=== PATIENT | female | born 1940 | race Caucasian/White ===

== ENCOUNTER 2017-06-20 02:56 | Inpatient (IN) | payer OTHER ==
[~2017-06-20] VITALS: Ht 165.1 cm; Wt 90.7 kg
[2017-06-20] VITALS (8 sets, daily range): BP systolic 93–161; BP diastolic 38–70
--- NOTE | 2017-06-20 02:56 | NUR ---
76/F BIBA FROM [facility] EXTENDED CARE W/C/O ALOC X 41 MINUTES AGO. PT NONVERBAL BASELINE BUT PER EMS ABLE TO FOLLOW COMMANDS " SHE CAN BRING HER HAND UP FOR ACCUCHECK PER FACILITY". PERRL, PT WITH TRACH AND VENT DEPENDENT, SATS 98%, RHONCHI THOMAS THROUGHOUT, GREEN/YELLOW THICK SPUTUM NOTED. RT AT BEDSIDE. PER EMS TEMP 101.2 F, CURRENT TEMP 101.7 RECTALLY. BS 271 EN ROUTE. ABD SOFT AND DISTENDED, GTUBE NOTED, STOMA INTACT. Patient noted to have existing wounds upon arrival to ER. Photos taken of wound and placed in chart. Physician informed. PMH DM, HTN, DEMENTIA, CHRONIC RESP FAILURE, GTUBE, TRACH-VENT.
--- NOTE | 2017-06-20 02:56 | NUR ---
PT ROB ALS. TAKEN TO BED 10
[2017-06-20] MEDS ORDERED: NACL 0.9% 1,000 ML IV SCH (03:00)
--- NOTE | 2017-06-20 03:00 | NUR ---
Dr. Gordon evaluating patient.
--- NOTE | 2017-06-20 03:02 | NUR ---
RT AT BEDSIDE
[2017-06-20] MEDS ORDERED: ACETAMINOPHEN 650 MG SUPP RC ONE (03:10)
[2017-06-20] MEDS ORDERED: IBUPROFEN 600 MG TAB GT ONE (03:10)
--- NOTE | 2017-06-20 03:30 | NUR ---
# 16 FR Napier catheter with 10 ml utilizing sterile technique. Immediate return of 150 ml YELLOW urine noted. Bedside drainage bag placed below level of bladder. Urine sample collected and sent to lab. Pt tolerated procedure WELL.
--- NOTE | 2017-06-20 03:50 | NUR ---
X-Ray at bedside.
[2017-06-20 03:54] LABS: HEMATOCRIT 29.1 % (36-48); HEMOGLOBIN 9.7 g/dL (12.0-16.0); MEAN CORPUSCULAR HEMOGLOBIN 30 pg (27-31); MEAN CORPUSCULAR HGB CONC 33 g/dL (33-37); PLATELET COUNT (AUTO) 204 K/uL (140-450); RED CELL DISTRIBUTION WIDTH 14.7 % (11.6-13.7); WHITE BLOOD COUNT (AUTO) 8.5 K/uL (4.8-10.8)
[2017-06-20 04:03] LABS: EOSINOPHILS % (MANUAL) 2 % (0-4); LYMPHOCYTES % (MANUAL) 2 % (20-46); MONOCYTES % (MANUAL) 1 % (5-12)
[2017-06-20 04:04] LABS: ANION GAP 8.2 (8-16); CARBON DIOXIDE 39.3 mmol/L (21-32); CHLORIDE 96 mmol/L (98-107); CREATININE 0.7 mg/dL (0.6-1.3); GLUCOSE 233 mg/dL (74-106); POTASSIUM 4.5 mmol/L (3.5-5.1); SODIUM SERUM 139 mmol/L (136-145); UREA NITROGEN, BLOOD 20 mg/dL (7-18)
[2017-06-20 04:10] LABS: ALBUMIN 2.6 g/dL (3.4-5.0); ASPARTATE AMINOTRANSFERASE 48 U/L (15-37); TOTAL BILIRUBIN 0.2 mg/dL (0.0-1.0)
[2017-06-20] MEDS ORDERED: VANCOMYCIN 1,000 MG in DEXTROSE 5% 250 ML IV ONE (04:10)
[2017-06-20] MEDS ORDERED: PIPERACILLIN/TAZOBACTAM 3.375 GM in DEXTROSE 5% 50 ML IV ONE (04:10)
[2017-06-20 04:13] LABS: APPEARANCE,URINE CLEAR (CLEAR); BILIRUBIN,URINE NEGATIVE (NEGATIVE); BLOOD, URINE 1+ (NEGATIVE); COLOR,URINE YELLOW (YELLOW); LEUKOCYTE ESTERASE ,URINE TRACE (NEGATIVE); NITRITE, URINE NEGATIVE (NEGATIVE); PH,URINE 6.5 (5.0-9.0); UGLUCOSE NEGATIVE (NEGATIVE)
[2017-06-20 04:29] LABS: RBC,URINE 0-5 (RARE) /HPF (0-5)
[2017-06-20] MEDS ORDERED: VANCOMYCIN 1,000 MG VIAL ONE (04:30)
[2017-06-20] MEDS ORDERED: PIPERACILLIN/TAZOBACTAM 3.375 GM VIAL IV ONE (04:30)
[2017-06-20] MEDS ORDERED: ONDANSETRON 4 MG/2 ML VIAL IVP PRN (05:15)
[2017-06-20] MEDS ORDERED: HYDROcodone/APAP 7.5/325 MG 1 TAB PO PRN (05:15)
[2017-06-20] MEDS ORDERED: ACETAMINOPHEN 325 MG TAB PO PRN (05:15)
--- NOTE | 2017-06-20 05:23 | NUR ---
PT ON TELE HOLD UNTIL CHANGE OF SHIFT
--- NOTE | 2017-06-20 05:30 | NUR ---
Patient appears to be resting comfortably in bed. Vital Signs within normal limits. Respirations even and unlabored.
[2017-06-20] MEDS: NACL 0.9% 1,000 ML IV SCH ×3 (05:33→21:06)
--- NOTE | 2017-06-20 06:24 | NUR ---
Patient noted to have existing wounds upon arrival to ER. Photos taken of wound and placed in chart. Wound covered with dressing. Physician informed.
--- NOTE | 2017-06-20 06:55 | NUR ---
ASSISTED IN TRANSPORTING PATIENT FROM ER TO ROOM 122B. PATIENT BAGGED IN ROUTE AND SPO2 MAINTAINED ABOVE 97%. VENT IN ROOM AT BEDSIDE WITH SETTINGS OF AC 14, 500, +5, 35%. ESPOSITO SUCTION CONNECTED TO WALL SUCTION. BRAKES ARE ON ON VENT. AMBU BAG AT BEDSIDE. PATIENT APPEARS COMFORTABLE WITH NO RESPIRATORY DISTRESS.
--- NOTE | 2017-06-20 07:00 | NUR ---
Patient will be admitted to care of [facility]. Admited to TELE. Will go to room 122B Belongings list completed. BEDSIDE Report to JOSEFINA VYAS.
--- NOTE | 2017-06-20 07:49 | NUR ---
RECEIVED PT ON UNIT VIA GURNEY, PT IS RESTING IN BED, SEMI FOWLERS POSITION, PT IS AAOX1, PT IS ON TRACH TO VENT, VENT SETTINGS AC 14, TV 500, FIO2 50, PEEP 5, PT HAS IV ON HER LEFT AND RIGHT HAND, PATENT, INTACT, FLUSHING WELL, LEFT HAND IS SL, PT HAS A STAGE 1 PRESSURE ULCER ON HER COCCYX AREA, PT HAS G-TUBE IN PLACE, SHAH CATHETER IS IN PLACE, NO S/S OF RESPIRATORY DISTRESS OR DISCOMFORT NOTED AT THIS TIME, ORIENTED PT TO ROOM, DISCUSSED PLAN OF CARE WITH PT, PT IS UNABLE TO VERBALIZE UNDERSTANDING, CALL LIGHT WITHIN REACH, WILL CONTINUE TO MONITOR.
--- NOTE | 2017-06-20 08:30 | NUR ---
PATIENT HAS BEEN SCREENED AND CATEGORIZED HIGH NUTRITION RISK. PATIENT WILL BE SEEN WITHIN 1-2 DAYS OF ADMISSION. 06/20/17-06/21/[address]
[2017-06-20 08:53] LABS: PROTHROMBIN TIME 10.9 secs (10.8-13.4)
[2017-06-20] MEDS: DOCUSATE SODIUM 100 MG GELCAP PO SCH ×2 (09:00→21:10)
--- NOTE | 2017-06-20 09:05 | NUR ---
VENT CHECK. DAUGHTER AT BEDSIDE. SUCTIONED PATIENT 2 TIMES AND RECEIVED SCANT TO SMALL CREAMY YELLOW, THIN SECRETIONS. CHANGED TRACH GAUZE DRESSING THAT WAS SATURATED. B/S: COARSE BILATERALLY.
[2017-06-20 10:21] LABS: FREE T4 (FREE THYROXINE) 0.94 ng/dL (0.76-1.46); MAGNESIUM 2.1 mg/dL (1.8-2.4); PHOSPHORUS 2.5 mg/dL (2.5-4.9); THYROID STIMULATING HORMONE 1.11 uIU/mL (0.34-3.74)
--- NOTE | 2017-06-20 11:30 | NUR ---
PT IS SLEEPING ON THE BED. VITAL SIGNS TAKEN. NO SIGNS OF DISTRESS NOTED. WILL CONTINUE TO MONITOR.
[2017-06-20] MEDS ORDERED: VANCOMYCIN HCL 750 MG in DEXTROSE 5% 250 ML IV SCH (12:00)
[2017-06-20] MEDS ORDERED: ALBUTEROL SULFATE/IPRATROPIU 3 ML SOL IH PRN (12:00)
[2017-06-20] MEDS ORDERED: DEXTROSE 50% 50 ML SYR IVP PRN (12:00)
[2017-06-20] MEDS ORDERED: OSC500 PO (12:01)
[2017-06-20] MEDS ORDERED: [UNRECOGNIZED DRUG - CODE] PO (12:01)
[2017-06-20] MEDS ORDERED: CARB1TAB37 PO (12:01)
[2017-06-20] MEDS ORDERED: VANCOMYCIN PER PHARMACY MC PRN (13:20)
[2017-06-20] MEDS: PIPER/TAZO 2.25GM/D5W PREMIX 50 ML IV SCH ×2 (13:27→21:10)
--- NOTE | 2017-06-20 13:30 | NUR ---
VENT CHECK. CHANGED HME AND SUCTIONED PT 2 TIMES RECEIVED SMALL, BEAR, FROTHY SECRETIONS. SUCTIONED PATIENTS MOUTH.
--- NOTE | 2017-06-20 13:40 | NUR ---
PT IS ASLEEP LYING ON THE BED. NO SIGNS OF DISTRESS NOTED. TWO SIDE RAILS UP, WILL CONTINUE TO MONITOR.
[2017-06-20] MEDS: LEVOFLOXACIN 750 MG/D5W PREMIX 150 ML IV SCH (15:26)
--- NOTE | 2017-06-20 15:36 | NUR ---
PT IS BEING CLEANED AND REPOSITIONED TO HER RIGHT LATERAL SIDE BY THE CLIENT REPORTING ASSOCIATE AND RN, JOSEFINA, MADE COMFORTABLE. MEDICATION STARTED ON IV PIGGYBACK, LEVAQUIN AT 100ML/HR. PT TOLERATED IT. NO SIGNS OF DISTRESS NOTED AT THIS TIME. CALL LIGHT WITHIN REACH. WILL CONTINUE TO MONITOR.
[2017-06-20] MEDS: ALBUTEROL SULFATE/IPRATROPIU 3 ML SOL IH SCH ×2 (15:40→19:27)
--- NOTE | 2017-06-20 16:00 | NUR ---
VENT CHECK AND TRACH CARE AND INLINE NEBULIZER TREATMENT. GAVE NEBULIZED TX INLINE AND PT HAD NO ADVERSE REACTION OR RESPIRATORY DISTRESS FROM TX. SUCTIONED PATIENT 2 TIMES AND PT DOES NOT COUGH. FROM SUCTIONING RECEIVED SMALL, BEAR, THIN, FROTHY SECRETIONS. CLEANED TRACH AREA THAT WAS VERY SATURATED WITH SECRETIONS. CHANGED INNER CANNULA. PLACED NEW TRACH GAUZE. SKIN AROUND TRACH IS MOIST THERE IS NO REDNESS, SWELLING OR DRAINING. SKIN AREA AROUND TRACH APPEARS CLEAN, INTACT AND HEALTHY. HEAD OF BED AT 30 DEGREES. PATIENT APPEARS COMFORTABLE WITH NO RESPIRATORY DISTRESS.
--- NOTE | 2017-06-20 16:03 | NUR ---
PT WAS STARTED ON DIABETIC SOURCE FEEDING AT 65CC/HR. VIA G-TUBE, WITH 50CC OF WATER EVERY 4H. PT. TOLERATED IT AND NO SIGNS OF DISTRESS NOTED.CALL LIGHT WITHIN REACH. TWO SIDE RAILS UP. WILL CONTINUE TO MONITOR.
--- NOTE | 2017-06-20 16:09 | NUR ---
PT IS ASLEEP ON THE BED. VITAL SIGNS TAKEN. NO UNTOWARD SIGNS AND SYMPTOMS NOTED. WILL CONTINUE TO MONITOR.
[2017-06-20] MEDS: BLOOD GLUCOSE MONITORING 1 DEV DEV FS SCH ×2 (17:03→21:16)
[2017-06-20] MEDS: VANCOMYCIN 750 MG in NACL 0.9% 250 ML IV SCH (17:39)
--- NOTE | 2017-06-20 17:39 | NUR ---
PT IS AWAKE LYING ON THE BED WITH DAUGHTER ON THE BEDSIDE. PT WAS STARTED ON VANCOMYCIN 165ML/HR IV PIGGYBACK. NO SIGNS OF DISTRESS NOTED AT THIS TIME. WILL CONTINUE TO MONITOR.
--- NOTE | 2017-06-20 19:21 | NUR ---
ENDORSED PT TO LEARN TO SWIM INSTRUCTOR NURSEKENN FOR CONTINUITY OF CARE. PT IS STABLE AT THIS TIME. NO SIGNS OF DISTRESS NOTED.DAUGHTER IS ON THE BEDSIDE.
--- NOTE | 2017-06-20 19:30 | NUR ---
RECEIVED FROM AM RN IN BED . DAUGHTER AT BEDSIDE. PT. DX. CHANGE OF LOC AND ON TRACH TO VENT WITH 02 SAT OF 100% FI02 AT 30 % RATE AT 14. SHAH CATHETER IN PLACE DRAINING WELL WITH YELLOW URINE , GT FEEDING AT 65 ML / HOUR AND WITH NS AT 165 ML/H. IVF SITE INTACT AND WITH GOOD BLOOD RETURN. PT. TOTAL CARE. APHASIC. NEEDS WILL BE ANTICIPATED AND PT. WILL BE TURNED Q 2H RT WITH PRESSURE ULCER TO SACRAL AREA.
[2017-06-20] MEDS ORDERED: NUT TX GLUC INTOLER LAC FR SOY PO SCH (21:00)
[2017-06-20] MEDS: CARBIDOPA/LEVODOPA 25/100 MG 1 TAB PO SCH (21:11)
[2017-06-20] MEDS: INSULIN LISPRO SLIDING SCALE 100 UNITS/ML VIAL SUBQ PRN (21:16)
--- NOTE | 2017-06-20 22:05 | NUR ---
INFORMED RESIDENT MD ACEVEDO ABOUT GT LEAKING. WILL HOLD FEEDING FOR NOW TILL FURTHER ORDERS. MD ANDREW IN HERE TO SEE PT. NEEDS ANTICIPATED AND WILL BE MET.
[2017-06-21] VITALS (13 sets, daily range): BP systolic 0–145; BP diastolic 0–59
--- NOTE | 2017-06-21 00:40 | NUR ---
PT. TURNED Q 2H. SUCTIONED MOST OF TIMES RT DROOLING FROM MOUTH AND SOMETIMES NOSE. GT SUCTIONING PRN . 100 02 SAT AT 97-100%. TELEMETRY MONITORING.
--- NOTE | 2017-06-21 02:00 | NUR ---
PT. SUCTIONED. TURNED TO SIDES Q 2H. PILLOW SUPPORT TO PRESSURE AREAS. NEEDS WILL BE ANTICIPATED AND WILL BE MET.
[2017-06-21] MEDS: PIPER/TAZO 2.25GM/D5W PREMIX 50 ML IV SCH ×3 (05:00→20:52)
--- NOTE | 2017-06-21 05:00 | NUR ---
PT. SUCTIONED . RT IN HERE TO CHECK ON PT. NO RESTLESSNESS NOTED. MONITORED FREQUENTLY. AFEBRILE.
[2017-06-21] MEDS: VANCOMYCIN 750 MG in NACL 0.9% 250 ML IV SCH ×2 (05:54→16:48)
[2017-06-21] MEDS: BLOOD GLUCOSE MONITORING 1 DEV DEV FS SCH ×4 (06:17→21:43)
[2017-06-21 06:47] LABS: BASOPHILS # (AUTO) 0.1 K/uL (0.00-0.22); BASOPHILS % (AUTO) 0.7 % (0.0-2.0); EOSINOPHILS # (AUTO) 0.5 K/uL (0-0.4); HEMATOCRIT 26.7 % (36-48); HEMOGLOBIN 8.8 g/dL (12.0-16.0); LYMPHOCYTES # (AUTO) 1.5 K/uL (2.5-16.5); MEAN CORPUSCULAR HEMOGLOBIN 30 pg (27-31); MEAN CORPUSCULAR HGB CONC 33 g/dL (33-37); MEAN CORPUSCULAR VOLUME 91.4 fL (80-94); MONOCYTES # (AUTO) 0.5 K/uL (0.8-1.0); MONOCYTES % (AUTO) 5.6 % (1.7-9.3); NEUTROPHILS # (AUTO) 5.5 K/uL (1.8-7.7); NEUTROPHILS % (AUTO) 68.7 % (42.2-75.2); PLATELET COUNT (AUTO) 190 K/uL (140-450); RED BLOOD CELL COUNT(AUTO) 2.92 MIL/uL (4.20-5.40); RED CELL DISTRIBUTION WIDTH 14.6 % (11.6-13.7)
[2017-06-21 07:08] LABS: ANION GAP 10.6 (8-16); CHLORIDE 105 mmol/L (98-107); CREATININE 0.7 mg/dL (0.6-1.3); GLUCOSE 153 mg/dL (74-106); POTASSIUM 3.6 mmol/L (3.5-5.1); SODIUM SERUM 144 mmol/L (136-145); UREA NITROGEN, BLOOD 18 mg/dL (7-18)
[2017-06-21] MEDS: ALBUTEROL SULFATE/IPRATROPIU 3 ML SOL IH SCH ×3 (07:10→19:09)
--- NOTE | 2017-06-21 07:10 | NUR ---
RECEIVED ON A FoodEssentialsSCAPE R860 VENTILATOR PLUGGED INTO RED OUTLET TOLERATING WELL WITHOUT ADVERSE REACTIONS NOTED TO A PORTEX DCT #8 AIRWAY SECURED WIT A BHUPINDER TRACH TIE CUFF PRESSURE CHECKED NOTED AMBU BAG NOTED AT HOB LOC ASLEEP INTERMITTENTLY AWAKENS BREATH SOUNDS RHONCHI BILATERAL WITH GOOD CHEST RISE DEEP TRACHEAL SUCTION FOR LARGE THICK YELLOW SECRETIONS AIRWAY PATENT
--- NOTE | 2017-06-21 07:23 | NUR ---
ENDORSED TO THE NEXT RN FOR CONTINUITY OF CARE. PT. NEEDS ANTICIPATED AND MET. TELEMETRY MONITORING. TURNED Q 2H. PILLLOW SUPPORT TO PRESSURE AREAS.
--- NOTE | 2017-06-21 07:25 | NUR ---
RECEIVED REPORT FROM NIGHT RN AT PT BEDSIDE. PATIENT TRACH TO VENT. WITHDRAWS TO PAIN. CONTRACTED ALL EXTREMITIES. AWAKE, DOES NOT FOLLOW COMMANDS. G-TUBE SITE MODERATE DRAINAGE, PER RN MD CONSULTED AWAITING GI CONSULTATION. PATIENT HAS SHAH IN PLACE TO GRAVITY IN MODERATE AMOUNT. OFFLOADED PRESSURE AREAS. SKIN KEPT CLEAN AND DRY. BEDSIDE MONITOR ALARMS CHECKED.
[2017-06-21] MEDS: LACTOBACILLUS RHAMNOSUS GG 1 EACH CAP GT SCH (09:00)
[2017-06-21] MEDS: CARBIDOPA/LEVODOPA 25/100 MG 1 TAB PO SCH ×2 (09:00→20:53)
[2017-06-21] MEDS: CALCIUM CARBONATE 500 MG TAB PO SCH (09:00)
[2017-06-21] MEDS: CLINICAL MONITORING MC SCH (09:00)
[2017-06-21] MEDS: DOCUSATE SODIUM 100 MG GELCAP PO SCH ×2 (09:00→20:53)
--- NOTE | 2017-06-21 10:06 | NUR ---
RESTING WELL NO SOB NOTED GOOD CHEST RISE DEEP TRACHEAL SUCTION FOR MODERATE THICK YELLOW SECRETIONS AIRWAY PATENT MASIMO RADICAL-7 CONTINUOS PULSE OXIMETER AT BEDSIDE ON AND FUNCTIONING WELL LOW SATURATION ALARM SET AT 92%
--- NOTE | 2017-06-21 10:57 | NUR ---
WOUND EVALUATION NOTE: REASON FOR WOUND EVALUATION: SACRALCOCCYX ULCER COMPLETE SKIN ASSESSMENT DONE ON THIS 76 Y/O FEMALE PATIENT FROM [facility] TO [facility], WITH INITIAL DIAGNOSIS OFANS. PAST MEDICAL HISTORY INCLUDES, DYSPHAGIA WITH GT RESPIRATORY FAILURE WITH TRAVH, CVA, A FIB, TBI, DM, AND SEIZURE. ALL ABOVE INFORMATION WAS OBTAINED FROM THE ADMISSION H&P. LABS ARE WBC 8.0, H/H 8.8/26.7 GLUCOSE 153, ALBUMIN 2.5. PT SKIN WARM TO TOUCH, SEVERE CONTRACTURES TO BOTH UPPER AND LOWER EXTREMITIES. TOENAILS ARE SHORT AND CLEAN, NO EDEMA, BLE WITH NO HAIR GROWTH AND NORMAL PEDAL PULSES. G TUBE IN PLACE SEEPING OUT YELLOW COLOR FLUIDS. #16 FR F/C PATENT AND INTACT. PLAN OF CARE AND PRESSURE PREVENTIVE MEASURES DISCUSSED WITH PRIMARY RN CLARIFICATION: NO PRESSURE INJURY AT SACRAL COCCYX AREA AT THIS TIME. INTEGUMENTARY: -TRACHEOSTOMY STOMA SITE CLEAN AND DRY, DONATO-STOMA SKIN INTACT. -GT STOMA SITE STOMACH CONTENT YELLOWISH FLUIDS SEEPING OUT, DONATO-SKIN INTACT AT THIS TIME, ABDOMINAL BULGING -IAD TO PERIANAL -XEROSIS SKIN CONDITION TO BACK, R/L HIPS, R/L BUTTOCKS AND SACRALCOCCYX RECOMMENDATIONS: -PENDING GI CONSULT -KEEP GT SITE DRY AND CLEAN AT ALL TIMES, CHANGE SPLIT DRESSING PRN IF SOILING -APPLY HYDRAGUARD TO BACK, R/L HIPS, R/L BUTTOCKS AND SACRALCOCCYX XEROSIS BID WC -APPLY OPTIFORM DRESSING TO SACRALCOCCYX PREVENTIVE MEASUREMENT AT ALL TIME , CHANGE PRN IF SOILING -CLEANSE PERIANAL IAD WITH SOAP AND WATER, PAT DRY, APPLY Z-GUARD TO PERIANAL BID WC AND PRN IF SOILING -APPLY BODY LOTION TO BLE DRY SKIN -TURN AND REPOSITION PATIENT Q2H -ASSESS AND MONITOR SKIN CONDITION DURING POSITION CHANGE, PLEASE PAY ATTENTION TO BILATERAL MEDIAL KNEES, PERIANAL AND BILATERAL HEELS -OFFLOAD BILATERAL HEELS BY PLACING PILLOWS UNDER CALVES AT ALL TIMES, UNLESS OTHERWISE CONTRAINDICATED-KEEP -KEEP SKIN CLEAN AND DRY AT ALL TIMES. -PRESSURE REDISTRIBUTION SURFACE THERAPY -CONTINUE TO FOLLOW RD RECOMMENDATION RECOMMENDATIONS DISCUSSED WITH PRIMARY RN WILL FOLLOW UP PATIENT Q 7-10 DAYS AND PRN. PLEASE CONTACT WOUND CARE NURSE FOR ANY QUESTIONS AND CHANGES IN WOUND CONDITION. Addendum: 06/21/17 at 1113 by Daysi Mckay RN (Grace) CORRECTION: INITIAL DX: AMS; PAST MEDICAL HX INCLUDES CVA, PARKINSON AND HTN.
--- NOTE | 2017-06-21 11:27 | NUR ---
PATIENT ASSISTED IN CHANGING OF POSITIONS Q2H. G-TUBE SITE CONTINUES TO LEAK IN MODERATE AMOUNT. FEEDING CONTINUES TO BE HELD WELL PO MEDICATIONS. IV SITE PATENT AND INTACT. ORAL CARE PROVIDED, MINIMAL THIN SECRETIONS NOTED.
--- NOTE | 2017-06-21 11:31 | NUR ---
DE. GRZEGORZ SALDAÑA AT BEDSIDE CHANGED VT TO 600ml INCREASED RATE TO 18 bpm NEW ORDERS: ABG AT 1500 CALL WITH RESULTS Addendum: 06/21/17 at 1142 by Ramone Gutierrez RT "DR" Addendum: 06/21/17 at 1145 by Ramone Gutierrez RT LOC ASLEEP RESTING COMFORTABLY NO EVIDENCE OF RESPIRATORY DISTRESS NOTED GOOD CHEST RISE DEEP TRACHEAL SUCTION FOR SMALL THICK YELLOW SECRETIONS AIRWAY PWTENT
--- NOTE | 2017-06-21 11:33 | NUR ---
PATIENT SEEN BY DR. SALDAÑA AT PT BEDSIDE. NEW VENT ORDERS. PT RESTING, NO S/S OF ACUTE DISTRESS NOTED.
--- NOTE | 2017-06-21 11:45 | NUR ---
CALLED DR GRZEGORZ SALDAÑA IN RE ABG ORDER TRBO "OK TO ORDER"
[2017-06-21] MEDS: FOAM DRESSING TP SCH (13:40)
--- NOTE | 2017-06-21 13:56 | NUR ---
NO DISTRESS NOTED GOOD CHEST RISE DEEP TRACHEAL SUCTION FOR SMALL THIN YELLOW SECRETIONS AIRWAY PATENT
--- NOTE | 2017-06-21 14:00 | NUR ---
PATIENT SEEN BY DR. CORONADO AT BEDSIDE. G-TUBE REMOVED AT BEDSIDE, PLACED COLLECTION BAG ON STOMA. MD TO REPLACE G-TUBE TOMORROW. NO S/S OF ACUTE DISTRESS NOTED.
--- NOTE | 2017-06-21 14:35 | NUR ---
06/21/17 RD INITIAL ASSESSMENT COMPLETED PLEASE REFER TO NUTRITION ASSESSMENT UNDER CARE ACTIVITY FOR ESTIMATED NUTRITIONAL NEEDS. 1. RECOMMEND NUTRITION SUPPORT: DIABETISOURCE AT 60 ML/HR VIA G-TUBE -THIS WILL PROVIDE 1440 ML TOTAL VOLUME, 1728 KCALS, 86.4 G PROTEIN TO MEET 100% OF PTS ESTIMATED CALORIE AND PROTEIN NEEDS. 3. RD TO FOLLOW-UP 2-3 DAYS, HIGH RISK OPAL DUARTE RD
--- NOTE | 2017-06-21 14:53 | NUR ---
NO EVIDENCE OF RESPIRATORY DISTRESS NOTED AT THIS TIME BREATH SOUNDS CLEAR BILATERAL WITH GOOD AERATION THROUGHOUT
[2017-06-21] MEDS: LEVOFLOXACIN 750 MG/D5W PREMIX 150 ML IV SCH (14:54)
--- NOTE | 2017-06-21 15:25 | NUR ---
CALLED DR. GRZEGORZ SALDAÑA ([phone]) TO REVIEW AB SAMPLE REPORT
--- NOTE | 2017-06-21 15:27 | NUR ---
CALL BACK FROM DR.OWAIS SALDAÑA REVIEWED ABG REPORT NEW ORDERS: TORBO RETURN TO PREVIOUS SETTINGS RATE 14 VT 500ml ABG IN AM 0800
--- NOTE | 2017-06-21 15:54 | NUR ---
PER TORBO FROM DR GRZEGORZ ASLDAÑA CHANGED VT 500ml RATE 14 bpm NO SOB NOTED GOOD CHEST RISE NO SUCTIONING AT THIS TIME CIVIL ENGINEERING INTERN TO MONITOR
--- NOTE | 2017-06-21 16:00 | NUR ---
LINENS CHANGED. PT SKIN KEPT CLEAN AND DRY. NO S/S OF ACUTE DISTRESS NOTED. CONTINUED ON TRACH TO VENT.
[2017-06-21] MEDS: INSULIN LISPRO SLIDING SCALE 100 UNITS/ML VIAL SUBQ PRN (16:47)
[2017-06-21] MEDS: DEXT 5% / NACL 0.45% 1,000 ML IV SCH (17:00)
--- NOTE | 2017-06-21 17:24 | NUR ---
RESTING WELL NO SOB NOTED AT THIS TIME GOOD CHEST RISE DEEP TRACHEAL SUCTION FOR ASMALL THICK YELLOW SECRETIONS AIRWAY PATENT FAMILY IN ROOM
--- NOTE | 2017-06-21 19:15 | NUR ---
SBAR REPORT GIVEN TO ASAEL LINDSEY AT PT BEDSIDE. PT FAMILY AT BEDSIDE. NO S/S OF ACUTE DISTRESS NOTED. CONTINUED ON VENT.
--- NOTE | 2017-06-21 19:16 | NUR ---
RECEIVED REPORT FROM DAY RN AT PT BEDSIDE. PATIENT TRACH TO VENT. WITHDRAWS TO PAIN. CONTRACTED ALL EXTREMITIES. AWAKE, DOES NOT FOLLOW COMMANDS. G-TUBE SITE NOT BEING USED AT THIS TIME. PATIENT HAS SHAH IN PLACE TO GRAVITY IN MODERATE AMOUNT. OFFLOADED PRESSURE AREAS. SKIN KEPT CLEAN AND DRY. BEDSIDE MONITOR ALARMS CHECKED.
--- NOTE | 2017-06-21 20:08 | NUR ---
RECEIVED PT ON AC/VC RR14, VT 500, PEEP 5, [id number]%. PT WAS NOT IN RESPIRATORY DISTRESS. SUCTIONED MODERATE THICK YELLOW SECRETIONS. VENT ALARMS ON AND FUNCTIONING. VENT PLUGGED INTO RED OUTLET AND AMBUBAG IN ROOM. AIRWAY IS SECURED AND PATENT. PT FAMILY WAS IN ROOM. WILL CONTINUE TO MONITOR.
--- NOTE | 2017-06-21 21:30 | NUR ---
PT TURNED AT THIS TIME, PT CLEAN AND DRY. ALL NEEDS MET, SAFETY PRECAUTIONS IN PLACE, WILL CONTINUE TO MONITOR.
--- NOTE | 2017-06-21 22:30 | NUR ---
IV NO LONGER PATENT AND INTACT, IV REMOVED TIP IN TACT. NEW IV STARTED IN THE L FOOT BY MILLIE VYAS. DR. AL STATED IT IS OKAY TO HAVE IV IN THE FOOT.
--- NOTE | 2017-06-21 22:40 | NUR ---
DR. ANDREW IN TO SEE PT
--- NOTE | 2017-06-21 23:00 | NUR ---
PT TURNED AT THIS TIME, PT CLEAN AND DRY. ALL NEEDS MET, SAFETY PRECAUTIONS IN PLACE, WILL CONTINUE TO MONITOR.
[2017-06-22] VITALS: BP 128/62
--- NOTE | 2017-06-22 01:00 | NUR ---
PT TURNED AT THIS TIME, PT CLEAN AND DRY. ALL NEEDS MET, SAFETY PRECAUTIONS IN PLACE, WILL CONTINUE TO MONITOR.
[2017-06-22] MEDS: HYDRAGUARD CREAM TP SCH ×2 (01:27→12:22)
--- NOTE | 2017-06-22 03:00 | NUR ---
PT TURNED AT THIS TIME, PT CLEAN AND DRY. ALL NEEDS MET, SAFETY PRECAUTIONS IN PLACE, WILL CONTINUE TO MONITOR.
[2017-06-22 04:00] VITALS: BP 130/67
[2017-06-22] MEDS: VANCOMYCIN 750 MG in NACL 0.9% 250 ML IV SCH (04:07)
[2017-06-22] MEDS: PIPER/TAZO 2.25GM/D5W PREMIX 50 ML IV SCH ×2 (05:47→12:21)
--- NOTE | 2017-06-22 05:58 | NUR ---
PT CLEANED, CHANGED, CATHETER CARE PROVIDED, VAAP CARE PROVIDED, ORAL CARE PROVIDED, PT TURNED Q2, ALL NEEDS MET, WILL CONTINUE TO MONITOR
[2017-06-22] MEDS: BLOOD GLUCOSE MONITORING 1 DEV DEV FS SCH ×2 (06:32→12:01)
[2017-06-22] MEDS: ALBUTEROL SULFATE/IPRATROPIU 3 ML SOL IH SCH ×2 (06:43→13:04)
--- NOTE | 2017-06-22 07:00 | NUR ---
RECEIVED PATIENT ON VENT AC/VC 14, 500, 30%, +5. PATIENT TOLERATING VENT WELL. VENT PLUGGED INTO RED OUTLET. AMBU BAG AT HEAD OF BED. CONTINUOUS PULSE OX ON AND FUNCTIONING. VENT ALARMS ON AND AUDIBLE. PATIENT TRACHED WITH PORTEX 8. AIRWAY SECURE AND PATENT. BREATH SOUNDS REVEAL COURSE, CRACKLES ON EXPIRATION. TX GIVEN. PATIENT TOLERATED TX WELL. NO ADVERSE SIDE EFFECTS. SUCTIONED PT POST TX. SUCTIONED MODERATE AMOUNT OF THICK WHITE/YELLOW SECRETIONS. BREATH SOUNDS CLEAR POST TX AND SUCTIONING. NO RESPIRATORY DISTRESS AT THIS TIME. WILL CONTINUE TO MONITOR.
--- NOTE | 2017-06-22 07:31 | NUR ---
REPORT GIVEN TO DAY NURSE FOR CONTINUITY OF CARE, PT IN STABLE CONDITION
--- NOTE | 2017-06-22 07:32 | NUR ---
RECEIVED REPORT FROM METAL MACHINE SETTER NURSE AT BEDSIDE FOR CONTINUITY OF CARE. PT IS SLEEPING. PER METAL MACHINE SETTER PT IS APHASIC. PT HAS TRACH TO VENT. AC 14K, FIO2 30%, TV 500, PEEP 5. NO GTUBE AT THIS TIME. PER METAL MACHINE SETTER, IT WAS LEAKING. PULLED IT OUT. DR. Perez PINEDA WILL REINSERT TODAY. ALL GTUBE MEDS HAVE BEEN HELD. SKIN-ON BACK, HEART SHAPED FOAM DRY AND DRESSING INTACT. IV ON L FOOT 24G,D5 1/2 NS AT 50ML. PT HAS SHAH CATH IN PLACE, CLEAR YELLOW URINE IN SHAH BAG. SCD'S IN PLACE. PT IS NOW MS. WILL CONTINUE TO MONITOR PT.
[2017-06-22 08:00] VITALS: BP 152/69
--- NOTE | 2017-06-22 08:25 | NUR ---
ABG DRAWN AT 0815. RESULTS GIVEN TO DR SALDAÑA. MAINTAIN CURRENT VENT SETTINGS. NO CHANGES TO BE MADE AT THIS TIME.
[2017-06-22] MEDS: FOAM DRESSING TP SCH (09:00)
[2017-06-22] MEDS: DOCUSATE SODIUM 100 MG GELCAP PO SCH (09:00)
[2017-06-22] MEDS: CARBIDOPA/LEVODOPA 25/100 MG 1 TAB PO SCH (09:00)
[2017-06-22] MEDS: LACTOBACILLUS RHAMNOSUS GG 1 EACH CAP GT SCH (09:00)
[2017-06-22] MEDS: CALCIUM CARBONATE 500 MG TAB PO SCH (09:00)
[2017-06-22] MEDS: CLINICAL MONITORING MC SCH (09:12)
--- NOTE | 2017-06-22 09:19 | NUR ---
HELD ALL SCHEDULED MORNING MEDS D/T NOT HAVING A GTUBE ACCESS. ONLY ADMINISTERED THE HEPARIN FOR ANTICOAGULANT THERAPY. PT TOLERATED WELL. DR SALDAÑA HERE TO ASSESS PT. MD KAREN CORONADO WILL BE HERE TO FOR THE GTUBE INSERTION. WILL CONTINUE TO MONITOR PT.
--- NOTE | 2017-06-22 09:26 | NUR ---
PATIENT QUIETLY RESTING. VENT CHECK DONE. TOLERATING VENT SETTINGS. WILL CONTINUE TO MONITOR.
[2017-06-22 10:44] LABS: ANION GAP 9.1 (8-16); CHLORIDE 106 mmol/L (98-107); CREATININE 0.8 mg/dL (0.6-1.3); GLUCOSE 176 mg/dL (74-106); POTASSIUM 3.1 mmol/L (3.5-5.1); SODIUM SERUM 141 mmol/L (136-145); UREA NITROGEN, BLOOD 12 mg/dL (7-18)
--- NOTE | 2017-06-22 10:51 | NUR ---
CM NOTE PER DR. HA, PATIENT IS STILL WAITING FOR GASTROENTEROLOGY AUTOMOBILE SERVICE STATION ATTENDANT FOR G TUBE REPLACEMENT. PER PIETER OF [facility], PATIENT CAN GO BACK TO RM [address] GARCÍA WHEN READY FOR DISCHARGE, NUMBER TO CALL FOR REPORT # [phone]. CHARGE NURSE LINDA VYAS AWARE.
--- NOTE | 2017-06-22 11:10 | NUR ---
PATIENT RESTING. BREATH SOUNDS COURSE TO CLEAR WITH SUCTIONING. SUCTIONED SMALL AMOUNT OF THICK YELLOW/WHITE SECRETIONS. TOLERATING VENT WELL. NO RESPIRATORY DISTRESS NOTED AT THIS TIME. WILL CONTINUE TO MONITOR.
--- NOTE | 2017-06-22 11:45 | NUR ---
Claudia BRUNSON NURSE HERE. REINSERTED THE GTUBE AND CHECKED FOR PLACEMENT AND RESIDUAL. PT TOLERATED WELL. Addendum: 06/22/17 at 1252 by Sherri Zapata RN PER DR CLIFF BRUNSON STATED SHE IS CLEARED TO BE D/C'D.
[2017-06-22] MEDS ORDERED: ZOS3.375I IV (11:46)
[2017-06-22] MEDS ORDERED: VAN1I (11:46)
[2017-06-22] MEDS ORDERED: LEVO750T2 PO (11:48)
[2017-06-22] MEDS ORDERED: INUL1CTB PO (11:53)
[2017-06-22] MEDS ORDERED: POTASSIUM CHLORIDE 10 MEQ TABER PO SCH (11:58)
[2017-06-22 12:00] VITALS: BP 122/53
[2017-06-22] MEDS ORDERED: POTASSIUM CHLORIDE 20% 40 MEQ/15 ML UDC GT SCH (12:02)
[2017-06-22] MEDS: DEXT 5% / NACL 0.45% 1,000 ML IV SCH (12:04)
[2017-06-22] MEDS: INSULIN LISPRO SLIDING SCALE 100 UNITS/ML VIAL SUBQ PRN (12:10)
--- NOTE | 2017-06-22 12:49 | NUR ---
CHECKED FOR PLACEMENT AND PATENCY AND RESIDUAL. ADMINISTERED PAIN MED AND POTASSIUM. PT HAD SOME FACIAL GRIMACING. NORCO CRUSHED AND GIVEN VIA GTUBE. FEEDING RESTARTED. WILL CHECK FOR TOLERANCE AND LEAKAGE.
--- NOTE | 2017-06-22 13:02 | NUR ---
CALLED [facility], GAVE REPORT TO FRANCO. PT IS TO GO TO ROOM 1A, UNDER DR GARCÍA. PT WILL BE GOING WITH IV ON L FOOT 24G SL. GTUBE SL. NO SHAH CATH. [facility] TO COME AND SENIOR ACCOUNTING MANAGER PT AT 1400. WILL GET PT READY.
--- NOTE | 2017-06-22 13:45 | NUR ---
PER MD, REMOVE SHAH. REMOVED SHAH. DISCONNECTED THE IV, SL. DISCONNECTED THE GTUBE. PT ALREADY IN TRANSPORT GOWN. OPTIFOAM INTACT AND DRY. PT IN STABLE CONDITION.
--- NOTE | 2017-06-22 13:55 | NUR ---
PT WHEELED OUT ON A GURNEY WITH 2 TRANSPORTERS AND 1 R/T. PT IS IN STABLE CONDITION.
[2017-06-23] MEDS ORDERED: LEVOFLOXACIN 750 MG/D5W PREMIX 150 ML IV SCH (14:00)
== END 2017-06-22 13:55 | disposition home or self-care (01) | DRG 871 ==
LOC: MED 02:56 → MTU 05:12
PROVIDERS: ADMIT Student in an Organized Health Care Education/Training Program; ATTEND Student in an Organized Health Care Education/Training Program
PROC: 5A1945Z Respiratory Ventilation, 24-96 Consecutive Hours (ICD-10-PCS; principal; 2017-06-20)
PROC: 0D20XUZ Change Feeding Device in Upper Intestinal Tract, External Approach (ICD-10-PCS; 2017-06-22)
DX: A41.9 Sepsis, unspecified organism (principal); J69.0 Pneumonitis due to inhalation of food and vomit; J96.21 Acute and chronic respiratory failure with hypoxia; Z99.11 Dependence on respirator [ventilator] status; G93.41 Metabolic encephalopathy; Z93.0 Tracheostomy status; J96.22 Acute and chronic respiratory failure with hypercapnia; N39.0 Urinary tract infection, site not specified; D68.59 Other primary thrombophilia; K94.29 Other complications of gastrostomy; Y83.8 Other surgical procedures as the cause of abnormal reaction of the patient, or of later complication, without mention of misadventure at the time of the procedure; Y82.8 Other medical devices associated with adverse incidents; I10 Essential (primary) hypertension; G20 Parkinson's disease; Z66 Do not resuscitate; Z16.24 Resistance to multiple antibiotics; F02.80 Dementia in other diseases classified elsewhere, unspecified severity, without behavioral disturbance, psychotic disturbance, mood disturbance, and anxiety; E11.69 Type 2 diabetes mellitus with other specified complication; D63.8 Anemia in other chronic diseases classified elsewhere; E87.6 Hypokalemia; E86.0 Dehydration; E11.65 Type 2 diabetes mellitus with hyperglycemia; R33.9 Retention of urine, unspecified; F03.90 Unspecified dementia, unspecified severity, without behavioral disturbance, psychotic disturbance, mood disturbance, and anxiety; M19.90 Unspecified osteoarthritis, unspecified site; J40 Bronchitis, not specified as acute or chronic; Z86.73 Personal history of transient ischemic attack (TIA), and cerebral infarction without residual deficits; Z79.4 Long term (current) use of insulin; Z82.49 Family history of ischemic heart disease and other diseases of the circulatory system; Z99.89 Dependence on other enabling machines and devices
CPT/HCPCS: 36415; 36600; 71045; 74018; 80048; 80053; 80202; 81001; 82150; 82803; 82948; 83036; 83605; 83690; 83735; 83880; 84100; 84439; 84443; 84484; 85025; 85610; 85730; 87040; 87070; 87081; 87086; 87186; 87205; 93005; 93970; 94003; 94640; 96361; 96365; 96368; 99285; J1644; J1815; J1956; J2543; J3370; J7030; J7620; Q0092

== ENCOUNTER 2019-05-08 12:12 | Inpatient (IN) | payer OTHER ==
[~2019-05-08] VITALS: Ht 165.1 cm; Wt 66.2 kg
[2019-05-08] VITALS (7 sets, daily range): BP systolic 82–153; BP diastolic 32–58
[~2019-05-08 12:12] MED LIST: CARB1TAB37 PO; INUL1CTB PO; LEVO750T2 PO; OSC500 PO; VAN1I; ZOS3.375I IV; [UNRECOGNIZED DRUG - CODE] PO
--- NOTE | 2019-05-08 12:12 | NUR ---
Patient BIBA ALS from [facility], transferred to bed 10. RN evaluating patient at bedside.
--- NOTE | 2019-05-08 12:14 | NUR ---
RESPIRATORY AT BEDSIDE.
[2019-05-08] MEDS ORDERED: cefTRIAXone 1,000 MG in DEXT 5% MINI-BAG PLUS 50 ML IV ONE (12:25)
--- NOTE | 2019-05-08 12:32 | NUR ---
VERBAL ORDER FOR SHAH INSERTION, STUDENTS AND INSTRUCTOR COMPLETING AT BEDSIDE
[2019-05-08] MEDS ORDERED: cefTRIAXone 1,000 MG VIAL ONE (12:41)
--- NOTE | 2019-05-08 12:45 | NUR ---
# 16 FR Napier catheter with 10 ml utilizing sterile technique. Immediate return of 50 ml YELLOW urine noted. Bedside drainage bag placed below level of bladder. Urine sample collected and sent to lab. Pt tolerated procedure WELL.
--- NOTE | 2019-05-08 13:26 | NUR ---
LAB AT BEDSIDE
[2019-05-08 13:41] LABS: BASOPHILS % (AUTO) 0.6 % (0.0-2.0); EOSINOPHILS # (AUTO) 0.4 K/uL (0-0.4); EOSINOPHILS % (AUTO) 5.6 % (0.0-4.0); HEMATOCRIT 26.4 % (36-48); HEMOGLOBIN 9.1 g/dL (12.0-16.0); LYMPHOCYTES # (AUTO) 1.9 K/uL (2.5-16.5); LYMPHOCYTES % (AUTO) 26.8 % (20.5-51.1); MEAN CORPUSCULAR HEMOGLOBIN 31 pg (27-31); MEAN CORPUSCULAR HGB CONC 35 g/dL (33-37); MEAN CORPUSCULAR VOLUME 88.4 fL (80-94); MONOCYTES # (AUTO) 0.3 K/uL (0.8-1.0); MONOCYTES % (AUTO) 4.8 % (1.7-9.3); NEUTROPHILS # (AUTO) 4.3 K/uL (1.8-7.7); NEUTROPHILS % (AUTO) 62.2 % (42.2-75.2); PLATELET COUNT (AUTO) 318 K/uL (140-450); RED BLOOD CELL COUNT(AUTO) 2.98 MIL/uL (4.20-5.40); RED CELL DISTRIBUTION WIDTH 14.6 % (11.6-13.7)
[2019-05-08 14:00] LABS: ALBUMIN 2.9 g/dL (3.4-5.0); ANION GAP 10.9 (8-16); ASPARTATE AMINOTRANSFERASE 64 U/L (15-37); CARBON DIOXIDE 34.3 mmol/L (21-32); CHLORIDE 100 mmol/L (98-107); CREATININE 0.8 mg/dL (0.6-1.3); GLUCOSE 148 mg/dL (74-106); POTASSIUM 3.2 mmol/L (3.5-5.1); SODIUM SERUM 142 mmol/L (136-145); TOTAL BILIRUBIN 0.2 mg/dL (0.0-1.0); UREA NITROGEN, BLOOD 41 mg/dL (7-18)
[2019-05-08] MEDS ORDERED: NACL 0.9% 1,000 ML IV ONE ×2 (14:10)
--- NOTE | 2019-05-08 14:13 | NUR ---
DR PRATER INFORMED OF PTS BP, VERBAL ORDER TO GIVE FLUIDS
--- NOTE | 2019-05-08 14:14 | NUR ---
FAMILY AT BEDSIDE, PTS FAMILY STATES PT IS SQUEEZING HER HAND WHICH INDICATED PT IS IN PAIN. DR PRATER NOTIFIED
[2019-05-08] MEDS ORDERED: MORPHINE SULFATE 4 MG/ML SYR IVP ONE (14:15)
[2019-05-08 14:17] LABS: APPEARANCE,URINE CLEAR (CLEAR); BILIRUBIN,URINE NEGATIVE (NEGATIVE); BLOOD, URINE NEGATIVE (NEGATIVE); COLOR,URINE YELLOW (YELLOW); LEUKOCYTE ESTERASE ,URINE NEGATIVE (NEGATIVE); NITRITE, URINE NEGATIVE (NEGATIVE); PH,URINE 7.5 (5.0-9.0); UGLUCOSE NEGATIVE (NEGATIVE)
--- NOTE | 2019-05-08 14:24 | NUR ---
NEW BP 91/35
--- NOTE | 2019-05-08 14:29 | NUR ---
MORAARELI (DAUGHTER AT BEDSIDE)- [phone] SURROGATE-KARI (DAUGHTER)- [phone]
[2019-05-08] MEDS ORDERED: MAGN400S60 GT (14:38)
[2019-05-08] MEDS ORDERED: VITA400T14 GT ×2 (14:40→17:30)
[2019-05-08] MEDS ORDERED: ONDANSETRON 4 MG/2 ML VIAL IM/IVP PRN (14:40)
[2019-05-08] MEDS ORDERED: DOCUSATE SODIUM 100 MG GELCAP PO PRN (14:40)
[2019-05-08] MEDS ORDERED: ACETAMINOPHEN 325 MG TAB PO PRN (14:40)
[2019-05-08] MEDS ORDERED: LISI5TAB18 GT (14:42)
[2019-05-08] MEDS ORDERED: PROP10DR3 OP (14:45)
[2019-05-08] MEDS ORDERED: CARB1TER4 GT (15:29)
[2019-05-08] MEDS ORDERED: CRAN450C GT (15:30)
[2019-05-08] MEDS ORDERED: COL100L GT (15:31)
[2019-05-08] MEDS ORDERED: BISA-213 RC ×2 (15:31→17:30)
[2019-05-08] MEDS ORDERED: INSU-1343 SQ (15:33)
[2019-05-08] MEDS ORDERED: INSU100S22 SUBQ (15:34)
[2019-05-08 15:36] LABS: PROTHROMBIN TIME 9.9 secs (10.8-13.4)
--- NOTE | 2019-05-08 15:42 | NUR ---
WAITING FOR PTS BP TO INCREASE BEFORE TAKING PT TO TELE FLOOR, BOLUS RUNNING
--- NOTE | 2019-05-08 15:44 | NUR ---
NADR, PT APPEARS RELAXED. FAMILY BEDSIDE
--- NOTE | 2019-05-08 15:50 | NUR ---
CALLED RESIDENTS LINE [phone], STATES HE WILL COME SEE PT AND SPEAK TO FAMILY REGARDING BP
--- NOTE | 2019-05-08 15:52 | NUR ---
RESIDENT AT BEDSIDE
[2019-05-08] MEDS ORDERED: POTASSIUM CHLORIDE 40 MEQ, LIDOCAINE MPF 1% 25 MG in NACL 0.9% 250 ML IV SCH (16:00)
--- NOTE | 2019-05-08 16:04 | NUR ---
PT TO BE UPGRATED TO ICU PER RESIDENT. BP CONTINUES TO RANGE AROUND 86/29
[2019-05-08] MEDS ORDERED: DEXTROSE 50% 50 ML SYR IVP PRN (16:05)
--- NOTE | 2019-05-08 16:13 | NUR ---
ACCU CHECK 122
[2019-05-08 16:17] LABS: MAGNESIUM 2.8 mg/dL (1.8-2.4); PHOSPHORUS 2.7 mg/dL (2.5-4.9); THYROID STIMULATING HORMONE 2.66 uIU/mL (0.34-3.74)
--- NOTE | 2019-05-08 16:37 | NUR ---
TRANSFERRED PATIENT TO ICU-1 REMOVED FOR VENTILATOR TO [facility] PLACED ON SUPPLEMENTAL OXYGEN VIA E-TANK AT 15 LPM TO HME/INLINE SUCTION CATHETER/TRACHEOSTOMY BAG DEPRESSION EVERY 6-8 SECONDS SATURATION 100% HR 87 TOLERATED TRANSFER WELL WITHOUT ADVERSE REACTIONS NOTED
--- NOTE | 2019-05-08 16:45 | NUR ---
RECEIVED PATIENT FRO ER VIA GURNEY. SHE IS TRACH TO VENT AC 14 TV 500 CNO102% SKIN IS MOIST COLOR NORMAL.ABDOMEN DISTENDED. G TUBE IS NOT IN THE PROPER PLACE , THE AREA AROUND THE G TUBE RED HAS GREENISH DISCHARGE,SHAH INSERTED FROM ER DRAIN SMALL AMOUNT OF CLEAR CHRIS URINE.SKIN ON THE BACK HAS INCONTINENT DERMATITIS.
--- NOTE | 2019-05-08 16:48 | NUR ---
NO DISTRESS NOTED GOOD CHEST RISE AIRWAY PATENT
--- NOTE | 2019-05-08 16:57 | NUR ---
Patient will be admitted to care of . Admited to ICU. Will go to room 1. Belongings list completed. Report to ASAEL CROCKER.
[2019-05-08] MEDS: BLOOD GLUCOSE MONITORING 1 DEV DEV FS SCH ×2 (17:10→21:21)
[2019-05-08] MEDS ORDERED: BISACODYL 10 MG SUPP RC PRN ×2 (17:10→17:55)
--- NOTE | 2019-05-08 17:10 | NUR ---
RECEIVED REPORT FROM CHARGE NURSE. PT IS NONVERBAL, DOES NOT FOLLOW COMMANDS, UNABLE TO MAKE NEEDS KNOWN. HX CVA, DEMENTIA. FLACC 0. TEMP 99.5F. NORMAL SINUS RHYTHM ON MONITOR. S1 S2 HEARD. CAP REFILL < 3 SEC. PULSES PALPABLE TO ALL EXTREMITIES. PT IS TRACH TO VENT W/ SETTINGS: A/C VC FIO2 28%, VT 500, RR 14, PEEP 5. LUNGS SOUND CLEAR BILATERALLY. BREATHING EVEN AND UNLABORED. GT IN PLACE, PURULENT DRAINAGE NOTED TO GT STUMP. ABDOMEN SOFT, ROUND, NONTENDER. PERIPHERAL IV G 20 TO LEFT HAND ASYMPTOMATIC, PATENT AND INTACT. SHAH CATH IN PLACE DRAINING CLEAR YELLOW URINE TO GRAVITY. SKIN IS DRY AND WARM TO TOUCH. INCONTINENT DERMATITIS TO BUTTOCKS AREA NOTED. HOB 30 DEGREES. BED IN LOWEST POSITION LOCKED. CALL LIGHT WITHIN REACH. WILL CONTINUE TO MONITOR.
[2019-05-08] MEDS: DEXT 5% / NACL 0.45% 1,000 ML IV SCH (17:31)
--- NOTE | 2019-05-08 18:20 | NUR ---
ULTRASOUND OF ABDOMEN AT BEDSIDE. NO S/SX OF DISTRESS NOTED AT THIS TIME. VSS.
--- NOTE | 2019-05-08 19:20 | NUR ---
REPORT GIVEN TO NETWORK SYSTEMS ANALYST RN FOR CONTINUITY OF CARE. PT IS IN STABLE CONDITION.
--- NOTE | 2019-05-08 19:30 | NUR ---
RECEIVED BEDSIDE REPORT FROM DAYSHIFT NURSE AND TOOK OVER CARE OF PT. PT IS NONVERBAL. UNABLE TO ASSESS EYES DUE TO UNCOOPERATIVENESS. PT IS TRACH TO VENT. VT 500 FIO2 28% RATE 14 PEEP 5. S1 S2 HEARD. PERIPHERAL PULSES NORMAL AND REGULAR. CAP REFILL <2 SECONDS. PT HAS G-TUBE THAT BECOME DISLODGED AND IS LEAKING GASTRIC CONTENT. SKIN AROUND THE SITE IS REDDENED. PT HAS SHAH CATHETER INSERTED W/ CLEAR YELLOW URINE. PT HAS CONTRACTURES OF BOTH HANDS AND FEET. UPPER AND LOWER EXTREMITIES ARE RIGID. BED IS LOCKED IN LOWEST POSITION, CALL LIGHT WITHIN REACH. WILL CONTINUE TO MONITOR.
--- NOTE | 2019-05-08 20:15 | NUR ---
CALLED [facility], SPOKE WITH EDI VYAS TO FOLLOW UP WITH VACCINATIONS. FLU AND PNA CURRENT, HOWEVER NO DATE ON PNA SHOT. RN STATED TO FOLLOW UP IN AM.
--- NOTE | 2019-05-08 23:18 | NUR ---
PROVIDED VAP ORAL CARE. Addendum: 05/08/19 at 2319 by Cb Vo RN RN DAUGHTER OF THE PT LEFT. PROVIDED BEDSIDE NURSE W/ CONTACT INFORMATION.
[2019-05-09] VITALS (14 sets, daily range): BP systolic 89–145; BP diastolic 39–64
--- NOTE | 2019-05-09 02:41 | NUR ---
CHECKED IN ON PT. PT ASLEEP. NO SIGNS OF DISTRESS. BED IN LOW POSITION, LOCKED. CALL LIGHT WITHIN REACH. WILL CONTINUE TO MONITOR
--- NOTE | 2019-05-09 04:30 | NUR ---
CHECKED IN ON PT. PROVIDED VAP ORAL CARE. NO SIGNS OF DISTRESS. SAFETY MEASURES CHECKED. WILL CONTINUE TO MONITOR.
[2019-05-09 06:03] LABS: BASOPHILS % (AUTO) 0.4 % (0.0-2.0); EOSINOPHILS # (AUTO) 0.5 K/uL (0-0.4); EOSINOPHILS % (AUTO) 6.8 % (0.0-4.0); HEMATOCRIT 23.2 % (36-48); HEMOGLOBIN 7.6 g/dL (12.0-16.0); LYMPHOCYTES % (AUTO) 26.3 % (20.5-51.1); MEAN CORPUSCULAR HEMOGLOBIN 31 pg (27-31); MEAN CORPUSCULAR HGB CONC 33 g/dL (33-37); MEAN CORPUSCULAR VOLUME 93.9 fL (80-94); MONOCYTES # (AUTO) 0.3 K/uL (0.8-1.0); MONOCYTES % (AUTO) 3.9 % (1.7-9.3); NEUTROPHILS # (AUTO) 4.8 K/uL (1.8-7.7); NEUTROPHILS % (AUTO) 62.6 % (42.2-75.2); PLATELET COUNT (AUTO) 254 K/uL (140-450); RED BLOOD CELL COUNT(AUTO) 2.47 MIL/uL (4.20-5.40); RED CELL DISTRIBUTION WIDTH 14.7 % (11.6-13.7); WHITE BLOOD COUNT (AUTO) 7.7 K/uL (4.8-10.8)
[2019-05-09] MEDS: DEXT 5% / NACL 0.45% 1,000 ML IV SCH ×2 (06:09→16:22)
--- NOTE | 2019-05-09 06:20 | NUR ---
REC'D PT ON [employer] VENT SETTINGS AC 14 VT 500 PEEP 5 FIO2 28% ALARMS ON AND AUDIBLE AND AMBU BAG AT SIDE OF VENT AND VENT IS PLUGGED INTO RED OUTLET, B\S ARE CLEAR BILATERALLY, SXN PT SMALL AMT OF THIN WHITE SECRETIONS, PT IS TRACH WITH PORTEX 8 AND PT IS SLEEPING WITH NO SIGNS OF DISTRESS NOTED FAMILY AT BEDSIDE
[2019-05-09 06:27] LABS: ANION GAP 9.8 (8-16); CARBON DIOXIDE 28.8 mmol/L (21-32); CHLORIDE 107 mmol/L (98-107); CREATININE 0.7 mg/dL (0.6-1.3); GLUCOSE 155 mg/dL (74-106); POTASSIUM 3.6 mmol/L (3.5-5.1); SODIUM SERUM 142 mmol/L (136-145); UREA NITROGEN, BLOOD 24 mg/dL (7-18)
[2019-05-09 06:38] LABS: MAGNESIUM 2.3 mg/dL (1.8-2.4); PHOSPHORUS 1.5 mg/dL (2.5-4.9)
[2019-05-09 06:40] LABS: CHOL/HDL RATIO 3.7 (1-4.5)
[2019-05-09] MEDS: BLOOD GLUCOSE MONITORING 1 DEV DEV FS SCH ×4 (07:00→20:52)
--- NOTE | 2019-05-09 07:12 | NUR ---
ENDORSED PT TO DAY SHIFT NURSE VENESSA. PT IS ASLEEP NO SIGNS OF DISTRESS. BED IN LOW POSITION. CALL LIGHT WITHIN REACH.
--- NOTE | 2019-05-09 07:30 | NUR ---
RECEIVED BED SIDE REPORT FROM KENN.SHE IS TRACH TO VENT SETTING AC 14 FIO2 28% VT 500 PEEP 5. LUNG CLEAR SKIN DRY AND WARM TO TOUCH TEMP. 100.3. ABDOMEN FIRM AROUND G TUBE RORY . SHAH CATH DRAIN CHRIS URINE.
--- NOTE | 2019-05-09 08:00 | NUR ---
DR CARPENTER AND RESIDENT TEAM MAKE ROUND AT BED SIDE.
--- NOTE | 2019-05-09 08:00 | NUR ---
DISCHARGE PLANNING: THIS IS A 78 YEAR OLD MALE PATIENT FROM [facility], WHO WAS BROUGHT IN BY AMBULANCE DUE TO G TUBE LEAKAGE X 3 DAYS. PAST MEDICAL HISTORY INCLUDE CVA, DM, HTN, DEMENTIA AND PARKINSON'S DISEASE. INITIAL DIAGNOSIS OF G TUBE SITE INFECTION AND HYPOTENSION. CURRENT LABS INCLUDE WBC 7.7, H/H 7.6/23.2, NA/K 142/3.6, BUN/CREA 24/0.7, LACTIC ACID 1.3 AND PHOS 1.5. ON ROCEPHIN. PULMO AND GI CONSULTS IN PLACE. TRACH TO VENT, FIO2 28%. MRSA NATES, SPUTUM, URINE AND BLOOD CULTURES PENDING. DC PLAN BACK TO [facility] ONCE STABLE. Addendum: 05/15/19 at 1531 by Viri Ruiz SABINO OF [facility] MADE AWARE THAT THE DC PLAN IS FOR TOMORROW. SHE STATED THEY ARE ABLE TO TAKE HER SINCE THIS IS THEIR HALF-WAY PATIENT. Addendum: 05/17/19 at 1516 by Viri Ruiz CM CHRONIC TRACH TO VENT, FIO2 24%. NEW PEG TUBE PLACED YESTERDAY 05/16/[address] CORONADO. OLD G TUBE SITE IS LEAKING. FOR PICC LINE PLACEMENT IN PROCESS. ON ZOSYN. PULMO, ID AND GI CONSULTS IN PLACE. DC PLAN PENDING ON PATIENT RESPONSE TO TREATMENT. 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 Addendum: 05/18/19 at 1106 by Akanksha Coto CM DC PLANNING: PT HAS A PICC LINE , ORDERED TPN WILL START TONIGHT ,CONTINUE IV ABX ZOSYN DC PLAN TO GO BACK TO [facility] WITH TPN WHEN STABLE CM TO FOLLOW. Addendum: 05/19/19 at 1618 by Viri Ruiz CM OLEG OF [facility] MADE AWARE THAT TENTATIVE DC PLAN IS TOMORROW 05/20/2019 ON TPN UNTIL OLD G TUBE SITE CLOSES. SHE STATED TO GO AHEAD AND FAX REFERRAL. CLINICALS SENT TOGETHER WITH TPN ORDER. Addendum: 05/20/19 at 1447 by Jerman Segovia MIKE faxed clinicals to [facility] and spoke to Jannette. Jannette stated that patient will return to room 1B under Dr. Linda García. MIKE spoke with Esme regarding transportation auth. Esme stated she would return phone call to with auth number. MIKE will follow up. Addendum: 05/20/19 at 1500 by Jerman MUNGUIA Esme contacted MIKE and provided transportation auth #[id number]. Addendum: 05/20/19 at 1510 by Jerman MUNGUIA MIKE contacted [facility] and spoke to Pebbles . MIKE provided auth number and arranged for transportation to be arrive within the hour. MIKE informed Charge Nurse Akanksha. No further needs identified. Addendum: 05/20/19 at 1650 by Akanksha Coto CM DC PLANNING CALLED [facility] SPOKE WITH SABINO CLARIFIED THAT PT HAS AN NGT TO INTERMITTENT SUCTION PER SABINO THEY HAVE ONLY PORTABLE SUCTION AND CAN NOT TAKE PT WITH NGT SUCTION. DR TERRELL SPOKE WITH DR CORONADO STATED TO LEAVE THE NGT HOLD THE DC FOR TODAY UNTIL FURTHER ORDER. CALLED [facility] NOTIFIED ESME THAT PT IS STAYING PER ESME NO SNF WILL TAKE PT WITH NGT TO INTERMITTENT SUCTION. Addendum: 05/22/19 at 1222 by Viri Ruiz CM RECEIVED AN ORDER TO DC BACK TO [facility]. SABINO OF [facility] MADE AWARE. CLINICALS SENT TO [facility]. WILL FOLLOW UP. Addendum: 05/22/19 at 1342 by Viri Ruiz CM PER ERIC, PATIENT CAN GO TO ROOM 1B UNDER DR. RADHA GARCÍA. CONTACTED [facility], ABLE TO SPEAK TO RIYA. OILER AND GREASER WILL BE AT 1500. PRIMARY SAAEL SHAVER AND DR. WASHINGTON MADE AWARE.
--- NOTE | 2019-05-09 08:34 | NUR ---
PATIENT HAS BEEN SCREENED AND CATEGORIZED HIGH NUTRITION RISK. PATIENT WILL BE SEEN WITHIN 1-2 DAYS OF ADMISSION. 05/09/19-05/10/[address]
--- NOTE | 2019-05-09 08:49 | NUR ---
CALLED [facility], SPOKE WITH RN NEGATIVE TURNER APPRENTICE JOHN REGARDING PNA SHOT RECORD. PER JOHN, SHE DOES NOT HAVE VACCINATION RECORDS, BUT WILL TRY TO FIND OUT FROM INFECTION CONTROL PERSONNEL, AND WILL CALL BACK.
[2019-05-09] MEDS: POLYVINYL ALCOHOL 1.4% OP 15 ML SOL OP SCH ×3 (08:53→17:19)
--- NOTE | 2019-05-09 09:15 | NUR ---
TEMP 101 DR. CARMONA NOTIFIED MEDICATION GAVE ORDERED.
[2019-05-09] MEDS ORDERED: KETOROLAC 15 MG/ML VIAL IM SCH (09:30)
[2019-05-09] MEDS ORDERED: SODIUM PHOSPHATE 15 MMOLE in NACL 0.9% 250 ML IV SCH (09:30)
--- NOTE | 2019-05-09 09:30 | NUR ---
SODIUM PHOSPHATE 15MMMOLE IN 250MLOF NS STARTED ORDERED.
[2019-05-09] MEDS ORDERED: PROBIOTIC SCREEN 1 EA MISC MC PRN (09:35)
--- NOTE | 2019-05-09 11:00 | NUR ---
SEEN BY DR. SALDAÑA AT BED SIDE NEW ORDER RECEIVED.
--- NOTE | 2019-05-09 11:15 | NUR ---
RECEIVED CALL FROM MICHAELA OF [facility] REGARDING PT'S VACCINATION STATUS. PER MICHAELA, PT RECEIVED FLU VACCINE ON NOV 25, 2018 AND FAMILY DECLINED PNA VACCINE.
--- NOTE | 2019-05-09 11:30 | NUR ---
BLOOD SUGAR [address] JEAN AWARE NO INSULIN GIVEN PT. IS NPO.
--- NOTE | 2019-05-09 11:50 | NUR ---
RECEIVED CALL FROM DR. CORONADO. INFO ON PT'S CONDITION GIVEN. PER DR. CORONADO, HE WILL COME AND SEE PT IN A COUPLE OF HOURS.
--- NOTE | 2019-05-09 12:26 | NUR ---
RT BRYN MADE AWARE THAT SPUTUM NEEDS TO BE RECOLLECTED DUE TO CONTAMINATION OF PREVIOUS SAMPLE.
[2019-05-09] MEDS: PIPERACILLIN/TAZOBACTAM 3.375 GM in DEXTROSE 5% 50 ML IV SCH ×2 (13:20→20:31)
--- NOTE | 2019-05-09 14:15 | NUR ---
TO X RAY FOR CT SCAN OF ABDOMEN.
--- NOTE | 2019-05-09 15:00 | NUR ---
SEEN BY DR. CORONADO AT BED SIDE, ORDER TO REMOVED THE G TUBE AND PUT COLOSTOMY BAG OVER. GIVEDULCOLAX SUPP. AND FLEET ENEMA,
--- NOTE | 2019-05-09 15:00 | NUR ---
05/09/19 RD INITIAL ASSESSMENT COMPLETED PLEASE REFER TO NUTRITION ASSESSMENT UNDER CARE ACTIVITY FOR ESTIMATED NUTRITIONAL NEEDS. 1. CONTINUE NPO DIET PER MD 2. IF/WHEN MEDICALLY APPROPRIATE, RECOMMEND GLUCERNA 1.2 @ 55 ML/HR W/ 1 PROSOURCE. -THIS PROVIDES 1320 ML IN VOLUME, 1644 KCALS, AND 94 GMS OF PROTEIN. THIS IS MEETING 100% OF PTS CALORIC AND PROTEIN NEEDS. 3. FREE WATER FLUSH: 130ML Q6H 4. WHEN INITIATING TUBE FEEDING, START @ 10ML AND GRADUALLY INCREASE BY 10ML/HR TO GOAL RATE. 5. RD TO FOLLOW-UP 2-3 DAYS, HIGH RISK OPAL BOWSER RD
[2019-05-09] MEDS ORDERED: BISACODYL 10 MG SUPP RC SCH (15:22)
--- NOTE | 2019-05-09 15:30 | NUR ---
DULCOLAX SUPP. GIVEN HS MODERATE RESULT OF SOFT STOOL.
--- NOTE | 2019-05-09 16:30 | NUR ---
BLOOD GLUCOSE 124 ,NO INSULIN GIVEN.
--- NOTE | 2019-05-09 18:20 | NUR ---
RECEIVED PATIENT TRACH TO MECHANICAL VENTILATOR AT DOCUMENTED SETTINGS. VENT PLUGGED INTO RED OUTLET WITH WHEELS LOCKED. ALARMS ON AND AUDIBLE. AIRWAY SECURE AND PATENT. TRACH DRESSING CHANGED. BMV AT [facility]. NO ACUTE RESPIRATORY DISTRESS NOTED AT THIS TIME. WILL CONTINUE TO MONITOR.
--- NOTE | 2019-05-09 18:25 | NUR ---
TRANSFER TO RM 108B BEDSIDE REPORT GIVEN TO YENY VYAS PT CONDITION STABLE DURING TRANSFER.
--- NOTE | 2019-05-09 18:30 | NUR ---
PT TRANSFERRED TO [facility]. WITHOUT INCIDENT. BAGGED WITH 100% FIO2 DURING TRANSPORT. CONNECTED TO MECHANICAL VENTILATOR. VENT PLUGGED INTO RED OUTLET WITH WHEELS LOCKED. VENT ALARMS ON AND AUDIBLE. CONTINUOUS PULSE OX ON AND FUNCTIONING. WILL CONTINUE TO MONITOR.
--- NOTE | 2019-05-09 19:10 | NUR ---
REPORT RECEIVED FROM AM NURSE AT BEDSIDE. PT IN STABLE CONDITION. AAOX1-2. INTRODUCED SELF TO PT. BOARD UPDATED. NO COMPLAINTS OF PAIN. NO SOB ON TRACH TO VENT. VENT SETTINGS FIO2 28%, VT 500, RR 12, PEEP 5. AFEBRILE. PT IS BEDBOUND. PT IS APHASIC. PT HAS SHAH. PT DOES NOT HAVE GTUBE DUE TO MALFUNCTION. IV SITE L HAND 20G RUNNING D5 1/2NS@80ML/HR PATENT AND INTACT. SKIN WARM, DRY, AND INTACT WITH NO OPEN WOUNDS. BED LOCKED IN LOW POSITION. CALL KELLEY WITHIN REACH. SAFETY PRECAUTION IN PLACE. ALL NEEDS MET AT THIS TIME.
[2019-05-09] MEDS: METOCLOPRAMIDE 10 MG/2 ML INJ VIAL IVP SCH (20:31)
--- NOTE | 2019-05-09 20:31 | NUR ---
HEPARIN GIVEN SUBQ. ZOSYN RAO AND RUNNING. REGLAN GIVEN IVP. BS 119. NO INSULIN COVERAGE NEEDED.
--- NOTE | 2019-05-09 20:40 | NUR ---
CRITICAL LAB VALUE GRAM POSITIVE COCCI IN CLUSTERS. NOTIFIED.
--- NOTE | 2019-05-09 21:30 | NUR ---
REPORT GIVEN TO ICU NURSE AT BEDSIDE. PT IN STABLE CONDITION.
--- NOTE | 2019-05-09 21:30 | NUR ---
PT TRANSPORTED TO ICU 2 WITHOUT INCIDENT. BAGGED WITH 100% FIO2. CONNECTED TO MECHANICAL VENTILATOR. VENT PLUGGED INTO RED OUTLET. WILL CONTINUE TO MONITOR.
--- NOTE | 2019-05-09 21:35 | NUR ---
TRANSFER BACK THIS 78 YEAR OLD FEMALE PATIENT FROM [facility]; ON TRACH TO VENT; NON-VERBAL AND OBTUNDED. PLACED PATIENT IN ICU 2, HOOKED TO PROPOSAL DEVELOPMENT MANAGER, SCOPE SHOWS ON SINUS RHYTHM NO ARRHYTHMIAS SEEN. IV CANNULA G20 ON LEFT HAND IS OUT OF VEIN AND SITE SWOLLEN; REMOVED. ABDOMEN IS SOFT, OLD GT SITE WITH DRAINAGE BAG IN PLACED; DRAINING TO SMALL AMOUNT OF CLEAR YELLOWISH GASTRIC OUTPUT. WITH SHAH CATH IN SITU TO GRAVITY DRAINAGE BAG DRAINING TO CLEAR YELLOW URINE OUTPUT; PATENT AND INTACT.
--- NOTE | 2019-05-09 21:45 | NUR ---
HAD BM TO A MODERATE AMOUNT OF LOOSE WATERY GRAYISH BROWN STOOL; KEPT CLEAN, DRY AND COMFORTABLE.
--- NOTE | 2019-05-09 23:00 | NUR ---
INSERTED G22 IV CANNULA ON LEFT WRIST AFTER 2-3 ATTEMPTS AND WAS SUCCESSFUL. RE-STARTED IVF D5 1/2 NS AT 80 ML/HR.; CONTINUE MONITORING TELE STATUS PATIENT.
[2019-05-10] VITALS (15 sets, daily range): BP systolic 90–145; BP diastolic 41–59
--- NOTE | 2019-05-10 | NUR ---
TURNED AND REPOSITIONED PATIENT; ORAL CARE DONE WITH VAP KIT.
--- NOTE | 2019-05-10 05:00 | NUR ---
HAD AGAIN BM TO SMALL AMOUNT OF GRAYISH BROWN WATERY STOOL; KEPT CLEAN DRY AND COMFORTABLE; REPOSITIONED PATIENT; PATIENT IS STILL AND WITH CONTRACTURED EXTREMITIES.
[2019-05-10] MEDS: PIPERACILLIN/TAZOBACTAM 3.375 GM in DEXTROSE 5% 50 ML IV SCH ×2 (05:07→22:30)
[2019-05-10] MEDS: METOCLOPRAMIDE 10 MG/2 ML INJ VIAL IVP SCH ×3 (05:15→20:10)
[2019-05-10] MEDS ORDERED: BISACODYL 10 MG SUPP RC ONE (06:15)
[2019-05-10] MEDS ORDERED: MINERAL OIL 135 ML ENEM RC ONE (06:15)
[2019-05-10 06:19] LABS: ANION GAP 10.6 (8-16); CARBON DIOXIDE 26.8 mmol/L (21-32); CHLORIDE 107 mmol/L (98-107); CREATININE 0.8 mg/dL (0.6-1.3); GLUCOSE 168 mg/dL (74-106); POTASSIUM 3.4 mmol/L (3.5-5.1); SODIUM SERUM 141 mmol/L (136-145); UREA NITROGEN, BLOOD 12 mg/dL (7-18)
[2019-05-10 06:26] LABS: BASOPHILS # (AUTO) 0.1 K/uL (0.00-0.22); BASOPHILS % (AUTO) 0.7 % (0.0-2.0); EOSINOPHILS # (AUTO) 0.6 K/uL (0-0.4); EOSINOPHILS % (AUTO) 5.2 % (0.0-4.0); HEMATOCRIT 23.5 % (36-48); HEMOGLOBIN 7.7 g/dL (12.0-16.0); LYMPHOCYTES # (AUTO) 1.1 K/uL (2.5-16.5); LYMPHOCYTES % (AUTO) 9.4 % (20.5-51.1); MEAN CORPUSCULAR HEMOGLOBIN 31 pg (27-31); MEAN CORPUSCULAR HGB CONC 33 g/dL (33-37); MEAN CORPUSCULAR VOLUME 93.7 fL (80-94); MONOCYTES # (AUTO) 0.5 K/uL (0.8-1.0); MONOCYTES % (AUTO) 4.1 % (1.7-9.3); NEUTROPHILS # (AUTO) 9.6 K/uL (1.8-7.7); NEUTROPHILS % (AUTO) 80.6 % (42.2-75.2); PLATELET COUNT (AUTO) 248 K/uL (140-450); RED BLOOD CELL COUNT(AUTO) 2.51 MIL/uL (4.20-5.40); RED CELL DISTRIBUTION WIDTH 15.3 % (11.6-13.7); WHITE BLOOD COUNT (AUTO) 11.9 K/uL (4.8-10.8)
[2019-05-10 06:31] LABS: MAGNESIUM 2.6 mg/dL (1.8-2.4)
--- NOTE | 2019-05-10 06:35 | NUR ---
WITH DRY PINKISH PATCHY LESIONS ON THE BACK; REFERRED TO DR. JEAN, SEEN AND EXAMINED PATIENT, HE SAID IT'S NORMAL FOR HER AND NOTHING TO WORRY ABOUT IT.
--- NOTE | 2019-05-10 07:15 | NUR ---
RECEIVED REPORT FROM SOFTWARE ARCHITECT RN AT BEDSIDE. PT IS AWAKE, OX0. HX OF CVA, TRACH TO VENT 28%, VT 500, RR14, PEEP 5. TEMP 98.7 F, TEMPORAL. CONTRACTURES TO ALL EXTREMITIES. PT IS APHASIC. SHAH CATH IN PLACE DRAINING CLEAR YELLOW URINE. G TUBE WAS REMOVED, G TBUE SITE HAS A DRAINAGE COLLECTION BAG WITH GREEN DRAINAGE. IV SITE TO LEFT WRIST 22G RUNNING D5 1/2NS AT 80ML/HR, ASYMPTOMATIC, PATENT AND INTACT. SKIN WARM AND DRY. INCONTINENT DERMATITIS ON THE BACK. BED LOCKED IN LOWEST POSITION. CALL KELLEY WITHIN REACH. SAFETY PRECAUTION IN PLACE. WILL CONTINUE TO MONITOR.
[2019-05-10] MEDS: BLOOD GLUCOSE MONITORING 1 DEV DEV FS SCH ×4 (07:31→20:10)
--- NOTE | 2019-05-10 08:00 | NUR ---
ORAL CARE PROVIDED, PT RESISTING, TRIED THE BEST I CAN.
[2019-05-10] MEDS: POLYVINYL ALCOHOL 1.4% OP 15 ML SOL OP SCH ×3 (08:23→16:38)
--- NOTE | 2019-05-10 08:40 | NUR ---
PLACED PT ON LEFT LATERAL SIDE, FLEET ENEMA GIVEN.
--- NOTE | 2019-05-10 08:54 | NUR ---
[employer] Crew Member Note: Basic Screen: Yes High Risk DC Screen Mcbain: KATHARINE GREER Home Relationship: DAUGHTER Pre-Admission Living Arrangements: SNF Prior ADL Total/Dependent Current Home Health Name/Tel: N/A Current DME/02 Name/Tel: N/A Current Hospice Name/Tel: N/A Current Dialysis Name/Tel: N/A Healthcare Decision Maker: Next of Kin Advance Directive No Physician Orders for Life Sustaining Treatment Form Yes Discipline: Case Mgt/Social Svcs Tentative Discharge Plan/Destination: No Needs Identified Will require assistance post discharge: No Referred to Medical Radiation Dosimetrist: No Tentative Discharge Plan Summary: Patient is a 78-year-old female admitteed for g-tube site infection. Patient has PMHX of CVA, DM, HTN, dementia, and parkinson's. Patient was admitted form [facility]. SW contacted Gabrielle from admissions [phone]. Per Gabrielle, patient is a sub-acute correction patient who is currently on a bed hold. Patient has no advanced directive on file, and patient's healthcare decision maker is Katharine Greer [phone]. Per Gabrielle, patient is bedbound, non-verbal, and is total dependent with ADLs. Patient is not alert/oriented at baseline. Tentative discharge plan is for patient to return to [facility]. No further needs identified. Signature: HARLEEN Doran Date: May 09, 2019 Time: 11:08
--- NOTE | 2019-05-10 10:00 | NUR ---
PT WAS CLEANED AND REPOSITIONED.
--- NOTE | 2019-05-10 10:14 | NUR ---
MADE DR JEAN AWARE FLEET ENEMA NOT WORKING WELL, LIQUID STOOL CAME OUT BUT IMPACTION MAYBE STILL IN THERE. DR JEAN SAID WILL COME TO MANUALLY DISIMPACT LATER. MADE DR JEAN AWARE OF THE K AND PHOS LEVEL TODAY.
--- NOTE | 2019-05-10 11:00 | NUR ---
WOUND NURSE CAME AND INSPECTED THE SKIN.
--- NOTE | 2019-05-10 11:12 | NUR ---
PT. ADMITTED WITH LOW VANESA SCALE AT RISK WITH MULTIPLE SCARS TO SACRALCOCCYX AND BUTTOCKS, CONTINUE TO FOLLOW PRESSURE ULCER PREVENTION INTERVENTIONS. GT WAS REMOVED, DONATO-STOMA SKIN INTACT, PINK. DRAIN POUCH IN PLACE WITH SMALL AMOUNT CLEAR YELLOW FLUIDS OUTPUT. -APPLY HYDRAGUARD TO SACRALCOCCYX AND BUTTOCKS BID AND JOSE -TURN AND REPOSITION PATIENT Q 2H -ASSESS AND MONITOR SKIN CONDITION DURING POSITION CHANGE -OFFLOAD BILATERAL HEELS BY PLACING PILLOWS UNDER CALVES AT ALL TIMES, UNLESS OTHERWISE CONTRAINDICATED -PRESSURE REDISTRIBUTION BY PLACING PILLOWS AND OFFLOADING SACRALCOCCYX -KEEP SKIN CLEAN AND DRY AT ALL TIMES.
[2019-05-10] MEDS ORDERED: POTASSIUM PHOSPHATE 15 MM in NACL 0.9% 250 ML IV SCH (11:30)
[2019-05-10] MEDS: HYDRAGUARD CREAM TP SCH (12:03)
[2019-05-10] MEDS: DEXT 5% / NACL 0.45% 1,000 ML IV SCH ×2 (12:45→15:18)
--- NOTE | 2019-05-10 12:54 | NUR ---
CALLED DR JEAN, MADE HIM AWARE PT IS NOT ON PPI FOR GI PROPHYLAXIS.
--- NOTE | 2019-05-10 13:50 | NUR ---
DR JEAN PERFORMED DISIMPACTION, IMPACTION WAS REMOVED. PT WAS CLEANED, CHUX CHANGED. HYDRAGUARD REAPPLIED TO SACRAL AND BACK.
[2019-05-10] MEDS ORDERED: PANTOPRAZOLE 40 MG INJ VIAL IVP SCH (14:00)
--- NOTE | 2019-05-10 18:00 | NUR ---
CALLED DR CORONADO, MADE HIM AWARE PT'S DAUGHTER WANTS AN UPDATE ON PLAN OF CARE. DR CORONADO SAID HE WILL COME IN TOMORROW TO RE-EVALUATE PT AND INSERT THE G TUBE. MADE DR CORONADO AWARE THE DRAINAGE FROM G TUBE SITE FOR MY SHIFT IS 20ML. DR CORONADO SAID IF DRAINAGE IS NOT TOO MUCH, OK TO DC THE DRAINAGE BAG AND PLACE GAUZE OVER THE SITE. ASKED IF SHAH CATH NEEDED TO KEEP THE HOLE OPEN, DR CORONADO SAID NO NEED BECAUSE THE HOLE WAS TOO BIG.
[2019-05-10] MEDS ORDERED: VANCOMYCIN PER PHARMACY MC PRN (18:10)
--- NOTE | 2019-05-10 19:15 | NUR ---
RECEIVED REPORT FROM AM SHIFT RN. PT JACQUES TO VENT. ON ACVC SETTINGS FIO2 28%, TV 500, RATE 14, PEEP 5. HEART SOUNDS HEARD S1 AND S2. LUNG SOUNDS CLEAR. BOWEL SOUNDS ACTIVE. ABDOMEN SOFT ROUND. SKIN IS WARM AND DRY. GTUBE SITE TO DRAINAGE BAG. NO REDNESS OR SIGNS OF INFECTION NOTED. SHAH CATHETER IN PLACE. HOB 30 DEGREES. BED LOCKED IN LOWEST POSITION. WILL CONTINUE TO MONITOR. Addendum: 05/10/19 at 1953 by Mike Coles RN IV SITE L WRIST, 22 GAUGE INFUSING D5 1/2 NS AT 80 ML/HR. INTACT PATENT, GOOD BLOOD RETURN. Addendum: 05/10/19 at 2035 by Mike Coles RN ABDOMEN ROUND, DISTENDED, FIRM. NON TENDER.
[2019-05-10] MEDS ORDERED: VANCOMYCIN 1,000 MG in DEXTROSE 5% 250 ML IV SCH (21:00)
--- NOTE | 2019-05-10 21:25 | NUR ---
DR ANDREW IN TO ASSESS PT. MADE AWARE GTUBE SITE OOZING. KEEP GTUBE SITE TO DRAINAGE BAG. ORDERS TO D/C ROCEPHIN, AND CONTINUE VANCOMYCIN AND ZOSYN.
[2019-05-10] MEDS ORDERED: PIPERACILLIN/TAZOBACTAM 3.375 GM VIAL IV ONE (21:36)
[2019-05-10] MEDS ORDERED: TPN PER PHARMACY MC PRN (23:50)
[2019-05-11] VITALS (11 sets, daily range): BP systolic 115–134; BP diastolic 46–65
--- NOTE | 2019-05-11 00:45 | NUR ---
PT HAS EYES CLOSED, RESTING IN BED. TRACH TO VENT. LUNG SOUNDS CLEAR. RESPIRATIONS EVEN AND UNLABORED. HOB 30 DEGREES. BED LOCKED IN LOWEST POSITION. WILL CONTINUE TO MONITOR.
--- NOTE | 2019-05-11 02:12 | NUR ---
PT HAS EYES CLOSED. TRACH TO VENT, RESPIRATIONS EVEN AND UNLABORED. CHEST RISE IS SYMMETRICAL. HOB 30 DEGREES. BED LOCKED IN LOWEST POSITION. WILL CONTINUE TO MONITOR.
[2019-05-11] MEDS: DEXT 5% / NACL 0.45% 1,000 ML IV SCH (03:28)
[2019-05-11] MEDS: METOCLOPRAMIDE 10 MG/2 ML INJ VIAL IVP SCH ×3 (04:08→20:06)
--- NOTE | 2019-05-11 04:29 | NUR ---
SPONGE BATH AND SHAH CATH CARE PROVIDED. PT TOLERATED WELL. NO SIGNS OF DISTRESS. PT IN STABLE CONDITION. HOB 30 DEGREES. BED LOCKED IN LOWEST POSITION. WILL CONTINUE TO MONITOR.
[2019-05-11] MEDS ORDERED: PIPERACILLIN/TAZOBACTAM 3.375 GM in DEXTROSE 5% 50 ML IV SCH (05:00)
[2019-05-11] MEDS ORDERED: PIPERACILLIN/TAZOBACTAM 3.375 GM VIAL IV ONE (06:08)
[2019-05-11] MEDS: PIPERACILLIN/TAZOBACTAM 3.375 GM in DEXTROSE 5% 50 ML IV SCH ×3 (06:11→22:24)
[2019-05-11 06:24] LABS: BASOPHILS # (AUTO) 0.1 K/uL (0.00-0.22); BASOPHILS % (AUTO) 1.2 % (0.0-2.0); EOSINOPHILS # (AUTO) 0.8 K/uL (0-0.4); EOSINOPHILS % (AUTO) 12.1 % (0.0-4.0); HEMATOCRIT 22.1 % (36-48); HEMOGLOBIN 7.9 g/dL (12.0-16.0); LYMPHOCYTES # (AUTO) 1.4 K/uL (2.5-16.5); LYMPHOCYTES % (AUTO) 20.8 % (20.5-51.1); MEAN CORPUSCULAR HEMOGLOBIN 32 pg (27-31); MEAN CORPUSCULAR HGB CONC 36 g/dL (33-37); MEAN CORPUSCULAR VOLUME 89.6 fL (80-94); MONOCYTES # (AUTO) 0.4 K/uL (0.8-1.0); NEUTROPHILS % (AUTO) 59.9 % (42.2-75.2); PLATELET COUNT (AUTO) 245 K/uL (140-450); RED BLOOD CELL COUNT(AUTO) 2.47 MIL/uL (4.20-5.40); RED CELL DISTRIBUTION WIDTH 15.2 % (11.6-13.7); WHITE BLOOD COUNT (AUTO) 6.6 K/uL (4.8-10.8)
--- NOTE | 2019-05-11 06:30 | NUR ---
DR JEAN IN TO ASSESS PT.
[2019-05-11 06:48] LABS: ANION GAP 9.2 (8-16); CARBON DIOXIDE 25.1 mmol/L (21-32); CHLORIDE 110 mmol/L (98-107); CREATININE 0.8 mg/dL (0.6-1.3); GLUCOSE 136 mg/dL (74-106); POTASSIUM 3.3 mmol/L (3.5-5.1); SODIUM SERUM 141 mmol/L (136-145); UREA NITROGEN, BLOOD 6 mg/dL (7-18)
[2019-05-11 06:53] LABS: MAGNESIUM 2.3 mg/dL (1.8-2.4); PHOSPHORUS 2.6 mg/dL (2.5-4.9)
--- NOTE | 2019-05-11 07:02 | NUR ---
RECIVED PT ON VENT WITH SETTINGS CHARTED BREATH SOUNDS PRESENT BILAT CLEAR SXN PT WITH MIN TO MOD AMT OFF WHITE SECS AMBU BAG AT BEDSIDE TRACH SITE SECURE VENT PLUGGED INTO RED OUTLET WILL CONTINUE TO MONITOR PT ON VENT
--- NOTE | 2019-05-11 07:08 | NUR ---
BEDSIDE REPORT GIVEN TO AM SHIFT RN FOR CONTINUITY OF CARE. PT IN STABLE CONDITION.
--- NOTE | 2019-05-11 07:10 | NUR ---
RECEIVED REPORT FROM DRILL INSTRUCTOR RN AT BEDSIDE. PT IS SLEEPING, AROUSED BY LIGHT TOUGH, OX0. HX OF CVA, TRACH TO VENT 28%, VT 500, RR14, PEEP 5. TEMP 98.5 F, TEMPORAL. LUNG SOUNDS CLEAR. CONTRACTURES TO ALL EXTREMITIES. SHAH CATH IN PLACE DRAINING CLEAR YELLOW URINE. G TBUE SITE HAS A DRAINAGE COLLECTION BAG WITH MINIMAL GREEN DRAINAGE. IV SITE TO LEFT WRIST 22G RUNNING D5 1/2NS AT 80ML/HR, ASYMPTOMATIC, PATENT AND INTACT. SKIN WARM AND DRY. INCONTINENT DERMATITIS ON THE BACK. BED LOCKED IN LOWEST POSITION. CALL KELLEY WITHIN REACH. SAFETY PRECAUTION IN PLACE. WILL CONTINUE TO MONITOR.
[2019-05-11] MEDS: BLOOD GLUCOSE MONITORING 1 DEV DEV FS SCH ×4 (07:59→20:11)
--- NOTE | 2019-05-11 08:00 | NUR ---
SWITCHED G TUBE DRAINAGE BAG TO GAUZE WITH PAPER TAPE.
[2019-05-11] MEDS ORDERED: POTASSIUM CHLORIDE 40 MEQ, LIDOCAINE MPF 1% 25 MG in NACL 0.9% 250 ML IV ONE (09:00)
[2019-05-11] MEDS: POLYVINYL ALCOHOL 1.4% OP 15 ML SOL OP SCH ×3 (09:45→16:21)
[2019-05-11] MEDS: PANTOPRAZOLE 40 MG INJ VIAL IVP SCH (09:45)
--- NOTE | 2019-05-11 12:00 | NUR ---
G TUBE SITE COVERED WITH GAUZE WHICH IS STILL CLEAN AND DRY. ORAL CARE PROVIDED, PT IS RESISTING. NO BM NOTED. REPOSITIONED PT.
[2019-05-11 12:59] LABS: FERRITIN 203 ng/mL (15 - 150); TRANSFERRIN 174 mg/dL (200 - 370)
[2019-05-11] MEDS: HYDRAGUARD CREAM TP SCH ×2 (13:47)
--- NOTE | 2019-05-11 14:50 | NUR ---
CALLED DR CORONADO, MADE HIM AWARE PT'S DAUGHTER IS WAITING FOR HIM. DR CORONADO SAID HE IS COMING SHORTLY.
[2019-05-11] MEDS ORDERED: MORPHINE SULFATE 4 MG/ML SYR IVP SCH (16:00)
--- NOTE | 2019-05-11 16:40 | NUR ---
DR CORONADO CAME AND REINSERT THE G TUBE 20FR. DR CORONADO SAID TAPE THE G TUBE ON STOMACH AND KEEP THE G TUBE RING AT 2 TO 3 CM MARVA.
[2019-05-11] MEDS: NACL 0.9% 1,000 ML IV SCH (17:15)
--- NOTE | 2019-05-11 17:56 | NUR ---
CONTINUED TO MONITOR PT ON VENT WITH SETTINGS CHARTED BREATH SOUNDS PRESENT BILAT DIMINISHED SXN PT WITH MOD AMT OFF WHITE SECS TRACH SITE SECURE AMBU BAG AT BEDSIDE VENT PLUGGED INTO RED OUTLET
[2019-05-11] MEDS: CARBIDOPA/LEVODOPA 25/100 MG 1 TAB GT SCH (18:00)
--- NOTE | 2019-05-11 18:00 | NUR ---
FEEDING STARTED GLUCERNA 1.2, 20ML/HR, WATER FLUSH 130ML Q6H.
--- NOTE | 2019-05-11 19:13 | NUR ---
RCV'D PT ON MECHANICAL VENTILATOR WITH CHARTED SETTINGS. PT IS TRACHED WITH PORTEX 8. TRACH IS IN PLACE AND SECURED WITH TRACH COLLAR. VENT CONNECTED TO RED OUTLET. ALARMS AUDIBLE. AMBU BAG AT BEDSIDE. BREATH SOUNDS CLEAR. NO SOB OR DISTRESS NOTED. WILL CONTINUE TO MONITOR.
--- NOTE | 2019-05-11 19:30 | NUR ---
RECEIVED BEDSIDE SHIFT REPORT FROM DAY SHIFT NURSE. PT IS ASLEEP, AROUSED BY LIGHT TOUCH BY CLINCHING HANDS. UNABLE TO ASSESS EYES DUE TO PT NONCOOPERATIVE BEHAVIOR. PT IS TRACH TO VENT 28% VT 500, RR 14, PEEP 5. TEMPORAL TEMP IS 98.5. LUNG SOUNDS COARSE THROUGHOUT. PT HAS G-TUBE ON ULQ. ABDOMEN IS ROUND, DISTENDED. BOWEL SOUNDS PRESENT. IV SITE LEFT FOREARM RUNNING NS AT 50 ML/HR. ASYMPTOMATIC, PATENT AND INTACT. SKIN IS WARM AND DRY. BED LOCKED IN LOWEST POSITION. CALL LIGHT WITHIN REACH. SAFETY PRECAUTIONS IN PLACE. WILL CONTINUE TO MONITOR.
--- NOTE | 2019-05-11 21:22 | NUR ---
RT AT BEDSIDE. REPORTED TO NURSE CHANGE OF FIO2 FROM 28% TO 24%
--- NOTE | 2019-05-11 23:13 | NUR ---
CHECKED IN ON PT. NO SIGNS OF DISTRESS NOTED. CALL LIGHT WITHIN REACH. BED LOCKED, LOWEST SETTING. WILL CONTINUE TO MONITOR
[2019-05-12] VITALS (16 sets, daily range): BP systolic 111–136; BP diastolic 48–85
--- NOTE | 2019-05-12 01:17 | NUR ---
CHECKED ON PT. PT ASLEEP. NO SIGNS OF DISTRESS. SAFETY MEASURES IN PLACE. WILL CONTINUE TO MONITOR.
[2019-05-12] MEDS: HYDRAGUARD CREAM TP SCH ×2 (01:27→13:33)
--- NOTE | 2019-05-12 03:16 | NUR ---
CHECKED IN ON PT. PT IS ASLEEP. NO SIGNS OF DISTRESS NOTED. BED IS LOCKED IN LOWEST POSITION. OTHER SAFETY MEASURES IN PLACE. WILL CONTINUE TO MONITOR.
[2019-05-12] MEDS: METOCLOPRAMIDE 10 MG/2 ML INJ VIAL IVP SCH ×3 (04:23→20:13)
--- NOTE | 2019-05-12 05:10 | NUR ---
INCREASED FEEDING TO 40 ML/HR
--- NOTE | 2019-05-12 05:15 | NUR ---
PROVIDED CLEANING AND ORAL CARE
[2019-05-12 06:34] LABS: BASOPHILS # (AUTO) 0.1 K/uL (0.00-0.22); BASOPHILS % (AUTO) 1.1 % (0.0-2.0); EOSINOPHILS # (AUTO) 0.9 K/uL (0-0.4); EOSINOPHILS % (AUTO) 15.2 % (0.0-4.0); HEMATOCRIT 21.3 % (36-48); HEMOGLOBIN 7.5 g/dL (12.0-16.0); LYMPHOCYTES # (AUTO) 1.5 K/uL (2.5-16.5); LYMPHOCYTES % (AUTO) 24.8 % (20.5-51.1); MEAN CORPUSCULAR HEMOGLOBIN 31 pg (27-31); MEAN CORPUSCULAR HGB CONC 35 g/dL (33-37); MEAN CORPUSCULAR VOLUME 89.7 fL (80-94); MONOCYTES # (AUTO) 0.3 K/uL (0.8-1.0); MONOCYTES % (AUTO) 5.3 % (1.7-9.3); NEUTROPHILS # (AUTO) 3.2 K/uL (1.8-7.7); NEUTROPHILS % (AUTO) 53.6 % (42.2-75.2); PLATELET COUNT (AUTO) 227 K/uL (140-450); RED BLOOD CELL COUNT(AUTO) 2.37 MIL/uL (4.20-5.40); RED CELL DISTRIBUTION WIDTH 14.9 % (11.6-13.7)
--- NOTE | 2019-05-12 06:34 | NUR ---
RECIVED PT ON VENT WITH SETTINGS CHARTED BREATH SOUNDS PRESENT BILAT CLEAR SXN PT WITH THICK CLEAR SECS TRACH SITE SECURE AMBU BAG AT BEDSIDE VENT PLUGGED INTO RED OUTLET WILL CONTINUE TO MONITOR PT
[2019-05-12] MEDS: PIPERACILLIN/TAZOBACTAM 3.375 GM in DEXTROSE 5% 50 ML IV SCH ×3 (06:38→22:54)
[2019-05-12] MEDS: BLOOD GLUCOSE MONITORING 1 DEV DEV FS SCH ×4 (06:51→20:24)
[2019-05-12 07:09] LABS: PHOSPHORUS 2.2 mg/dL (2.5-4.9)
[2019-05-12 07:13] LABS: ANION GAP 12.2 (8-16); CARBON DIOXIDE 24.6 mmol/L (21-32); CHLORIDE 111 mmol/L (98-107); CREATININE 0.8 mg/dL (0.6-1.3); GLUCOSE 119 mg/dL (74-106); POTASSIUM 3.8 mmol/L (3.5-5.1); SODIUM SERUM 144 mmol/L (136-145); UREA NITROGEN, BLOOD 5 mg/dL (7-18)
--- NOTE | 2019-05-12 07:30 | NUR ---
RECEIVED REPORT FROM MARTY VYAS AT BEDSIDE. PT IS SLEEPING ON THE LEFT SIDE AT THE TIME TRACH TO VENT. SETTING AC 14 FIO2 24% TV500 PEEP OF 5 , SKIN WARM DRY TO TOUCH THE COLOR IS NORMAL. ABDOMEN FIRM TO HARD WHEN TOUCH . BOWEL SOUND ISACTIVE. G TUBE FEEDING WITH GLUCERNA 1.2 AT 40ML/HR HAS [id number] FEEDING IN PROGRESS . SHAH CATH DRAIN CLEAR YELLOW URINE.
[2019-05-12] MEDS ORDERED: SODIUM PHOS / POTASSIUM PHOS 1 PKT PDR GT SCH (08:30)
--- NOTE | 2019-05-12 08:45 | NUR ---
ORAL CARE GIVEN ,THE SCHEDULE MED GIVEN ORDER ED.
[2019-05-12] MEDS: DOCUSATE 100 MG/10 ML UDC GT SCH ×2 (08:52→20:14)
[2019-05-12] MEDS: PANTOPRAZOLE 40 MG INJ VIAL IVP SCH (08:53)
[2019-05-12] MEDS: CARBIDOPA/LEVODOPA 25/100 MG 1 TAB GT SCH ×3 (08:53→17:37)
[2019-05-12] MEDS: POLYVINYL ALCOHOL 1.4% OP 15 ML SOL OP SCH ×3 (09:38→17:38)
[2019-05-12] MEDS: LISINOPRIL 5 MG TAB GT SCH (09:39)
--- NOTE | 2019-05-12 10:00 | NUR ---
REPOSITION PT. SLEEPING VITAL SIGH WITH IN NORMAL LIMIT.
--- NOTE | 2019-05-12 11:30 | NUR ---
blood glucose 124 NO INSULIN GIVEN.
--- NOTE | 2019-05-12 12:00 | NUR ---
A FEBRILE V/S WITH IN NORNAL LIMIT.
[2019-05-12] MEDS: NACL 0.9% 1,000 ML IV SCH (13:32)
--- NOTE | 2019-05-12 14:45 | NUR ---
VISIT BY THE DAUGHTER AT BEDSIDE.
--- NOTE | 2019-05-12 14:58 | NUR ---
05/12/19 FOLLOW UP COMPLETED PLEASE REFER TO NUTRITION ASSESSMENT UNDER CARE ACTIVITY FOR ESTIMATED NUTRITIONAL NEEDS. 1. CONTINUE GLUCERNA 1.2 @ 55 ML/HR W/ 1 PROSOURCE. -THIS PROVIDES 1320 ML IN VOLUME, 1644 KCAL, AND 94 GMS OF PROTEIN. THIS IS MEETING 100% OF PTS CALORIC AND PROTEIN NEEDS. 2. CONTINUE FREE WATER FLUSH: 130ML Q6H 3. RD TO FOLLOW-UP 2-3 DAYS, HIGH RISK OPAL BOWSER RD
--- NOTE | 2019-05-12 17:10 | NUR ---
SEEN BY DR. SALDAÑA, ORDER RECEIVED.
--- NOTE | 2019-05-12 17:48 | NUR ---
PT REMAINS ON DOCUMENTED VENT SETTINGS. PT NOT IN ANY DISTRESS. PT SUCTIONED OBTAINED SMALL AMOUNT OF THICK PALE YELLOW SECRETIONS, AIRWAY IS PATENT AND TRACH IS SECURE. VENT ALARMS REMAIN ON AND FUNCTIONING.
--- NOTE | 2019-05-12 19:30 | NUR ---
RECEIVED BEDSIDE REPORT FROM MORNING NURSE, PATIENT SPONTANEOUSLY OPENS HER EYES, NON-VERBAL, AAO X 0, UNABLE TO MAKE NEEDS KNOWN AND UNABLE TO FOLLOW COMMANDS. BILATERAL UE/LE STIFF. TRACT TO VENT WITH SETTING AC MODE FIO2 24%, VT 500, RATE 14, PEEP 5. G TUBE IN PLACE TO FEED, GLUCERNA 1.2 55ML/HR WITH FWF 130ML Q6. PLACEMENT CHECKED AND RESIDUAL 0CC NOTED. TOLERATED WELL WITH VENT AND FEEDING. SR ON THE WATCH CASE POLISHER. PERIPHERAL LINE TO LEFT FORE ARM 22G WITH NS 50ML/HR. F/C IN PLACE DRAINING CLEAR YELLOW URINE. BED IN LOW POSITION, BILATERAL SIDERAILS UP. CALL LIGHT WITHIN REACH. WILL CONTINUE TO MONITOR.
--- NOTE | 2019-05-12 21:45 | NUR ---
DR. ANDREW AT BEDSIDE TO CHECK THE PATIENT. UPDATES GIVEN. NO NEW ORDER RECEIVED. CONTINUE TO MONITOR.
[2019-05-13] VITALS (15 sets, daily range): BP systolic 102–155; BP diastolic 49–83
--- NOTE | 2019-05-13 | NUR ---
ORAL CARE AND REPOSITIONING GIVEN, PATIENT TOLERATED WELL WITH VENT AND FEEDING. NO ACUTE DISTRESS NOTED.
[2019-05-13] MEDS: HYDRAGUARD CREAM TP SCH ×2 (00:08→12:51)
--- NOTE | 2019-05-13 03:00 | NUR ---
PATIENT IN SLEEP, SPONTANEOUSLY OPENS HER EYES. NO ACUTE DISTRESS NOTED. FLACC 0. VITAL SIGNS STABLE. WILL CONTINUE TO MONITOR.
[2019-05-13] MEDS: METOCLOPRAMIDE 10 MG/2 ML INJ VIAL IVP SCH ×3 (04:44→20:55)
[2019-05-13 06:06] LABS: BASOPHILS % (AUTO) 0.9 % (0.0-2.0); EOSINOPHILS # (AUTO) 0.7 K/uL (0-0.4); HEMATOCRIT 21.7 % (36-48); HEMOGLOBIN 7.6 g/dL (12.0-16.0); LYMPHOCYTES # (AUTO) 1.2 K/uL (2.5-16.5); LYMPHOCYTES % (AUTO) 25.9 % (20.5-51.1); MEAN CORPUSCULAR HEMOGLOBIN 31 pg (27-31); MEAN CORPUSCULAR HGB CONC 35 g/dL (33-37); MEAN CORPUSCULAR VOLUME 89.6 fL (80-94); MONOCYTES # (AUTO) 0.3 K/uL (0.8-1.0); MONOCYTES % (AUTO) 5.6 % (1.7-9.3); NEUTROPHILS # (AUTO) 2.5 K/uL (1.8-7.7); NEUTROPHILS % (AUTO) 52.6 % (42.2-75.2); PLATELET COUNT (AUTO) 225 K/uL (140-450); RED BLOOD CELL COUNT(AUTO) 2.42 MIL/uL (4.20-5.40); RED CELL DISTRIBUTION WIDTH 15.2 % (11.6-13.7); WHITE BLOOD COUNT (AUTO) 4.7 K/uL (4.8-10.8)
--- NOTE | 2019-05-13 06:15 | NUR ---
REC'D PT ON [employer] VENT SETTINGS AC 14 VT 500 PEEP 5 FIO2 28% ALARMS ON AND AUDIBLE AND AMBU BAG AT SIDE OF VENT AND VENT IS PLUGGED INTO RED OUTLET, SXN PT SMALL AMT OF CLEAR SECRETIONS, B\S ARE CLEAR BILATERALLY, PT IS TRACH WITH PORTEX 8 AND PT IS RESTING Addendum: 05/13/19 at 0833 by Lillian Duarte RT FIO2 IS 24%
[2019-05-13] MEDS: PIPERACILLIN/TAZOBACTAM 3.375 GM in DEXTROSE 5% 50 ML IV SCH ×3 (06:26→22:27)
[2019-05-13] MEDS: BLOOD GLUCOSE MONITORING 1 DEV DEV FS SCH ×4 (06:27→20:54)
--- NOTE | 2019-05-13 07:30 | NUR ---
RECIEVED REPORT FROM MICHELLE AT BED SIDE.PT. IS TRACH TO VENT SETTING AC14 FIO2 24% vt 500 skin dry warm to touch coLOR NORNAL. G TUBE IN PLACE , FEEDING TOLERATED NO RESIDUAL WHEN CHECK, BOWEL SOUND ACTIVE. SHAH,S CATH DRAIN CLEAR YELLOW URINE.
--- NOTE | 2019-05-13 08:00 | NUR ---
dr. gaines and THE RESIDENT TEAM MAKE ROUND AT BED SIDE, ORDER RECEIVED.
[2019-05-13 08:01] LABS: ANION GAP 11.8 (8-16); CARBON DIOXIDE 24.2 mmol/L (21-32); CHLORIDE 109 mmol/L (98-107); CREATININE 0.7 mg/dL (0.6-1.3); GLUCOSE 142 mg/dL (74-106); SODIUM SERUM 141 mmol/L (136-145); UREA NITROGEN, BLOOD 9 mg/dL (7-18)
[2019-05-13 08:04] LABS: MAGNESIUM 1.8 mg/dL (1.8-2.4)
[2019-05-13] MEDS ORDERED: SODIUM PHOS / POTASSIUM PHOS 1 PKT PDR GT SCH ×2 (08:20→09:00)
--- NOTE | 2019-05-13 08:25 | NUR ---
BLOOD SUGAR 141 MG/DL
[2019-05-13] MEDS: LISINOPRIL 5 MG TAB GT SCH (08:35)
[2019-05-13] MEDS: CARBIDOPA/LEVODOPA 25/100 MG 1 TAB GT SCH ×3 (08:35→16:36)
[2019-05-13] MEDS: DOCUSATE 100 MG/10 ML UDC GT SCH ×2 (08:35→20:55)
[2019-05-13] MEDS: PANTOPRAZOLE 40 MG INJ VIAL IVP SCH (08:36)
[2019-05-13] MEDS: LACTOBACILLUS RHAMNOSUS GG 1 EACH CAP GT SCH (08:45)
[2019-05-13] MEDS: POLYVINYL ALCOHOL 1.4% OP 15 ML SOL OP SCH ×3 (08:47→17:00)
[2019-05-13] MEDS ORDERED: LACTOBACILLUS RHAMNOSUS GG 1 EACH CAP PO SCH (09:00)
--- NOTE | 2019-05-13 09:00 | NUR ---
A FEBRILE AWAKE EYE CLOSE SCHEDULE GIVEN. ORAL CARE GIVEN
--- NOTE | 2019-05-13 09:38 | NUR ---
REPOSITION BACKCARE AND SKIN CARE GIVEN
--- NOTE | 2019-05-13 11:30 | NUR ---
BLOOD SUGAR 98 NO INSULIN GIVEN.
--- NOTE | 2019-05-13 12:00 | NUR ---
REPOSITION ORAL CAR AND BACK GIVEN.
--- NOTE | 2019-05-13 14:30 | NUR ---
REPOSITION ORAL CARE GIVEN WITH VAP KIT.
--- NOTE | 2019-05-13 16:30 | NUR ---
BLOOD GLUCOSE 148 NO INSULIN GIVEN.
[2019-05-13] MEDS: HYDROcodone/APAP 5/325 MG 1 TAB TAB PO PRN (16:36)
--- NOTE | 2019-05-13 16:37 | NUR ---
P[T IS DIAPHORETIC AND RIDGED HER DAUGHTER ABLE TO COMMUNICATE WITH HER SAID SHE IS IN PAIN MEICATION GIVEN ORDERED.
--- NOTE | 2019-05-13 19:16 | NUR ---
RECEIVED PT FROM AM SHIFT. PT AFEBRILE. AOX0. UNABLE TO FOLLOW COMMANDS. UNABLE TO VERBALIZE NEEDS. TRACH TO VENT. AC 14 VT 500 FIO2 24 PEEP 5. LUNCH SOUNDS CLEAR. SR ON MONITOR. PULSES +2. TRACH TO VENT. AC 14 VT 500 FIO2 24 PEEP 5. GT TO FEED. ON GLUCERNA 1.2 @ 55ML. H20 FLUSH 130 Q 6H. F/C IN PLACE. CONTRACTED BUE/BLE. IAD NOTED TO SACAL COCCYX. REPOSITIONED TO OFFLOAD PRESSURE AREAS. WILL CONTINUE TO MONITOR. BED IN LOWEST POSITION. SR UP X4.
--- NOTE | 2019-05-13 22:35 | NUR ---
FAMILY AT BEDSIDE AT THIS TIME. BED IN LOWEST POSITION. REPOSITIONED TO OFFLOAD PRESSURE AREAS. WILL CONTINUE TO MONITOR.
[2019-05-14] VITALS (9 sets, daily range): BP systolic 124–149; BP diastolic 33–88
[2019-05-14] MEDS: HYDRAGUARD CREAM TP SCH ×2 (01:00→14:44)
--- NOTE | 2019-05-14 01:15 | NUR ---
NO SIGNS OF ACUTE DISTRESS AT THIS TIME. PT UNABLE TO VERBALIZE NEEDS.
--- NOTE | 2019-05-14 02:05 | NUR ---
FEEDING TUBE CHANGED AT THIS TIME. NO SIGNS OF ACUTE DISTRESS NOTED. BED IN LOWEST POSITION.
--- NOTE | 2019-05-14 04:00 | NUR ---
NO SIGNS OF ACUTE DISTRESS AT THIS TIME. BED BATH AT THIS TIME. REPOSITIONED TO OFFLOAD PRESSURE AREAS. BED IN LOWEST POSITION. CALL LIGHT WITHIN REACH.
[2019-05-14] MEDS: METOCLOPRAMIDE 10 MG/2 ML INJ VIAL IVP SCH ×3 (04:50→20:37)
[2019-05-14] MEDS: PIPERACILLIN/TAZOBACTAM 3.375 GM in DEXTROSE 5% 50 ML IV SCH ×3 (06:06→23:17)
--- NOTE | 2019-05-14 06:29 | NUR ---
PT AFEBRILE. BLOOD SUGAR 123 MG/DL NO SIGNS OF ACUTE DISTRESS NOTED. WILL CONTINUE TO MONITOR.
[2019-05-14] MEDS: BLOOD GLUCOSE MONITORING 1 DEV DEV FS SCH ×4 (06:36→20:45)
[2019-05-14 06:45] LABS: CHLORIDE 107 mmol/L (98-107); CREATININE 0.8 mg/dL (0.6-1.3); GLUCOSE 143 mg/dL (74-106); SODIUM SERUM 142 mmol/L (136-145); UREA NITROGEN, BLOOD 10 mg/dL (7-18)
--- NOTE | 2019-05-14 06:50 | NUR ---
MD AT BEDSIDE AT THIS TIME. UPDATED ON PTS CURRENT CONDITION. WILL CONTINUE TO FOLLOW UP ANY ADDITIONAL ORDERS.
[2019-05-14 06:53] LABS: MAGNESIUM 1.8 mg/dL (1.8-2.4); PHOSPHORUS 2.5 mg/dL (2.5-4.9)
[2019-05-14 07:09] LABS: BASOPHILS % (AUTO) 0.8 % (0.0-2.0); EOSINOPHILS # (AUTO) 0.7 K/uL (0-0.4); EOSINOPHILS % (AUTO) 13.2 % (0.0-4.0); HEMATOCRIT 21.6 % (36-48); HEMOGLOBIN 7.6 g/dL (12.0-16.0); LYMPHOCYTES # (AUTO) 1.5 K/uL (2.5-16.5); LYMPHOCYTES % (AUTO) 27.4 % (20.5-51.1); MEAN CORPUSCULAR HEMOGLOBIN 31 pg (27-31); MEAN CORPUSCULAR HGB CONC 35 g/dL (33-37); MEAN CORPUSCULAR VOLUME 88.8 fL (80-94); MONOCYTES # (AUTO) 0.4 K/uL (0.8-1.0); MONOCYTES % (AUTO) 6.8 % (1.7-9.3); NEUTROPHILS # (AUTO) 2.8 K/uL (1.8-7.7); NEUTROPHILS % (AUTO) 51.8 % (42.2-75.2); PLATELET COUNT (AUTO) 230 K/uL (140-450); RED BLOOD CELL COUNT(AUTO) 2.43 MIL/uL (4.20-5.40); RED CELL DISTRIBUTION WIDTH 15.4 % (11.6-13.7); WHITE BLOOD COUNT (AUTO) 5.4 K/uL (4.8-10.8)
--- NOTE | 2019-05-14 07:38 | NUR ---
PATIENT ARRIVED ON THE UNIT FROM ICU. ALL PERSONAL BELONGINGS. RT PRESENT DURING TRANSFER. GTUBE IN PLACE. SHAH CATH IN PLACE. PT IS ON TELE MONITORING. VENT IN PLUGGED INTO RED OUTLET PT IS ON CONTINUOS O2 MONITORING. ALL SAFETY MEASURES ARE IN PLACE. RECEIVED BEDSIDE. REPORT FROM MANAGER SPECIAL EVENTS. WILL CONTINUE TO MONITOR
[2019-05-14] MEDS: LACTOBACILLUS RHAMNOSUS GG 1 EACH CAP GT SCH (08:51)
[2019-05-14] MEDS: DOCUSATE 100 MG/10 ML UDC GT SCH ×2 (08:51→21:00)
[2019-05-14] MEDS: PANTOPRAZOLE 40 MG INJ VIAL IVP SCH (08:51)
[2019-05-14] MEDS: LISINOPRIL 5 MG TAB GT SCH (08:51)
[2019-05-14] MEDS: CARBIDOPA/LEVODOPA 25/100 MG 1 TAB GT SCH ×3 (08:52→17:00)
[2019-05-14] MEDS: POLYVINYL ALCOHOL 1.4% OP 15 ML SOL OP SCH ×3 (08:54→17:09)
--- NOTE | 2019-05-14 09:35 | NUR ---
MORNING MEDICATIONS ADMINISTERED VIA GTUBE. GTUBE RESIDUAL 5ML. PT TOLERATED ALL MEDICATIONS ADMINISTERED VIA GTUBE. GTUBE FEEDING STARTED HEAD OF BED ELEVATED ABOVE 30 DEGREES. ALL SAFETY MEASURES ARE IN PLACE CALL LIGHT WITHIN REACH. WILL CONTINUE TO MONITOR.
--- NOTE | 2019-05-14 11:34 | NUR ---
FREQUENT ROUNDING ON PT PT APPEARS STABLE AND IN NO APPARENT DISTRESS. PT IS ON TELE MONITORING, PT IS TRACH TO VENT. ON CONTINUOS SPO2 MONITORING. ALL SAFETY MEASURES ARE IN PLACE.
[2019-05-14] MEDS: HYDROcodone/APAP 5/325 MG 1 TAB TAB PO PRN (12:58)
--- NOTE | 2019-05-14 13:46 | NUR ---
FREQUENT ROUNDING ON PT PT APPEARS STABLE AND IN NO APPARENT DISTRESS. ALL SAFETY MEASURES ARE IN PLACE WILL CONTINUE TO MONITOR.
--- NOTE | 2019-05-14 15:12 | NUR ---
FREQUENT ROUNDING ON PT PT APPEARS STABLE AND IN NO APPARENT DISTRESS. ALL SAFETY MEASURES ARE IN PLACE. WILL CONTINUE TO MONITOR.
--- NOTE | 2019-05-14 17:00 | NUR ---
[place] CAME OUT. NOTIFIED DR. CORONADO AND DR. GAXIOLA. PLACED STOMA COVER OVER FOR NOW
[2019-05-14] MEDS: MORPHINE SULFATE 2 MG/ML SYR IVP PRN ×2 (17:06→21:13)
--- NOTE | 2019-05-14 18:35 | NUR ---
DR. BRYANT ATTEMPTED TO PLAC GTUBE BACK IN PLACE ADAMARIS STARTED
--- NOTE | 2019-05-14 19:10 | NUR ---
RECEIVED REPORT FROM DAYSHIFT NURSE AT PATIENTS BEDSIDE. FAMILY AT BEDSIDE, IN STABLE CONDITION. UPDATED DR. DONG, CONTRAST PUSHED AND GTUBE SITE STILL LEAKING, KUB DONE, WILL F/U WITH XRAY.
--- NOTE | 2019-05-14 19:23 | NUR ---
ENDORSED PT TO PM RN PT AWAKE IN BED TRACH TO VENT IN PLACE SHAH CATH IN PLACE IVF INFUSING ALL SAFETY MEASURE ARE IN PLACE .
--- NOTE | 2019-05-14 19:25 | NUR ---
PT ANOx1, APHASIC, ABLE TO FOLLOW SOME SIMPLE COMMANDS- SLIGHTLY MOVES RIGHT HAND WHEN COMMANDED. PERRL, 3MM. PT TRACH TO VENT, ACVC 14, FI02 24%, TV500, PEEP 5. LUNG SOUNDS CLEAR, SLIGHTLY DIMINISHED AT BASES. NO SIGNS OF SOB OR COUGH/CONGESTION. SATURATIONS 98%. S1S2, SR TO SB ON MONITOR, HEART RATE 63 BPM. SKIN WARM AND DRY, AFEBRILE-98.5. PERIPHERAL IV, LEFT FA, 22G, FLUSHED, PATENT WITHOUT SYMPTOMS, INFUSING NS @ 10ML/HR, TKO. GTUBE IN PLACE AT LEFT UPPER QUADRANT, SLIGHTLY LEAKING CLEAR FLUIDS, TUBE FEEDING CURRENTLY ON HOLD. SHAH CATHETER IN PLACE, CLEAR YELLOW URINE NOTED. SKIN INTACT BUT SLIGHTLY RED AT SACRUM. BUE AND BLE CONTRACTURES, HAND TOWELS AND PILLOWS IN PLACE TO OFFLOAD PRESSURE AREAS. SIDE RAILS UP x2, BED LOCKED AND IN LOWEST POSITION, HOB 30 DEGREES. PATIENT AND FAMILY UPDATED ON CARE PLAN. WILL CONTINUE TO MONITOR.
--- NOTE | 2019-05-14 19:51 | NUR ---
RECEIVED PATIENT TRACH TO MECHANICAL VENTILATOR AT DOCUMENTED SETTINGS. VENT PLUGGED INTO RED OUTLET WITH WHEELS LOCKED. AMBU BAG AT [facility]. AIRWAY SECURE AND PATENT. CONTINUOUS PULSE OX ON AND FUNCTIONING; ALARMS ON AND AUDIBLE. VENT CHECK DONE. ALARMS ON AND AUDIBLE. FAMILY PRESENT AT BEDSIDE. NO ACUTE RESPIRATORY DISTRESS NOTED AT THIS TIME. WILL CONTINUE TO MONITOR.
--- NOTE | 2019-05-14 20:20 | NUR ---
AT BEDSIDE TO UPDATE FAMILY. KUB XRAY SHOWS GTUBE IS IN PROPER PLACE ALTHOUGH STILL SLIGHTLY LEAKING. GI CONSULT FOLLOWUP IN A.M. FOR NOW, HOLD ALL GTUBE PUSH MEDS AND FEEDING, RESIDENT MD WILL LEAVE GTUBE IN PLACE FOR NOW. FAMILY VERBALIZES UNDERSTANDING, WILL CARRY OUT NEW ORDERS.
--- NOTE | 2019-05-14 21:10 | NUR ---
SCHEDULED MEDICATIONS GIVEN, PT TOLERATED WELL. FLACC 8, ADMINISTERED IVP MORPHINE. PROVIDED VAP ORAL CARE. TURNED AND REPOSITIONED PATIENT, PT HAD A LARGE BOWEL MOVEMENT- SOFT AND BROWN. WILL HOLD COLACE. FAMILY AT BEDSIDE. SAFETY ALARMS IN PLACE, ALL NEEDS MET AT THIS TIME.
--- NOTE | 2019-05-14 21:10 | NUR ---
VENT CHECK DONE. FAMILY AT BEDSIDE. SUCTIONED MODERATE AMOUNT OF THICK, CLEAR/WHITE SECRETIONS. NO ACUTE RESPIRATORY DISTRESS NOTED AT THIS TIME. WILL CONTINUE TO MONITOR.
--- NOTE | 2019-05-14 22:06 | NUR ---
PATIENTS DAUGHTER REQUESTING TO BE NOTIFIED FIRST FOR PATIENT UPDATES AND/OR CONSENT. DO NOT CALL PATIENTS SON OR OTHER DAUGHTER. ORIENTED TO CHANGING NAME AND CONTACT INFO ON FACE SHEET AT ADMISSIONS, DAUGHTER VERBALIZES UNDERSTANDING, WILL ENDORSE TO Jerome NURSE. KHURRAM COVARRUBIAS [phone]
--- NOTE | 2019-05-14 22:51 | NUR ---
SPOKE WITH RESIDENT DOCTOR, VERIFIED PT DOES NOT NEED TO CHANGE IV FLUIDS, SUGAR WITHIN NORMAL RANGE AND INSULIN NOT NEEDED/GIVEN. WILL EXPLAIN TO DAUGHTER.
[2019-05-14] MEDS ORDERED: PIPERACILLIN/TAZOBACTAM 3.375 GM VIAL IV ONE (23:04)
[2019-05-15] VITALS: BP 145/48
--- NOTE | 2019-05-15 00:19 | NUR ---
PATIENT IN BED, EYES CLOSED, TRACH TO VENT, SETTINGS SAME START OF SHIFT-ACVC 14, FI02 24%, TV 500, PEEP 5. NO DISTRESS NOTED, FLACC 0, TURNED AND REPOSITIONED FOR OFFLOAD PRESSURE SITES.
--- NOTE | 2019-05-15 01:05 | NUR ---
VENT ALARMING, HIGH PEAK PRESSURES, INCREASED OXYGEN AND SUCTIONED PATIENT. SMALL AMOUNT OF WHITE CREAMY SECRETIONS NOTED. SAFETY MEASURES IN PLACE.
[2019-05-15] MEDS: HYDRAGUARD CREAM TP SCH ×2 (02:39→12:44)
[2019-05-15 04:00] VITALS: BP 147/49
--- NOTE | 2019-05-15 04:00 | NUR ---
VAP ORAL CARE PROVIDED. TURNED AND REPOSITIONED. PATIENT HAD ANOTHER LARGE LOOSE BOWEL MOVEMENT. PROVIDED DONATO CARE, SHAH CARE, AND CHANGED LINEN AND GOWN. AT SHAH SITE, SLIGHTLY BLOODY URINE NOTED BUT SHAH BAG NO SIGN OF BLOOD TRACE, WILL ENDORSE TO A.M SHIFT. GTUBE SITE CURRENTLY NOT LEAKING. HOB 30 DEGREES, SIDERAILS UP x2, SAFETY ALARMS IN PLACE.
[2019-05-15] MEDS ORDERED: PIPERACILLIN/TAZOBACTAM 3.375 GM VIAL IV ONE (05:18)
[2019-05-15] MEDS: METOCLOPRAMIDE 10 MG/2 ML INJ VIAL IVP SCH ×3 (05:35→20:32)
[2019-05-15] MEDS: BLOOD GLUCOSE MONITORING 1 DEV DEV FS SCH ×4 (05:51→20:36)
[2019-05-15] MEDS: PIPERACILLIN/TAZOBACTAM 3.375 GM in DEXTROSE 5% 50 ML IV SCH (06:07)
--- NOTE | 2019-05-15 06:15 | NUR ---
PATIENT TURNED AND REPOSITIONED, SKIN INTACT, SACRAL REDNESS AND INCONTINENT DERMATITIS NOTED, BARRIER CREAM IN PLACE. TRACH TO VENT, ACVC 14, FI02 24%, TV 500, PEEP 5. NO SOB, SATURATIONS 100%. LEFT FOREARM PERIPHERAL IV IN PLACE, 22G, NS TKO @ 10ML/HR. SHAH CATHETER IN PLACE AND SMALL AMOUNT OF BLOOD TRACE NOTED IN BAG, YELLOW URINE NOTED. GTUBE IN PLACE, CLOSED TO PATIENT, NO LEAKAGE NOTED. SKIN IS WARM TO TOUCH, TEMP 99.4, REMOVED ONE BLANKET. CONNECTED TO [employer]. SAFETY ALARMS IN PLACE. FLACC 0
--- NOTE | 2019-05-15 06:20 | NUR ---
BLOOD SUGAR 97, NO COVERAGE NEEDED.
[2019-05-15 06:53] LABS: ANION GAP 11.2 (8-16); CARBON DIOXIDE 26.9 mmol/L (21-32); CHLORIDE 107 mmol/L (98-107); CREATININE 0.8 mg/dL (0.6-1.3); GLUCOSE 98 mg/dL (74-106); POTASSIUM 4.1 mmol/L (3.5-5.1); SODIUM SERUM 141 mmol/L (136-145); UREA NITROGEN, BLOOD 9 mg/dL (7-18)
[2019-05-15 06:54] LABS: MAGNESIUM 1.9 mg/dL (1.8-2.4); PHOSPHORUS 3.3 mg/dL (2.5-4.9)
[2019-05-15 06:55] LABS: BASOPHILS % (AUTO) 0.7 % (0.0-2.0); EOSINOPHILS # (AUTO) 0.7 K/uL (0-0.4); EOSINOPHILS % (AUTO) 11.6 % (0.0-4.0); HEMATOCRIT 24.1 % (36-48); HEMOGLOBIN 8.4 g/dL (12.0-16.0); LYMPHOCYTES # (AUTO) 1.9 K/uL (2.5-16.5); LYMPHOCYTES % (AUTO) 30.4 % (20.5-51.1); MEAN CORPUSCULAR HEMOGLOBIN 31 pg (27-31); MEAN CORPUSCULAR HGB CONC 35 g/dL (33-37); MEAN CORPUSCULAR VOLUME 90.3 fL (80-94); MONOCYTES # (AUTO) 0.4 K/uL (0.8-1.0); MONOCYTES % (AUTO) 7.3 % (1.7-9.3); PLATELET COUNT (AUTO) 263 K/uL (140-450); RED BLOOD CELL COUNT(AUTO) 2.67 MIL/uL (4.20-5.40); RED CELL DISTRIBUTION WIDTH 15.7 % (11.6-13.7); WHITE BLOOD COUNT (AUTO) 6.1 K/uL (4.8-10.8)
--- NOTE | 2019-05-15 07:20 | NUR ---
RECEIVED BEDSIDE REPORT FROM NIGHTSHIFT NURSE. PT RESTING IN BED. FLACC 0. RESPIRATIONS EVEN AND UNLABORED WITH NO SOB OR RESPIRATORY DISTRESS. SKIN WARM AND DRY TO TOUCH. IV SITE IN LFA 22G IS CLEAN, DRY, AND INTACT. SAFETY MEASURES IN PLACE. WILL CONTINUE TO MONITOR.
[2019-05-15 08:00] VITALS: BP 129/58
[2019-05-15] MEDS: CARBIDOPA/LEVODOPA 25/100 MG 1 TAB GT SCH ×3 (08:00→17:00)
[2019-05-15] MEDS: LISINOPRIL 5 MG TAB GT SCH (09:00)
[2019-05-15] MEDS: DOCUSATE 100 MG/10 ML UDC GT SCH ×2 (09:00→20:36)
[2019-05-15] MEDS: LACTOBACILLUS RHAMNOSUS GG 1 EACH CAP GT SCH (09:00)
[2019-05-15] MEDS: POLYVINYL ALCOHOL 1.4% OP 15 ML SOL OP SCH ×3 (09:56→17:04)
[2019-05-15] MEDS: PANTOPRAZOLE 40 MG INJ VIAL IVP SCH (09:56)
--- NOTE | 2019-05-15 09:59 | NUR ---
ADMINISTERED SCHED MED PRESCRIBED PER MD ORDER. PT TOLERATED WELL. MEDICATION EDUCATION PERFORMED. PT APHASIC AND UNABLE TO VERBALIZE UNDERSTANDING. HELD G-TUBE MEDICATIONS DUE TO G-TUBE NOT WORKING. SAFETY MEASURES IN PLACE. WILL CONTINUE TO MONITOR
--- NOTE | 2019-05-15 11:30 | NUR ---
PT BLOOD SUGAR RESULTED IN 80. NO INSULIN COVERAGE NEEDED AT THIS TIME. SAFETY MEASURES IN PLACE. WILL CONTINUE TO MONITOR
--- NOTE | 2019-05-15 11:57 | NUR ---
DID NOT ADMINISTER SCHED MED DUE TO PATIENT G-TUBE LEAKING. SAFETY MEASURES IN PLACE. WILL CONTINUE TO MONITOR
[2019-05-15 12:00] VITALS: BP 109/64
--- NOTE | 2019-05-15 12:48 | NUR ---
ADMINISTERED SCHED MED PRESCRIBED PER MD ORDER. PT TOLERATED WELL. MEDICATION EDUCATION PERFORMED. PT APHASIC AND UNABLE TO VERBALIZE UNDERSTANDING. SAFETY MEASURES IN PLACE. WILL CONTINUE TO MONITOR
--- NOTE | 2019-05-15 13:52 | NUR ---
05/15/19 FOLLOW UP COMPLETED PLEASE REFER TO NUTRITION ASSESSMENT UNDER CARE ACTIVITY FOR ESTIMATED NUTRITIONAL NEEDS. 1. WHEN MEDICALLY APPROPRIATE TO RESTART FEEDINGS, CONTINUE GLUCERNA 1.2 @ 55 ML/HR WITH PROSOURCE ONCE DAILY -THIS PROVIDES 1320 ML IN VOLUME, 1644 KCAL, AND 94 GMS OF PROTEIN. THIS IS MEETING 100% OF PTS CALORIC AND PROTEIN NEEDS. 2. CONTINUE FREE WATER FLUSH OF 130ML Q6H 3. RD TO FOLLOW-UP 2-3 DAYS, HIGH RISK OPAL BOWSER RD
--- NOTE | 2019-05-15 14:06 | NUR ---
HOURLY ROUNDING. PT RESTING IN BED. FLACC 0. RESPIRATIONS EVEN AND UNLABORED WITH NO SOB OR RESPIRATORY DISTRESS. SKIN WARM AND DRY TO TOUCH. SAFETY MEASURES IN PLACE. WILL CONTINUE TO MONITOR.
--- NOTE | 2019-05-15 15:35 | NUR ---
PT IS SLEEPING IN BED. RESPONSIVE TO VERBAL AND TACTILE STIMULI. FLACC 0. RESPIRATIONS EVEN AND UNLABORED WITH NO SOB OR RESPIRATORY DISTRESS. SKIN WARM AND DRY TO TOUCH. SAFETY MEASURES IN PLACE. WILL CONTINUE TO MONITOR.
[2019-05-15 16:00] VITALS: BP 131/47
--- NOTE | 2019-05-15 16:30 | NUR ---
PT BLOOD SUGAR RESULTED IN 96. NO INSULIN COVERAGE NEEDED AT THIS TIME. SAFETY MEASURES IN PLACE. WILL CONTINUE TO MONITOR
--- NOTE | 2019-05-15 17:07 | NUR ---
ADMINISTERED SCHED MED PRESCRIBED PER MD ORDER. PT TOLERATED WELL. DID NOT ADMINISTER G-TUBE MEDICATION DUE TO G-TUBE MALFUNCTIONING. MEDICATION EDUCATION PERFORMED. PT APHASIC AND UNABLE TO VERBALIZE UNDERSTANDING. SAFETY MEASURES IN PLACE. WILL CONTINUE TO MONITOR
[2019-05-15] MEDS: MORPHINE SULFATE 2 MG/ML SYR IVP PRN ×2 (18:24→22:47)
--- NOTE | 2019-05-15 18:24 | NUR ---
ADMINISTERED SCHED MED PRESCRIBED PER MD ORDER. PT TOLERATED WELL. PT WAS GRIMACING IN PAIN. PRN PAIN MEDICATION ADMINISTERED PRESCRIBED PER MD ORDER. MEDICATION EDUCATION PERFORMED. PT APHASIC AND UNABLE TO VERBALIZE UNDERSTANDING. SAFETY MEASURES IN PLACE. WILL CONTINUE TO MONITOR
[2019-05-15] MEDS: DEXT 5% /NACL 0.9% 1,000 ML IV SCH (18:28)
--- NOTE | 2019-05-15 19:05 | NUR ---
ENDORSED AT BEDSIDE WITH NIGHTSHIFT NURSE. FAMILY AT BEDSIDE. PT RESTING IN BED. FLACC 0. RESPIRATIONS EVEN AND UNLABORED WITH NO SOB OR RESPIRATORY DISTRESS. SKIN WARM AND DRY TO TOUCH. SAFETY MEASURES IN PLACE. PT IS STABLE
--- NOTE | 2019-05-15 19:07 | NUR ---
RECEIVED PT ON BED SLEEPING, SQUIRMING TO TOUCH, APHASIC, VITAL SIGNS STABLE, ON TRACH TO VENT WITH FF SETTINGS: FI02-24%, TV-500, RATE-14, FLOW RATE-35, PEEP-5, SATURATING 99%, FLACC-0, G-TUBE FEEDING IN PLACE, SCANTY DRAINAGE AT THIS TIME, ON NPO STATUS, SHAH CATHETER IN PLACE WITH CLEAR YELLOW URINE, IVF INFUSING WELL, PLAN OF CARE DISCUSSED WITH DAUGHTER AT BEDSIDE, AWAITING DR Perez CORONADO, SAFETY MEASURES IN PLACE, BED IN LOW POSITION, BED ALARM ON, CALL LIGHT WITHIN REACH.
[2019-05-15 20:00] VITALS: BP 146/59
--- NOTE | 2019-05-15 20:40 | NUR ---
BLOOD SUGAR CHECKED WITH 112 RESULT, DUE IV AND SUB-Q MEDS ADMINISTERED, G-TUBE MEDS HELD AT THIS TIME DUE G-TUBE LEAKING, UNABLE TO DO ORAL CARE VIA VAP KIT, PT KEPT HER MOUTH CLOSED AND STARTS TO GET AGITATED, REPOSITIONED Q2H AND OFFLOAD PRESSURE AREAS.
--- NOTE | 2019-05-15 23:20 | NUR ---
DAUGHTER CALLED THAT G-TUBE JUST CAME OUT, SEEN G-TUBE OUT WITH TIP INTACT AND BALLOON DEFLATED, CLEANSE G-TUBE STOMA AND APPLIED COLOSTOMY BAG FOR DRAINAGE, MINIMAL MUCOID CLEAR DRAINAGE NOTED, DR LOCKETT MADE AWARE, MONITORED CLOSELY.
[2019-05-16] VITALS: BP 133/58
[2019-05-16] MEDS: HYDRAGUARD CREAM TP SCH ×2 (01:28→12:33)
--- NOTE | 2019-05-16 01:30 | NUR ---
PT HAD SEMI-SOFT BROWN STOOL, STOOL OB SPECIMEN OBTAINED AND SENT TO LAB, PT CLEANED AND REPOSITIONED, MONITORED CLOSELY.
[2019-05-16 04:00] VITALS: BP 143/53
--- NOTE | 2019-05-16 04:00 | NUR ---
PT SLEEPING, SQUIRMS TO TOUCH, VITAL SIGNS STABLE, FLACC-0, NO SIGNS OF RESPIRATORY DISTRESS, UNABLE TO DO ORAL CARE, PT NOT OPENING HER MOUTH AND STARTS GETTING AGITATED, CONTINUE TO REPOSITION Q2H AND OFFLOAD PRESSURE AREAS, SUCTION SECRETION PRN, MONITORED CLOSELY.
[2019-05-16] MEDS ORDERED: PIPERACILLIN/TAZOBACTAM 3.375 GM VIAL IV ONE (04:24)
[2019-05-16] MEDS: PIPERACILLIN/TAZOBACTAM 3.375 GM in DEXTROSE 5% 50 ML IV SCH ×2 (04:37→12:29)
[2019-05-16] MEDS: METOCLOPRAMIDE 10 MG/2 ML INJ VIAL IVP SCH ×3 (04:37→21:15)
--- NOTE | 2019-05-16 05:50 | NUR ---
PT SLEEPING, NO DISTRESS NOTED, BLOOD SUGAR CHECKED WITH 121 RESULT, MAINTAINED ON NPO, IVF OF D5 NS AT 70ML/H INFUSING WELL, SCANTY MUCOID DRAINAGE ON THE G-TUBE STOMA, COLOSTOMY BAG INTACT, FOR EGD WITH PEG PLACEMENT TODAY, CONSENT SIGNED BY DAUGHTER, MONITORED CLOSELY.
[2019-05-16] MEDS: BLOOD GLUCOSE MONITORING 1 DEV DEV FS SCH ×4 (06:31→21:21)
--- NOTE | 2019-05-16 06:33 | NUR ---
rec'd pt on carescape vent settings ac 14 vt 500 peep 5 fio2 24% alarms on and audible and ambu bag at side of vent and vent is plugged into red outlet, sxn pt small amt of clear secretions,b\s are clear bilaterally and pt is trach with portex 8 pt is sleeping
[2019-05-16] MEDS: MORPHINE SULFATE 2 MG/ML SYR IVP PRN ×3 (06:56→22:07)
--- NOTE | 2019-05-16 07:07 | NUR ---
PT SLEEPING, NO SIGNS OF DISTRESS, BEDSIDE REPORT GIVEN TO ASAEL CEVALLOS FOR CONTINUITY OF CARE.
--- NOTE | 2019-05-16 07:12 | NUR ---
RECEIVED BEDSIDE REPORT FROM NIGHTSHIFT NURSE. PT RESTING IN BED. ABLE TO MAKE NEEDS KNOWN. RESPIRATIONS EVEN AND UNLABORED WITH NO SOB OR RESPIRATORY DISTRESS. SKIN WARM AND DRY TO TOUCH. SAFETY MEASURES IN PLACE. WILL CONTINUE TO MONITOR.
[2019-05-16 08:00] VITALS: BP 135/72
[2019-05-16] MEDS: CARBIDOPA/LEVODOPA 25/100 MG 1 TAB GT SCH ×2 (08:00→11:43)
[2019-05-16] MEDS: DEXT 5% /NACL 0.9% 1,000 ML IV SCH (08:26)
[2019-05-16] MEDS: PANTOPRAZOLE 40 MG INJ VIAL IVP SCH (08:26)
[2019-05-16] MEDS: DOCUSATE 100 MG/10 ML UDC GT SCH (08:26)
[2019-05-16] MEDS: LACTOBACILLUS RHAMNOSUS GG 1 EACH CAP GT SCH (08:27)
[2019-05-16] MEDS: LISINOPRIL 5 MG TAB GT SCH (08:27)
[2019-05-16] MEDS: POLYVINYL ALCOHOL 1.4% OP 15 ML SOL OP SCH ×3 (08:27→17:01)
--- NOTE | 2019-05-16 08:27 | NUR ---
ADMINISTERED SCHED MED PRESCRIBED PER MD ORDER. PT TOLERATED WELL. HELD G-TUBE MEDICATIONS DUE TO G-TUBE MALFUNCTIONING. MEDICATION EDUCATION PERFORMED. PT APHASIC AND UNABLE TO VERBALIZE UNDERSTANDING. SAFETY MEASURES IN PLACE. WILL CONTINUE TO MONITOR.
[2019-05-16 10:02] LABS: BASOPHILS % (AUTO) 0.3 % (0.0-2.0); EOSINOPHILS # (AUTO) 0.6 K/uL (0-0.4); EOSINOPHILS % (AUTO) 10.9 % (0.0-4.0); HEMATOCRIT 24.5 % (36-48); HEMOGLOBIN 8.3 g/dL (12.0-16.0); LYMPHOCYTES # (AUTO) 1.2 K/uL (2.5-16.5); LYMPHOCYTES % (AUTO) 23.6 % (20.5-51.1); MEAN CORPUSCULAR HEMOGLOBIN 31 pg (27-31); MEAN CORPUSCULAR HGB CONC 34 g/dL (33-37); MEAN CORPUSCULAR VOLUME 90.3 fL (80-94); MONOCYTES # (AUTO) 0.3 K/uL (0.8-1.0); MONOCYTES % (AUTO) 6.7 % (1.7-9.3); NEUTROPHILS % (AUTO) 58.5 % (42.2-75.2); PLATELET COUNT (AUTO) 290 K/uL (140-450); RED BLOOD CELL COUNT(AUTO) 2.71 MIL/uL (4.20-5.40); RED CELL DISTRIBUTION WIDTH 15.6 % (11.6-13.7); WHITE BLOOD COUNT (AUTO) 5.1 K/uL (4.8-10.8)
[2019-05-16 11:19] LABS: ANION GAP 16.6 (8-16); CARBON DIOXIDE 22.1 mmol/L (21-32); CHLORIDE 107 mmol/L (98-107); CREATININE 0.8 mg/dL (0.6-1.3); GLUCOSE 140 mg/dL (74-106); POTASSIUM 3.7 mmol/L (3.5-5.1); SODIUM SERUM 142 mmol/L (136-145); UREA NITROGEN, BLOOD 8 mg/dL (7-18)
[2019-05-16 11:26] LABS: MAGNESIUM 1.6 mg/dL (1.8-2.4); PHOSPHORUS 2.8 mg/dL (2.5-4.9)
--- NOTE | 2019-05-16 11:30 | NUR ---
BLOOD SUGAR RESULTED IN 130. NO INSULIN COVERAGE NEEDED AT THIS TIME.
--- NOTE | 2019-05-16 11:43 | NUR ---
COULD NOT ADMINISTER MEDICATION PRESCRIBED PER MD ORDER DUE TO MALFUNCTIONING G-TUBE. SAFETY MEASURES IN PLACE. WILL CONTINUE TO MONITOR
[2019-05-16 12:00] VITALS: BP 140/56
--- NOTE | 2019-05-16 12:15 | NUR ---
PREOP CHECKLIST IS COMPLETE FOR PT EGD AND PEG PLACEMENT. SAFETY MEASURES IN PLACE. WILL CONTINUE TO MONITOR
--- NOTE | 2019-05-16 12:33 | NUR ---
ADMINISTERED SCHED MED PRESCRIBED PER MD ORDER. PT TOLERATED WELL. MEDICATION EDUCATION PERFORMED. PT APHASIC AND UNABLE TO VERBALIZE UNDERSTANDING. SAFETY MEASURES IN PLACE. WILL CONTINUE TO MONITOR.
[2019-05-16] MEDS ORDERED: fentaNYL 0.05 MG/ML VIAL ONE (12:44)
[2019-05-16] MEDS ORDERED: MIDAZOLAM 2 MG/2 ML VIAL ONE (12:44)
--- NOTE | 2019-05-16 13:23 | NUR ---
PT IS HAVING PROCEDURE FOR EGD AND PEG PLACEMENT AT BEDSIDE DUE TO PATIENT'S COMORBIDITIES. SAFETY MEASURES IN PLACE. WILL CONTINUE TO MONITOR.
--- NOTE | 2019-05-16 13:50 | NUR ---
DR. CORONADO IS FINISHED WITH EGD AND PEG TUBE PLACEMENT. PT TOLERATED WELL. REPORT GIVEN FROM OR NURSE. SAFETY MEASURES IN PLACE. WILL CONTINUE TO MONITOR.
[2019-05-16] MEDS ORDERED: MAG SULF 2000 MG/WATER PREMIX 50 ML IV SCH (14:00)
[2019-05-16] MEDS ORDERED: fentaNYL 0.05 MG/ML VIAL IVP ONE (14:30)
[2019-05-16] MEDS ORDERED: MIDAZOLAM 2 MG/2 ML VIAL IVP ONE (14:30)
[2019-05-16] MEDS ORDERED: POTASSIUM CHLORIDE 20% 40 MEQ/15 ML UDC GT SCH (15:00)
--- NOTE | 2019-05-16 15:00 | NUR ---
NEW G-TUBE IS CLEAN, DRY, AND INTACT. NO RESIDUAL. PT TOLERATING WELL. NO SIGNS OF LEAKING AT NEW G-TUBE PLACEMENT. OLD G-TUBE STOMA WAS CLEANED, PAT DRY, AND COVERED WITH A GAUZE DRESSING. PT IS RUNNING GLUCERNA 1.2 AT 1OML/HR WITH 30ML WATER FLUSHES EVERY 6HRS. SAFETY MEASURES IN PLACE. WILL CONTINUE TO MONITOR.
[2019-05-16 16:00] VITALS: BP 135/56
--- NOTE | 2019-05-16 16:30 | NUR ---
PT BLOOD SUGAR IS 108. NO INSULIN COVERAGE IS NEEDED AT THIS TIME. SAFETY MEASURES IN PLACE. WILL CONTINUE TO MONITOR.
--- NOTE | 2019-05-16 17:54 | NUR ---
PT APPEARED TO BE IN SEVERE PAIN. PRN PAIN MEDICATION ADMINISTERED PRESCRIBED PER MD ORDER. PT TOLERATED WELL. SAFETY MEASURES IN PLACE. WILL CONTINUE TO MONITOR.
--- NOTE | 2019-05-16 18:15 | NUR ---
FAMILY AT BEDSIDE. PT RESTING IN BED. FLACC 0. RESPIRATIONS EVEN AND UNLABORED WITH NO SOB OR RESPIRATORY DISTRESS. SKIN WARM AND DRY TO TOUCH. SAFETY MEASURES IN PLACE. WILL CONTINUE TO MONITOR.
--- NOTE | 2019-05-16 19:00 | NUR ---
RECEIVED PATIENT TRACH TO MECHANICAL VENTILATOR AT DOCUMENTED SETTINGS. VENT CHECK DONE. VENT PLUGGED INTO RED OUTLET WITH WHEELS LOCKED. ALARMS ON AND AUDIBLE. PT CONNECTED TO CONTINUOUS PULSE OX MONITOR WITH ALARMS ON AND AUDIBLE. AIRWAY SECURE AND PATENT. SUCTIONED MODERATE AMOUNT OF THICK, WHITE/CLEAR SECRETIONS. AMBU BAG AT BEDSIDE. NO ACUTE RESPIRATORY DISTRESS NOTED AT THIS TIME. WILL CONTINUE OT MONITOR.
--- NOTE | 2019-05-16 19:26 | NUR ---
ENDORSED AT BEDSIDE TO NIGHTSHIFT NURSE. PT RESTING IN BED. FLACC 0. RESPIRATIONS EVEN AND UNLABORED WITH NO SOB OR RESPIRATORY DISTRESS. SKIN WARM AND DRY TO TOUCH. SAFETY MEASURES IN PLACE. PT IS STABLE
--- NOTE | 2019-05-16 19:28 | NUR ---
RECEIVED PT SLEEPING, SQUIRMS TO TOUCH, APHASIC, VITAL SIGNS STABLE, ON TRACH TO VENT, NO RESP DISTRESS NOTED, G-TUBE FEEDING ON-GOING AT 10ML/H, NO RESIDUAL NOTED, KEEP HOB ELEVATED AT ALL TIMES, OLD G-TUBE SITE COVERED WITH GAUZE, MINIMAL YELLOW MUCOID DRAINAGE NOTED, SHAH CATHETER TO GRAVITY WITH YELLOW OUTPUT, IVF INFUSING WELL, BEDBOUND, WILL REPOSITION Q2H AND OFFLOAD PRESSURE AREAS, DAUGHTER AT BEDSIDE AND UPDATED ON PLAN OF CARE, CALL LIGHT WITHIN REACH.
[2019-05-16 20:00] VITALS: BP 149/52
--- NOTE | 2019-05-16 21:20 | NUR ---
BLOOD SUGAR CHECKED WITH 135 RESULT, DUE MEDS ADMINISTERED, PT REFUSING ORAL CARE WITH VAP KIT, UNABLE TO FOLLOW COMMANDS, GETS AGITATED, REPOSITIONED AND OFFLOAD PRESSURE AREAS, ALL NEED ANTICIPATED.
--- NOTE | 2019-05-16 22:10 | NUR ---
SEEN PT SQUIRMING AND RIGID, FLACC-6, MEDICATED PRN WITH MORPHINE IVP, MONITORED CLOSELY.
[2019-05-17] VITALS: BP 143/47
--- NOTE | 2019-05-17 00:20 | NUR ---
OLD G-TUBE STOMA DRESSING WITH MODERATE AMOUNT OF YELLOW MUCOID DRESSING, REDNESS TO SURROUNDING AREA NOTED, PICTURE TAKEN, NEW DRESSING APPLIED TO LT G-TUBE STOMA, MONITORED CLOSELY.
[2019-05-17] MEDS: HYDRAGUARD CREAM TP SCH (00:44)
[2019-05-17 04:00] VITALS: BP 144/54
[2019-05-17] MEDS: METOCLOPRAMIDE 10 MG/2 ML INJ VIAL IVP SCH ×3 (04:23→20:12)
[2019-05-17] MEDS: DEXT 5% /NACL 0.9% 1,000 ML IV SCH ×3 (04:24→20:30)
--- NOTE | 2019-05-17 05:10 | NUR ---
SHAH CATHETER OF 250ML THE WHOLE SHIFT, PER [employer]OD [employer]ANG SAWYER NO LEAKAGE ON SHAH CATHETER, DR LOCKETT MADE AWARE, WILL SEE PT, MONITORED CLOSELY.
--- NOTE | 2019-05-17 05:45 | NUR ---
DR VANEGAS AT BEDSIDE EXAMINING THE PT, MADE AWARE OF SHAH CATHETER OUTPUT OF 250ML, BLOOD SUGAR CHECKED WITH 121 RESULT, 10ML G-TUBE RESIDUAL NOTED, NO SIGNS OF DISTRESS, IVF INFUSING WELL, MONITORED CLOSELY.
[2019-05-17] MEDS ORDERED: NACL 0.9% 1,000 ML IV SCH (05:50)
[2019-05-17] MEDS: BLOOD GLUCOSE MONITORING 1 DEV DEV FS SCH ×4 (06:30→19:25)
[2019-05-17] MEDS: MORPHINE SULFATE 2 MG/ML SYR IVP PRN ×2 (06:45→19:18)
--- NOTE | 2019-05-17 06:50 | NUR ---
PT SEEN SQUIRMING, MEDICATED WITH MORPHINE IVP, G-TUBE DRESSING NOTED WITH YELLOW DRAINAGE, DRAINAGE CHANGED FROM YELLOW MUCOID TO YELLOW THIN DRAINAGE, NEW DRESSING APPLIED, WILL ENDORSE TO AM SHIFT, IVF INFUSING WELL.
--- NOTE | 2019-05-17 07:16 | NUR ---
PT SLEEPING, NO SIGNS OF DISTRESS, BEDSIDE REPORT GIVEN TO RN STELLA FOR CONTINUITY OF CARE.
--- NOTE | 2019-05-17 07:17 | NUR ---
Received bedside report from pm nurse Damian. Pt asleep in bed, FLACC 0, respirations even & nonlabored with trach to vent in place (24%FiO2 500VT RR14 35L/min 5PEEP). GT feeding of Glucerna 1.2 ongoing @ 10ml/hr. HOB kept elevated @ 30. Right wrist IV 22G intact with ongoing NS @ 90ml/h. Napier cath intact & draining clear rigoberto urine. Will cont to monitor.
[2019-05-17 07:45] LABS: BASOPHILS % (AUTO) 0.3 % (0.0-2.0); EOSINOPHILS # (AUTO) 0.9 K/uL (0-0.4); EOSINOPHILS % (AUTO) 14.6 % (0.0-4.0); HEMATOCRIT 25.5 % (36-48); HEMOGLOBIN 8.8 g/dL (12.0-16.0); LYMPHOCYTES # (AUTO) 1.2 K/uL (2.5-16.5); LYMPHOCYTES % (AUTO) 20.4 % (20.5-51.1); MEAN CORPUSCULAR HEMOGLOBIN 31 pg (27-31); MEAN CORPUSCULAR HGB CONC 34 g/dL (33-37); MEAN CORPUSCULAR VOLUME 90.5 fL (80-94); MONOCYTES # (AUTO) 0.3 K/uL (0.8-1.0); MONOCYTES % (AUTO) 5.2 % (1.7-9.3); NEUTROPHILS # (AUTO) 3.6 K/uL (1.8-7.7); NEUTROPHILS % (AUTO) 59.5 % (42.2-75.2); PLATELET COUNT (AUTO) 289 K/uL (140-450); RED BLOOD CELL COUNT(AUTO) 2.82 MIL/uL (4.20-5.40)
[2019-05-17 07:56] LABS: ANION GAP 12.7 (8-16); CARBON DIOXIDE 23.9 mmol/L (21-32); CHLORIDE 106 mmol/L (98-107); CREATININE 0.7 mg/dL (0.6-1.3); GLUCOSE 129 mg/dL (74-106); POTASSIUM 3.6 mmol/L (3.5-5.1); SODIUM SERUM 139 mmol/L (136-145); UREA NITROGEN, BLOOD 7 mg/dL (7-18)
[2019-05-17 08:00] VITALS: BP 137/40
--- NOTE | 2019-05-17 08:00 | NUR ---
Noted patient's old GT site leaking tube feed formula. Dr More notified and received verbal order to stop tube feed. Enteral feeding pump stopped at this time.
[2019-05-17 08:04] LABS: MAGNESIUM 2.2 mg/dL (1.8-2.4); PHOSPHORUS 2.8 mg/dL (2.5-4.9)
--- NOTE | 2019-05-17 08:30 | NUR ---
Noted leaking of urine from lynne cath around meatus. Balloon reinflated with 10ml NS & will reassess for leaking later.
--- NOTE | 2019-05-17 08:48 | NUR ---
RECEIVED ON A [employer] CARESCAPE R860 VENTILATOR PLUGGED INT RED OUTLET TOLERATING WELL WITHOUT INCIDENT TO A PORTEX DCT #8 AIRWAY SECURED WITH A BHUPINDER TRACH TIE CUFF PRESSUE CHECKED NOTED AMBU BAG NOTED AT BEDSIDE EQUAL CHEST RISE BREATH SOUNDS CLEAR WITH GOOD AERATION THROUGHOUT BILATERAL LUNG VERA AIRWAY PATENT
[2019-05-17] MEDS ORDERED: HYDRAGUARD CREAM TP SCH (09:00)
[2019-05-17] MEDS: POLYVINYL ALCOHOL 1.4% OP 15 ML SOL OP SCH ×3 (09:04→18:05)
[2019-05-17] MEDS: LISINOPRIL 5 MG TAB GT SCH (09:04)
[2019-05-17] MEDS: LACTOBACILLUS RHAMNOSUS GG 1 EACH CAP GT SCH (09:04)
--- NOTE | 2019-05-17 10:05 | NUR ---
Received verbal consent on the phone from Faustino Perea (daughter) for PICC insertion (verified with Maryana VYAS). Called PICC agency; [facility] PICC nurse to call back for ETA.
--- NOTE | 2019-05-17 10:22 | NUR ---
RESTING COMFORTABLY NO EVIDENCE OF PULMONARY DISTRESS NOTED GOOD CHEST RISE AIRWAY PATENT
--- NOTE | 2019-05-17 10:57 | NUR ---
SKIN ASSESSMENT WITH PRIMARY RN , SACRAL AND BUTTOCKS WITH IAD, FLAKY SKIN .LUQ ABDOMINAL OLD GT SURGICAL SITE LEAKAGE WITH SMALL AMOUNT MUCUS, DONATO STOMA SKIN REDNESS AND SKIN INTACT. MID ABD. NEW GT SITE DONATO STOMA SKIN DRY AND CLEAN. NO GT FEEDING AT THIS TIME. PER PRIMARY RN F/C AND OLD GT SITE LEAKAGE LAST SHIFT WAS REPORTED. RECOMMENDATION: DC'D HYDRAGUARD START CLEANSE WITH MILD SOAP AND WATER, PAT DRY, APPLY Z GUARD TO SACRALCOCCYX AND BUTTOCKS BID AND PRN IF SOILING APPLY Z-GUARD TO OLD GT SITE ODNATO STOMA SKIN AND APPLY DRAIN BAG TO OLD GT SURGICAL SITE QD AND PRN IF LEAKAGE.
[2019-05-17 12:00] VITALS: BP 119/53
[2019-05-17] MEDS: Z-GUARD PASTE TP SCH (12:18)
[2019-05-17] MEDS: CARBIDOPA/LEVODOPA 25/100 MG 1 TAB GT SCH ×2 (12:18→18:05)
--- NOTE | 2019-05-17 13:27 | NUR ---
NO SOB NOTED GOOD CHEST RISE DEEP TRACHEAL SUCTION FOR SMALL THICK PALE YELLOW SECRETIONS AIRWAY PATENT
[2019-05-17] MEDS: PIPERACILLIN/TAZOBACTAM 3.375 GM in DEXTROSE 5% 50 ML IV SCH ×2 (14:09→20:12)
--- NOTE | 2019-05-17 14:15 | NUR ---
Received order from Dr Pinedo to place new PEG on low intermittent suction and cover old gastrostomy with gauze only. Drain bag removed from old gastrostomy and covered with dry 4x4 gauze and tape. Site still leaking watery fluid with clear mucus. Will cont to monitor.
--- NOTE | 2019-05-17 14:20 | NUR ---
Initiated low intermittent suction to new PEG-tube. Pt resting in bed, no signs of distress, trach to vent in place.
--- NOTE | 2019-05-17 14:30 | NUR ---
PICC nurse arrived at bedside to initiate procedure. Paged ultrasound.
--- NOTE | 2019-05-17 15:25 | NUR ---
PICC nurse Mychal reports PICC insertion completed to (right upper extremity , with placement confirmation via chest xray. Ok to use PICC.
--- NOTE | 2019-05-17 15:56 | NUR ---
05/17/19 FOLLOW UP COMPLETED PLEASE REFER TO NUTRITION ASSESSMENT UNDER CARE ACTIVITY FOR ESTIMATED NUTRITIONAL NEEDS. 1. CONTINUE NPO WITH NO TUBE FEEDINGS UNTIL MEDICALLY APPROPRIATE 2. RECOMMEND TPN IF PT WILL NOT RECEIVE TUBE FEEDINGS 3. IF/WHEN MEDICALLY APPROPRIATE TO RESTART FEEDINGS, CONTINUE GLUCERNA 1.2 @ 55 ML/HR WITH PROSOURCE ONCE DAILY -THIS PROVIDES 1320 ML IN VOLUME, 1644 KCALS, AND 94 GMS OF PROTEIN. THIS IS MEETING 100% OF PTS CALORIC AND PROTEIN NEEDS. 4. CONTINUE FREE WATER FLUSH OF 130ML Q6H 5. RD TO FOLLOW-UP 2-3 DAYS, HIGH RISK OPAL BOWSER RD
[2019-05-17 16:00] VITALS: BP 132/46
--- NOTE | 2019-05-17 16:08 | NUR ---
STABLE GOOD CHEST RISE NO SOB NOTED
[2019-05-17] MEDS ORDERED: ERYTHROMYCIN 250 MG TABEC PO SCH (17:00)
[2019-05-17] MEDS ORDERED: TPN PER PHARMACY MC PRN (17:40)
--- NOTE | 2019-05-17 17:42 | NUR ---
RESTING WELL NO RESPIRATORY DISTRESS NOTED GOOD CHEST RISE DEEP TRACHEAL SUCTION FOR SMALL THICK PALE YELLOW SECRETIONS AIRWAY PATENT
--- NOTE | 2019-05-17 17:45 | NUR ---
Spoke to pharmacist re: erythromycin EC unable to crush and give via GT. Per pharmacist, erythromycin liquid is available. Dr Wahl notified and ok to change med to liquid with same dose.
--- NOTE | 2019-05-17 19:10 | NUR ---
Report given to pm nurse. Daughter Nichole at bedside with pt.
--- NOTE | 2019-05-17 19:11 | NUR ---
RECEIVED BEDSIDE REPORT FROM DAY RN. PT IS SLEEPING COMFORTABLY WITH EYES CLOSED. PT IS APHASIC AND DAUGHTER KATHARINE IS AT BEDSIDE. PT IS TRACH TO VENT. VENT SETTINGS:AC/VC FIO2 24% RR 14 VT 500 PEEP 5. SAT WELL 99% RR 15. PTS LUNG SOUNDS ARE DIMINISHED AT BASE.. NEW G-TUBE ON RUQ ON 05/[address] CORONADO CURRENTLY CLAMPED PER ORDERS OK GIVE MEDS AND CLAMP FOR 3 HOURS THEN ON LOW INTERMITTED SUCTION. DRESSING ON OLD G TUBE DRESSING IS C/D/I. 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 HAS THOMAS HEEL RAISERS. HAS SHAH CATH DRAINING CLEAR YELLOW URINE. PT WITH CARSON PICC LINE DOUBLE LUMEN INSERTED TODAY. TPN PER PHARMACY PENDING. TPN TO START TOMORROW UNTIL OLD G-TUBE SITE HAS HEALED PT WILL BE ON TPN. DX:GTUBE INFECTION AND HYPOTENSION. PT ON STANDARD PRECAUTION. POC DISCUSSED WITH PT AND DAUGHTER. HOB ELEVATED. SAFETY MEASURES ARE IN PLACE. WILL CONTINUE TO MONITOR.
[2019-05-17 20:00] VITALS: BP 136/40
[2019-05-17] MEDS: DOCUSATE 100 MG/10 ML UDC GT SCH (20:12)
--- NOTE | 2019-05-17 20:12 | NUR ---
MILLICENT MEDICATIONS GIVEN PER ORDERS AND NEW G-TUBE CLAMPED WILL CONTINUE TO LOW INTERMITTENT SUCTION IN 3 HOURS PER ORDERS. BLOOD SUGAR 129 NO INSULIN.
[2019-05-17] MEDS: ERYTHROMYCIN ETHYLSUCCINATE SUSP 200 MG/5 ML UDC GT SCH (20:13)
--- NOTE | 2019-05-17 21:50 | NUR ---
DRESSING ON OLD G-TUBE SITE SOILED. REMOVED OLD DRESSING AND CLEAN WITH NS, PAT DRY AND APPLIED Z-GUARD AND NEW GAUZE APPLIED AND SECURED WITH PAPER TAPE. PT WAS CLEAN WITH NEW GOWN. HOB ELEVATED. SAFETY MEASURES ARE IN PLACE. WILL CONTINUE TO MONITOR.
--- NOTE | 2019-05-17 23:15 | NUR ---
PATIENT IS LAYING COMFORTABLY IN BED WITH EYES CLOSED. CHEST RISE AND FALL NOTED ON TRACH TO VENT. UNCLAMPED G-TUBE AND CONNECTED TO LOW INTERMITTENT SUCTION PER ORDERS. SAFETY MEASURES ARE IN PLACE. WILL CONTINUE TO MONITOR.
[2019-05-18] VITALS: BP 137/59
--- NOTE | 2019-05-18 00:20 | NUR ---
VITAL SIGNS ARE WITHIN NORMAL LIMITS. HOB ELEVATED. ALL SAFETY MEASURES ARE IN PLACE. WILL CONTINUE TO MONITOR.
[2019-05-18] MEDS: Z-GUARD PASTE TP SCH ×2 (01:03→14:05)
--- NOTE | 2019-05-18 02:00 | NUR ---
MADE ROUNDS. PT IS SLEEPING COMFORTABLY IN BED WITH EYES CLOSED. HOB ELEVATED. SAFETY MEASURES ARE IN PLACE. WILL CONTINUE TO MONITOR.
[2019-05-18 04:00] VITALS: BP 140/55
--- NOTE | 2019-05-18 04:01 | NUR ---
VITAL SIGNS ARE WITHIN NORMAL LIMITS. SAFETY MEASURES ARE IN PLACE. WILL CONTINUE TO MONITOR.
[2019-05-18] MEDS: METOCLOPRAMIDE 10 MG/2 ML INJ VIAL IVP SCH ×3 (04:09→20:11)
[2019-05-18] MEDS: PIPERACILLIN/TAZOBACTAM 3.375 GM in DEXTROSE 5% 50 ML IV SCH ×3 (04:09→20:08)
[2019-05-18] MEDS: MORPHINE SULFATE 2 MG/ML SYR IVP PRN ×2 (06:03→14:05)
[2019-05-18] MEDS: BLOOD GLUCOSE MONITORING 1 DEV DEV FS SCH ×3 (06:11→18:07)
[2019-05-18 06:59] LABS: BASOPHILS % (AUTO) 0.3 % (0.0-2.0); EOSINOPHILS # (AUTO) 1.2 K/uL (0-0.4); EOSINOPHILS % (AUTO) 16.4 % (0.0-4.0); HEMATOCRIT 24.1 % (36-48); HEMOGLOBIN 8.4 g/dL (12.0-16.0); LYMPHOCYTES % (AUTO) 13.1 % (20.5-51.1); MEAN CORPUSCULAR HEMOGLOBIN 31 pg (27-31); MEAN CORPUSCULAR HGB CONC 35 g/dL (33-37); MONOCYTES # (AUTO) 0.4 K/uL (0.8-1.0); MONOCYTES % (AUTO) 5.9 % (1.7-9.3); NEUTROPHILS # (AUTO) 4.8 K/uL (1.8-7.7); NEUTROPHILS % (AUTO) 64.3 % (42.2-75.2); PLATELET COUNT (AUTO) 280 K/uL (140-450); RED BLOOD CELL COUNT(AUTO) 2.68 MIL/uL (4.20-5.40); RED CELL DISTRIBUTION WIDTH 15.5 % (11.6-13.7); WHITE BLOOD COUNT (AUTO) 7.5 K/uL (4.8-10.8)
--- NOTE | 2019-05-18 07:07 | NUR ---
GAVE BEDSIDE REPORT TO DAY RN. PT ENDORSED IN STABLE CONDITION.
--- NOTE | 2019-05-18 07:08 | NUR ---
Received bedside report from pm nurse Nichole. Pt asleep, respirations even & nonlabored with trach to vent in place (24%FiO2 500TV 14RR 30L/min flow 5PEEP). Napier cath intact & draining clear yellow urine. CARSON PICC intact with ongoing D5NS @ 80ml/hr. New PEG tube intact & connected to low intermittent suction. Will cont to monitor.
[2019-05-18 07:20] LABS: ANION GAP 10.5 (8-16); CARBON DIOXIDE 23.7 mmol/L (21-32); CHLORIDE 108 mmol/L (98-107); CREATININE 0.8 mg/dL (0.6-1.3); GLUCOSE 151 mg/dL (74-106); POTASSIUM 3.2 mmol/L (3.5-5.1); SODIUM SERUM 139 mmol/L (136-145); UREA NITROGEN, BLOOD 6 mg/dL (7-18)
[2019-05-18 07:31] LABS: MAGNESIUM 1.7 mg/dL (1.8-2.4); PHOSPHORUS 2.2 mg/dL (2.5-4.9)
[2019-05-18 08:00] VITALS: BP 153/66
[2019-05-18] MEDS ORDERED: FERROUS SULFATE 300 MG/5 ML UDC GT SCH ×2 (08:00→09:40)
[2019-05-18] MEDS: CARBIDOPA/LEVODOPA 25/100 MG 1 TAB GT SCH (08:34)
[2019-05-18] MEDS: LACTOBACILLUS RHAMNOSUS GG 1 EACH CAP GT SCH (08:34)
[2019-05-18] MEDS: LISINOPRIL 5 MG TAB GT SCH (08:34)
[2019-05-18] MEDS: DOCUSATE 100 MG/10 ML UDC GT SCH (08:34)
[2019-05-18] MEDS: POLYVINYL ALCOHOL 1.4% OP 15 ML SOL OP SCH ×3 (08:36→17:56)
[2019-05-18] MEDS: ERYTHROMYCIN ETHYLSUCCINATE SUSP 200 MG/5 ML UDC GT SCH ×3 (08:36→17:00)
[2019-05-18] MEDS ORDERED: ASCORBIC ACID 500 MG/5 ML ORASYR GT SCH (09:00)
[2019-05-18] MEDS ORDERED: ERYTHROMYCIN ETHYLSUCCINATE SUSP 200 MG/5 ML UDC GT SCH (09:00)
[2019-05-18] MEDS ORDERED: NON-FORMULARY ITEM (Cranberry Fruit Concentrate (Cranberry) 450 MG) GT SCH (09:00)
[2019-05-18] MEDS ORDERED: ERGOCALCIFEROL 50,000 IU SGL PO SCH (09:00)
--- NOTE | 2019-05-18 09:00 | NUR ---
Held GT suction. Meds administered via PEG tube and flushed with 30ml water pre & post meds. Noted old open gastrostomy site leaking out moderate amount meds and water. Dressings changed, site patted dry, applied z-guard to peristoma, and covered with dry dressing. Dr Wahl notified and ordered to hold PO/GT meds. Pt in no signs of distress. CARSON PICC intact with ongoing D5NS @ 80ml/hr. HOB kept elevated @ 30. Cont to hold GT suction for 3hrs.
[2019-05-18] MEDS ORDERED: SODIUM FERRIC GLUCONATE 125 MG in NACL 0.9% 100 ML IV SCH (09:30)
--- NOTE | 2019-05-18 09:30 | NUR ---
Old gastrostomy site cont to leak mod amount watery drainage. Dressing changed. Reapplied z-guard to peristoma.
[2019-05-18] MEDS: DEXT 5% /NACL 0.9% 1,000 ML IV SCH (10:03)
[2019-05-18] MEDS ORDERED: MAG SULF 2000 MG/WATER PREMIX 50 ML IV SCH (11:30)
[2019-05-18 12:00] VITALS: BP 159/67
--- NOTE | 2019-05-18 12:00 | NUR ---
Resumed low intermittent suction to new PEG tube. HOB kept elevated @ 30. Pt positioned to right side per Dr Pinedo to promote gastric emptying. Pt in no distress.
[2019-05-18] MEDS ORDERED: KCL 20 MEQ/WATER INJ PREMIX 200 ML IV SCH (14:00)
--- NOTE | 2019-05-18 14:30 | NUR ---
Dressing to old gastrostomy site soaked. Site cleansed, applied z-guard, and covered with 5 4x4 dressings. Pt resting with no signs of distress.
--- NOTE | 2019-05-18 15:00 | NUR ---
Confirmed with Dr Wahl if erythromycin via GT is ok to be administered. Per , hold all PO/GT meds.
[2019-05-18 16:00] VITALS: BP 158/60
--- NOTE | 2019-05-18 17:28 | NUR ---
Daughter Faustino at bedside to visit pt. Pt resting in bed, respirations even & nonlabored, no signs of distress.
--- NOTE | 2019-05-18 19:21 | NUR ---
//RECEIVED BEDSIDE REPORT FROM DAY RN. PT IS SLEEPING COMFORTABLY WITH EYES CLOSED. PT IS APHASIC AND DAUGHTERS ARE AT BEDSIDE. PT IS TRACH TO VENT. VENT SETTINGS:AC/VC FIO2 24% RR 14 VT 500 PEEP 5. SAT WELL 100% RR 15. PTS LUNG SOUNDS ARE DIMINISHED AT BASE.. NEW G-TUBE ON RUQ ON 05/[address] CORONADO CURRENTLY ON LOW INTERMITTED SUCTION PER ORDERS AND ALL MEDS BEING HELD. DRESSING ON OLD G TUBE DRESSING IS C/D/I. 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 HAS THOMAS HEEL RAISERS. HAS SHAH CATH DRAINING CLEAR YELLOW URINE. PT WITH CARSON PICC LINE DOUBLE LUMEN INSERTED 05/17/2019 DRESSING IS C/D/I. TPN TO START TONIGHT UNTIL OLD G-TUBE SITE HAS HEALED. DX:G-TUBE INFECTION AND HYPOTENSION. PT ON STANDARD PRECAUTION. POC DISCUSSED WITH PT AND DAUGHTER. HOB ELEVATED. SAFETY MEASURES ARE IN PLACE. WILL CONTINUE TO MONITOR.
[2019-05-18 20:00] VITALS: BP 155/55
[2019-05-18] MEDS ORDERED: DEXT 5% /NACL 0.9% 1,000 ML IV SCH (20:00)
--- NOTE | 2019-05-18 20:11 | NUR ---
VITAL SIGNS ARE STABLE. SUCTION SMALL AMOUNT OF PALE WHITE SECRETION. ADMINISTERED MEDICATIONS PER ORDERS. TPN STARTED ON CARSON PICC INFUSING AT 50M/H. PT WITH REDNESS/RASH ON LT ARM AND LT SIDE OF FACE. PER DAUGHTER PT HAS HISTORY PSORIASIS. DR LOCKETT AT BEDSIDE ASSESSING PT. PER MOISTURIZE PT SKIN AND DAUGHTER WILL BRING TOMORROW PT[place] [facility] [place] SAFETY MEASURES ARE IN PLACE. WILL CONTINUE TO MONITOR.
[2019-05-18] MEDS: PANTOPRAZOLE 40 MG INJ VIAL IVP SCH (20:19)
[2019-05-18] MEDS: MULTIVITAMIN-12 10 ML in DEXTROSE 50% 600 ML, AMINO ACIDS 8.5% 600 ML, FAT EMULSION 20%... IV SCH ×4 (20:32)
--- NOTE | 2019-05-18 22:15 | NUR ---
DAUGHTERS LEFT AT THIS TIME. PER DAUGHTER TO PLEASE CALL HER IF SURGEON COMES IN TONIGHT. PT IS RESTING COMFORTABLY IN BED WITH EYES CLOSED. CHEST RISE AND FALL NOTED. CALL LIGHT IS WITHIN REACH. WILL CONTINUE TO MONITOR.
[2019-05-19] VITALS (8 sets, daily range): BP systolic 56–175; BP diastolic 39–63
--- NOTE | 2019-05-19 | NUR ---
VITAL SIGNS ARE WITHIN NORMAL LIMITS. SAFETY MEASURES ARE IN PLACE. WILL CONTINUE TO MONITOR.
[2019-05-19] MEDS: BLOOD GLUCOSE MONITORING 1 DEV DEV FS SCH ×4 (00:53→18:23)
--- NOTE | 2019-05-19 01:00 | NUR ---
POWER WENT OFF FOR A SECOND AND BACK-UP GENERATOR WENT ON. CHECKED ON PATIENT THE VENTILATOR STILL ON AND ON CORRECT SETTINGS: AC/VC VT500 FIO2 24% RR 14 FLOW 30 PEEP 5. PT SAT 99% RR 15 HR 71. PT IS SLEEPING COMFORTABLY WITH EYES CLOSED CHEST RISE AND FALL NOTED. VENTILATOR MACHINE IS CONNECTED TO RED OUTLET. SUCTION WORKING PROPERLY. AMBU BAG AT BEDSIDE. ALL SAFETY MEASURES ARE IN PLACE. WILL CONTINUE TO MONITOR.
[2019-05-19] MEDS: Z-GUARD PASTE TP SCH ×2 (01:15→13:33)
[2019-05-19] MEDS: MORPHINE SULFATE 2 MG/ML SYR IVP PRN ×2 (01:39→18:08)
--- NOTE | 2019-05-19 02:04 | NUR ---
PT IS SLEEPING COMFORTABLY IN BED WITH EYES CLOSED. CHEST RISE AND FALL NOTED. ALL SAFETY MEASURES ARE IN PLACE. WILL CONTINUE TO MONITOR.
--- NOTE | 2019-05-19 04:15 | NUR ---
VITAL SIGNS ARE WITHIN NORMAL LIMITS. ALL SAFETY MEASURES ARE IN PLACE. CALL LIGHT IS WITHIN REACH.
[2019-05-19] MEDS: METOCLOPRAMIDE 10 MG/2 ML INJ VIAL IVP SCH ×3 (04:42→20:18)
[2019-05-19] MEDS: PIPERACILLIN/TAZOBACTAM 3.375 GM in DEXTROSE 5% 50 ML IV SCH ×2 (04:42→13:34)
[2019-05-19] MEDS: NACL 0.9% 1,000 ML IV SCH (06:01)
[2019-05-19] MEDS: INSULIN LISPRO SLIDING SCALE 100 UNITS/ML VIAL SUBQ PRN ×2 (06:09→18:24)
--- NOTE | 2019-05-19 07:05 | NUR ---
RECEIVED REPORT FROM ACCOUNTS PAYABLE TECHNICIAN NURSE KATHARINE FOR CONTINUITY OF CARE . PATIENT LYING IN BED, SUPINE, SLEEPING. A&Ox1. APHASIC, AROUSABLE TO VOICE. TRACH TO VENT, SETTING FIO2 24, VT 500, RATE 14, FLOW 30 L/MIN AND PEEP 5. . RESPIRATIONS ARE EVEN AND UNLABORED, SPO2 AT 98%. G-TUBE RUQ IN PLACE, NOT INFUSING AT THIS TIME. OLD G-TUBE SITE IS COVERED WITH GUARD. RASH ON NECK AND LEFT HAND NOTED AND SACRAL REDNESS NOTED, DRAPERY CUTTER MACHINE. PICC LINE RT UPPER ARM, INTACT AND RUNNING PER MD ORDERS, TPN INFUSING AT 50 ML/HR AND NS AT 50 ML/HR. SHAH IN PLACE AND DRAINING WITH GRAVITY WITH YELLOW URINE. TELE MONITOR ATTACHED. SAFETY MEASURES IN PLACE, HOB ELEVATED 30 DEGREE, BED IN LOW POSITION, BAD ALARM ACTIVATED. NO DISTRESS NOTED, WILL CONTINUE TO MONITOR.
[2019-05-19 07:10] LABS: BASOPHILS # (AUTO) 0.1 K/uL (0.00-0.22); BASOPHILS % (AUTO) 0.7 % (0.0-2.0); EOSINOPHILS # (AUTO) 1.6 K/uL (0-0.4); EOSINOPHILS % (AUTO) 18.5 % (0.0-4.0); HEMATOCRIT 24.8 % (36-48); HEMOGLOBIN 8.2 g/dL (12.0-16.0); LYMPHOCYTES # (AUTO) 1.6 K/uL (2.5-16.5); LYMPHOCYTES % (AUTO) 18.6 % (20.5-51.1); MEAN CORPUSCULAR HEMOGLOBIN 31 pg (27-31); MEAN CORPUSCULAR HGB CONC 33 g/dL (33-37); MEAN CORPUSCULAR VOLUME 93.8 fL (80-94); MONOCYTES # (AUTO) 0.4 K/uL (0.8-1.0); MONOCYTES % (AUTO) 4.7 % (1.7-9.3); NEUTROPHILS # (AUTO) 4.9 K/uL (1.8-7.7); NEUTROPHILS % (AUTO) 57.5 % (42.2-75.2); PLATELET COUNT (AUTO) 247 K/uL (140-450); RED BLOOD CELL COUNT(AUTO) 2.65 MIL/uL (4.20-5.40); WHITE BLOOD COUNT (AUTO) 8.5 K/uL (4.8-10.8)
--- NOTE | 2019-05-19 07:18 | NUR ---
GAVE BEDSIDE REPORT TO DAY RN. PT ENDORSED IN STABLE CONDITION.
[2019-05-19 07:22] LABS: ANION GAP 13.1 (8-16); CARBON DIOXIDE 23.4 mmol/L (21-32); CHLORIDE 107 mmol/L (98-107); CREATININE 0.8 mg/dL (0.6-1.3); GLUCOSE 174 mg/dL (74-106); POTASSIUM 3.5 mmol/L (3.5-5.1); SODIUM SERUM 140 mmol/L (136-145); UREA NITROGEN, BLOOD 7 mg/dL (7-18)
[2019-05-19 07:28] LABS: PHOSPHORUS 2.4 mg/dL (2.5-4.9)
[2019-05-19] MEDS: ERYTHROMYCIN ETHYLSUCCINATE SUSP 200 MG/5 ML UDC GT SCH ×3 (09:00→17:00)
--- NOTE | 2019-05-19 09:03 | NUR ---
RESTING COMFORTABLY NO PULMONARY DISTRESS NOTED GOOD CHEST RISE DEEP TRACHEAL SUCTION FOR SMALL THICK PALE YELLOW SECRETIONS AIRWAY PATENT
[2019-05-19] MEDS: PANTOPRAZOLE 40 MG INJ VIAL IVP SCH ×2 (09:30→20:17)
[2019-05-19] MEDS: POLYVINYL ALCOHOL 1.4% OP 15 ML SOL OP SCH ×3 (09:31→17:30)
--- NOTE | 2019-05-19 09:32 | NUR ---
ADMINISTERED MEDS VIA IVP AND SUB PER MD ORDER, MEDS EDUCATION PROVIDED TO PT AND REINFORCEMENT NEEDED. HOLD ALL PO/G TUBE MEDS PER MD ORDER. PT IS RESTING ON BED. RESPIRATION EVEN AND UNLABORED ON VENT TO TRACH, SPO2 AT 98%. FLACC 0. PROVIDED AM ORAL HYGIENE AND PT TOLERATED WELL. AWAITING FOR PHARMACY TO DELIVER HYDROCORTISONE CREAM. NO SIGNS OF DISTRESS NOTED. TELE MONITOR ATTACHED. SAFETY MEASURES IN PLACE. BED IN LOW POSITION AND CALL LIGHT WITHIN REACH. BED ALARM ACTIVATED.
[2019-05-19] MEDS: HYDROCORTISONE 2.5% OINT 30 GM TUBE TP SCH ×2 (10:26→20:32)
--- NOTE | 2019-05-19 10:26 | NUR ---
APPLIED HYDROCORTISONE CREAM ON BILATERALLY FOREARM, PT TOLERATED WELL. MED EDUCATION PROVIDED AND REINFORCEMENT NEEDED. FLACC0. TELE MONITOR ATTACHED. NO SIGNS OF DISTRESS NOTED. SAFETY MEASURES IN PLACE.
--- NOTE | 2019-05-19 11:30 | NUR ---
ASSESSED AND PROVIDED WOUND CARE TO PATIENT WITH WOUND CARE NURSEAVMSI. PATIENT TOLERATED WELL. NO SIGNS OF DISTRESS NOTED. SAFETY MEASURES IN PLACE, BED IN LOW POSITION, CALL LIGHT WITHIN REACH. WILL CONTINUE TO MONITOR.
--- NOTE | 2019-05-19 11:53 | NUR ---
STABLE NO DISTRESS NOTED GOOD CHEST RISE AND AERATION THROUGHOUT BILATERAL LUNG VERA AIRWAY PATENT
--- NOTE | 2019-05-19 12:15 | NUR ---
CHECKED BLOOD GLUCOSE AND RECEIVED 117, NO COVERAGE NEEDED.
--- NOTE | 2019-05-19 12:39 | NUR ---
WOUND CARE EVALUATION NOTE: REASON FOR EVALUATION: LOW VANESA SCALE AND SACRAL WOUND SKIN ASSESSMENT DONE WITH THIS 78 Y/O FEMALE PT ADMITTED FROM [facility] TO [facility] WITH INITIAL DX: GT-LEAKAGE. PAST MEDICAL HX INCLUDES HTN, DM, TRACH, DEMENTIA, G-TUBE. ALL ABOVE INFORMATION OBTAINED FROM ADMISSION H&P. SKIN IS WARM AND DRY, GENERAL RASHES TO TRUNK OF BODY, UPPER ARMS AND POSTERIOR THIGHS, DRY PEELING SKIN. BLE NO HAIR GROWTH, NO EDEMA. SEVERE CONTRACTURES UPPER EXTREMITIES, HIP AND KNEES. DORSAL PEDAL PULSES PRESENT AND NORMAL. CAPILLARY REFILLED < 2 SEC. X 10 TOES. INCONTINENT OF BOWEL F/C PATENT WITH MODERATE AMOUNT YELLOW COLOR URINE OUT PUT OBSERVED. PLAN OF CARE DISCUSSED WITH PRIMARY RN. AND DR. VANEGAS. PER DR. ROMINA GUZMAN FOLLOW UP POSSIBLE SURGICAL CLOSURE TO OLD GT SITE INTEGUMENTARY: - GENERAL RASHES TO TRUNK OF BODY, UPPER ARMS AND POSTERIOR THIGHS, DRY PEELING SKIN QUESTION OF CHRONIC PSORIASIS -TRACH SITE DONATO STOMA SKIN DRY AND CLEAN. SKIN INTACT. - MID ABD GT SITE(NEW) DONATO STOMA WITH SKIN INTACT. - LUQ ABDOMINAL OLD GT SURGICAL SITE LEAKAGE WITH SOAKED SOILED 4X4 DRESSING, DONATO STOMA SKIN REDNESS IMPROVING FROM PREVIOUS VISIT AND SKIN INTACT. -ABDOMEN DISTENDED, SOFT WITH MULTIPLE RASHES AND PEELING SCABS, LOWER ABDOMINAL FOLDS INTERTRIGO, SKIN RED AND INTACT INTER DRY CLOTH APPLIED -INCONTINENT ASSOCIATE DERMATITIS (IAD) TO: ENTIRE LEFT AND RIGHT BUTTOCKS WITH FLAKY PEEL THIN SKIN/SCABS -INCONTINENT ASSOCIATE DERMATITIS (IAD) TO: SACRAL 2 AREAS WITH SUPERFICIAL OPEN SKIN, 1X1CM AND 0.5X0.5CM POSSIBLE FROM PEELING THIN SCAB SURROUNDING SKIN RED WITH DENUDED SKIN FURTHER DAMAGE INDICATED -RIGHT AND LEFT ELBOWS BLANCHABLE REDNESS, SKIN INTACT RECOMMENDATIONS: -LOWER ABDOMINAL FOLDS INTERTRIGO,CLEANSE WITH MILD SOAP AND WATER, PAT DRY , APPLY INTER DRY CLOTH QD AND CHANGE PRN IF SOILING. -CLEANSE WITH MILD SOAP AND WATER APPLY OPTIFOAM AND Z GUARD TO SACRAL AREA QD AND PRN IF SOILING -CLEANSE WITH MILD SOAP AND WATER, PAT DRY, APPLY Z GUARD TO BUTTOCKS BID AND PRN IF SOILING -APPLY Z-GUARD TO OLD GT SITE DONATO STOMA SKIN AND APPLY DRAIN BAG TO OLD GT SURGICAL SITE QD AND PRN IF LEAKAGE. -APPLY HEEL PROTECTORS TO BOTH HEELS , RIGHT AND LEFT ELBOWS AT ALL TIMES PREVENT FROM FRICTION -OFFLOAD BILATERAL HEELS BY PLACING PILLOWS UNDER CALVES UNLESS OTHERWISE CONTRAINDICATED -PRESSURE REDISTRIBUTION SURFACE THERAPY -TURN AND REPOSITION Q2H, OFFLOAD SACRALCOCCYX AND BUTTOCKS BY TURNING RIGHT AND LEFT -CONTINUE TO FOLLOW RD RECOMMENDATIONS ALL ABOVE RECOMMENDATIONS DISCUSSED WITH PRIMARY RN. WILL FOLLOW UP PT Q7-10 DAYS. PLEASE CONTACT WOUND CARE NURSE FOR ANY QUESTION AND CHANGE OF WOUND CONDITION.
[2019-05-19] MEDS ORDERED: ZGUARD TP (12:52)
[2019-05-19] MEDS ORDERED: HEPA500056 SUBQ (12:52)
[2019-05-19] MEDS ORDERED: PANT40PD7 IVP (12:52)
[2019-05-19] MEDS ORDERED: ASCO-672 GT (12:52)
[2019-05-19] MEDS ORDERED: Tpn Per Pharmacy MC (12:52)
[2019-05-19] MEDS ORDERED: HYD2.5O TP (12:52)
--- NOTE | 2019-05-19 13:34 | NUR ---
ADMINISTERED MEDS VIA IVPB PER MD ORDER, MED EDUCATION PROVIDED AND REINFORCEMENT NEEDED; HOLD GT MED PER MD ORDER. PT IS RESTING ON BED. FLACC 0. RESPIRATION EVEN AND UNLABORED ON TRACH TO VENT, SPO2 95%. NO SIGNS OF DISTRESS NOTED. TELE MONITOR ATTACHED. SAFETY MEASURES IN PLACE.
--- NOTE | 2019-05-19 14:10 | NUR ---
STABLE NO RESPIRATORY DISTRESS NOTED EQUAL CHEST RISE DEEP TRACHEAL SUCTION FOR MEDRATE THIN PALE YELLOW SECRETIONS AIRWAY PATENT
--- NOTE | 2019-05-19 14:35 | NUR ---
DR CORONADO IS BY BEDSIDE. NO SIGNS OF DISTRESS NOTED. TELE MONITOR ATTACHED. SAFETY MEASURES IN PLACE.
--- NOTE | 2019-05-19 14:49 | NUR ---
05/19/19 FOLLOW UP COMPLETED PLEASE REFER TO NUTRITION ASSESSMENT UNDER CARE ACTIVITY FOR ESTIMATED NUTRITIONAL NEEDS. 1. CONTINUE TPN D10% AA 4.25% @ 50 ML/HR -THIS PROVIDES 612 KCAL AND 51 GRAMS PROTEIN, WHICH IS MEETING 42% KCAL AND 59% PROTEIN. 2. RECOMMEND GRADUALLY INCREASE TPN TO MEET 75% OF ESTIMATED ENERGY NEEDS 3. IF/WHEN MEDICALLY APPROPRIATE TO RESTART FEEDINGS, CONTINUE GLUCERNA 1.2 @ 55 ML/HR WITH PROSOURCE ONCE DAILY -THIS PROVIDES 1320 ML IN VOLUME, 1644 KCALS, AND 94 GMS OF PROTEIN. THIS IS MEETING 100% OF PTS CALORIC AND PROTEIN NEEDS. 4. CONTINUE FREE WATER FLUSH OF 130ML Q6H 5. RD TO FOLLOW-UP 2-3 DAYS, HIGH RISK OPAL BOWSER RD
--- NOTE | 2019-05-19 14:57 | NUR ---
RECEIVE PHONE CALL WITH DEEPALI TO APPLY IODOFORM PACKING TO LUQ ABD SURGICAL SITE (OLD GT SITE) AND COVER WITH DRY DRESSING CHANGE BID AND PRN IF SOILING
--- NOTE | 2019-05-19 15:16 | NUR ---
PATIENT IS RESTING IN BED SUPINE, WITH HOB AT 30 DEGREES. NO DISTRESS NOTED. DAUGHTER SATISH IS AT BEDSIDE. PROVIDED SATISH WITH HAND TOWELS AND AN EXTRA PILLOW FOR PT, AT HER REQUEST. ANSWERED SATISH'S QUESTIONS REGARDING VITAL SIGNS AND PATIENT'S CONDITION. NO DISTRESS. SAFETY MEASURES IN PLACE. WILL CONTINUE TO MONITOR.
--- NOTE | 2019-05-19 15:57 | NUR ---
NO SOB NOTED EQUAL CHEST RISE DEEP TRACHEAL SUCTION FOR SMALL THIN PALE YELLOW SECRETIONS AIRWAY PATENT DAUGHTER AT BEDSIDE
--- NOTE | 2019-05-19 16:20 | NUR ---
REASSESSED BP ON RT CALF. RECHECKED BP WAS 150/60. NO DISTRESS NOTED. SAFETY MEASURES IN PLACE.
[2019-05-19] MEDS: GAUZE TP SCH (17:29)
--- NOTE | 2019-05-19 17:30 | NUR ---
PACKED STOMA WITH PLAIN PACKING STRIP AND SECURED WITH DRESSING. FAMILY IS AT BEDSIDE. PT TOLERATED WELL. NO SIGNS OF DISTRESS NOTED. TELE MONITOR ATTACHED. SAFETY MEASURES IN PLACE.
--- NOTE | 2019-05-19 17:39 | NUR ---
NO DISTRESS NOTED GOOD CHEST RISE DEEP TRACHEAL SUCTION FOR SMALL THIN PALE YELLOW SECRETIONS AIRWAY PATENT FAMILY MEMBERS IN ROOM
--- NOTE | 2019-05-19 18:08 | NUR ---
FAMILY AT BEDSIDE AND COMPLAINED THAT PT HAS PAIN AND FACIAL GRIMACING, MEDICATED WITH PRN MORPHINE PER MD ORDER, MED ED PROVIDED TO PT AND FAMILY MEMBERS BY BEDSIDE. TELE MONITOR ATTACHED. SAFETY MEASURES IN PLACE.
--- NOTE | 2019-05-19 18:18 | NUR ---
NGT INSERTED AND PT TOLERATED WELL. AWAITING FOR CXR TO CONFIRM PLACEMENT. FAMILY BY BEDSIDE. NO SIGNS OF DISTRESS NOTED. SAFETY MEASURES IN PLACE. TELE MONITOR ATTACHED.
--- NOTE | 2019-05-19 18:24 | NUR ---
CHECKED BLOOD GLUCOSE AND RECEIVED 162, ADMINISTERED 2 UNITS OF HUMALOG VIA SUBQ, MED EDUCATION PROVIDED TO FAMILY MEMBERS BY BEDSIDE. PT TOLERATED WELL. TELE MONITOR ATTACHED. SAFETY MEASURES IN PLACE.
[2019-05-19] MEDS ORDERED: diphenhydrAMINE 50 MG/ML VIAL IVP PRN (18:55)
--- NOTE | 2019-05-19 19:00 | NUR ---
ADVANCED NGT AND PT TOLERATED WELL. DR DESHPANDE IS TALKING TO FAMILY AT BEDSIDE. PER DR DESHPANDE, ORDER ANOTHER CXR TO CONFIRM NGT PRIOR TO CONNECT TO SUCTION.
--- NOTE | 2019-05-19 19:13 | NUR ---
ENDORSED PT AT BEDSIDE TO RANGE TECHNICIAN NURSE LAYA FOR CONTINUITY OF CARE. PT IS RESTING ON BED. DR DESHPANDE IS TALKING TO FAMILY MEMBERS AT BEDSIDE. PT IS IN STABLE CONDITION. TELE MONITOR ATTACHED. SAFETY MEASURES IN PLACE.
--- NOTE | 2019-05-19 19:14 | NUR ---
RECEIVED BEDSIDE REPORT FROM DAY SHIFT RN, AYAAN. PT IS SLEEPING COMFORTABLY WITH EYES CLOSED. FAMILY AT BEDSIDE. PT IS APHASICE. PT IS TRACH TO VENT. NEW G-TUBE ON RUQ ON 05/[address] CORONADO CURRENTLY AND ALL MEDS BEING HELD. DRESSING ON OLD G TUBE DRESSING IS C/D/I. 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 HAS THOMAS HEEL RAISERS. HAS SHAH CATH DRAINING CLEAR YELLOW URINE. PT WITH CARSON PICC LINE DOUBLE LUMEN INSERTED 05/17/2019 DRESSING IS C/D/I. TPN UNTIL OLD G-TUBE SITE HAS HEALED. DX:G-TUBE INFECTION AND HYPOTENSION. PT ON STANDARD PRECAUTION. POC DISCUSSED WITH PT AND DAUGHTER. HOB ELEVATED. SAFETY MEASURES ARE IN PLACE. WILL CONTINUE TO MONITOR.
--- NOTE | 2019-05-19 19:35 | NUR ---
RECEIVED PT FROM DAY SHIFT ON DOCUMENTED SETTING. VENT PLUGGED INTO RED OUTLET. BMV HANGING ON THE VENTILATOR. ALARMS AUDIBLE AND WORKING. TRACH PORTEX 8 IS SECURED AND INTACT. SX SCANT AMOUNT OF SECRETIONS. PT REMAINS STABLE IN NO DISTRESS. WILL CONT TO MONITOR
[2019-05-19] MEDS: MULTIVITAMIN-12 10 ML in DEXTROSE 50% 600 ML, AMINO ACIDS 8.5% 600 ML, FAT EMULSION 20%... IV SCH ×4 (20:35)
--- NOTE | 2019-05-19 20:35 | NUR ---
GIVEN PROTONIX, REGLAN, HEPARIN, AND HYDRO CORTIZONE MD ORDERED. PT TOLERATED WELL.
[2019-05-19] MEDS ORDERED: diphenhydrAMINE 50 MG/ML VIAL IVP SCH (20:40)
--- NOTE | 2019-05-19 22:06 | NUR ---
GIVEN BENADRYL MD ORDERED. PT TOLERATED WELL.
[2019-05-20] VITALS: BP 131/40
[2019-05-20] MEDS: BLOOD GLUCOSE MONITORING 1 DEV DEV FS SCH ×4 (00:20→18:15)
--- NOTE | 2019-05-20 00:55 | NUR ---
ASSESSED WOUND, CLEANSE AND APPLIED Z-GUARD, CHANGED DRESSING, MD ORDERED. PT TOLERATED WELL.
--- NOTE | 2019-05-20 00:55 | NUR ---
routine vent check. sx scant amount of thick white secretions. pt is in no distress. will cont to monitor
[2019-05-20] MEDS: Z-GUARD PASTE TP SCH ×2 (01:00→13:52)
[2019-05-20] MEDS: NACL 0.9% 1,000 ML IV SCH (02:35)
[2019-05-20 04:00] VITALS: BP 131/47
--- NOTE | 2019-05-20 04:02 | NUR ---
VS CHECKED, WITHIN PT'S BASELINE, WILL CONTINUE TO MONITOR.
[2019-05-20] MEDS: METOCLOPRAMIDE 10 MG/2 ML INJ VIAL IVP SCH ×3 (04:57→20:44)
--- NOTE | 2019-05-20 04:57 | NUR ---
GIVEN REGLAN MD ORDERED, PT TOLERATED WELL.
--- NOTE | 2019-05-20 05:05 | NUR ---
PT REMAINS ON DOCUMENTED SETTINGS. VENT PLUGGED IN RED OUTLET/ BMV HANGING ON THE VENT. ALARMS AUDIBLE AND WORKING. TRACH IS SECURED AND INTACT. SX SMALL AMOUNT OF THICK WHITE SECRETIONS. PT REMAINS STABLE ON CURRENT SETTINGS. WILL CONT TO MONITOR
[2019-05-20 07:00] LABS: MAGNESIUM 1.9 mg/dL (1.8-2.4); PHOSPHORUS 2.5 mg/dL (2.5-4.9)
[2019-05-20 07:04] LABS: ALBUMIN 2.3 g/dL (3.4-5.0); ANION GAP 11.7 (8-16); ASPARTATE AMINOTRANSFERASE 24 U/L (15-37); BASOPHILS # (AUTO) 0.1 K/uL (0.00-0.22); CARBON DIOXIDE 23.7 mmol/L (21-32); CHLORIDE 109 mmol/L (98-107); CREATININE 0.6 mg/dL (0.6-1.3); EOSINOPHILS # (AUTO) 1.8 K/uL (0-0.4); EOSINOPHILS % (AUTO) 25.9 % (0.0-4.0); GLUCOSE 145 mg/dL (74-106); HEMATOCRIT 23.3 % (36-48); HEMOGLOBIN 7.7 g/dL (12.0-16.0); LYMPHOCYTES # (AUTO) 1.2 K/uL (2.5-16.5); LYMPHOCYTES % (AUTO) 16.7 % (20.5-51.1); MEAN CORPUSCULAR HEMOGLOBIN 31 pg (27-31); MEAN CORPUSCULAR HGB CONC 33 g/dL (33-37); MEAN CORPUSCULAR VOLUME 93.4 fL (80-94); MONOCYTES # (AUTO) 0.3 K/uL (0.8-1.0); MONOCYTES % (AUTO) 4.5 % (1.7-9.3); NEUTROPHILS # (AUTO) 3.6 K/uL (1.8-7.7); NEUTROPHILS % (AUTO) 51.9 % (42.2-75.2); PLATELET COUNT (AUTO) 226 K/uL (140-450); POTASSIUM 3.4 mmol/L (3.5-5.1); RED CELL DISTRIBUTION WIDTH 16.4 % (11.6-13.7); SODIUM SERUM 141 mmol/L (136-145); TOTAL BILIRUBIN 0.2 mg/dL (0.0-1.0); UREA NITROGEN, BLOOD 10 mg/dL (7-18); WHITE BLOOD COUNT (AUTO) 6.9 K/uL (4.8-10.8)
--- NOTE | 2019-05-20 07:20 | NUR ---
RECEIVED BEDSIDE REPORT FROM NIGHT NURSE. PATIENT IS LYING IN BED, RESTING. HOB IS AT 30 DEGREES. AROUSABLE TO VOICE. A&OX1. TRACH TO VENT; SETTING ; FIO2 24, VT 500, RATE 14, PEEP 5, FLOW 30 L/M. RESPIRATIONS ARE EVEN AND UNLABORED, SPO2 100%. SKIN REDNESS ON L AND R ARMS, AND ON BACK; SACRAL, EVEN PRESSURE WITH PILLOWS. PICC LINE IN PLACE, TPN AND FLUIDS ARE RUNNING PER MD ORDERS. G-TUBE IN PLACE AND NOT INFUSING AT THIS TIME. OLD G-TUBE SITE PACKED WITH STRIP AND COVERED WITH GAUZE. NGT IN PLACE AND CONNECTED TO LOW INTERMITTENT SUCTIONING. TELE SAFETY MEASURES IN PLACE; BED IN LOW POSITION, CALL LIGHT IS WITHIN REACH, BED ALARM ACTIVATED. PATIENT IS IN STABLE CONDITION, NO DISTRESS NOTED. WILL CONTINUE TO MONITOR.
[2019-05-20 08:00] VITALS: BP 143/47
[2019-05-20] MEDS: ERYTHROMYCIN ETHYLSUCCINATE SUSP 200 MG/5 ML UDC GT SCH ×3 (09:00→17:00)
[2019-05-20] MEDS: PANTOPRAZOLE 40 MG INJ VIAL IVP SCH ×2 (09:09→20:44)
[2019-05-20] MEDS: HYDROCORTISONE 2.5% OINT 30 GM TUBE TP SCH ×2 (09:10→20:45)
[2019-05-20] MEDS: POLYVINYL ALCOHOL 1.4% OP 15 ML SOL OP SCH ×3 (09:11→17:31)
--- NOTE | 2019-05-20 09:11 | NUR ---
ADMINISTERED SCHEDULED AM MEDS PER MD ORDER VIA SUBQ AND IVP, HOLD ALL PO/GT MEDS, MEDS EDUCATION PROVIDED TO PT AND REINFORCEMENT NEEDED. PT IS RESTING ON BED. RESPIRATION EVEN AND UNLABORED ON TRACH TO VENT, SPO2 AT 100%, FLACC 0. NGT CONNECTED TO LOW INTERMITTENT SUCTIONING. NO SIGNS OF DISTRESS NOTED. TELE MONITOR ATTACHED. SAFETY MEASURES IN PLACE. BED ALARM ACTIVATED.
--- NOTE | 2019-05-20 10:30 | NUR ---
CHANGED DRESSING ON OLD G-TUBE SITE AND REPACKED, PT TOLERATED WELL. DAUGHTER IS BY BEDSIDE. NO SIGNS OF DISTRESS NOTED. TELE MONITOR ATTACHED. SAFETY MEASURES IN PLACE.
--- NOTE | 2019-05-20 11:45 | NUR ---
ASSISTED CNAS TO REPOSITION AND CLEAN PT. APPLIED HYDROGUARD ON PT BACK. OFF LOAD PRESSURE WITH PILLOWS. HEEL PROTECTORS APPLIED. PT TOLERATED WELL. NO SIGNS OF DISTRESS. TELE MONITOR ATTACHED. SAFETY MEASURES IN PLACE, CALL LIGHT IN REACH, BED IN LOW POSITION. WILL CONTINUE TO MONITOR.
[2019-05-20 12:00] VITALS: BP 151/45
--- NOTE | 2019-05-20 12:18 | NUR ---
DR ERICKSON IS ASSESSING PT AT BEDSIDE. NO SIGNS OF DISTRESS NOTED. TELE MONITOR ATTACHED. SAFETY MEASURES IN PLACE.
[2019-05-20] MEDS: INSULIN LISPRO SLIDING SCALE 100 UNITS/ML VIAL SUBQ PRN (12:26)
--- NOTE | 2019-05-20 12:26 | NUR ---
ADMINISTERED 2 UNITS OF HUMALOG FOR BLOOD GLUCOSE 155 VIA SUBQ R ARM, MED EDUCATION PROVIDED AND REINFORCEMENT NEEDED. PT IS RESTING ON BED. FLACC 0. NO SIGNS OF DISTRESS NOTED. TELE MONITOR ATTACHED. SAFETY MEASURES IN PLACE.
--- NOTE | 2019-05-20 13:30 | NUR ---
NOTIFIED DR VALENZUELA THAT POTASSIUM IS 3.4 FROM AM LAB. RECEIVED ORDER FROM DR VALENZUELA, 20 MEQ K DUR ONCE VIA NGT, REPEATED AND CONFIRMED ORDER.
[2019-05-20] MEDS ORDERED: POTASSIUM CHLORIDE 10 MEQ TABER PO ONE (13:40)
[2019-05-20] MEDS ORDERED: POTASSIUM CHLORIDE 20% 40 MEQ/15 ML UDC GT ONE (13:50)
[2019-05-20] MEDS: GAUZE TP SCH (13:52)
--- NOTE | 2019-05-20 13:52 | NUR ---
ADMINISTERED MEDS PER MD ORDER, MEDS EDUCATION PROVIDED TO PT AND FAMILY AT BEDSIDE. DAUGHTER GIOVANNA SAID OK AND WAS AWARE PT IS GOING TO TRANSFER [place] [facility] [place]. WOUND CARE PROVIDED AND WOUND PICTURE TAKEN. PT TOLERATED WELL. WILL CLAMP NGT FOR AN HOUR. NO SIGNS OF DISTRESS NOTED. TELE MONITOR ATTACHED. SAFETY MEASURES IN PLACE.
[2019-05-20] MEDS ORDERED: POTASSIUM CHLORIDE 20% 40 MEQ/15 ML UDC NG SCH (14:00)
--- NOTE | 2019-05-20 14:31 | NUR ---
PT NOT IN ANY DISTRESS AT THIS TIME. FAMILY IS BEDSIDE. WILL CONTINUE TO MONITOR.
[2019-05-20] MEDS ORDERED: PNEUMOCOCCAL VACCINE 23 MCG/0.5 ML VIAL IMVAC SCH (14:45)
--- NOTE | 2019-05-20 15:25 | NUR ---
CALLED AND SPOKE WITH COURTNEY FROM [facility] [place]. COURTNEY WAS GIVEN A FULL REPORT ON PT, AND SHE IS AWARE THAT PATIENT IS TRANSFERRING TO THEIR FACILITY TODAY.
--- NOTE | 2019-05-20 15:40 | NUR ---
WITH ASSIST FORM CNAS CHANGED PT INTO PINK. FAMILY BY BEDSIDE. NO SIGN SOF DISTRESS NOTED.
[2019-05-20 16:00] VITALS: BP 154/53
--- NOTE | 2019-05-20 16:10 | NUR ---
PNA VACCINATION PROVIDED TO PT AND FAMILY AT BEDSIDE. DAUGHTER SATISH VERBALIZED UNDERSTANDING. PNEUMONIA VACCINATION GIVEN TO PATIENT VIA IM ON R DELTOID, PT TOLERATED WELL. IMMUNIZATION CARD WAS GIVEN TO PT'S FAMILY. [facility] IS HERE AND PT IS READY FOR TRANSFER. NO SIGNS OF DISTRESS NOTED. TELE MONITOR ATTACHED.
--- NOTE | 2019-05-20 16:22 | NUR ---
PRESCRIPTIONS, PNEUMONIA IMMUNIZATION RECORD AND TPN WAS FAXED TO COURTNEY, PER REQUEST. RECEIVED FAX CONFIRMATION THAT FAX WENT THROUGH. THE ORIGINAL COPY OF THE IMMUNIZATION CARD WAS GIVEN TO PT'S DAUGHTER, SATISH.
--- NOTE | 2019-05-20 16:40 | NUR ---
TRANSFER WAS CANCELED, PER MD ORDERS. DRILL PRESS OPERATOR NUMERICAL CONTROL WAS NOTIFIED REGARDING THE PATIENT'S TPN AND ARM BAND.
--- NOTE | 2019-05-20 17:32 | NUR ---
ADMINISTERED ARTIFICIAL EYE DROPS ON BOTH EYES, PT TOLERATED WELL. PT IS RESTING ON BED AND NGT CONNECTED TO LOW INTERMITTENT SUCTIONING. RESPIRATION EVEN AND UNLABORED ON TRACH TO VENT, SPO2 AT 99%. FLACC 0. NO SIGNS OF DISTRESS NOTED. TELE MONITOR ATTACHED. EVEN PRESSURES DISTRIBUTION WITH PILLOWS AND UPLOAD PRESSURES WITH PILLOW ON HEELS. SAFETY MEASURES IN PLACE.
--- NOTE | 2019-05-20 17:49 | NUR ---
PT REMAINS ON DOCUMENTED VENT SETTINGS. TRACH IS SECURE WITH A PATENT AIRWAY. PT NOT IN ANY DISTRESS. VENT ALARMS REMAIN ON AND FUNCTIONING.
--- NOTE | 2019-05-20 18:15 | NUR ---
CHECKED BLOOD GLUCOSE AND RECEIVED 130. NO INSULIN COVERAGE NEEDED. PT IS RESTING ON BED. FLACC 0. FAMILY BY BEDSIDE. TELE MONITOR ATTACHED. SAFETY MEASURES IN PLACE.
--- NOTE | 2019-05-20 19:27 | NUR ---
ENDORSED PT AT BEDSIDE TO SERVICE STATION EQUIPMENT MECHANIC NURSE VANE FOR CONTINUITY OF CARE. PT IS RESTING ON BED AND FAMILY IS BY BEDSIDE. NO SIGNS OF DISTRESS NOTED. SAFETY MEASURES IN PLACE. TELE MONITOR ATTACHED. PT IS IN STABLE CONDITION.
--- NOTE | 2019-05-20 19:30 | NUR ---
RECEIVED PT ON BED SLEEPING, SQUIRMS TO TOUCH, APHASIC, VITAL SIGNS STABLE, SBP SLIGHTLY ELEVATED, FLACC-0, ON TRACH TO VENT WITH FF SETTINGS: FI02-24%, TV-500, RATE-14, FLOW RATE-35, PEEP-5, SATURATING 98%, G-TUBE FEEDING IN PLACE, CLAMPED AT THIS TIME, ON NPO STATUS, LEFT STOMA DRESSING DRY AND INTACT, MINIMAL DRAINAGE NOTED, SHAH CATHETER IN PLACE WITH CLEAR YELLOW URINE, IVF INFUSING WELL VIA RT UA PICC LINE, DRESSING DRY AND INTACT, PLAN OF CARE DISCUSSED WITH DAUGHTER AT BEDSIDE, SAFETY MEASURES IN PLACE, BED IN LOW POSITION, BED ALARM ON, CALL LIGHT WITHIN REACH.
[2019-05-20] MEDS: DEXT 5% /NACL 0.9% 1,000 ML IV SCH (19:55)
--- NOTE | 2019-05-20 19:55 | NUR ---
received pt from day shift on documented settings. vent plugged into red outlet. [employer]mw at bedside. alarms audible and working. trach is secured and intact. pt appears in no diistress. will cont to monitor.
[2019-05-20 20:00] VITALS: BP 154/55
[2019-05-20] MEDS: MULTIVITAMIN-12 10 ML in DEXTROSE 50% 600 ML, AMINO ACIDS 8.5% 600 ML, FAT EMULSION 20%... IV SCH ×4 (20:00)
[2019-05-20] MEDS: MORPHINE SULFATE 2 MG/ML SYR IVP PRN (20:39)
--- NOTE | 2019-05-20 20:45 | NUR ---
DUE MEDS ADMINISTERED, UNABLE TO DO ORAL CARE DUE TO PT NOT OPENING HER MOUTH AND STARTS GETTING AGITATED, REPOSITIONED Q2H AND OFFLOAD PRESSURE AREAS, ALL NEEDS ANTICIPATED.
--- NOTE | 2019-05-20 21:00 | NUR ---
ROUTINE VENT CHECK. SX MODERATE AMOUUNT OF THICK WHITE SECRETION.PT APPEARS IN NO DISTRESS
[2019-05-21] VITALS: BP 127/54
--- NOTE | 2019-05-21 | NUR ---
PT SLEEPING, VITAL SIGNS STABLE, FLACC-0, BLOOD SUGAR CHECKED WITH 116 RESULT, IVF OF D5 NS AT 50ML INFUSING WELL, NGT TUBE CONTINUE ON LOW INTERMITTENT SUCTION WITH MINIMAL CLEAR LIGHT GREENISH OUTPUT, DRESSING TO LEFT G-TUBE STOMA DRY AND INTACT, CONTINUE TO REPOSITIONED Q2H AND OFFLOAD PRESSURE AREAS.
[2019-05-21] MEDS: BLOOD GLUCOSE MONITORING 1 DEV DEV FS SCH ×4 (00:01→18:30)
[2019-05-21] MEDS: Z-GUARD PASTE TP SCH ×2 (00:48→13:20)
--- NOTE | 2019-05-21 02:00 | NUR ---
SEEN PT SLEEPING, NO SIGNS OF DISTRESS, FLACC-0, CONTINUE TO MONITOR CLOSELY.
[2019-05-21 04:00] VITALS: BP 117/47
--- NOTE | 2019-05-21 04:00 | NUR ---
PT SLEEPING, NO CHANGE IN CONDITION, FLACC-0, IVF INFUSING WELL, REPOSITIONED AND OFFLOAD PRESSURE AREAS, SACRAL DRESSING DRY AND INTACT, MONITORED CLOSELY.
[2019-05-21] MEDS: METOCLOPRAMIDE 10 MG/2 ML INJ VIAL IVP SCH ×3 (04:30→20:11)
--- NOTE | 2019-05-21 06:03 | NUR ---
PT REMAINS ON DOCUMENTED SETTING. BMV AT BEDSIDE. VENT PLUGGED INTO RED OUTLET. ALARMS AUDIBLE AND WORKING. TRACH IS SECURED AND INTACT. PT IS IN NO DISTRESS. WILL CONT TO MONITOR.
--- NOTE | 2019-05-21 07:10 | NUR ---
PT SLEEPING, NO SIGNS OF DISTRESS, REPORT GIVEN TO ASAEL KUO FOR CONTINUITY OF CARE.
--- NOTE | 2019-05-21 07:12 | NUR ---
RECEIVED BEDSIDE REPORT FROM NIGHT NURSE VANE FOR CONTINUITY OF CARE. PATIENT IS RESTING COMFORTABLY ON BED. WITH HOB 30 DEGREES. AROUSABLE TO VOICE. A&OX1. TRACH TO VENT; SETTING ; FIO2 24, VT 500, RATE 14, PEEP 5, FLOW 30 L/M. RESPIRATIONS ARE EVEN AND UNLABORED, SPO2 99%. NO SIGNS OF DISTRESS NOTED. SKIN REDNESS ON L AND R ARMS, ELBOWS, AND SACRAL; SCABS ON BACK NOTED, EVEN PRESSURE WITH PILLOWS. PICC LINE IN PLACE, D5NS RUNNING AT 50 ML/HR PER MD ORDERS. G-TUBE IN PLACE AND NOT INFUSING AT THIS TIME. OLD G-TUBE SITE PACKED WITH STRIP AND COVERED WITH GAUZE. NGT IN PLACE AND CONNECTED TO LOW INTERMITTENT SUCTIONING. PT IS INCONTINENT AND BEDBOUND. SHAH IN PLACE AND DRAINING YELLOW URINE WITH GRAVITY. TELE SAFETY MEASURES IN PLACE; BED IN LOW POSITION, CALL LIGHT WITHIN REACH, BED ALARM ACTIVATED.
[2019-05-21 07:15] LABS: BASOPHILS # (AUTO) 0.1 K/uL (0.00-0.22); BASOPHILS % (AUTO) 1.1 % (0.0-2.0); EOSINOPHILS # (AUTO) 1.4 K/uL (0-0.4); EOSINOPHILS % (AUTO) 21.7 % (0.0-4.0); HEMATOCRIT 23.2 % (36-48); HEMOGLOBIN 7.8 g/dL (12.0-16.0); LYMPHOCYTES # (AUTO) 1.6 K/uL (2.5-16.5); LYMPHOCYTES % (AUTO) 24.7 % (20.5-51.1); MEAN CORPUSCULAR HEMOGLOBIN 31 pg (27-31); MEAN CORPUSCULAR HGB CONC 34 g/dL (33-37); MEAN CORPUSCULAR VOLUME 93.2 fL (80-94); MONOCYTES # (AUTO) 0.3 K/uL (0.8-1.0); MONOCYTES % (AUTO) 4.3 % (1.7-9.3); NEUTROPHILS # (AUTO) 3.1 K/uL (1.8-7.7); NEUTROPHILS % (AUTO) 48.2 % (42.2-75.2); PLATELET COUNT (AUTO) 240 K/uL (140-450); RED BLOOD CELL COUNT(AUTO) 2.49 MIL/uL (4.20-5.40); RED CELL DISTRIBUTION WIDTH 16.2 % (11.6-13.7); WHITE BLOOD COUNT (AUTO) 6.4 K/uL (4.8-10.8)
[2019-05-21 07:45] LABS: ANION GAP 12.2 (8-16); CARBON DIOXIDE 24.3 mmol/L (21-32); CHLORIDE 110 mmol/L (98-107); CREATININE 0.7 mg/dL (0.6-1.3); GLUCOSE 113 mg/dL (74-106); POTASSIUM 3.5 mmol/L (3.5-5.1); SODIUM SERUM 143 mmol/L (136-145); UREA NITROGEN, BLOOD 8 mg/dL (7-18)
[2019-05-21 08:00] VITALS: BP 139/48
[2019-05-21 08:10] LABS: MAGNESIUM 1.9 mg/dL (1.8-2.4); PHOSPHORUS 2.6 mg/dL (2.5-4.9)
[2019-05-21] MEDS: PANTOPRAZOLE 40 MG INJ VIAL IVP SCH ×2 (08:52→20:11)
[2019-05-21] MEDS: HYDROCORTISONE 2.5% OINT 30 GM TUBE TP SCH ×2 (08:52→20:12)
[2019-05-21] MEDS: POLYVINYL ALCOHOL 1.4% OP 15 ML SOL OP SCH ×3 (08:52→17:24)
[2019-05-21] MEDS: ERYTHROMYCIN ETHYLSUCCINATE SUSP 200 MG/5 ML UDC GT SCH ×3 (08:53→16:42)
--- NOTE | 2019-05-21 08:53 | NUR ---
ADMINISTERED AM SCHEDULED MEDS AND HOLD ALL PO/GT MEDS PER MD ORDER, APPLIED HYDROCORTISONE CREAM ON BILATERAL ARMS, AND ADMINISTERED EYES DROP TO BOTH EYES, MEDS EDUCATION PROVIDED TO PT AND REINFORCEMENT NEEDED. SUCTIONED PT'S MOUTH AND RECEIVED MINIMAL SALIVA, PT TOLERATED WELL. RESPIRATION EVEN AND UNLABORED ON TRACH TO VENT, SPO2 AT 99%. FLACC 0. NO SIGNS OF DISTRESS NOTED. TELE MONITOR ATTACHED. SAFETY MEASURES IN PLACE.
--- NOTE | 2019-05-21 09:55 | NUR ---
DRESSING ON OLD G-TUBE SITE SOILED, UNPACKED. CLEANSED WITH NS AND PACKED WITH PLAIN STRIP AND SECURED WITH ISLAND DRESSING. PT TOLERATED WELL. FLACC 0. RESPIRATION EVEN AND UNLABORED ON TRACH TO VENT, SPO2 100% BY BEDSIDE SPO MONITOR. NO SIGNS OF DISTRESS NOTED. TELE MONITOR ATTACHED. SAFETY MEASURES IN PLACE.
--- NOTE | 2019-05-21 11:15 | NUR ---
PT IS RESTING ON BED, AROUSABLE TO VOICE. RESPIRATION EVEN AND UNLABORED ON TACH TO VENT, SPO2 AT 97%. FLACC 0. NO SIGNS OF DISTRESS NOTED. NGT CONNECTED TO LOW INTERMITTENT SUCTIONING, SMALL AMOUNT OF GREENISH/YELLOW MUCUS IS SUCTIONING OUT. TELE MONITOR ATTACHED. SAFETY MEASURES IN PLACE.
--- NOTE | 2019-05-21 11:39 | NUR ---
ASSISTED CNAS TO REPOSITION PT, USE PILLOWS AND HEEL PROTECTORS TO OFF LOAD PRESSURE. PT TOLERATED WELL. NO SIGNS OF DISTRESS NOTED. TELE MONITOR ATTACHED. SAFETY MEASURES IN PLACE.
[2019-05-21 12:00] VITALS: BP 148/69
[2019-05-21] MEDS: GAUZE TP SCH (13:20)
--- NOTE | 2019-05-21 13:22 | NUR ---
ADMINISTERED MED PER MD ORDER REGLAN VIA IVP, HOLD GT MED, MED EDUCATION PROVIDED TO PT AND REINFORCEMENT NEEDED. WITH ASSIST FROM US MARKETING DIRECTOR, APPLIED Z-GUARD ON SACRAL AND COVERED WITH HEART SHAPED OPTIFOAM. APPLIED HYDRAGUARD ON ENTIRE BACK. APPLIED HYDROCORTISONE CREAM ON BOTH ARMS. OFFLOADED PRESSURE WITH PILLOWS AND HEEL PROTECTORS, PT TOLERATED WELL. FLACC 0. NO SIGNS OF DISTRESS NOTED. TELE MONITOR ATTACHED. SAFETY MEASURES IN PLACE.
--- NOTE | 2019-05-21 14:18 | NUR ---
PT SUCTIONED OBTAINED MODERATE AMOUNT OF THICK WHITE SECRETIONS, AIRWAY IS PATENT AND TRACH IS SECURE. PT NOT IN ANY DISTRESS. WILL CONTINUE TO MONITOR.
--- NOTE | 2019-05-21 15:27 | NUR ---
PT IS RESTING ON BED. NGT IS CONNECTED WITH LOW INTERMITTENT SUCTIONING. RESPIRATION EVEN AND UNLABORED ON TRACH TO VENT, SPO2 AT 97%. FLACC 0. NO SIGNS OF DISTRESS NOTED. TELE MONITOR ATTACHED. DAUGHTER IS BY BEDSIDE. SAFETY MEASURES IN PLACE.
[2019-05-21] MEDS: DEXT 5% /NACL 0.9% 1,000 ML IV SCH (15:42)
[2019-05-21 16:00] VITALS: BP 135/54
--- NOTE | 2019-05-21 16:18 | NUR ---
DR ERICKSON IS TALKING TO PT'S DAUGHTER AT BEDSIDE. NO SIGNS OF DISTRESS NOTE. TELE MONITOR ATTACHED. SAFETY MEASURES IN PLACE.
[2019-05-21] MEDS: MORPHINE SULFATE 2 MG/ML SYR IVP PRN (16:42)
--- NOTE | 2019-05-21 16:42 | NUR ---
PT SHOWS FACIAL GRIMACING, MOANING, MEDICATED WITH PRN PAIN MED VIA MORPHINE IVP PER MD ORDER, MED EDUCATION PROVIDED TO DAUGHTER JOHNATHAN AT BEDSIDE. JOHNATHAN VERBALIZED OK. NO SIGNS OF DISTRESS NOTED. TELE MONITOR ATTACHED. SAFETY MEASURES IN PLACE.
--- NOTE | 2019-05-21 17:25 | NUR ---
ADMINISTERED ARTIFICIAL TEAR ON EYES BILATERALLY, PT TOLERATED WELL. PT IS RESTING COMFORTABLY ON BED. NO SIGNS OF DISTRESS NOTED. TELE MONITOR ATTACHED. DAUGHTER JOHNATHAN IS BY BEDSIDE. SAFETY MEASURES IN PLACE.
--- NOTE | 2019-05-21 17:49 | NUR ---
PT RESTING COMFORTABLY NO DISTRESS NOTED. TRACH IS SECURE WITH A PATENT AIRWAY. PT SUCTIONED OBTAINED MODERATE AMOUNT OF THICK WHITE SECRETIONS, AIRWAY IS PATENT. VENT ALARMS REMAIN ON AND FUNCTIONING.
--- NOTE | 2019-05-21 18:30 | NUR ---
CHECKED BLOOD GLUCOSE AND RECEIVED 121, NO INSULIN COVERAGE NEEDED. FAMILY MEMBERS ARE BY BEDSIDE. NO SIGS OF DISTRESS NOTED. TELE MONITOR ATTACHED. SAFETY MEASURES IN PLACE.
--- NOTE | 2019-05-21 19:12 | NUR ---
ENDORSED PT AT BEDSIDE TO BRANCH LIBRARY CLERK NURSE VANE FOR CONTINUITY OF CARE. PT IS RESTING ON BED AND FAMILY IS BY BEDSIDE. NO SIGNS OF DISTRESS NOTED. SAFETY MEASURES IN PLACE. TELE MONITOR ATTACHED. PT IS IN STABLE CONDITION.
--- NOTE | 2019-05-21 19:15 | NUR ---
RECEIVED PT ON BED SLEEPING, SQUIRMS TO TOUCH, APHASIC, VITAL SIGNS STABLE, FLACC-0, ON TRACH TO VENT WITH FF SETTINGS: FI02-24%, TV-500, RATE-14, FLOW RATE-35, PEEP-5, SATURATING 100%, G-TUBE IN PLACE, CLAMPED AT THIS TIME, ON NPO STATUS, LEFT STOMA DRESSING DRY AND INTACT, SHAH CATHETER IN PLACE WITH CLEAR YELLOW URINE, IVF INFUSING WELL VIA RT UA PICC LINE, DRESSING DRY AND INTACT, PLAN OF CARE DISCUSSED WITH DAUGHTERS AT BEDSIDE, SAFETY MEASURES IN PLACE, BED IN LOW POSITION, BED ALARM ON, WILL REPOSITION Q2H AND OFFLOAD PRESSURE AREAS, CALL LIGHT WITHIN REACH.
[2019-05-21] MEDS: MULTIVITAMIN-12 10 ML in DEXTROSE 50% 600 ML, AMINO ACIDS 8.5% 600 ML, FAT EMULSION 20%... IV SCH ×4 (19:40)
[2019-05-21 20:00] VITALS: BP 120/57
--- NOTE | 2019-05-21 20:15 | NUR ---
DUE MEDS ADMINISTERED, HYDROCORTISONE CREAM APPLIED TO RASHES TO THOMAS UA, LT NARES NGT TO LOW INTERMITTENT SUCTION WITH MINIMAL CLEAR GREENISH FLUID NOTED, ALL NEEDS ANTICIPATED.
--- NOTE | 2019-05-21 22:10 | NUR ---
SEEN PT SLEEPING, NO RESP DISTRESS NOTED, SUCTION SECRETION PRN, MONITORED CLOSELY.
[2019-05-22] VITALS: BP 137/46
--- NOTE | 2019-05-22 | NUR ---
PT SLEEPING, SQUIRMS TO TOUCH, VITAL SIGNS STABLE, FLACC-0, BLOOD SUGAR CHECKED WITH 148 RESULT, IVF REDUCED TO TKO RATE, TPN INFUSING WELL AT 50ML/H, UNABLE TO DO ORAL CARE DUE TO PT NOT OPENING HER MOUTH AND STARTS GETTING AGITATED, UNABLE TO FOLLOW COMMANDS, CONTINUE TO REPOSITION Q2H AND OFFLOAD PRESSURE AREAS, MONITORED CLOSELY.
[2019-05-22] MEDS: BLOOD GLUCOSE MONITORING 1 DEV DEV FS SCH ×3 (00:16→12:36)
[2019-05-22] MEDS: Z-GUARD PASTE TP SCH ×2 (00:51→13:13)
--- NOTE | 2019-05-22 04:00 | NUR ---
PT SLEEPING, FLACC-0, VITAL SIGNS STABLE, NO DISTRESS NOTED, LEFT PERISTOMA DRESSING INTACT WITH MINIMAL DRAINAGE NOTED, DRESSING CHANGE DONE, CONTINUE TO REPOSITIONED Q2H AND OFFLOAD PRESSURE AREAS, MONITORED CLOSELY.
[2019-05-22] MEDS: METOCLOPRAMIDE 10 MG/2 ML INJ VIAL IVP SCH ×2 (04:22→13:14)
[2019-05-22 04:31] VITALS: BP 150/57
[2019-05-22] MEDS: INSULIN LISPRO SLIDING SCALE 100 UNITS/ML VIAL SUBQ PRN ×2 (05:22→12:40)
--- NOTE | 2019-05-22 05:30 | NUR ---
BLOOD SUGAR CHECKED WITH 160 RESULT, COVERAGE GIVEN, NG TUBE OUTPUT OF 100ML THE WHOLE SHIFT, CONTINUE ON LOW INTERMITTENT SUCTION, NO CHANGE IN CONDITION, MONITORED CLOSELY.
[2019-05-22 06:16] LABS: BASOPHILS % (AUTO) 0.5 % (0.0-2.0); EOSINOPHILS # (AUTO) 1.3 K/uL (0-0.4); EOSINOPHILS % (AUTO) 23.7 % (0.0-4.0); LYMPHOCYTES # (AUTO) 1.3 K/uL (2.5-16.5); LYMPHOCYTES % (AUTO) 23.3 % (20.5-51.1); MEAN CORPUSCULAR HEMOGLOBIN 31 pg (27-31); MEAN CORPUSCULAR HGB CONC 33 g/dL (33-37); MONOCYTES # (AUTO) 0.3 K/uL (0.8-1.0); MONOCYTES % (AUTO) 5.8 % (1.7-9.3); NEUTROPHILS # (AUTO) 2.6 K/uL (1.8-7.7); NEUTROPHILS % (AUTO) 46.7 % (42.2-75.2); PLATELET COUNT (AUTO) 225 K/uL (140-450); RED BLOOD CELL COUNT(AUTO) 2.58 MIL/uL (4.20-5.40); RED CELL DISTRIBUTION WIDTH 16.3 % (11.6-13.7); WHITE BLOOD COUNT (AUTO) 5.7 K/uL (4.8-10.8)
[2019-05-22 06:56] LABS: ANION GAP 14.8 (8-16); CARBON DIOXIDE 23.6 mmol/L (21-32); CHLORIDE 106 mmol/L (98-107); CREATININE 0.8 mg/dL (0.6-1.3); GLUCOSE 160 mg/dL (74-106); POTASSIUM 3.4 mmol/L (3.5-5.1); SODIUM SERUM 141 mmol/L (136-145); UREA NITROGEN, BLOOD 8 mg/dL (7-18)
[2019-05-22 06:59] LABS: MAGNESIUM 1.8 mg/dL (1.8-2.4); PHOSPHORUS 2.8 mg/dL (2.5-4.9)
--- NOTE | 2019-05-22 07:10 | NUR ---
PT SLEEPING, NO SIGNS OF DISTRESS, BEDSIDE REPORT GIVEN TO ASAEL SWAN FOR CONTINUITY OF CARE.
--- NOTE | 2019-05-22 07:15 | NUR ---
RECEIVED REPORT FROM SENIOR RUBY DEVELOPER NURSE. PT IS ASLEEP IN STABLE CONDITION WITH NO SIGNS OF DISTRESS NOTED. SAFETY MEASURES IN PLACE, CALL LIGHT WITHIN REACH, AND WILL CONTINUE TO MONITOR.
[2019-05-22 08:00] VITALS: BP 151/40
[2019-05-22] MEDS ORDERED: NACL 0.9% 1,000 ML IV SCH (08:55)
[2019-05-22] MEDS: ERYTHROMYCIN ETHYLSUCCINATE SUSP 200 MG/5 ML UDC GT SCH ×2 (09:00→13:23)
[2019-05-22] MEDS: HYDROCORTISONE 2.5% OINT 30 GM TUBE TP SCH (09:00)
[2019-05-22] MEDS: POLYVINYL ALCOHOL 1.4% OP 15 ML SOL OP SCH ×2 (09:00→13:13)
[2019-05-22] MEDS: PANTOPRAZOLE 40 MG INJ VIAL IVP SCH (10:02)
--- NOTE | 2019-05-22 10:34 | NUR ---
PT IS ASLEEP IN BED. MEDICATIONS ADMINISTERED PER ORDER. NGT MEDS HELD. SACRAL AND STOMA WOUNDS CLEANSED AND DRESSING CHANGED. PT BATHED AND TOLERATED WELL WITH NO SIGNS OF DISTRESS NOTED. SAFETY MEASURES IN PLACE, CALL LIGHT WITHIN REACH, AND WILL CONTINUE TO MONITOR
[2019-05-22 12:00] VITALS: BP 146/47
--- NOTE | 2019-05-22 12:29 | NUR ---
VITAL SIGNS MONITORED AT THIS TIME, PT IN STABLE CONDITION, NO DISTRESS NOTED, RESPIRATIONS EVEN AND UNLABORED ON TRACH TO VENT. SAFETY MEASURES IN PLACE. CALL LIGHT WITHIN REACH, WILL CONTINUE TO MONITOR.
[2019-05-22] MEDS: GAUZE TP SCH (13:13)
[2019-05-22 14:47] VITALS: BP 146/47
[2019-05-22] MEDS ORDERED: POTASSIUM CHLORIDE 20% 40 MEQ/15 ML UDC GT SCH (15:00)
--- NOTE | 2019-05-22 15:20 | NUR ---
PT TO BE DISCHARGED [place] [facility] AT THIS TIME. DISCHARGE TEACHING GIVEN TO PT, PT UNABLE TO RESPOND. DISCHARGE PAPERWORK NOT SIGNED DUE TO PT INABILITY TO SIGN. PNA AND FLU VACCINES UP TO DATE. SKIN NON INTACT, SACRAL WOUND PRESENT, RUQ STOMA PRESENT, PICTURES TAKEN AND PLACED IN CHART. RESPIRATIONS EVEN AND UNLABORED ON TRACH TO VENT. NO DISTRESS NOTED UPON D/C, FLACC 0. PT TRANSFERED WITH CARSON PICC LINE IN PLACE, PATENT AND ASYMPTOMATIC AND SHAH CATHETER. BELONGINGS VERIFIED AND RETURNED TO PT. ID BANDS REMOVED. PT ESCORTED OFF UNIT VIA [facility] AND TRANSPORTED [place] [facility]. Addendum: 05/22/19 at 1619 by Austen Douglas RN PTS DAUGHTER CALLED SOON PT LEFT UNIT TO INFORM HER THAT PT WAS LEAVING TO [facility].
[2019-05-22] MEDS ORDERED: MULTIVITAMIN-12 10 ML in DEXTROSE 50% 720 ML, AMINO ACIDS 8.5% 620 ML, FAT EMULSION 20%... IV SCH ×4 (20:00)
== END 2019-05-22 15:25 | DRG 393 ==
LOC: MED 12:12 → UNDOADMIN 14:37 → MTU 14:37 → MIC 16:06 → MTU 05-09 18:55 → MIC 05-09 21:35 → MTU 05-14 07:05
PROVIDERS: ADMIT General Practice; ATTEND General Practice
PROC: 5A1955Z Respiratory Ventilation, Greater than 96 Consecutive Hours (ICD-10-PCS; principal; 2019-05-08)
PROC: 0DH63UZ Insertion of Feeding Device into Stomach, Percutaneous Approach (ICD-10-PCS; 2019-05-16)
PROC: 02HV33Z Insertion of Infusion Device into Superior Vena Cava, Percutaneous Approach (ICD-10-PCS; 2019-05-17)
PROC: B548ZZA Ultrasonography of Superior Vena Cava, Guidance (ICD-10-PCS; 2019-05-17)
PROC: 3E0234Z Introduction of Serum, Toxoid and Vaccine into Muscle, Percutaneous Approach (ICD-10-PCS; 2019-05-20)
DX: K94.23 Gastrostomy malfunction (principal); J69.0 Pneumonitis due to inhalation of food and vomit; J96.21 Acute and chronic respiratory failure with hypoxia; A41.9 Sepsis, unspecified organism; L03.90 Cellulitis, unspecified; E44.0 Moderate protein-calorie malnutrition; J98.11 Atelectasis; G93.40 Encephalopathy, unspecified; M48.56XA Collapsed vertebra, not elsewhere classified, lumbar region, initial encounter for fracture; Z99.11 Dependence on respirator [ventilator] status; E87.6 Hypokalemia; Y83.3 Surgical operation with formation of external stoma as the cause of abnormal reaction of the patient, or of later complication, without mention of misadventure at the time of the procedure; I10 Essential (primary) hypertension; G20 Parkinson's disease; F02.80 Dementia in other diseases classified elsewhere, unspecified severity, without behavioral disturbance, psychotic disturbance, mood disturbance, and anxiety; R13.10 Dysphagia, unspecified; D63.8 Anemia in other chronic diseases classified elsewhere; E83.41 Hypermagnesemia; T36.0X5A Adverse effect of penicillins, initial encounter; K56.41 Fecal impaction; K76.0 Fatty (change of) liver, not elsewhere classified; E83.42 Hypomagnesemia; E83.39 Other disorders of phosphorus metabolism; E78.1 Pure hyperglyceridemia; L08.0 Pyoderma; B96.5 Pseudomonas (aeruginosa) (mallei) (pseudomallei) as the cause of diseases classified elsewhere; Z68.24 Body mass index [BMI] 24.0-24.9, adult; Z23 Encounter for immunization; Z79.899 Other long term (current) drug therapy; Z93.0 Tracheostomy status; Z86.73 Personal history of transient ischemic attack (TIA), and cerebral infarction without residual deficits; Z74.01 Bed confinement status; Y92.89 Other specified places as the place of occurrence of the external cause
CPT/HCPCS: 36415; 51702; 71045; 74018; 76705; 80048; 80053; 81003; 82040; 82272; 82607; 82728; 82746; 82948; 83036; 83540; 83605; 83690; 83735; 83880; 84100; 84443; 84484; 85025; 85045; 85610; 85730; 87040; 87070; 87075; 87081; 87086; 87186; 87205; 89220; 90732; 93005; 94002; 94003; 96361; 96365; 96375; 99285; A9153; C1751; C9113; J0696; J1200; J1644; J1815; J1885; J2001; J2250; J2270; J2543; J2765; J2916; J3010; J3370; J3475; J3480; J7030; J7042; J7060; Q0092

== ENCOUNTER 2019-07-19 14:32 | Inpatient (IN) | payer OTHER, SELFPAY ==
[2019-07-19] VITALS (7 sets, daily range): BP systolic 97–121; BP diastolic 42–66
[~2019-07-19] VITALS: Ht 160 cm; Wt 65.8 kg
--- NOTE | 2019-07-19 14:30 | NUR ---
PT BIBA FROM [facility] FOR SOB PLACED ON CARESCAPE VENT WITH SETTINGS AC 14 VT500 PEEP 5 FIO2 40% ALARMS ON AND AUDIBLE BVM AT SIDE OF VENT AND VENT IS PLUGGED INTO RED OUTLET, SXN PT FOR C&S MODERATE AMT OF THICK CREAM COLOR SECRETIONS, B\S ARE COARSE BILATERALLY, PT IS TRACH WITH PORTEX 8
[~2019-07-19 14:32] MED LIST changes: +ASCO-672 GT; +BISA-213 RC; -CARB1TAB37 PO; +CARB1TER4 GT; +COL100L GT; +CRAN450C GT; +HEPA500056 SUBQ; +HYD2.5O TP; +INSU-1343 SQ; +INSU100S22 SUBQ; -INUL1CTB PO; -LEVO750T2 PO; +LISI5TAB18 GT; +MAGN400S60 GT; -OSC500 PO; +PANT40PD7 IVP; +PROP10DR3 OP; -VAN1I; +VITA400T14 GT; +ZGUARD TP; -ZOS3.375I IV; -[UNRECOGNIZED DRUG - CODE] PO
--- NOTE | 2019-07-19 14:32 | NUR ---
Patient [place] [facility] [place] bed 1. RN evaluating patient at bedside.
--- NOTE | 2019-07-19 14:32 | NUR ---
RT AT BEDSIDE.
--- NOTE | 2019-07-19 14:35 | NUR ---
PT PLACED ON 3 LEAD ECG, PULSE OX AND BP CUFF.
--- NOTE | 2019-07-19 14:40 | NUR ---
DR. FARLEY AT BEDSIDE.
--- NOTE | 2019-07-19 14:45 | NUR ---
STAT LABS DRAWN AND GIVEN TO TOILET ATTENDANT.
[2019-07-19 15:16] LABS: BASOPHILS % (AUTO) 0.5 % (0.0-2.0); EOSINOPHILS # (AUTO) 0.5 K/uL (0-0.4); EOSINOPHILS % (AUTO) 5.3 % (0.0-4.0); HEMOGLOBIN 8.9 g/dL (12.0-16.0); LYMPHOCYTES # (AUTO) 1.7 K/uL (2.5-16.5); LYMPHOCYTES % (AUTO) 18.9 % (20.5-51.1); MEAN CORPUSCULAR HEMOGLOBIN 31 pg (27-31); MEAN CORPUSCULAR HGB CONC 34 g/dL (33-37); MEAN CORPUSCULAR VOLUME 91.5 fL (80-94); MONOCYTES # (AUTO) 0.4 K/uL (0.8-1.0); MONOCYTES % (AUTO) 4.3 % (1.7-9.3); NEUTROPHILS # (AUTO) 6.5 K/uL (1.8-7.7); PLATELET COUNT (AUTO) 315 K/uL (140-450); RED BLOOD CELL COUNT(AUTO) 2.84 MIL/uL (4.20-5.40); RED CELL DISTRIBUTION WIDTH 15.6 % (11.6-13.7); WHITE BLOOD COUNT (AUTO) 9.2 K/uL (4.8-10.8)
--- NOTE | 2019-07-19 15:27 | NUR ---
78 [place] [facility] [place] FEVER WAS UNALEVIATED S/P 650 MG TYLENOL AND COOLING MEASURES. PT PRESENTS WITH TRACH AND BAGGED UPON ARRIVAL. RT AT BEDSIDE UPON ARRIVAL AND PLACED ON REGUALR VENT SETTINGS. 100 % O2 VSS. PER FACILITES REQUEST PT TO BE TESTED FOR COVID. RR EVEN AND UNLABORED. CRACKLES AUSCULATED EXP. ABD LARGE AND DISTENDED. SOFT TO TOUCH. G TUBE PRESENT ON ARRIVAL. BS ACTIVE X 4. PT IS NONVERBAL BUE AND BLE CONTRACTED. PT RESPONDS TO PAINFUL STIMULUS. NKDA
[2019-07-19 15:30] LABS: ALBUMIN 3.1 g/dL (3.4-5.0); ANION GAP 10.7 (8-16); ASPARTATE AMINOTRANSFERASE 34 U/L (15-37); CARBON DIOXIDE 32.2 mmol/L (21-32); CHLORIDE 101 mmol/L (98-107); GLUCOSE 128 mg/dL (74-106); POTASSIUM 4.9 mmol/L (3.5-5.1); SODIUM SERUM 139 mmol/L (136-145); TOTAL BILIRUBIN 0.3 mg/dL (0.0-1.0); UREA NITROGEN, BLOOD 41 mg/dL (7-18)
--- NOTE | 2019-07-19 15:39 | NUR ---
COVID SWAB OBTAINED VIA SPUTUM SAMPLE COLLECTED BY RT AT BEDSIDE.
[2019-07-19 15:49] LABS: PROTHROMBIN TIME 10.9 secs (10.8-13.4)
[2019-07-19 16:13] LABS: LACTATE DEHYDROGENASE 217 U/L (81-234)
[2019-07-19] MEDS ORDERED: DOCUSATE SODIUM 100 MG GELCAP PO PRN (16:15)
[2019-07-19] MEDS ORDERED: ONDANSETRON 4 MG/2 ML VIAL IM/IVP PRN (16:15)
[2019-07-19] MEDS ORDERED: NACL 0.9% 1,000 ML IV ONE (16:15)
[2019-07-19] MEDS ORDERED: ACETAMINOPHEN 325 MG TAB PO PRN (16:15)
[2019-07-19] MEDS ORDERED: cefTRIAXone 1,000 MG VIAL ONE (16:18)
[2019-07-19 16:34] LABS: APPEARANCE,URINE CLEAR (CLEAR); BILIRUBIN,URINE NEGATIVE (NEGATIVE); BLOOD, URINE NEGATIVE (NEGATIVE); COLOR,URINE YELLOW (YELLOW); LEUKOCYTE ESTERASE ,URINE 1+ (NEGATIVE); NITRITE, URINE NEGATIVE (NEGATIVE); PH,URINE 6.5 (5.0-9.0); UGLUCOSE NEGATIVE (NEGATIVE)
[2019-07-19] MEDS ORDERED: PEG OP SCH (16:40)
[2019-07-19] MEDS ORDERED: PROPYLENE GLYCOL OP SCH (16:40)
[2019-07-19] MEDS: NACL 0.9% 1,000 ML IV ONE ×2 (16:45→16:46)
--- NOTE | 2019-07-19 16:48 | NUR ---
PT IS RESTING IN THE BED. EYES ARE CLOSED. VITAL SIGNS ARE STABLE. PT IS ON TRACHEOTOMY VENTILATOR AND MONITOR IN THE ISOLATION ROOM.
[2019-07-19] MEDS ORDERED: BACL10TA4 PO (17:00)
--- NOTE | 2019-07-19 17:06 | NUR ---
SPOKE TO PT'S DAUGHTER, SATISH AT PHONE # [phone] AND GAVE HER PT'S UPDATES.
[2019-07-19 17:10] LABS: RBC,URINE NONE SEEN /HPF (0-5)
[2019-07-19] MEDS ORDERED: ALBUTEROL HFA MDI 90 MCG/ACTUATION 8 GM INH PRN (17:10)
[2019-07-19] MEDS ORDERED: DEXTROSE 50% 50 ML SYR IVP PRN (17:30)
[2019-07-19] MEDS ORDERED: AZITHROMYCIN 500 MG in DEXTROSE 5% 250 ML IV SCH (17:30)
[2019-07-19] MEDS ORDERED: GLUCAGON 1 MG VIAL IM PRN (17:30)
[2019-07-19 17:31] LABS: CHOL/HDL RATIO 4.3 (1-4.5); MAGNESIUM 2.7 mg/dL (1.8-2.4); PHOSPHORUS 3.6 mg/dL (2.5-4.9); THYROID STIMULATING HORMONE 1.35 uIU/mL (0.34-3.74)
[2019-07-19] MEDS ORDERED: ZINC SULF 220 MG CAP GT SCH (18:00)
--- NOTE | 2019-07-19 18:00 | NUR ---
Pt is resting in the bed in a comfortable position. Pt is on the tracheotomy ventilator and monitor with stable vital signs in the isolation room.
[2019-07-19] MEDS ORDERED: ACETAMINOPHEN 650 MG/20.3 ML UDC GT PRN (18:05)
--- NOTE | 2019-07-19 19:00 | NUR ---
Patient will be admitted to care of SOB, R/O COVID. Admited to ICU. Will go to room 8. Belongings list completed. Report to ASAEL PATHAK.
--- NOTE | 2019-07-19 19:30 | NUR ---
RECEIVED PT FROM DAY SHIFT RN PT WAS ADMITTED TO UNIT FROM ER PT CAME FROM [facility], CHIEF COMPLAINT SOB AND R/O COVID 19, PT IS CONTRACTED ALL EXTREMITIES, LUNG SOUNDS COARSE, PT IS TRACH TO VENT AC/VC FIO2 40 VT 500 RR 14 PEEP 5, PULSES PALPABLE UPPER AND LOWER EXTREMITIES, SHAH CATHETER AND IV 22 G LEFT FOREARM INSERTED, PT KEEPS EYES CLOSED; PT HAS ABDOMINAL DRESSING COVERING OLD G-TUBE SITE. PT BED IN LOWEST POSITION WITH SAFETY, SEIZURE PROTOCOLS IN PLACE, VITALS STABLE WILL CONTINUE TO MONITOR PT
--- NOTE | 2019-07-19 19:52 | NUR ---
REEIVED PT ON DOCUMENTED SETTINGS. VENT PLUGGED INTO RED OUTLET. BMV AT BEDSIDE. TRACH SECURED AND INTACT. SX MODERATE AMOUNT OF THICK WHITE SECRETION. PT IS IN NO DISTRESS. WILL CONT TO MONITOR
--- NOTE | 2019-07-19 20:30 | NUR ---
PT MEDS GIVEN PT RESTING IN BED WILL CONTINUE TO MONITOR PT
--- NOTE | 2019-07-19 21:30 | NUR ---
SPOKE WITH PT CONTACT KATHARINE OVER PHONE ABOUT INSERTION OF PICC LINE, FAMILY APPROVED INSERTION SECOND RN VERIFICATION DONE WITH DARRELL VYAS. PT DAUGHTER SATISH ASKED TO MADE PRIMARY CONTACT FOR MEDICAL NEEDS AND QUESTION, KATHARINE CONFIRMED CHANGE OF PRIMARY CONTACT TO SATISH [phone]
[2019-07-19] MEDS: DEXT 5% /NACL 0.9% 1,000 ML IV SCH (21:40)
[2019-07-19] MEDS: BLOOD GLUCOSE MONITORING 1 DEV DEV FS SCH (21:40)
[2019-07-19] MEDS: PANTOPRAZOLE 40 MG INJ VIAL IVP SCH (21:41)
[2019-07-19] MEDS: DOCUSATE 100 MG/10 ML UDC GT SCH (21:41)
[2019-07-19] MEDS: POLYVINYL ALCOHOL 1.4% OP 15 ML SOL OP SCH (21:42)
[2019-07-19] MEDS: INSULIN LANTUS 100 UNITS/ML 10 ML VIAL SUBQ SCH (21:43)
[2019-07-19] MEDS ORDERED: VANCOMYCIN PER PHARMACY MC PRN (23:15)
[2019-07-19] MEDS ORDERED: VANCOMYCIN 1GM/DEXT 5% PREMIX 200 ML IV SCH (23:40)
[2019-07-20] VITALS (19 sets, daily range): BP systolic 96–145; BP diastolic 41–71
--- NOTE | 2019-07-20 00:48 | NUR ---
SPOKE WITH DR. BRYANT ABOUT MEDS DUE PRIOR TO FINAL EXPENSE AGENT STARTING. CLARIFIED MEDS, ZINC, ZITHROMAX, VITAMIN C, SINNEMET, OK TO GIVE NOW. WILL CONTINUE TO OBSERVE.
--- NOTE | 2019-07-20 02:00 | NUR ---
PT RESTING IN BED VITALS STABLE WILL CONTINUE TO MONITOR PT
[2019-07-20] MEDS: CARBIDOPA/LEVODOPA 25/100 MG 1 TAB GT SCH ×4 (04:41→17:53)
[2019-07-20] MEDS: ASCORBIC ACID 500 MG/5 ML ORASYR GT SCH ×2 (04:42→08:28)
[2019-07-20] MEDS ORDERED: PIPERACILLIN/TAZOBACTAM 3.375 GM VIAL IV ONE (05:04)
[2019-07-20] MEDS: PIPERACILLIN/TAZOBACTAM 3.375 GM in DEXTROSE 5% 50 ML IV SCH ×3 (05:12→21:28)
[2019-07-20] MEDS: DEXT 5% /NACL 0.9% 1,000 ML IV SCH ×2 (05:35→16:56)
--- NOTE | 2019-07-20 05:42 | NUR ---
PT REMAINS ON DOCUMENTED SETTINGS. NO CHANGES MADE. TRACH SECURED AND INTACT. PT IS IN NO DISTRESS. WILL CONT TO MONITOR
[2019-07-20 05:58] LABS: BASOPHILS % (AUTO) 0.7 % (0.0-2.0); EOSINOPHILS # (AUTO) 0.5 K/uL (0-0.4); EOSINOPHILS % (AUTO) 7.1 % (0.0-4.0); HEMATOCRIT 26.5 % (36-48); HEMOGLOBIN 8.8 g/dL (12.0-16.0); LYMPHOCYTES # (AUTO) 2.1 K/uL (2.5-16.5); LYMPHOCYTES % (AUTO) 31.1 % (20.5-51.1); MEAN CORPUSCULAR HEMOGLOBIN 31 pg (27-31); MEAN CORPUSCULAR HGB CONC 33 g/dL (33-37); MONOCYTES # (AUTO) 0.4 K/uL (0.8-1.0); MONOCYTES % (AUTO) 5.1 % (1.7-9.3); NEUTROPHILS # (AUTO) 3.9 K/uL (1.8-7.7); PLATELET COUNT (AUTO) 325 K/uL (140-450); RED BLOOD CELL COUNT(AUTO) 2.85 MIL/uL (4.20-5.40); RED CELL DISTRIBUTION WIDTH 15.7 % (11.6-13.7); WHITE BLOOD COUNT (AUTO) 6.9 K/uL (4.8-10.8)
[2019-07-20 06:53] LABS: ANION GAP 12.8 (8-16); ASPARTATE AMINOTRANSFERASE 23 U/L (15-37); CARBON DIOXIDE 27.4 mmol/L (21-32); CHLORIDE 104 mmol/L (98-107); CREATININE 0.8 mg/dL (0.6-1.3); GLUCOSE 146 mg/dL (74-106); MAGNESIUM 2.5 mg/dL (1.8-2.4); PHOSPHORUS 3.1 mg/dL (2.5-4.9); POTASSIUM 4.2 mmol/L (3.5-5.1); SODIUM SERUM 140 mmol/L (136-145); TOTAL BILIRUBIN 0.3 mg/dL (0.0-1.0); UREA NITROGEN, BLOOD 25 mg/dL (7-18)
--- NOTE | 2019-07-20 07:25 | NUR ---
BEDSIDE REPORT RECEIVED FROM DIRECTOR OF ENTERPRISE STRATEGY NURSE, PT SITTING UP IN BED QUIETLY WITH EYES CLOSED, RESP VIA TRACH TO VENT, EQUAL CHEST RISE AND FALL NOTED, VENT SETTING ACVC FIO2 40%, VT 500, RR 14, PEEP 5, SKIN WARM DRY COLOR WNL, PIV 20G TO LEFT FA, D5NS AT 75ML/HR, SITE WNL, GT SITE WNL, OLD GT SITE TO LEFT OF CURRENT GT STILL OPEN AND LEAKING, DRESSING CHANGED, SHAH CATH IN PLACE, DRAINING TO GRAVITY, SCD IN PLACE, POC REVIEWED, ALL SAFETY MEASURES IN PLACE, WILL CONTINUE TO MONTIOR.
[2019-07-20] MEDS: BLOOD GLUCOSE MONITORING 1 DEV DEV FS SCH ×4 (07:30→21:29)
[2019-07-20 07:36] LABS: LACTATE DEHYDROGENASE 152 U/L (81-234)
--- NOTE | 2019-07-20 07:40 | NUR ---
RECEIVED ON A [employer]estream CARESCAPE R860 VENTILATOR PLUGGED INTO RED OUTLET TOLERATING WELL WITHOUT INCIDENT TO A PORTEX DCT #8 AIRWAY SECURED WITH A TRACH TIE CUFF PRESSURE CHECKED NOTED AMBU BAG AT BEDSIDE N EVIDENCE OF RESPIRATORY DISTRESS NOTED GOOD CHEST RISE DEEP TRACHEAL SUCTION FOR MODERATE THIN WHITE SECRETIONS DONATO-STOMA SUCTION FOR MODERATE CLEAR SECRETIONS AIRWAY PATENT SATURATION 100% ON FIO2 OF 40% TITRATED FIO2 TO 35% NARAYAN/LAWSON RN'S NOTIFIED
--- NOTE | 2019-07-20 08:05 | NUR ---
DR CARPENTER AND MEDICAL TEAM AT BEDSIDE.
[2019-07-20 08:06] LABS: FOLIC ACID > 20.00 ng/mL (>3.0); TRANSFERRIN 217 mg/dL (192-364)
[2019-07-20] MEDS: LISINOPRIL 5 MG TAB GT SCH (08:28)
[2019-07-20] MEDS: BACLOFEN 10 MG TAB GT SCH ×3 (08:29→17:53)
[2019-07-20] MEDS: LACTOBACILLUS RHAMNOSUS GG 1 EACH CAP GT SCH (08:29)
[2019-07-20] MEDS: PANTOPRAZOLE 40 MG INJ VIAL IVP SCH ×2 (08:29→21:28)
[2019-07-20] MEDS: DOCUSATE 100 MG/10 ML UDC GT SCH ×2 (08:30→21:28)
[2019-07-20] MEDS: POLYVINYL ALCOHOL 1.4% OP 15 ML SOL OP SCH ×2 (08:31→21:29)
[2019-07-20] MEDS: ZINC SULF 220 MG CAP GT SCH (08:31)
--- NOTE | 2019-07-20 08:36 | NUR ---
DISCHARGE PLANNING: THIS IS A 78 Y/O FEMALE FROM [facility], WHO WAS BIBA DUE TO SHORTNESS OF BREATH AND FEVER. PAST MEDICAL HISTORY INCLUDE CHRONIC RESPIRATORY FAILURE, PARKINSON'S DISEASE, DEMENTIA, HTN, DM AND CVA. INITIAL DIAGNOSIS OF SOB AND R/O COVID. CURRENT LABS INCLUDE WBC 6.9, H/H 8.8/26.5, NA/K 140/4.2, BUN/CREA25/0.8, CRP 5.9, ALB 3.0, D DIMER 1520 AND FIBRINOGEN 500. COVID TEST PENDING. ON ZOSYN. PULMO AND ID CONSULTS IN PLACE. CXR ON ADMISSION SHOWED POSSIBLE EARLY LEFT UPPER LOBE PNEUMONIA, LEFT GREATER THAN RIGHT BASILAR ATELECTASIS. URINE AND BLOOD CS PENDING. CHRONIC TRACH TO VENT FIO2 40%-O2 SAT 100%. DC PLAN PENDING ON PATIENT'S RESPONSE TO TREATMENT. Addendum: 07/20/19 at 1042 by iVri Ruiz CM DISCUSSED DURING BED HUDDLE TODAY, FOR POSSIBLE TELE DOWNGRADE LATER TODAY. Addendum: 07/25/19 at 1217 by Akanksha Coto CM DC PLANNING: CONTINUE MECHANICAL VENTILATION AND TRACH CARE, ASPIRATION PRECAUTION, CONTINUE IV ABX PER ID PLAN FOR G-TUBE SITE OPENING CLOSURE BY DR ERICKSON TODAY. DC PLAN TO GO BACK TO [facility] WHEN STABLE .CM TO FOLLOW Addendum: 07/26/19 at 1046 by Akanksha Coto CM DC PLANNING: PATIENT IS GOING FOR LAPAROSCOPIC CLOSURE GASTROCUTANEOUS FISTULA AND LAPAROSCOPIC EXCISIONAL DEBRIDEMENT OF EPITHELIALIZED FISTULA SITE BY DR ERICKSON. CONTINUE IV ABX CEFTRIAXONE AND TPN . DC PLAN TO GO BACK TO [facility] WHEN STABLE CM TO FOLLOW. Addendum: 07/27/19 at 1115 by Akanksha Coto DC PLANNING: DR FRANK SEEN PATIENT STATED NO ACUTE EVENTS MINIMAL DRAINAGE FROM OLD G-TUBE SITE. STARTED G-TUBE FEEDING TOLERATED WELL . DC PLAN TO GO BACK TO [facility] WHEN STABLE CM TO FOLLOW Addendum: 07/28/19 at 1405 by Akanksha Coto CM DC PLANNING: POST OP DAY #2 G-TUBE FEEDING STARTED TOLERATED WELL , STABLE TO BE TRANSFERRED BACK TO [facility]. 2 COVID TEST NEGATIVE. ID RECOMMENDED TO CONTINUE CURRENT ANTIBIOTICS CEFTRIAXONE AND VANCOMYCIN. POSSIBLE DC BACK TO [facility] ON WEDNESDAY. CM TO FOLLOW Addendum: 07/31/19 at 1011 by Akanksha Coto CM DC PLANNING: PATIENT HAS A DC ORDER TO GO BACK TO [facility]. FAXED ALL THE PAPERWORK TO [facility] AND [facility] FOR AUTH FOR TRANSPORT. CM TO FOLLOW Addendum: 07/31/19 at 1046 by Maria Guadalupe Martines CM FAXED FACESHEET AND ORDER TO KEYUR AT [facility]. CALLED AND LEFT MESSAGE FOR KEYUR AT [facility] FOR AUTH ON TRANSPORTATION FOR PT. [phone]. Addendum: 07/31/19 at 1048 by Maria Guadalupe Martines CM FAXED CLINICALS TO [facility]. RECEIVED FAX CONFIRMATION Addendum: 07/31/19 at 1130 by Akanksha Coto CM DC PLANNING: RECEIVED A CALL FROM KEYUR BRIDGES AUTHORIZATION FOR [facility] [id number] AND FOR TRANSPORT AUTH # [id number] . CALLED [facility] SPOKE WITH OLEG PATIENT CAN GO TO ROOM 20B, ARRANGED TRANSPORT WITH [facility] COLLECTION SUPPORT SPECIALIST TIME AFTER 6 PM D. NOTIFIED EVANS VYAS. Addendum: 07/31/19 at 1214 by Maria Guadalupe Martines CM SPOKE TO ERYN WITH [facility] TRANSPORTATION TO SCHEDULE COLLECTION SUPPORT SPECIALIST FOR PATIENT BACK TO [facility], PATIENTS TRANSPORTATION COLLECTION SUPPORT SPECIALIST TIME IS 1900 (7:00 PM).
--- NOTE | 2019-07-20 08:54 | NUR ---
PATIENT HAS BEEN SCREENED AND CATEGORIZED HIGH NUTRITION RISK. PATIENT WILL BE SEEN WITHIN 1-2 DAYS OF ADMISSION. 07/20/19-07/21/[address]
--- NOTE | 2019-07-20 09:00 | NUR ---
DAUGHTER SATISH CALLED, PT CONDITION UPDATED, CONFIRMED DNR STATUS, SHE IS AWARE OF THE PLAN TO PLACE PICC LINE TODAY, SHE STATED THAT SHE HAS HAD IT DONE BEFORE BUT THEY HAD A DIFFICULT TIME WITH PLACEMENT, INFORMED HER THAT PICC LINE INSERTION IS ULTRASOUND GUIDED, INFORMED HER THAT MENDEZ VIRUS TEST IS STILL PENDING, BLOOD/URINE/SPUTUM CULTURES PENDING, TAKES 48 HRS.
--- NOTE | 2019-07-20 09:15 | NUR ---
STABLE NO DISTRESS NOTED GOOD CHEST RISE
--- NOTE | 2019-07-20 10:23 | NUR ---
IRONWORKER APPRENTICE SHOP NOTE: Basic Screen: Yes High Risk DC Screen Yes Name: KATHARINE GREER Home Relationship: DAUGHTER Pre-Admission Living Arrangements: SNF Other: [facility] Prior ADL Total/Dependent Current Home Health Name/Tel: N/A Current DME/02 Name/Tel: [facility] DELIA Current Hospice Name/Tel: N/A Current Dialysis Name/Tel: N/A Healthcare Decision Maker: Next of Kin Other: KATHARINE ZOEY Discipline: Case Mgt/Social Svcs Tentative Discharge Plan/Destination: SNF/ECF Other: [facility] Tentative Discharge Plan Summary: PATIENT IS A 78-YEAR-OLD FEMALE ADMITTED FOR SHORTNESS OF BREATH. PATIENT HAS PMHX OF CHRONIC RESPIRATORY FAILURE, PARKINSON'S DISEASE, DEMENTIA, HYPERTENSION, DIABETES MELLITIS, AND HISTORY OF CVA. PATIENT WAS ADMITTED FROM [facility]. MIKE CONTACTED OLEG FROM [facility] TO VERIFY DEMOGRAPHICS [phone]. PER OLEG, PATIENT REQUIRES TOTAL ASSISTANCE WITH ADLS AND PATIENT IS NOT ALERT/ORIENTED AT BASELINE. PATIENT IS CURRENTLY ON A BED HOLD AND IS PRISON. HEALTHCARE DECISION MAKER IS DAUGHTER KATHARINE GREER. TENTATIVE DISCHARGE PLAN IS FOR PATIENT TO RETURN TO [facility]. NO FURTHER NEEDS IDENTIFIED. Signature: HARLEEN ESPAÑA Date: July 20, 2019 Time: 10:17
--- NOTE | 2019-07-20 10:45 | NUR ---
LULA PICC NURSE AT BEDSIDE FOR PICC PLACEMENTT
--- NOTE | 2019-07-20 11:25 | NUR ---
RESTING COMFORTABLY WITHOUT DISTRESS NOTED AT THIS TIME GOOD CHEST RISE
--- NOTE | 2019-07-20 12:16 | NUR ---
DR POOL MADE AWARE OF OLD GT SITE LEAKING, HOLD GT FEEDING FOR NOW PER DR POOL.
--- NOTE | 2019-07-20 12:49 | NUR ---
07/20/19 RD INITIAL ASSESSMENT COMPLETED PLEASE REFER TO NUTRITION ASSESSMENT UNDER CARE ACTIVITY FOR ESTIMATED NUTRITIONAL NEEDS. 1. RD RECOMMENDED VITAL 1.2 @ 65 ML/HR, START AT 20 ML/HR INCREASE BY 20 ML/HR. VOLUME GOAL IS 1560 ML/DAY. -PROVIDES 1872 CALORIES AND 117 GM OF PROTEIN, MEETING 100% OF NEEDS 2. CONSIDER TPN IF PATIENT IS UNABLE TO START TUBE FEEDING WITHIN 3 DAYS 3. CONTINUE FREE WATER FLUSH OF 140 ML Q4H 4. CONTINUE VITAMIN C AND ZINC SUPPLEMENTATION 5. RD TO FOLLOW-UP 2-3 DAYS, HIGH RISK OPAL BOWSER, MARZENA
--- NOTE | 2019-07-20 13:32 | NUR ---
ST NOTE ST SPOKE TO Pt's RN AT SNF. Pt CURRENTLY AT [facility] (SINCE 2014): NPO, PEG, TRACH W/ MECH VENT. SWALLOW EVAL IS NOT APPROPRIATE FOR THIS Pt. RN, LAWSON, AND , DR. GAXIOLA, WERE INFORMED. ST REQUESTED RN TO HAVE MD WRITE CANCELLATION OF ST ORDER.
--- NOTE | 2019-07-20 13:40 | NUR ---
NO EVIDENCE OF PULMONARY DISTRESS NOTED EQUAL CHEST RISE RECOLLECTED SPUTUM DEEP TRACHEAL SUCTION FOR LARGE SEMI THICK YELLOW SECRETIONS AIRWAY PATENT PRE-TRACHEAL SUCTION SATURATION 100% ON FIO2 OF 35% TITRATED FIO2 TO 30% LAWSON/RN NOTIFIED
--- NOTE | 2019-07-20 15:00 | NUR ---
RECEIVED REPORT FROM ICU NURSE LAWSON AT THIS TIME. PATIENT IN STABLE CONDITION. RESPIRATIONS EVEN AND UNLABORED, TRACH TO VENT. IV ACCESS INTACT AND PATENT, MIDLINE IN PLACE. SAFETY MEASURES IN PLACE. BED IN LOW POSITION, BED LOCKED. BED ALARM ON. CALL LIGHT AT BEDSIDE. WILL CONTINUE TO MONITOR.
--- NOTE | 2019-07-20 15:20 | NUR ---
OCCULT BLOOD TO LAB AT THIS TIME.
--- NOTE | 2019-07-20 15:23 | NUR ---
STABLE TOLERATING VENTILATOR SUPPORT WITHOUT ANY D=ADVERSE REACTIONS NOTED GOOD CHEST RISE
--- NOTE | 2019-07-20 15:30 | NUR ---
CHANGED GOWN, PICTURES TAKEN OF HEALED SACRAL WOUND/SKIN RASH LEFT DORSAL HAND. WOUND CLEANED AND DRESSING CHANGED. PATIENT TOLERATED WELL. BED IN LOW POSITION, LOCKED IN PLACE. BED ALARM ON. CALL LIGHT AT BEDSIDE. WILL CONTINUE TO MONITOR.
--- NOTE | 2019-07-20 16:00 | NUR ---
RASH LIKE WOUND NOTED IN BACK OF LEFT HAND, PHOTO TAKEN, VERSATEL AND ISLAND DRESSING APPLIED. PERICARE DONE, SHAH CARE DONE, COLLECTION BAG APPLIED TO OLD GT SITE WITH COPIOUS LEAKAGE.
[2019-07-20] MEDS ORDERED: AZITHROMYCIN 250 MG in DEXTROSE 5% 250 ML IV SCH (17:00)
--- NOTE | 2019-07-20 17:00 | NUR ---
GAVE REPORT TO ICU NURSE FOR CONTINUITY OF CARE. PATIENT IN STABLE CONDITION.
--- NOTE | 2019-07-20 17:30 | NUR ---
DR COLBERT AT BEDSIDE
[2019-07-20] MEDS: LACTULOSE 20 GM/30 ML UDC PO SCH (17:53)
--- NOTE | 2019-07-20 18:05 | NUR ---
STABLE RESTING WELL WITHOUT SOB NOTED GOOD CHEST RISE
--- NOTE | 2019-07-20 19:25 | NUR ---
RECEIVED BEDSIDE REPORT FROM AM SHIFT RN. PT NON VERBAL. TRACH TO VENT ON ACVC MODE, FIO2 30%, TV 500, RATE 14, PEEP 5. SINUS RHYTHM ON MONITOR. IV SITE, INTACT, PATENT, L FOREARM 20 G, INFUSING D5NS, 75ML/HR. GTUBE CLAMPED. SKIN NON INTACT, SEE WOUND ASSESSMENT. PT CONTRACTED. SKIN WARM AND DRY. SHAH CATHETER IN PLACE. HOB 30 DEGREES. BED LOCKED IN LOWEST POSITION. WILL CONTINUE TO MONITOR. Addendum: 07/21/19 at 0454 by Mike Coles RN IV SITE IS AZAEL MIDLINE. NOT L FOREARM.
--- NOTE | 2019-07-20 19:28 | NUR ---
RECEIVED PT ON DOCUMENTED SETTINGS. VENT PLUGGED INTO RED OUTLET. ALARMS AUDIBLE. BMV AT BEDSIDE. TRACH IS SECURED AND INTACT. PT IS IN NO RESPIRATORY DISTRESS. WILL CONT TO MONITOR
[2019-07-20] MEDS: INSULIN LANTUS 100 UNITS/ML 10 ML VIAL SUBQ SCH (21:00)
--- NOTE | 2019-07-20 21:00 | NUR ---
BLOOD SUGAR 112, LANTUS HELD. WILL CONTINUE MONITOR.
--- NOTE | 2019-07-20 23:00 | NUR ---
VITAMIN D MEDICATION NOT INSIDE PATIENT'S CASSETTE. CALLED SHAFT REPAIRER, MEDICATION NOT AVAILABLE IN PXYSIS. UNABLE TO ADMINISTER MEDICATION, NOT GIVEN.
[2019-07-21] VITALS (11 sets, daily range): BP systolic 86–130; BP diastolic 43–82
--- NOTE | 2019-07-21 | NUR ---
ORAL CARE PROVIDED. PT SUCTIONED. SAFETY PRECAUTIONS IN PLACE. WILL CONTINUE TO MONITOR.
--- NOTE | 2019-07-21 02:52 | NUR ---
PT HAS EYES CLOSED, RESPIRATIONS EVEN AND UNLABORED. CHEST RISE IS SYMMETRICAL. SAFETY PRECAUTIONS IN PLACE. BED LOCKED IN LOWEST POSITION. HOB 30 DEGREES. WILL CONTINUE TO MONITOR.
--- NOTE | 2019-07-21 04:00 | NUR ---
TUBE FEEDING STARTED AT 20 ML/HR. NO RESIDUALS NOTED. WILL CONTINUE TO MONITOR.
[2019-07-21] MEDS: VANCOMYCIN 1,000 MG in DEXTROSE 5% 250 ML IV SCH (04:14)
[2019-07-21] MEDS: PIPERACILLIN/TAZOBACTAM 3.375 GM in DEXTROSE 5% 50 ML IV SCH ×3 (04:14→20:48)
--- NOTE | 2019-07-21 04:52 | NUR ---
PT CLEANED, REPOSITIONED. SHAH CARE PROVIDED. ORAL CARE PROVIDED. SAFETY PRECAUTIONS IN PLACE. HOB 30 DEGREES. BED LOCKED IN LOWEST POSITION. WILL CONTINUE TO MONITOR.
--- NOTE | 2019-07-21 05:42 | NUR ---
PT REMAINS ON DOCUMENTED SETTING. TRACH IS SECURED AND INTACT. BMV AT BEDSIDE. PT IS IN NO DISTRESS. WILL CONT TO MONITOR
[2019-07-21 06:23] LABS: BASOPHILS % (AUTO) 0.5 % (0.0-2.0); EOSINOPHILS # (AUTO) 0.9 K/uL (0-0.4); EOSINOPHILS % (AUTO) 14.1 % (0.0-4.0); HEMATOCRIT 24.3 % (36-48); MEAN CORPUSCULAR HEMOGLOBIN 31 pg (27-31); MEAN CORPUSCULAR HGB CONC 33 g/dL (33-37); MEAN CORPUSCULAR VOLUME 92.6 fL (80-94); MONOCYTES # (AUTO) 0.3 K/uL (0.8-1.0); MONOCYTES % (AUTO) 4.3 % (1.7-9.3); NEUTROPHILS # (AUTO) 3.9 K/uL (1.8-7.7); NEUTROPHILS % (AUTO) 64.1 % (42.2-75.2); PLATELET COUNT (AUTO) 291 K/uL (140-450); RED BLOOD CELL COUNT(AUTO) 2.62 MIL/uL (4.20-5.40); RED CELL DISTRIBUTION WIDTH 15.4 % (11.6-13.7); WHITE BLOOD COUNT (AUTO) 6.1 K/uL (4.8-10.8)
--- NOTE | 2019-07-21 06:25 | NUR ---
DR GAXIOLA AT BEDSIDE TO ASSESS PT.
--- NOTE | 2019-07-21 06:47 | NUR ---
PT'S DAUGHTER SATISH CALLED, UPDATED ON PT STATUS
[2019-07-21 07:08] LABS: ALBUMIN 2.6 g/dL (3.4-5.0); ASPARTATE AMINOTRANSFERASE 34 U/L (15-37); CHLORIDE 108 mmol/L (98-107); CREATININE 0.8 mg/dL (0.6-1.3); GLUCOSE 124 mg/dL (74-106); LACTATE DEHYDROGENASE 153 U/L (81-234); MAGNESIUM 2.1 mg/dL (1.8-2.4); PHOSPHORUS 2.9 mg/dL (2.5-4.9); SODIUM SERUM 142 mmol/L (136-145); TOTAL BILIRUBIN 0.3 mg/dL (0.0-1.0); UREA NITROGEN, BLOOD 16 mg/dL (7-18)
--- NOTE | 2019-07-21 07:27 | NUR ---
BEDSIDE REPORT RECEIVED FROM AM SHIFT RN FOR CONTINUITY OF CARE.
--- NOTE | 2019-07-21 07:30 | NUR ---
BEDSIDE REPORT RECEIVED FROM HUMAN MACHINE INTERFACE ENGINEER NURSE, PT NONVERBAL, UNABLE TO FOLLOW COMMANDS. AFEBRILE. FLACC 0. NORMAL SINUS RHYTHM ON MONITOR. S1 S2 HEARD. TRACH TO VENT WITH SETTINGS A/C VC FIO2 40%, VT 500, RR 14, PEEP 5, BREATHING EVEN AND UNLABORED. GT TO FEEDING VITAL AF AT 20 ML/HR, (GOAL RATE 65 ML/HR), INCREASED RATE TO 40 ML/HR. OLD GT SITE TO DRAINAGE BAG, CLEAR DRAINAGE NOTED. MIDLINE TO LEFT UPPER ARM ASYMPTOMATIC, PATENT AND INTACT RUNNING D5NS AT 75ML/HR, SKIN IS DRY AND WARM TO TOUCH. SHAH CATH IN PLACE, DRAINING CLEAR YELLOW URINE TO GRAVITY. SCDS IN PLACE. HOB 30 DEGREES. BED IN LOWEST POSITION LOCKED. CALL LIGHT WITHIN REACH. WILL CONTINUE TO MONITOR.
--- NOTE | 2019-07-21 07:38 | NUR ---
DR. CARPENTER AND RESIDENT GROUP IN TO SEE PT. WILL FOLLOW UP ON ORDERS.
[2019-07-21] MEDS ORDERED: NACL 0.9% 500 ML IV SCH (08:20)
[2019-07-21] MEDS: BLOOD GLUCOSE MONITORING 1 DEV DEV FS SCH ×4 (08:21→20:48)
[2019-07-21] MEDS: CARBIDOPA/LEVODOPA 25/100 MG 1 TAB GT SCH ×3 (08:22→16:11)
[2019-07-21] MEDS: ZINC SULF 220 MG CAP GT SCH (08:22)
[2019-07-21] MEDS: DOCUSATE 100 MG/10 ML UDC GT SCH ×2 (08:22→20:49)
[2019-07-21] MEDS: PANTOPRAZOLE 40 MG INJ VIAL IVP SCH ×2 (08:22→20:49)
[2019-07-21] MEDS: ASCORBIC ACID 500 MG/5 ML ORASYR GT SCH (08:22)
[2019-07-21] MEDS: LACTULOSE 20 GM/30 ML UDC PO SCH (08:22)
[2019-07-21] MEDS: DEXT 5% /NACL 0.9% 1,000 ML IV SCH (08:23)
[2019-07-21] MEDS: BACLOFEN 10 MG TAB GT SCH ×3 (08:23→16:11)
[2019-07-21] MEDS: POLYVINYL ALCOHOL 1.4% OP 15 ML SOL OP SCH ×2 (08:23→20:49)
[2019-07-21] MEDS: LISINOPRIL 5 MG TAB GT SCH (08:23)
[2019-07-21] MEDS: LACTOBACILLUS RHAMNOSUS GG 1 EACH CAP GT SCH (08:23)
[2019-07-21] MEDS ORDERED: METOCLOPRAMIDE 10 MG/2 ML INJ VIAL IVP PRN (08:25)
--- NOTE | 2019-07-21 08:30 | NUR ---
MEDICATIONS ADMINISTERED ORDERED. PT TOLERATED WELL.
--- NOTE | 2019-07-21 09:00 | NUR ---
PT TRANSFERRED TO TELEMETRY ROOM 123, REPORT GIVEN TO ASAEL MCNEILL AT BEDSIDE. PT IS IN STABLE CONDITION.
--- NOTE | 2019-07-21 09:00 | NUR ---
RECEIVED PT FROM ICU. PT CAME TO UNIT VIA FABPulousRNEY. PT IS ON TRACH TO VENT. VITAL SIGNS IN NORMAL LEVELS. WILL CONTINUE TO MONITOR. CALL LIGHT IN REACH.
--- NOTE | 2019-07-21 09:30 | NUR ---
ASSESSMENT DONE ON PT. PT HAS A G-TUBE AND A COLOSTOMY BAG. PT HAS A SHAH CATHETER IN PLACE. PT SATURATING AT 100% HR AT 86. NO DISTRESS NOTED AT THIS TIME. TRACH TO VENT IN PLACE. NOTED WITH RASH ON LEFT HAND. PT CLEANED AND REPOSITIONED. WILL CONTINUE TO MONITOR. CALL LIGHT IN REACH.
--- NOTE | 2019-07-21 12:00 | NUR ---
NOTED WITH LOW BLOOD PRESSURE OF 86/43. NOTIFIED DR MOSQUEDA. BOLUS 1L NS GIVEN. RECHECKED BLOOD PRESSURE WITH DR MOSQUEDA. BLOOD PRESSURE IS STILL LOW AT 82/ 56.
[2019-07-21] MEDS ORDERED: CRUSHER, PILL MC ONE (12:04)
[2019-07-21] MEDS: POTASSIUM CHL 20 MEQ/D5-1/2NS 1,000 ML IV SCH (12:27)
[2019-07-21] MEDS ORDERED: NACL 0.9% 1,000 ML IV SCH ×2 (12:55→13:45)
--- NOTE | 2019-07-21 14:00 | NUR ---
RECHECKED BLOOD PRESSURE WITH DR GAXIOLA. BLOOD PRESSURE IS STILL LOW AT 82/ 56. ANOTHER BOLUS OF 1L NS INFUSING. WILL CONTINUE TO MONITOR.
[2019-07-21] MEDS ORDERED: NOREPINEPHRINE 16 MG in DEXTROSE 5% 250 ML IV PRN (16:05)
[2019-07-21] MEDS: MUPIROCIN CA NASAL 2% 1GM TUBE NS SCH (16:10)
[2019-07-21] MEDS: CHLORHEXADINE GLUC 2% CLOTH TP SCH (16:10)
[2019-07-21] MEDS ORDERED: NOREPINEPHRINE 4 MG in DEXTROSE 5% 250 ML IV PRN (16:10)
--- NOTE | 2019-07-21 17:06 | NUR ---
TRANSFER D/C. PT'S BLOOD PRESSURE IS 114/55, P: 89, O2 100. WILL CONTINUE TO MONITOR.
--- NOTE | 2019-07-21 17:27 | NUR ---
VENT CHECK COMPLETED. PT NOT IN ANY DISTRESS AT THIS TIME. PT SUCTIONED OBTAINED SMALL AMOUNT OF THICK YELLOW SECRETIONS, AIRWAY IS PATENT AND TRACH IS SECURE. VENT IS PLUGGED INTO A RED OUTLET WITH ALARMS ON AND FUNCTIONING. FIO2 TITRATED TO 24%. NURSE MADE AWARE.
--- NOTE | 2019-07-21 19:14 | NUR ---
SHIFT REPORT GIVEN TO SORTER LUMBER STRAIGHTENER NURSE FOR CONTINUATION OF CARE. PT IS IN STABLE CONDITION.
--- NOTE | 2019-07-21 19:15 | NUR ---
RECEIVED REPORT FROM DAY SHIFT NURSE. PT IN BED WITH HOB ELEVATED. AOX0. ON TRACH TO VENT. O2 SAT 100%. NOTED WITH L UPPER ARM MIDLINE CLEAN AND INTACT. FC IN PLACE DRAINING WELL TO YELLOW URINE. COLOSOMY BAG PRESENT WELL. NO APPARENT DISTRESS NOTED AT THIS TIME. SAFETY MEASURES IN PLACE. WILL CONTINUE TO MONITOR.
[2019-07-21] MEDS: INSULIN LANTUS 100 UNITS/ML 10 ML VIAL SUBQ SCH (21:00)
--- NOTE | 2019-07-21 21:50 | NUR ---
VITAL SIGNS STABLE. SCHEDULED MEDICATIONS GIVEN ORDERED. TRACH CONNECTED TO VENT. O2 SAT 99%. FLACC 0. IVF INFUSING WELL. SAFETY MEASURES IN PLACE. WILL CONTINUE TO MONITOR.
--- NOTE | 2019-07-21 22:22 | NUR ---
VITAL SIGNS STABLE. NO S/SX OF DISTRESS NOTED. FLACC 0. TRACH CONNECTED TO VENT PT KEPT COMFORTABLE. WILL CONTINUE TO MONITOR.
--- NOTE | 2019-07-21 23:00 | NUR ---
CALLED SATISH (DAUGHTER). TELEPHONE CONSENT FOR BLOOD TRANSFUSION OBTAINED. CONSENT FOR SURGERY ON WEDNESDAY ALSO OBTAINED. CHARGE NURSE (RHEA) VERIFIED.
[2019-07-22] VITALS (8 sets, daily range): BP systolic 85–123; BP diastolic 38–60
--- NOTE | 2019-07-22 00:18 | NUR ---
VITAL SIGNS STABLE. TRACH CONNECTED TO VENT. PT NOT IN DISTRESS. WILL CONTINUE TO MONITOR.
[2019-07-22] MEDS: POTASSIUM CHL 20 MEQ/D5-1/2NS 1,000 ML IV SCH (01:23)
--- NOTE | 2019-07-22 01:23 | NUR ---
TRACH CARE DONE. SUCTIONED ESPOSITO CHANGE AND HME AND TRACH TIE CHANGED AND ALSO GAUZE
--- NOTE | 2019-07-22 01:30 | NUR ---
LAB CALLED. [facility] READY FOR PICKUP. VITAL SIGNS STABLE PRIOR STARTING BLOOD TRANSFUSION AT 0130. WILL CONTINUE TO MONITOR PER PROTOCOL.
--- NOTE | 2019-07-22 02:44 | NUR ---
BLOOD TRANSFUSION STILL ONGOING. PT SHOWS NO SIGNS OF REACTION. VITAL SIGNS WERE TAKEN PER PROTOCOL. PT IS ON STABLE CONDITION. WILL CONTINUE TO MONITOR.
--- NOTE | 2019-07-22 04:00 | NUR ---
SCHEDULED VANCOMYCIN NOT GIVEN YET. AWAITING FOR VANCO THROUGH RESULTS. VITAL SIGNS STABLE. TRACH CONNECTED TO VENT. O2 SAT 99%. WILL CONTINUE TO MONITOR.
[2019-07-22] MEDS: PIPERACILLIN/TAZOBACTAM 3.375 GM in DEXTROSE 5% 50 ML IV SCH ×3 (04:20→21:18)
[2019-07-22 05:50] LABS: BASOPHILS % (AUTO) 0.4 % (0.0-2.0); EOSINOPHILS # (AUTO) 0.9 K/uL (0-0.4); EOSINOPHILS % (AUTO) 16.9 % (0.0-4.0); HEMATOCRIT 28.1 % (36-48); HEMOGLOBIN 9.4 g/dL (12.0-16.0); LYMPHOCYTES # (AUTO) 1.3 K/uL (2.5-16.5); LYMPHOCYTES % (AUTO) 24.9 % (20.5-51.1); MEAN CORPUSCULAR HEMOGLOBIN 31 pg (27-31); MEAN CORPUSCULAR HGB CONC 34 g/dL (33-37); MEAN CORPUSCULAR VOLUME 91.5 fL (80-94); MONOCYTES # (AUTO) 0.3 K/uL (0.8-1.0); MONOCYTES % (AUTO) 5.7 % (1.7-9.3); NEUTROPHILS # (AUTO) 2.7 K/uL (1.8-7.7); NEUTROPHILS % (AUTO) 52.1 % (42.2-75.2); PLATELET COUNT (AUTO) 255 K/uL (140-450); RED BLOOD CELL COUNT(AUTO) 3.07 MIL/uL (4.20-5.40); RED CELL DISTRIBUTION WIDTH 14.9 % (11.6-13.7); WHITE BLOOD COUNT (AUTO) 5.2 K/uL (4.8-10.8)
[2019-07-22] MEDS: BLOOD GLUCOSE MONITORING 1 DEV DEV FS SCH ×3 (06:20→18:01)
[2019-07-22 06:25] LABS: ALBUMIN 2.6 g/dL (3.4-5.0); ANION GAP 11.6 (8-16); ASPARTATE AMINOTRANSFERASE 53 U/L (15-37); CARBON DIOXIDE 23.3 mmol/L (21-32); CHLORIDE 112 mmol/L (98-107); CREATININE 0.9 mg/dL (0.6-1.3); GLUCOSE 114 mg/dL (74-106); LACTATE DEHYDROGENASE 169 U/L (81-234); PHOSPHORUS 2.6 mg/dL (2.5-4.9); POTASSIUM 3.9 mmol/L (3.5-5.1); SODIUM SERUM 143 mmol/L (136-145); TOTAL BILIRUBIN 0.8 mg/dL (0.0-1.0); UREA NITROGEN, BLOOD 8 mg/dL (7-18)
--- NOTE | 2019-07-22 07:10 | NUR ---
ENDORSED TO DAY SHIFT NURSE FOR CONTINUITY OF CARE. PT IN STABLE CONDITION.
--- NOTE | 2019-07-22 07:12 | NUR ---
RECEIVED BEDSIDE REPORT FROM NIGHT SHIFTR NURSE MAJOR FOR CONTINUITY OF CARE. PT IS RESTING ON BED, APHASIC AND VENTILATED. FLACC 0. RESPIRATION EVEN AND UNLABORED ON TRACH TO VENT, VENT SETTINGS AC14 VT500 PEEP 5 FIO2 24%, SPO2 AT 100% AT THIS TIME. NO SIGN OF DISTRESS NOTED. IV ON AZAEL MIDLINE, CLEAN AND INTACT, INFUSING D5 10 MEQ AT 70 ML/HR AT THIS TIME. RASH ON L HAND NOTED, AND SACRAL COVERED WITH DRESSING, CLEAN AND DRY. PT IS INCONTINENT AND SHAH CATHETER IN PLACE, DRAINING YELLOW URINE WITH GRAVITY. G-TUBE IN PLACE AND HOLD FEEDING PER MD ORDER. TELE MONITOR ATTACHED. ENHANCED PRECAUTION AND FALL PRECAUTION IN PLACE. SAFETY MEASURES IN PLACE. BED IN LOW POSITION AND CALL LIGHT WITHIN REACH. BED ALARM ACTIVATED AND BED LOCKED.
--- NOTE | 2019-07-22 07:28 | NUR ---
REC'D PT ON CARESCAPE VENT SETTINGS AC14 VT500 PEEP 5 FIO2 24% ALARMS ON AND AUDIBLE AND BVM AT SIDE OF VENT AND VENT IS PLUGGED INTO RED OUTLET, SXN PT MODERATE AMT OF THICK WHITE SECRETIONS B\S ARE RHONCHI BILATERALLY, PT IS TRACH WITH PORTEX 8 AND PT IS SLEEPING Addendum: 07/22/19 at 0821 by Lillian Duarte RT PTS FIO2 IS 30%
[2019-07-22] MEDS: LISINOPRIL 5 MG TAB GT SCH (09:00)
[2019-07-22] MEDS: DOCUSATE 100 MG/10 ML UDC GT SCH ×2 (09:56→21:00)
[2019-07-22] MEDS: LACTULOSE 20 GM/30 ML UDC PO SCH (09:56)
[2019-07-22] MEDS: CARBIDOPA/LEVODOPA 25/100 MG 1 TAB GT SCH ×3 (09:56→17:28)
[2019-07-22] MEDS: BACLOFEN 10 MG TAB GT SCH ×3 (09:57→17:27)
[2019-07-22] MEDS: PANTOPRAZOLE 40 MG INJ VIAL IVP SCH ×2 (09:57→21:18)
[2019-07-22] MEDS: ASCORBIC ACID 500 MG/5 ML ORASYR GT SCH (09:57)
[2019-07-22] MEDS: LACTOBACILLUS RHAMNOSUS GG 1 EACH CAP GT SCH (09:57)
[2019-07-22] MEDS: ZINC SULF 220 MG CAP GT SCH (09:58)
[2019-07-22] MEDS: POLYVINYL ALCOHOL 1.4% OP 15 ML SOL OP SCH ×2 (09:58→21:18)
[2019-07-22] MEDS: VANCOMYCIN 1,000 MG in DEXTROSE 5% 250 ML IV SCH (10:16)
--- NOTE | 2019-07-22 10:18 | NUR ---
CHECKED BP PRIOR TO MED ADMINISTER, BP 98/58 PULSE 72. HOLD LISINOPRIL. ADMINISTERED MEDS PER MD ORDER, MEDS EDUCATION PROVIDED AND REINFORCEMENT NEEDED. PT IS RESTING ON BED AT THIS TIME. FLACC 0. RESPIRATION EVEN AND UNLABORED ON TRACH TO VENT, SPO2 AT 99%. SHAH IN DRAINING WITH GRAVITY, YELLOW. COLOSTOMY IN PLACE, 1/3 FULL WITH YELLOW SOFT STOOL. NO SIGNS OF DISTRESS NOTED. TELE MONITOR ATTACHED. SAFETY MEASURES IN PLACE. HOB ELEVATED 30 DEGREE AND BED LOCK.
--- NOTE | 2019-07-22 11:46 | NUR ---
CHECKED BLOOD GLUCOSE AND RECEIVED 109, NO COVERAGE NEEDED. VITAL SIGNS TAKEN. ADMINISTERED MED VIA G-TUBE, MED ED PROVIDED AND REINFORCEMENT NEEDED. PT IS RESTING ON BED AT THIS TIME. NO SIGNS OF DISTRESS NOTED. TELE MONITOR ATTACHED. SAFETY MEASURES IN PLACE. BED LOCKED.
--- NOTE | 2019-07-22 13:21 | NUR ---
ADMINISTERED SCHEDULED MEDS PER MD ORDER, UNABLE TO SCAN DUE TO SCANNER MALFUNCTION, FLORECITA ENTER. ZOSYN 07/22/2019 1300 DOSE ADMINISTERED, UNABLE TO FLORECITA ENTER DUE TO SCANNED BY PREVIOUS SHIFT, NOTIFIED PHARMACIST AND ENTRY OPERATOR. CHANGED VERSATIL ON L HAND, CLEANSED WITH NS AND PAT DRY, PT TOLERATED WELL. PT IS RESTING ON BED AT THIS TIME. FLACC 0. NO SIGNS OF DISTRESS NOTED. TELE MONITOR ATTACHED. SAFETY MEASURERS IN PLACE.
--- NOTE | 2019-07-22 13:25 | NUR ---
PT IS RESTING ON BED. FLACC 0. RESPIRATION EVEN AND UNLABORED ON TRACH TO VENT, SPO2 AT 100%. NO SIGNS OF DISTRESS NOTED. TELE MONITOR ATTACHED. SAFETY MEASURES IN PLACE. BED ALARM ACTIVATED AND SCD ON BILATERALLY.
[2019-07-22] MEDS ORDERED: TPN PER PHARMACY MC PRN (15:15)
[2019-07-22] MEDS: DEXTROSE 10% 1,000 ML IV SCH (15:55)
[2019-07-22] MEDS: MUPIROCIN CA NASAL 2% 1GM TUBE NS SCH (16:00)
[2019-07-22] MEDS: CHLORHEXADINE GLUC 2% CLOTH TP SCH (16:00)
--- NOTE | 2019-07-22 16:10 | NUR ---
ADMINISTERED BACTROBAN VIA NARES, CHLORHEXIDINE GLUCONATE CLOTH AND CHANGED IVF TO D10 AND INFUSING AT 60 ML.HR, UNABLE TO SCAN DUE TO SCANNER MALFUNCTION, FLORECITA ENTERED. PT IS RESTING ON BED AT THIS TIME. NO SIGNS OF DISTRESS NOTED. TELE MONITOR ATTACHED. SAFETY MEASURES IN PLACE. HOB ELEVATED 30 DEGREE AND BED LOCKED.
--- NOTE | 2019-07-22 17:38 | NUR ---
ADMINISTERED SCHEDULED MEDS PER MD ORDER, UNABLE TO SCAN DUE TO SCANNER MALFUNCTION, FLORECITA ENTERED, FLUSHED VIA G-TUBE. CHECKED BLOOD GLUCOSE AND RECEIVED 128, NO COVERAGE NEEDED. PT IS RESTING ON BED AT THIS TIME. NO SIGNS OF DISTRESS NOTED. TELE MONITOR ATTACHED. SAFETY MEASURES IN PLACE. HOB ELEVATED 30 DEGREE AND BED LOCKED.
--- NOTE | 2019-07-22 18:10 | NUR ---
EMPTIED 200 ML YELLOW WATER LIQUID FROM OSTOMY BAG. PT IS RESTING ON BED AT THIS TIME. FLACC 0. SPO2 AT 100%. NO SIGNS OF ACUTE DISTRESS NOTED. TELE MONITOR ATTACHED. SCD IN PLACE AND HOB ELEVATED 30 DEGREE. BED ALARM ACTIVATED AND BED LOCKED.
--- NOTE | 2019-07-22 19:10 | NUR ---
RECEIVED BEDSIDE REPORT FROM AM SHIFT RN AYAAN, FOR PT'S CONTINUITY OF CARE. PT IS PENDING FOR COVID TESTING #2, PT HAS TRACH TO VENT, APHASIC, ON MARKETING INTELLIGENCE MANAGER, HAS GT ON HOLD PER MD, HAS COLOSTOMY BAG IN PLACE, SHAH CATH IN PLACE, HAS LEFT UPPER ARM MIDLINE WITH D10 AT 60ML/HR. PT IS COMFORTABLE IN BED, SAFETY MEASURES AND ISOLATION PRECAUTION IN PLACE. WILL MONITOR PT THROUGHOUT SHIFT.
--- NOTE | 2019-07-22 19:18 | NUR ---
ENDORSED PT AT BEDSIDE TO MACHINE GUNNER NURSE FOR CONTINUITY OF CARE. PT IS IN STABLE CONDITION. TELE MONITOR ATTACHED.
--- NOTE | 2019-07-22 20:41 | NUR ---
RECEIVED PT ON AC VT500 24% F14 PT RESTING COMFORTABLY AT THIS TIME BMV AT BEDSIDE TRACH SECURED PT Sx W/ MINIMAL THIN CLEAR/WHITE SECRETIONS VENT PLUGGED IN TO RED OUTLET WILL CONTINUE TO MONITOR
--- NOTE | 2019-07-22 20:45 | NUR ---
RT AT BEDSIDE, NO CONCERNS OR ADDITIONAL INTERVENTIONS NEEDED. PT COMFORTABLE AND TRACH PATENT AND CLEAN.
[2019-07-22] MEDS: INSULIN LANTUS 100 UNITS/ML 10 ML VIAL SUBQ SCH (21:18)
--- NOTE | 2019-07-22 21:18 | NUR ---
ADMINISTERED SCHEDULED MEDICATIONS ORDERED, PT TOLERATED THEM WELL. DOCUSATE SODIUM NOT GIVEN DT GTUBE ON HOLD. BLOOD GLUCOSE 152. TRACH CLEAN AND INTACT. COLOSTOMY BAG AND SHAH CATH IN PLACE: PATENT, CLEAN AND INTACT. SCD IN PLACE. PT HAS BUE AND BLE CONTRACTIONS, ROLLED WASHCLOTHS IN BETWEEN HANDS, PILLOWS UNDER LEGS, PT MADE COMFORTABLE. WILL CONTINUE TO MONITOR PT.
--- NOTE | 2019-07-22 23:00 | NUR ---
REPOSITIONED PT, MADE COMFORTABLE, NO SIGNS OF DISTRESS OR DISCOMFORT. WILL CONTINUE TO MONITOR PT.
[2019-07-23] VITALS: BP 128/63
--- NOTE | 2019-07-23 | NUR ---
2ND COVID TESTING RESULT NEGATIVE ON CHART.
[2019-07-23] MEDS: BLOOD GLUCOSE MONITORING 1 DEV DEV FS SCH ×4 (00:52→18:00)
--- NOTE | 2019-07-23 01:00 | NUR ---
DURING WOUND ASSESSMENT, NOTICED LEFT ARM APPEARS TO BE SWOLLEN, WITH SLIGHT REDNESS, AND WARM TO TOUCH. CONCURRED BY ANOTHER RN, NOTIFIED SLEEVE SETTER SAFETY STITCH, NOTIFIED , ORDERED US VENOUS FOR AZAEL.
--- NOTE | 2019-07-23 01:00 | NUR ---
WOUND ASSESSMENT DONE, PT ASLEEP WITH NO SIGNS OF DISTRESS. TRACH PATENT AND INTACT. BLOOD GLUCOSE CHECKED AND CHARTED 131. WILL CONTINUE TO MONITOR PT.
--- NOTE | 2019-07-23 03:16 | NUR ---
PT ASLEEP WITH NO SIGNS OF DISTRESS OR DISCOMFORT. TRACH PATENT AND INTACT, O2 SAT AT 98%, HR AT 69. WILL CONTINUE TO MONITOR PT.
[2019-07-23] MEDS: VANCOMYCIN 1,000 MG in DEXTROSE 5% 250 ML IV SCH (03:50)
--- NOTE | 2019-07-23 03:51 | NUR ---
ADMINISTERED SCHEDULED IV ABX ORDERED. PT ASLEEP WITH NO SIGNS OF DISTRESS. WILL CONTINUE TO MONITOR.
--- NOTE | 2019-07-23 04:30 | NUR ---
VS CHECKED AND CHARTED. PT REPOSITIONED AND CHANGED. SHAH CATH CARE, OPTIFOAM DRESSING CHANGED, ORAL CARE, AND EMPTIED COLOSTOMY BAG. NO DISTRESS NOTED, PT CLOSING MOUTH DURING ORAL CARE, PROVIDED SOME MOISTURIZER AND WIPED FACE WITH WET WASHCLOTH.
--- NOTE | 2019-07-23 05:10 | NUR ---
BLOOD GLUCOSE CHECKED AND CHARTED, 115 RESULT. PT MADE COMFORTABLE, NO DISTRESS NOTED. WILL CONTINUE TO MONITOR PT.
[2019-07-23 05:15] VITALS: BP 128/55
[2019-07-23] MEDS: PIPERACILLIN/TAZOBACTAM 3.375 GM in DEXTROSE 5% 50 ML IV SCH ×2 (06:00→13:31)
--- NOTE | 2019-07-23 06:56 | NUR ---
PT ASLEEP WITH NO SIGNS OF RESPIRATORY DISTRESS OR DISCOMFORT. PT'S EYES MORE RELAXED. TRACH PATENT AND INTACT. WILL ENDORSE PT TO AM SHIFT RN FOR PT'S CONTINUITY OF CARE.
--- NOTE | 2019-07-23 06:57 | NUR ---
REC'D PT ON CARESCAPE VENT SETTINGS AC 14 VT 500 PEEP 5 FIO2 24% ALARMS ON AND AUDIBLE AND BVM AT SIDE OF VENT AND VENT IS PLUGGED INTO RED OUTLET, SXN PT MODERATE AMT OF THICK WHITE SECRETIONS, B\S ARE RHONCHI BILATERALLY, PT IS TRACH WITH PORTEX 8 AND PT IS RESTING
[2019-07-23 07:01] LABS: BASOPHILS % (AUTO) 0.5 % (0.0-2.0); EOSINOPHILS # (AUTO) 0.9 K/uL (0-0.4); HEMATOCRIT 25.2 % (36-48); HEMOGLOBIN 8.5 g/dL (12.0-16.0); LYMPHOCYTES # (AUTO) 1.1 K/uL (2.5-16.5); MEAN CORPUSCULAR HEMOGLOBIN 31 pg (27-31); MEAN CORPUSCULAR HGB CONC 34 g/dL (33-37); MEAN CORPUSCULAR VOLUME 90.6 fL (80-94); MONOCYTES # (AUTO) 0.4 K/uL (0.8-1.0); MONOCYTES % (AUTO) 6.4 % (1.7-9.3); NEUTROPHILS # (AUTO) 3.5 K/uL (1.8-7.7); PLATELET COUNT (AUTO) 246 K/uL (140-450); RED BLOOD CELL COUNT(AUTO) 2.78 MIL/uL (4.20-5.40); RED CELL DISTRIBUTION WIDTH 15.1 % (11.6-13.7); WHITE BLOOD COUNT (AUTO) 5.9 K/uL (4.8-10.8)
[2019-07-23 07:18] LABS: ANION GAP 13.4 (8-16); CARBON DIOXIDE 22.7 mmol/L (21-32); CHLORIDE 108 mmol/L (98-107); CREATININE 0.9 mg/dL (0.6-1.3); GLUCOSE 99 mg/dL (74-106); POTASSIUM 3.1 mmol/L (3.5-5.1); SODIUM SERUM 141 mmol/L (136-145); UREA NITROGEN, BLOOD 6 mg/dL (7-18)
[2019-07-23 07:21] LABS: MAGNESIUM 1.7 mg/dL (1.8-2.4)
--- NOTE | 2019-07-23 07:32 | NUR ---
RECEIVED BEDSIDE REPORT FROM STAIN APPLICATOR RN FOR PT'S CONTINUITY OF CARE. PT IS AAOX1 TO NAME. PT IS TRACH TO VENT, APHASIC, ON SURVEYOR ROD HELPER, HAS GT FEEDING ON HOLD PER MD, HAS COLOSTOMY BAG IN PLACE, SHAH CATH IN PLACE, HAS LEFT UPPER ARM MIDLINE WITH D10 AT 60ML/HR. PT IS COMFORTABLE IN BED, SAFETY MEASURES AND ISOLATION PRECAUTION IN PLACE. WILL MONITOR PT THROUGHOUT THE SHIFT.
[2019-07-23 08:00] VITALS: BP 114/41
[2019-07-23] MEDS: CARBIDOPA/LEVODOPA 25/100 MG 1 TAB GT SCH ×3 (08:00→17:36)
[2019-07-23 08:07] LABS: EOSINOPHILS % (AUTO) 15.7 % (0.0-4.0); LYMPHOCYTES % (AUTO) 18.7 % (20.5-51.1); NEUTROPHILS % (AUTO) 58.7 % (42.2-75.2)
[2019-07-23] MEDS: DEXTROSE 10% 1,000 ML IV SCH (08:20)
[2019-07-23] MEDS ORDERED: POTASSIUM CHLORIDE 20% 40 MEQ/15 ML UDC PO SCH ×2 (08:30→12:00)
[2019-07-23] MEDS ORDERED: POTASSIUM CHLORIDE 40 MEQ, LIDOCAINE 1% 25 MG in NACL 0.9% 250 ML IV SCH ×2 (09:00→11:00)
[2019-07-23] MEDS ORDERED: MAG SULF 2000 MG/WATER PREMIX 50 ML IV SCH (09:00)
[2019-07-23] MEDS: LISINOPRIL 5 MG TAB GT SCH (09:00)
--- NOTE | 2019-07-23 09:21 | NUR ---
07/23/19 RD FOLLOW UP COMPLETED PLEASE REFER TO NUTRITION PROGRESS NOTE UNDER CARE ACTIVITY FOR ESTIMATED NUTRITION NEEDS. RD RECOMMENDATIONS: 1. CONTINUE NPO MEDICALLY APPROPRIATE. 2. IF/WHEN MEDICALLY APPROPRIATE, RECOMMEND RESUMING TF: VITAL 1.2 @ 65 ML/HR, START AT 20 ML/HR INCREASE BY 20 ML/HR. VOLUME GOAL IS 1560 ML/DAY. 2. CONSIDER TPN IF PATIENT IS UNABLE TO START TUBE FEEDING WITHIN 3 DAYS 3. CONTINUE FREE WATER FLUSH OF 140 ML Q4H 4. CONTINUE VITAMIN C AND ZINC SUPPLEMENTATION 5. RD TO FOLLOW-UP 2-3 DAYS, HIGH RISK RASHARD JACKSON, MS, RDN
[2019-07-23] MEDS: LACTOBACILLUS RHAMNOSUS GG 1 EACH CAP GT SCH (09:45)
[2019-07-23] MEDS: BACLOFEN 10 MG TAB GT SCH ×3 (09:45→17:36)
[2019-07-23] MEDS: DOCUSATE 100 MG/10 ML UDC GT SCH ×2 (09:45→20:13)
[2019-07-23] MEDS: ASCORBIC ACID 500 MG/5 ML ORASYR GT SCH (09:45)
[2019-07-23] MEDS: ZINC SULF 220 MG CAP GT SCH (09:46)
[2019-07-23] MEDS: LACTULOSE 20 GM/30 ML UDC PO SCH (09:46)
[2019-07-23] MEDS: POLYVINYL ALCOHOL 1.4% OP 15 ML SOL OP SCH ×2 (09:46→20:14)
[2019-07-23] MEDS: PANTOPRAZOLE 40 MG INJ VIAL IVP SCH ×2 (09:46→22:30)
--- NOTE | 2019-07-23 09:57 | NUR ---
ADMIN MORNING MEDS. PT TOLERATED WELL. ALL NEEDS MET.
--- NOTE | 2019-07-23 11:54 | NUR ---
PT RESTING IN BED. VS STABLE. WILL CONTINUE TO ROUND ON PT.
[2019-07-23 12:00] VITALS: BP 121/57
[2019-07-23] MEDS ORDERED: MAG SULF 2000 MG/WATER PREMIX 50 ML IV ONE (12:30)
[2019-07-23] MEDS ORDERED: POTASSIUM CHLORIDE 40 MEQ, LIDOCAINE MPF 1% 25 MG in NACL 0.9% 250 ML IV ONE (12:30)
[2019-07-23] MEDS ORDERED: KETOCONAZOLE 2% 15 GM TUBE TP SCH (12:35)
--- NOTE | 2019-07-23 13:31 | NUR ---
PT RESTING IN BED. ALL NEEDS MET.
--- NOTE | 2019-07-23 15:42 | NUR ---
PT TAKEN TO CT. I WENT ALONG TO MONITOR. PT TOLERATED SCAN WELL. PT IN ROOM RESTING.
[2019-07-23 16:00] VITALS: BP 126/65
[2019-07-23] MEDS: CHLORHEXADINE GLUC 2% CLOTH TP SCH (16:00)
[2019-07-23] MEDS: MUPIROCIN CA NASAL 2% 1GM TUBE NS SCH (16:00)
--- NOTE | 2019-07-23 16:02 | NUR ---
PT MIDLINE LEAKING. NOTIFIED. PER , PT TO HAVE PICC LINE INSERTED. WILL GET CONSENT FROM FAMILY OVER PHONE. PT FLUIDS HELD FOR NO IV ACCESS.
--- NOTE | 2019-07-23 16:42 | NUR ---
CONTACTED PICC LINE SERVICE, SPOKE WITH KELLY, STATED [facility] WILL CALL FOR ETA. ESTER VYAS ASSIGNED MADE AWARE.
--- NOTE | 2019-07-23 16:58 | NUR ---
VERÓNICA ALONSO CALLED PICC LINE NURSE TO NOTIFY OF PT NEEDING NEW INSERTION. AWAITING CALL BACK. Addendum: 07/23/19 at 1945 by Kiarra Solorzano RN SPOKE WITH MAIN PICC LINE NURSE AND WAS TOLD [facility] PICC LINE NURSE FOUR CORNER STAYER MACHINE OPERATOR WILL CALL US WITH ETA.
--- NOTE | 2019-07-23 17:52 | NUR ---
VERÓNICA ALONSO CALLED PICC LINE NURSE AGAIN BUT NO ANSWER. AWAITING CALLBACK.
--- NOTE | 2019-07-23 18:07 | NUR ---
PT BS 63. MADE AWARE AND TOLD TO GIVE PT APPLE JUICE THROUGH J TUBE SINCE NO IV ACCESS AT THIS TIME. APPLE JUICE GIVEN. WILL REASSESS.
--- NOTE | 2019-07-23 18:27 | NUR ---
CALLED [facility] PICC LINE NURSE. PHONE # GIVEN BY FOLDER OPERATOR ADAM. NO ANSWER ON LINE SO I LEFT A MSG. AWAITING CALL BACK.
--- NOTE | 2019-07-23 18:41 | NUR ---
FOLLOWED UP WITH PICC LINE SERVICE, NO ANSWER. VOICEMAIL LEFT. PARKER ASSIGNED MADE AWARE.
--- NOTE | 2019-07-23 18:46 | NUR ---
REASSESSED PT BS. BS NOW 86. WILL NOTIFY MERCERIZING RANGE CONTROLLER RN TO MONITOR BS CLOSELY.
--- NOTE | 2019-07-23 19:25 | NUR ---
RECEIVED REPORT FROM DAY SHIFT NURSE. PATIENT LYING IN BED. NO SIGNS OF DISTRESS NOTED. RESPIRATIONS EVEN AND UNLABORED. TRACH TO VENT. NO PAIN NOTED. NOTED WITH SHAH CATHETER, DRAINING YELLOW URINE. JTUBE, NGT TUBE NOTED. REVIEWED PLAN OF CARE WITH PATIENT. SAFETY MEASURES IN PLACE. CALL LIGHT WITHIN REACH. WILL CONTINUE TO MONITOR.
--- NOTE | 2019-07-23 19:30 | NUR ---
RECEIVED PT TRACH TO MECHANICAL VENTILATOR AT DOCUMENTED SETTINGS. VENT CHECK DONE. VENT PLUGGED INTO RED OUTLET WITH WHEELS LOCKED. BVM AT BEDSIDE. VENT ALARMS ON AND AUDIBLE. PT CONNECTED TO CONTINUOUS PULSE OX, SAT 99%. AIRWAY SECURE AND PATENT. SUCTIONED MODERATE AMOUNT OF THICK, YELLOW SECRETIONS. ORAL VAP CARE DONE. NO ACUTE RESPIRATORY DISTRESS NOTED AT THIS TIME. WILL CONTINUE TO MONITOR.
--- NOTE | 2019-07-23 19:46 | NUR ---
ENDORSED TO LIMITED RADIOLOGY TECHNICIAN ASAEL SAPP THAT STILL AWAITING PICC LINE NURSE TO CALLBACK. CONSENT SIGNED AND SUPPLIES READY. ALSO NOTIFIED HER THAT TRANSFUSION NEEDS TO BE DONE BUT NOT IV ACCESS AT THIS TIME. PT TO GO INTO PROCEDURE TOMORROW MORNING @ 0730. SENAIT AWARE. PT IN STABLE CONDITION. ALL NEEDS CURRENTLY MET.
[2019-07-23 20:00] VITALS: BP 139/68
--- NOTE | 2019-07-23 20:13 | NUR ---
LANTUS NOT GIVEN. HOLD PARAMETER. PATIENT'S BLOOD SUGAR LEVEL 72 MG/DL. GAVE ORANGE JUICE. OTHER SCHEDULED DUE MEDICATIONS GIVEN. AWAITING FOR PICC LINE NURSE TO GIVE IV MEDICATIONS. WILL CONTINUE TO MONITOR.
[2019-07-23] MEDS: KETOCONAZOLE 2% 15 GM TUBE TP SCH (20:15)
[2019-07-23] MEDS: INSULIN LANTUS 100 UNITS/ML 10 ML VIAL SUBQ SCH (20:44)
[2019-07-23] MEDS: TRIAMCINOLONE 0.1% CRM 15 GM TUBE TP SCH (21:00)
--- NOTE | 2019-07-23 22:11 | NUR ---
PICC LINE PLACEMENT VERIFIED. PICC LINE NURSE [facility] SAID OKAY TO USE.
[2019-07-23] MEDS ORDERED: cefTRIAXone 1,000 MG VIAL ONE (22:24)
--- NOTE | 2019-07-23 22:29 | NUR ---
ROCEPHIN AND PROTONIX GIVEN. KENALOG 0.1% NOT ADMINISTERED D/T MEDICATION NOT AVAILABLE IN PATIENT'S CASET OR PYXIS. WILL NOTIFY PHARMACY TOMORROW. WILL CONTINUE TO MONITOR PATIENT.
[2019-07-23] MEDS: MULTIVITAMIN-12 10 ML in DEXTROSE 50% 665 ML, AMINO ACIDS 8.5% 665 ML, FAT EMULSION 20%... IV SCH ×4 (22:35)
--- NOTE | 2019-07-23 22:54 | NUR ---
TPN STARTED RUNNING AT 60 MLS/HR. WILL CONTINUE TO MONITOR.
[2019-07-24] VITALS (7 sets, daily range): BP systolic 110–150; BP diastolic 41–71
--- NOTE | 2019-07-24 | NUR ---
STARTED BLOOD TRANSFUSION. VITALS ARE STABLE. WILL CONTINUE TO MONITOR.
--- NOTE | 2019-07-24 02:03 | NUR ---
STILL RUNNING BLOOD TRANSFUSION. NO REACTIONS NOTED. WILL CONTINUE TO MONITOR.
--- NOTE | 2019-07-24 03:00 | NUR ---
BLOOD TRANSFUSION DONE. NO REACTIONS NOTED. VITALS ARE STABLE. WILL CONTINUE TO MONITOR.
[2019-07-24] MEDS: VANCOMYCIN 1,000 MG in DEXTROSE 5% 250 ML IV SCH (04:06)
[2019-07-24] MEDS: INSULIN LISPRO SLIDING SCALE 100 UNITS/ML VIAL SUBQ PRN ×2 (05:42→18:03)
[2019-07-24] MEDS: BLOOD GLUCOSE MONITORING 1 DEV DEV FS SCH ×4 (05:43→18:02)
[2019-07-24 06:09] LABS: MAGNESIUM 1.8 mg/dL (1.8-2.4); PHOSPHORUS 2.9 mg/dL (2.5-4.9)
[2019-07-24 06:10] LABS: ANION GAP 9.5 (8-16); CARBON DIOXIDE 20.2 mmol/L (21-32); CHLORIDE 83 mmol/L (98-107); CREATININE 1.4 mg/dL (0.6-1.3)
[2019-07-24 06:12] LABS: BASOPHILS % (AUTO) 0.4 % (0.0-2.0); EOSINOPHILS # (AUTO) 0.8 K/uL (0-0.4); EOSINOPHILS % (AUTO) 14.9 % (0.0-4.0); HEMATOCRIT 26.8 % (36-48); HEMOGLOBIN 8.7 g/dL (12.0-16.0); LYMPHOCYTES # (AUTO) 0.9 K/uL (2.5-16.5); LYMPHOCYTES % (AUTO) 17.2 % (20.5-51.1); MEAN CORPUSCULAR HEMOGLOBIN 31 pg (27-31); MEAN CORPUSCULAR HGB CONC 32 g/dL (33-37); MEAN CORPUSCULAR VOLUME 95.4 fL (80-94); MONOCYTES # (AUTO) 0.3 K/uL (0.8-1.0); MONOCYTES % (AUTO) 6.7 % (1.7-9.3); NEUTROPHILS # (AUTO) 3.2 K/uL (1.8-7.7); NEUTROPHILS % (AUTO) 60.8 % (42.2-75.2); PLATELET COUNT (AUTO) 201 K/uL (140-450); RED BLOOD CELL COUNT(AUTO) 2.81 MIL/uL (4.20-5.40); RED CELL DISTRIBUTION WIDTH 16.2 % (11.6-13.7); WHITE BLOOD COUNT (AUTO) 5.2 K/uL (4.8-10.8)
[2019-07-24 06:26] LABS: POTASSIUM 2.7 mmol/L (3.5-5.1); SODIUM SERUM 110 mmol/L (136-145); UREA NITROGEN, BLOOD 5 mg/dL (7-18)
--- NOTE | 2019-07-24 07:15 | NUR ---
PATIENT IN STABLE CONDITION. ENDORSED PATIENT TO DAY SHIFT NURSE FOR CONTINUITY OF CARE.
--- NOTE | 2019-07-24 07:16 | NUR ---
RECEIVED REPORT FROM CRAFT COORDINATOR NURSE. PT IS APHASIC. FLACC 0, NO SOB, RESPIRATIONS ARE EVEN AND UNLABORED, AFEBRILE. TRACH TO VENT. WITH SHAH CATHETER, DRAINING CLEAR YELLOW URINE. WITH CARSON PICC LINE. WITH TPN 60CC/HR INFUSING WELL. PLAN OF CARE REVIEWED. SAFETY PRECAUTIONS IN PLACE. CALL LIGHT WITHIN REACH. WILL CONTINUE TO MONITOR.
--- NOTE | 2019-07-24 07:17 | NUR ---
RECEIVED PT ON AC VT500 PEEP5 f14 FIO2 24% PT IS RESTING COMFORTABLY ON VENT BMV AT BEDSIDE VENT IS PLUGGED INTO RED OUTLET TRACH IS SECURED
--- NOTE | 2019-07-24 07:30 | NUR ---
RECEIVED CALL FROM OR. PT'S SURGERY IS CANCELLED FOR TODAY DUE TO LOW SODIUM AND POTASSIUM LEVEL. RESIDENT MD MADE AWARE AND ORDERED FOR REPEAT BMP STAT. PT'S DAUGHTER ALSO MADE AWARE THAT SURGERY WAS CANCELLED
[2019-07-24] MEDS: CARBIDOPA/LEVODOPA 25/100 MG 1 TAB GT SCH ×3 (08:00→16:19)
[2019-07-24 08:38] LABS: ANION GAP 15.5 (8-16); CARBON DIOXIDE 21.2 mmol/L (21-32); CHLORIDE 111 mmol/L (98-107); CREATININE 0.8 mg/dL (0.6-1.3); GLUCOSE 119 mg/dL (74-106); POTASSIUM 3.7 mmol/L (3.5-5.1); SODIUM SERUM 144 mmol/L (136-145); UREA NITROGEN, BLOOD 6 mg/dL (7-18)
--- NOTE | 2019-07-24 09:00 | NUR ---
DUE MORNING MEDS GIVEN VIA JTUBE. JTUBE IS PATENT AND INTACT. NO RESIDUAL ASPIRATED.
[2019-07-24] MEDS: ZINC SULF 220 MG CAP GT SCH (09:13)
[2019-07-24] MEDS: PANTOPRAZOLE 40 MG INJ VIAL IVP SCH ×2 (09:13→22:15)
[2019-07-24] MEDS: LACTOBACILLUS RHAMNOSUS GG 1 EACH CAP GT SCH (09:13)
[2019-07-24] MEDS: POLYVINYL ALCOHOL 1.4% OP 15 ML SOL OP SCH ×2 (09:13→22:16)
[2019-07-24] MEDS: DOCUSATE 100 MG/10 ML UDC GT SCH ×2 (09:13→22:14)
[2019-07-24] MEDS: ASCORBIC ACID 500 MG/5 ML ORASYR GT SCH (09:13)
[2019-07-24] MEDS: BACLOFEN 10 MG TAB GT SCH ×3 (09:13→16:19)
[2019-07-24] MEDS: LISINOPRIL 5 MG TAB GT SCH (09:13)
[2019-07-24] MEDS: KETOCONAZOLE 2% 15 GM TUBE TP SCH ×2 (09:14→22:17)
[2019-07-24] MEDS: TRIAMCINOLONE 0.1% CRM 15 GM TUBE TP SCH ×2 (09:14→22:17)
[2019-07-24] MEDS: LACTULOSE 20 GM/30 ML UDC PO SCH (09:14)
--- NOTE | 2019-07-24 09:35 | NUR ---
PERICARE DONE WITH BRICK MAKER. NO BM NOTED. REPOSITIONED PATIENT
[2019-07-24 09:54] LABS: ANION GAP 11.9 (8-16); CARBON DIOXIDE 26.6 mmol/L (21-32); CHLORIDE 107 mmol/L (98-107); GLUCOSE 132 mg/dL (74-106); POTASSIUM 3.5 mmol/L (3.5-5.1); SODIUM SERUM 142 mmol/L (136-145); UREA NITROGEN, BLOOD 8 mg/dL (7-18)
--- NOTE | 2019-07-24 10:59 | NUR ---
PT IN BED. FLACC 0, NO SOB, NO APPARENT DISTRESS. TPN INFUSING WELL
--- NOTE | 2019-07-24 11:11 | NUR ---
SCREEN FOR LOW VANESA SCALE AT RISK, CONTINUE TO FOLLOW PRESSURE ULCER PREVENTION INTERVENTIONS. -TURN AND REPOSITION PATIENT Q 2H -ASSESS AND MONITOR SKIN CONDITION DURING POSITION CHANGE -OFFLOAD BILATERAL HEELS BY PLACING PILLOWS UNDER CALVES AT ALL TIMES, UNLESS OTHERWISE CONTRAINDICATED -PRESSURE REDISTRIBUTION BY PLACING PILLOWS AND OFFLOADING SACRALCOCCYX -KEEP SKIN CLEAN AND DRY AT ALL TIMES.
--- NOTE | 2019-07-24 12:10 | NUR ---
BLOOD SUGAR 157. COVERAGE GIVEN
--- NOTE | 2019-07-24 13:45 | NUR ---
VENT WAS SWAPPED FROM CARESCAPE TO TRILOGY 100 PT TOLERATED WELL AND IS RESTING COMFORTABLY ON VENT TRILOGY PLUGGED INTO RED OUTLET SETTINGS WERE MATCHED TO CARESCAPE AC VT 500 f14 PEEP 5 2L BLEED ( FIO2 28% ) BMV AT BEDSIDE AND TRACH IS SECURED
[2019-07-24] MEDS ORDERED: MAGNESIUM CITRATE 300 ML BTL PO SCH (15:00)
--- NOTE | 2019-07-24 15:00 | NUR ---
SEEN AND EXAMINED BY DR. CORONADO
--- NOTE | 2019-07-24 16:15 | NUR ---
FLEET ENEMA GIVEN ORDERED.
[2019-07-24] MEDS: MUPIROCIN CA NASAL 2% 1GM TUBE NS SCH (16:19)
[2019-07-24] MEDS: CHLORHEXADINE GLUC 2% CLOTH TP SCH (16:19)
--- NOTE | 2019-07-24 17:40 | NUR ---
PERICARE DONE. WITH LARGE SOFT BM
--- NOTE | 2019-07-24 19:13 | NUR ---
ENDORSED TO JOB SPOTTER FOR CONTINUITY OF CARE. IN STABLE CONDITION
--- NOTE | 2019-07-24 19:14 | NUR ---
RECEIVED REPORT FROM DAY SHIFT NURSEMark MENDOZA. PATIENT LYING IN BED.A,O X 0, APHASIC, BEDBOUND, NO SIGNS OF DISTRESS NOTED. RESPIRATIONS EVEN AND UNLABORED. TRACH TO VENT. FLACC 0, NO FACIAL GRIMACING, WITH R UPPER ARM PICC LINE, DOUBLE LUMEN, INFUSING IN ONE, TPN AT 60 ML/ HR, PATENT. NOTED WITH SHAH CATHETER, DRAINING YELLOW URINE. JTUBE ON THE RIGHT SIDE, OLD NGT TUBE NOTED WITH DRAINAGE BAG, WITH MODERATE AMOUNT OF GASTRIC SECRETIONS/ FLUID. REVIEWED PLAN OF CARE WITH PATIENT. SAFETY MEASURES IN PLACE. CALL LIGHT WITHIN REACH. WILL CONTINUE TO MONITOR. Addendum: 07/25/19 at 2346 by Sofi Adler RN AMEND TO G TUBE
--- NOTE | 2019-07-24 20:00 | NUR ---
PT REPOSITIONED, PLACED PILLOWS OFFLOADING PRESSURE AREAS, ROLLED TOWELS PLACED ON CONTRACTED HANDS, AND UPPER EXTREMITIES. NO BOWEL MOVEMENT NOTED.
--- NOTE | 2019-07-24 21:00 | NUR ---
TAKEN BLOOD SUGAR 152 MG; LANTUS INSULIN GIVEN ORDERED. WILL CONTINUE TO MONITOR B.S
[2019-07-24] MEDS: MULTIVITAMIN-12 10 ML in DEXTROSE 50% 665 ML, AMINO ACIDS 8.5% 665 ML, FAT EMULSION 20%... IV SCH ×4 (21:52)
[2019-07-24] MEDS: INSULIN LANTUS 100 UNITS/ML 10 ML VIAL SUBQ SCH (22:02)
--- NOTE | 2019-07-24 22:30 | NUR ---
REPOSITIONED PT MAINTAINING RIGHT LATERAL POSITION BUT ALSO PLACED PILLOWS ON THE RIGHT, RIGHT HIGHER THAN THE LEFT, OFFLOADED PRESSURE AREAS, PLACED TOWELS ON CONTACTED EXTREMITIES AND HANDS
[2019-07-25] VITALS: BP 135/61
[2019-07-25] MEDS: BLOOD GLUCOSE MONITORING 1 DEV DEV FS SCH ×4 (00:38→17:47)
--- NOTE | 2019-07-25 01:10 | NUR ---
VENT CHECK DONE. SUCTIONED SMALL AMOUNT OF THICK, YELLOW SECRETIONS. WILL CONTINUE TO MONITOR.
[2019-07-25 03:43] LABS: BASOPHILS # (AUTO) 0.1 K/uL (0.00-0.22); BASOPHILS % (AUTO) 1.2 % (0.0-2.0); EOSINOPHILS # (AUTO) 0.8 K/uL (0-0.4); HEMATOCRIT 29.8 % (36-48); HEMOGLOBIN 10.3 g/dL (12.0-16.0); LYMPHOCYTES # (AUTO) 1.6 K/uL (2.5-16.5); LYMPHOCYTES % (AUTO) 24.9 % (20.5-51.1); MEAN CORPUSCULAR HEMOGLOBIN 31 pg (27-31); MEAN CORPUSCULAR HGB CONC 35 g/dL (33-37); MEAN CORPUSCULAR VOLUME 88.5 fL (80-94); MONOCYTES # (AUTO) 0.4 K/uL (0.8-1.0); MONOCYTES % (AUTO) 6.7 % (1.7-9.3); NEUTROPHILS # (AUTO) 3.6 K/uL (1.8-7.7); NEUTROPHILS % (AUTO) 55.2 % (42.2-75.2); PLATELET COUNT (AUTO) 256 K/uL (140-450); RED BLOOD CELL COUNT(AUTO) 3.37 MIL/uL (4.20-5.40); RED CELL DISTRIBUTION WIDTH 15.4 % (11.6-13.7); WHITE BLOOD COUNT (AUTO) 6.5 K/uL (4.8-10.8)
[2019-07-25 03:51] LABS: ANION GAP 14.5 (8-16); CARBON DIOXIDE 23.9 mmol/L (21-32); CHLORIDE 106 mmol/L (98-107); GLUCOSE 144 mg/dL (74-106); POTASSIUM 3.4 mmol/L (3.5-5.1); SODIUM SERUM 141 mmol/L (136-145); UREA NITROGEN, BLOOD 15 mg/dL (7-18)
[2019-07-25 03:56] LABS: MAGNESIUM 1.9 mg/dL (1.8-2.4); PHOSPHORUS 2.8 mg/dL (2.5-4.9)
--- NOTE | 2019-07-25 04:00 | NUR ---
INFORMED DR. SMITH THAT [facility] IS 15.1; TO INFORM PHARMACIST Addendum: 07/25/19 at 0453 by Sofi Adler RN DR. BRYANT
--- NOTE | 2019-07-25 04:30 | NUR ---
SPOKE TO PHARMACIST, SHE SAID TO GO AHEAD WITH THE VANCOMYCIN INFUSION
--- NOTE | 2019-07-25 04:50 | NUR ---
REPOSITIONED PT, OFFLOADED PRESSURE AREAS, PLACED ON RIGHT LATERAL POSITION PER ORDER. SUCTIONED, PT CLEAR PHLEGM ON THE TRACH SITE USING ORAL SUCTION.
[2019-07-25] MEDS: VANCOMYCIN 1,000 MG in DEXTROSE 5% 250 ML IV SCH (04:51)
[2019-07-25 06:15] VITALS: BP 143/46
--- NOTE | 2019-07-25 06:51 | NUR ---
PT AO X 0, FALL RISK, NON VERBAL, PT TRACH TO VENT, PT STABLE AT THIS TIME, NO BM NOTED, WITH TOTAL 100 ML OF OSTOMY BAG DRAINED. WILL ENDORSE TO NEXT SHIFT
--- NOTE | 2019-07-25 07:05 | NUR ---
REC'D PT ON TRILOGY VENT SETTINGS AC 14 VT 500 PEEP 5 FIO2 24% ALARMS ON AND AUDIBLE AND BVM AT HOB AND VENT IS PLUGGED INTO RED OUTLET, SXN PT MODERATE AMT OF THICK WHITE SECRETIONS B\S ARE COARSE BILATERALLY, PT IS TRACH WITH PORTEX 8 AND PT IS RESTING
--- NOTE | 2019-07-25 07:25 | NUR ---
RECEIVED BEDSIDE REPORT ROM NIGHTSHIFT NURSE. PT RESTING IN BED. FLACC 0 RESPIRATIONS EVEN AND UNLABORED WITH NO SOB OR RESPIRATORY DISTRESS. SKIN WARM AND DRY TO TOUCH. PICC SITE IN RIGHT UPPER ARM DOUBLE LUMEN IS CLEAN, DRY, AND INTACT. SAFETY MEASURES IN PLACE. WILL CONTINUE TO MONITOR
--- NOTE | 2019-07-25 07:49 | NUR ---
CALLED DAUGHTER RAJ AT AND INFORMED HER ABOUT PT CONDITION. RAJ VERBALIZED UNDERSTANDING. NO CONCERNS OR COMPLAINTS AT THIS TIME. SAFETY MEASURES IN PLACE. WILL CONTINUE TO MONITOR
[2019-07-25] MEDS: ASCORBIC ACID 500 MG/5 ML ORASYR GT SCH (09:09)
[2019-07-25] MEDS: LACTOBACILLUS RHAMNOSUS GG 1 EACH CAP GT SCH (09:09)
[2019-07-25] MEDS: LACTULOSE 20 GM/30 ML UDC PO SCH (09:09)
[2019-07-25] MEDS: PANTOPRAZOLE 40 MG INJ VIAL IVP SCH ×2 (09:09→21:00)
[2019-07-25] MEDS: DOCUSATE 100 MG/10 ML UDC GT SCH ×2 (09:09→21:00)
[2019-07-25] MEDS: CARBIDOPA/LEVODOPA 25/100 MG 1 TAB GT SCH ×3 (09:09→17:13)
[2019-07-25] MEDS: ZINC SULF 220 MG CAP GT SCH (09:10)
[2019-07-25] MEDS: LISINOPRIL 5 MG TAB GT SCH (09:10)
--- NOTE | 2019-07-25 09:10 | NUR ---
ADMINISTERED SCHED MED PRESCRIBED PER MD ORDER. PT TOLERATED WELL. MEDICATION EDUCATION PERFORMED. PT APHASIC AND UNABLE TO VERBALIZE UNDERSTANDING. SAFETY MEASURES IN PLACE. WILL CONTINUE TO MONITOR
[2019-07-25] MEDS: BACLOFEN 10 MG TAB GT SCH ×3 (09:11→17:14)
[2019-07-25] MEDS: POLYVINYL ALCOHOL 1.4% OP 15 ML SOL OP SCH ×2 (09:12→21:08)
[2019-07-25] MEDS: TRIAMCINOLONE 0.1% CRM 15 GM TUBE TP SCH ×2 (09:12→21:07)
[2019-07-25] MEDS: KETOCONAZOLE 2% 15 GM TUBE TP SCH ×2 (09:13→21:08)
--- NOTE | 2019-07-25 11:11 | NUR ---
HOURLY ROUNDING. PT RESTING IN BED. FLACC 0. RESPIRATIONS EVEN AND UNLABORED WITH NO SOB OR RESPIRATORY DISTRESS. SKIN WARM AND DRY TO TOUCH. SAFETY MEASURES IN PLACE. WILL CONTINUE TO MONITOR
[2019-07-25 12:00] VITALS: BP 140/68
[2019-07-25] MEDS ORDERED: KCL 20 MEQ/WATER INJ PREMIX 100 ML IV SCH (12:00)
--- NOTE | 2019-07-25 12:00 | NUR ---
PT BLOOD SUGAR IS 153. PRN INSULIN WILL BE ADMINISTERED WITH NEXT MEAL. SAFETY MEASURES IN PLACE WILL CONTINUE TO MONITOR
[2019-07-25] MEDS: INSULIN LISPRO SLIDING SCALE 100 UNITS/ML VIAL SUBQ PRN (12:43)
--- NOTE | 2019-07-25 13:15 | NUR ---
PRE-OP CHECKLIST HAS BEEN COMPLETED FOR PT SURGERY TODAY. SAFETY MEASURES IN PLACE. WILL CONTINUE TO MONITOR
[2019-07-25] MEDS: MUPIROCIN CA NASAL 2% 1GM TUBE NS SCH (15:42)
[2019-07-25] MEDS: CHLORHEXADINE GLUC 2% CLOTH TP SCH (15:42)
--- NOTE | 2019-07-25 15:48 | NUR ---
CALLED PT DAUGHTER RAJ [phone] TO UPDATE HER THAT THE PT SURGERY HAS BEEN CANCELED TODAY PER DR. ERICKSON AND WILL HAVE THE SURGERY TOMORROW MORNING AT 0800. RAJ VERBALIZED UNDERSTANDING. SAFETY MEASURES IN PLACE. WILL CONTINUE TO MONITOR
[2019-07-25 16:00] VITALS: BP 138/68
--- NOTE | 2019-07-25 17:47 | NUR ---
PT BLOOD SUGAR IS 148. NO INSULIN COVERAGE NEEDED AT THIS TIME. SAFETY MEASURES IN PLACE. WILL CONTINUE TO MONITOR
--- NOTE | 2019-07-25 19:06 | NUR ---
ENDORSED AT BEDSIDE WITH NIGHTSHIFT. PT IS STABLE
--- NOTE | 2019-07-25 19:07 | NUR ---
RECEIVED REPORT FROM DAY SHIFT NURSE. CAROLYN, PATIENT LYING IN BED.A,O X 0, APHASIC, BEDBOUND, NO SIGNS OF DISTRESS NOTED. RESPIRATIONS EVEN AND UNLABORED. TRACH TO VENT. FLACC 0, NO FACIAL GRIMACING, WITH R UPPER ARM PICC LINE, DOUBLE LUMEN, INFUSING IN ONE, TPN AT 60 ML/ HR, PATENT. NOTED WITH SHAH CATHETER, DRAINING YELLOW URINE. JTUBE ON THE RIGHT SIDE, OLD NGT TUBE WITH FISTULA NOTED WITH DRAINAGE BAG, WITH MODERATE AMOUNT OF GASTRIC SECRETIONS/ FLUID. REVIEWED PLAN OF CARE WITH PATIENT. SAFETY MEASURES IN PLACE. CALL LIGHT WITHIN REACH. WILL CONTINUE TO MONITOR. Addendum: 07/25/19 at 2345 by Sofi Adler RN AMEND TO G TUBE
[2019-07-25 19:51] VITALS: BP 137/65
[2019-07-25] MEDS: INSULIN LANTUS 100 UNITS/ML 10 ML VIAL SUBQ SCH (20:37)
[2019-07-25] MEDS: MULTIVITAMIN-12 10 ML in DEXTROSE 50% 665 ML, AMINO ACIDS 8.5% 665 ML, FAT EMULSION 20%... IV SCH ×4 (20:40)
--- NOTE | 2019-07-25 21:30 | NUR ---
PT O2 SAT WENT DOWN TO 88% ASSESSED PATIENT, SUNCTIONED WHITISH TO SLIGHT YELLOW COLOR SECRETIONS, PT O2 SAT WENT TO 100%, MADE PATIENT COMFORTABLE.
--- NOTE | 2019-07-25 22:00 | NUR ---
PT TURNED BUT STILL KEEPING TIGHT LATERAL POSITION ORDERED BY Elias NO B.M NOTED, KEPT CLEAN AND DRY.
[2019-07-26] VITALS: BP 134/67
[2019-07-26] MEDS: BLOOD GLUCOSE MONITORING 1 DEV DEV FS SCH ×4 (00:08→17:48)
[2019-07-26] MEDS: INSULIN LISPRO SLIDING SCALE 100 UNITS/ML VIAL SUBQ PRN ×2 (00:10→17:40)
--- NOTE | 2019-07-26 01:00 | NUR ---
PT IN STABLE CONDITION, WOUND ON THE RIGHT SCAB VERSATEL INTACT. NO REDNESS OR WOUNDS ON THE BUTTOCKS OR PERINEUM NOTED. WILL MONITOR
--- NOTE | 2019-07-26 01:30 | NUR ---
DR. ERICKSON WENT AND MADE ROUNDS ON THE PATIENT. MADE SOME NOTES
[2019-07-26] MEDS: VANCOMYCIN 1,000 MG in DEXTROSE 5% 250 ML IV SCH (03:41)
[2019-07-26 04:00] VITALS: BP 139/64
--- NOTE | 2019-07-26 04:00 | NUR ---
LEAKING SHAH CATHETER CHANGED IT TO A NEW ONE TODAY 07/26/19 0400AM. WILL ENDORSE TO NEXT SHIFT TO OBSERVE FOR LEAKING
--- NOTE | 2019-07-26 04:15 | NUR ---
DRAINED OUTPUT GASTRIC SECRETIONS/ BILE SECRETIONS FROM OSTOMY TUBE= 150 ML
[2019-07-26 05:56] LABS: BASOPHILS % (AUTO) 0.5 % (0.0-2.0); EOSINOPHILS # (AUTO) 1.1 K/uL (0-0.4); EOSINOPHILS % (AUTO) 15.5 % (0.0-4.0); HEMATOCRIT 29.9 % (36-48); HEMOGLOBIN 10.4 g/dL (12.0-16.0); LYMPHOCYTES # (AUTO) 1.9 K/uL (2.5-16.5); LYMPHOCYTES % (AUTO) 27.3 % (20.5-51.1); MEAN CORPUSCULAR HEMOGLOBIN 31 pg (27-31); MEAN CORPUSCULAR HGB CONC 35 g/dL (33-37); MEAN CORPUSCULAR VOLUME 89.6 fL (80-94); MONOCYTES # (AUTO) 0.4 K/uL (0.8-1.0); NEUTROPHILS # (AUTO) 3.5 K/uL (1.8-7.7); NEUTROPHILS % (AUTO) 50.7 % (42.2-75.2); RED BLOOD CELL COUNT(AUTO) 3.33 MIL/uL (4.20-5.40); RED CELL DISTRIBUTION WIDTH 15.2 % (11.6-13.7); WHITE BLOOD COUNT (AUTO) 6.9 K/uL (4.8-10.8)
--- NOTE | 2019-07-26 06:24 | NUR ---
CHECKED ON PT,NEW SHAH CATHETER PLACED HAS NO LEAKING NOTED. PT AAO X 4, PREPARED FOR OR, ORAL HYGIENE DONE, RT ON BEDSIDE. PREPARED DOC. WILL ENDORSE TO NEXT SHIFT
--- NOTE | 2019-07-26 07:20 | NUR ---
RECEIVED BEDSIDE REPORT FROM NIGHTSHIFT NURSE. PT RESTING IN BED. FLACC O. RESPIRATIONS EVEN AND UNLABORED WITH NO SOB OR RESPIRATORY DISTRESS. SKIN WARM AND DRY TO TOUCH. PICC LINE IN UPPER RIGHT ARM IS CLEAN, DRY, AND INTACT. SAFETY MEASURES IN PLACE. WILL CONTINUE TO MONITOR
[2019-07-26 07:48] LABS: PROTHROMBIN TIME 10.5 secs (10.8-13.4)
[2019-07-26 08:00] VITALS: BP 133/43
[2019-07-26] MEDS: CARBIDOPA/LEVODOPA 25/100 MG 1 TAB GT SCH ×3 (08:00→17:43)
[2019-07-26 08:01] LABS: ANION GAP 12.7 (8-16); CHLORIDE 106 mmol/L (98-107); CREATININE 0.9 mg/dL (0.6-1.3); GLUCOSE 137 mg/dL (74-106); POTASSIUM 3.7 mmol/L (3.5-5.1); SODIUM SERUM 140 mmol/L (136-145); UREA NITROGEN, BLOOD 19 mg/dL (7-18)
--- NOTE | 2019-07-26 08:45 | NUR ---
PT TRACH SECURE AND INTACT, VENT ALARMS SET, VENT PLUGGED INTO RED OUTLET. NO SIGNS OF RESP DISTRESS NOTED AT THIS TIME. WILL CONTINUE TO MONITOR
[2019-07-26] MEDS: ZINC SULF 220 MG CAP GT SCH (09:00)
[2019-07-26] MEDS: LACTOBACILLUS RHAMNOSUS GG 1 EACH CAP GT SCH (09:00)
[2019-07-26] MEDS: LACTULOSE 20 GM/30 ML UDC PO SCH (09:00)
[2019-07-26] MEDS: KETOCONAZOLE 2% 15 GM TUBE TP SCH ×2 (09:00→21:42)
[2019-07-26] MEDS: ERGOCALCIFEROL 50,000 IU SGL PO SCH (09:00)
[2019-07-26] MEDS: DOCUSATE 100 MG/10 ML UDC GT SCH ×2 (09:00→21:40)
[2019-07-26] MEDS: ASCORBIC ACID 500 MG/5 ML ORASYR GT SCH (09:00)
[2019-07-26] MEDS: TRIAMCINOLONE 0.1% CRM 15 GM TUBE TP SCH ×2 (09:00→21:42)
[2019-07-26] MEDS: BACLOFEN 10 MG TAB GT SCH ×3 (09:00→17:43)
[2019-07-26] MEDS: LISINOPRIL 5 MG TAB GT SCH (09:00)
[2019-07-26] MEDS: PANTOPRAZOLE 40 MG INJ VIAL IVP SCH ×2 (09:00→21:27)
[2019-07-26] MEDS: POLYVINYL ALCOHOL 1.4% OP 15 ML SOL OP SCH ×2 (09:00→21:41)
[2019-07-26] MEDS ORDERED: fentaNYL 0.05 MG/ML VIAL ONE (09:09)
[2019-07-26] MEDS ORDERED: ROCURONIUM 50 MG/5 ML VIAL IV ONE (09:09)
[2019-07-26] MEDS ORDERED: SEVOFLURANE 250 ML BTL INH ONE (09:09)
--- NOTE | 2019-07-26 09:30 | NUR ---
PT TAKEN TO SURGERY. SAFETY MEASURES IN PLACE. WILL CONTINUE TO MONITOR
--- NOTE | 2019-07-26 09:40 | NUR ---
CALLED RAJ TO NOTIFY THAT PT WENT TO SURGERY. RAJ VERBALIZED UNDERSTANDING. SAFETY MEASURES IN PLACE. WILL CONTINUE TO MONITOR
[2019-07-26] MEDS ORDERED: ONDANSETRON 4 MG/2 ML VIAL IV PRN (10:00)
[2019-07-26] MEDS ORDERED: MORPHINE SULFATE 2 MG/ML SYR IVP PRN (10:00)
[2019-07-26] MEDS ORDERED: HYDROcodone/APAP 5/325 MG 1 TAB TAB PO PRN (10:00)
[2019-07-26] MEDS ORDERED: MORPHINE SULFATE 4 MG/ML SYR IV PRN (10:00)
[2019-07-26] MEDS ORDERED: HYDROmorphone 1 MG/ML AMP IVP PRN (10:00)
[2019-07-26 10:22] LABS: PLATELET COUNT (AUTO) 258 K/uL (140-450)
[2019-07-26 10:24] LABS: BASOPHILS % (MANUAL) 1 % (0-2); EOSINOPHILS % (MANUAL) 19 % (0-4); LYMPHOCYTES % (MANUAL) 22 % (20-46); MONOCYTES % (MANUAL) 5 % (5-12)
--- NOTE | 2019-07-26 11:00 | NUR ---
PT RETURNED FROM OR. REPORT GIVEN AT BEDSIDE. 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 3 INCISIONS COVERED WITH DRESSINGS. SAFETY MEASURES IN PLACE. WILL CONTINUE TO MONITOR
--- NOTE | 2019-07-26 11:15 | NUR ---
CALLED [facility] TO NOTIFY HER OF UPDATES. RAJ VERBALIZED UNDERSTANDING. SAFETY MEASURES IN PLACE. WILL CONTINUE TO MONITOR
--- NOTE | 2019-07-26 11:53 | NUR ---
07/26/19 RD FOLLOW UP COMPLETED PLEASE REFER TO NUTRITION ASSESSMENT UNDER CARE ACTIVITY FOR ESTIMATED NUTRITIONAL NEEDS. 1. CONTINUE NPO + TPN D17%, AA 4.25%, 10% LIPIDS 100 ML +MVI 10 ML @ 60 ML/HR -THIS PROVIDES ABOUT 1323 CALORIES AND 61 GM OF PROTEIN WHICH MEETS >75% OF ESTIMATED NUTRIENT NEEDS 2. IF/WHEN MEDICALLY APPROPRIATE, RECOMMEND RESUMING TF: VITAL 1.2 @ 65 ML/HR X 24 HR, START AT 20 ML/HR INCREASE BY 20 ML/HR. VOLUME GOAL IS 1560 ML/DAY. 3. RECOMMEND FREE WATER FLUSH OF 140 ML Q4H 4. CONTINUE VITAMIN C AND ZINC SUPPLEMENTATION 5. RD TO FOLLOW-UP 2-3 DAYS, HIGH RISK OPAL BOWSER RD
[2019-07-26 12:00] VITALS: BP 142/53
[2019-07-26 16:00] VITALS: BP 144/66
--- NOTE | 2019-07-26 16:34 | NUR ---
RAJ CALLED AND ASKED FOR UPDATES. INFORMED HER ON PT CONDITION, RAJ VERBALIZED UNDERSTANDING. SAFETY MEASURES IN PLACE. WILL CONTINUE TO MONITOR
--- NOTE | 2019-07-26 17:30 | NUR ---
PT BLOOD SUGAR IS 169. PRN INSULIN WILL BE ADMINISTERED PRESCRIBED PER MD ORDER. PT TOLERATED WELL. SAFETY MEASURES IN PLACE. WILL CONTINUE TO MONITOR
--- NOTE | 2019-07-26 19:23 | NUR ---
ENDORSED AT BEDSIDE WITH NIGHTSHIFT NURSE. PT IS STABLE.
--- NOTE | 2019-07-26 19:24 | NUR ---
RECD RESTING IN BED, SLEEPING, APHASIC, RESPIRATION EVEN AND UNLABORED, 02 SAT - 100 % VIA TRACH TO VENT. IV OF NS AT TKO INFUSING AT 10 ML/HR, RIGHT UPPER ARM PICC LINE. TPN INFUSING AT 60 ML/HR, BILATERAL ARMS CONTRACTED WITH PROTECTORS AT THE ELBOWS. S/P LAP CLOSURE OF GASTROCUTANEOUS FISTULA,3 INCISION WITH BAND AID, 1 WITH GAUZE DRESSING, GT AT THE RIGHT SIDE OF ABDOMEN WITH DRESSING DRY AND INTACT. F/C PATENT DRAINING CLEAR YELLOW URINE. ON BILATERAL LEG SEQUENTIALS, BOTH FEET ON HEEL PROTECTORS. NO APPEARANCE OF PAIN NOTED, FLACC -0. Addendum: 07/26/19 at 2138 by Terry Mendoza LVN CORRECTION: THIS NOTES WAS ENTERED BY TERRY MENDOZA, NOT SANJAY AGEE.
[2019-07-26] MEDS: MULTIVITAMIN-12 10 ML in DEXTROSE 50% 720 ML, AMINO ACIDS 8.5% 620 ML, FAT EMULSION 20%... IV SCH ×4 (19:57)
[2019-07-26 20:00] VITALS: BP 135/63
[2019-07-26] MEDS: MULTIVITAMIN-12 10 ML in DEXTROSE 50% 665 ML, AMINO ACIDS 8.5% 665 ML, FAT EMULSION 20%... IV SCH ×4 (20:00)
--- NOTE | 2019-07-26 20:00 | NUR ---
Patient's Plan of Care was discussed and reviewed with DIAGNOSTIC CARDIAC SONOGRAPHER: TERRY MENDOZA
--- NOTE | 2019-07-26 20:25 | NUR ---
RESTING IN BED, RESPIRATION EVEN AND UNLABORED. RESPIRATORY STATUS REMAIN STABLE. ENDORSED TO ASAEL JONES FOR CONTINUITY OF CARE.
--- NOTE | 2019-07-26 20:40 | NUR ---
NEW BAG OF TPN STARTED BY ASAEL SLATER.
--- NOTE | 2019-07-26 21:40 | NUR ---
DUE NIGHT MEDICATION GIVEN VIA GT. BS CHECKED 159, SCHEDULED LANTUS GIVEN SUB-Q LEFT ARM.
[2019-07-26] MEDS: INSULIN LANTUS 100 UNITS/ML 10 ML VIAL SUBQ SCH (21:53)
--- NOTE | 2019-07-26 22:20 | NUR ---
RECEIVED BEDSIDE REPORT FROM OUTDOOR ADVENTURE INSTRUCTOR NURSE. PATIENT IS LYING IN BED, RESTING WITH EYES CLOSED. NO SOB OR DISTRESS NOTED. PATIENT IS TRACH TO VENT. IV ACCESS ON RIGHT UA PICC, PATENT, INTACT AND INFUSING WELL. TPN RUNNING AT THIS TIME. PATIENT NOTED WITH GT, PATENT AND INTACT. SHAH CATHETER IN PLACE, PATENT AND INTACT. PATIENT NOTED WITH LEFT HAND SCAB AND LEFT ARM RASH. PATIENT IS NOTED WITH 3 BAND AIDES AND DRESSING ON ABDOMEN. BED IN LOW. BED LOCKED. WILL CONTINUE TO MONITOR PATIENT.
--- NOTE | 2019-07-26 23:24 | NUR ---
ENDORSED TO FITNESS CENTRE MANAGER NURSE RHEA FOR CONTINUITY OF CARE. PATIENT IN STABLE CONDITION.
--- NOTE | 2019-07-26 23:25 | NUR ---
RECEIVED PT FROM ROBERT VYAS PT TRACH TO VENT SETTING TV 500 , RR 20,PEAK FLOW 39.7, , 02 SAT 100% NOT SOB NOTED, PT CONTRACTED PICC LINE ON RT UPPER ARM INFUSIN;G WELL TPN AT 60 ML/H AND NS TKO, ABD DRESSING DRY AND INTACT G TUBE FEEDING CLAMP SHAH CATH DRAINING WELL YELLOW URINE, ON BILATERAL SEQUENTIAL STOCKING FOAM DRESSING ON SACRUNM DRY AND INTACT, PT REPOSITIONED INITIAL ASSESSMENT DONE
[2019-07-27] VITALS: BP 143/69
[2019-07-27] MEDS: BLOOD GLUCOSE MONITORING 1 DEV DEV FS SCH ×4 (01:00→17:40)
[2019-07-27] MEDS: INSULIN LISPRO SLIDING SCALE 100 UNITS/ML VIAL SUBQ PRN ×4 (01:04→17:39)
--- NOTE | 2019-07-27 02:00 | NUR ---
PT ON TRACH TO VENT REMAIN SAME SETTING HOB 30 DEGREE, NOT SOB NOTED REPOSITIONED Q2H , TPN ON RT UPPER ASRM PICC LINE INFUSING WELL AND WELL TOLERATED, ON CONTINUOUS ;MONITORING
--- NOTE | 2019-07-27 04:00 | NUR ---
SPONGE BATH GIVEN LINEN CHANGED TRCH TO VENT REMAIN SAME SETTING NOT DISTRESS NOTED
[2019-07-27] MEDS: VANCOMYCIN 1,000 MG in DEXTROSE 5% 250 ML IV SCH (04:09)
--- NOTE | 2019-07-27 06:35 | NUR ---
BLOOD SUGAR TEST 179 COVERAGE WITH 2 UNITS HUMALOS SUBQ ON LEFT ARM FOLLOW PROTOCOL, PT WILL BE ENDORSED TODAY SHIFT NURSE FOR CONTINUE OF CARE .
[2019-07-27 06:37] LABS: HEMATOCRIT 32.1 % (36-48); HEMOGLOBIN 10.9 g/dL (12.0-16.0); MEAN CORPUSCULAR HEMOGLOBIN 30 pg (27-31); MEAN CORPUSCULAR HGB CONC 34 g/dL (33-37); MEAN CORPUSCULAR VOLUME 89.4 fL (80-94); PLATELET COUNT (AUTO) 254 K/uL (140-450); RED BLOOD CELL COUNT(AUTO) 3.59 MIL/uL (4.20-5.40); RED CELL DISTRIBUTION WIDTH 15.4 % (11.6-13.7); WHITE BLOOD COUNT (AUTO) 6.7 K/uL (4.8-10.8)
--- NOTE | 2019-07-27 07:15 | NUR ---
RECEIVED REPORT FROM NIGHT ASAEL WILKERSON. PT IN STABLE CONDITION, RESPIRATION EVEN AND UNLABORED. PT WITH TRACH TO VENT. IV INTACT AND PATENT. SAFETY MEASURES IN PLACED. BED IN LOW POSITION AND LOCKED. BED ALARM ON. CALL LIGHT WITHIN REACH. WILL CONTINUE TO MONITOR.
[2019-07-27 07:27] LABS: EOSINOPHILS % (MANUAL) 17 % (0-4); LYMPHOCYTES % (MANUAL) 22 % (20-46); MONOCYTES % (MANUAL) 4 % (5-12)
[2019-07-27 08:00] VITALS: BP 127/49
[2019-07-27 08:31] LABS: ANION GAP 14.9 (8-16); CARBON DIOXIDE 26.2 mmol/L (21-32); CHLORIDE 103 mmol/L (98-107); CREATININE 0.9 mg/dL (0.6-1.3); GLUCOSE 178 mg/dL (74-106); POTASSIUM 4.1 mmol/L (3.5-5.1); SODIUM SERUM 140 mmol/L (136-145); UREA NITROGEN, BLOOD 18 mg/dL (7-18)
[2019-07-27 08:36] LABS: MAGNESIUM 1.8 mg/dL (1.8-2.4); PHOSPHORUS 3.9 mg/dL (2.5-4.9)
[2019-07-27] MEDS: PANTOPRAZOLE 40 MG INJ VIAL IVP SCH ×2 (09:20→20:12)
[2019-07-27] MEDS: BACLOFEN 10 MG TAB GT SCH ×3 (09:21→17:19)
[2019-07-27] MEDS: LISINOPRIL 5 MG TAB GT SCH (09:21)
[2019-07-27] MEDS: LACTOBACILLUS RHAMNOSUS GG 1 EACH CAP GT SCH (09:21)
[2019-07-27] MEDS: ZINC SULF 220 MG CAP GT SCH (09:21)
[2019-07-27] MEDS: LACTULOSE 20 GM/30 ML UDC PO SCH (09:22)
[2019-07-27] MEDS: DOCUSATE 100 MG/10 ML UDC GT SCH ×2 (09:22→20:12)
[2019-07-27] MEDS: ERGOCALCIFEROL 50,000 IU SGL PO SCH (09:22)
[2019-07-27] MEDS: CARBIDOPA/LEVODOPA 25/100 MG 1 TAB GT SCH ×3 (09:23→17:19)
[2019-07-27] MEDS: ASCORBIC ACID 500 MG/5 ML ORASYR GT SCH (09:23)
[2019-07-27] MEDS: KETOCONAZOLE 2% 15 GM TUBE TP SCH ×2 (09:27→20:14)
[2019-07-27] MEDS: TRIAMCINOLONE 0.1% CRM 15 GM TUBE TP SCH ×2 (09:27→20:14)
[2019-07-27] MEDS: POLYVINYL ALCOHOL 1.4% OP 15 ML SOL OP SCH ×2 (09:27→20:13)
--- NOTE | 2019-07-27 09:30 | NUR ---
GAVE ORDERED MEDICATION AT THIS TIME. PT TOLERATED IT WELL. WILL CONTINUE TO MONITOR.
--- NOTE | 2019-07-27 11:30 | NUR ---
AM CARE PROVIDED. BED LINENS CHANGED. HOB ELEVATED. PT TOLERATED WELL. WILL CONTINUE TO MONITOR.
--- NOTE | 2019-07-27 13:30 | NUR ---
PT RESTING COMFORTABLY. NO S/S OF DISTRESS NOTED. CALLED THE KITCHEN FOR THE TUBE FEED FORMULA. WILL CONTINUE TO MONITOR.
[2019-07-27 15:50] VITALS: BP 143/73
[2019-07-27 16:00] VITALS: BP 122/67
--- NOTE | 2019-07-27 16:26 | NUR ---
ASSISTED WITH CHANGED AND REPOSITIONED AT THIS TIME. BED IN LOW POSITION AND LOCKED. BED ALARM ON. CALL LIGHT WITHIN REACH. WILL CONTINUE TO MONITOR.
--- NOTE | 2019-07-27 18:23 | NUR ---
I WAS UN-ABLE TO PERFORM 1300 VENT CHECK DUE TO RAPID RESPONSE/CODE
--- NOTE | 2019-07-27 19:15 | NUR ---
GAVE REPORT TO CRUSHER LOADER OPERATOR NURSE BRYON FOR CONTINUITY OF CARE. PATIENT IN STABLE CONDITION.
--- NOTE | 2019-07-27 19:20 | NUR ---
RECEIVED PT IN STABLE CONDITION FROM AM NURSE. PT IS AWAKE BUT APHASIC. ON TRACH TO VENT. WITH NO RESPIRATORY DISTRESS NOTED. STILL WITH TPN INFUSING ON THE RT UPPER ARM PICC LINE. TO BE DC'D AFTER THE PRESENT BAG. GT FEEDING TOLERATING WELL. ABDOMEN WITH DRESSING . TOP OF LEFT HAND WITH VERSATEL DRESSING . BOTH ARMS WITH SKIN DISCOLORATION. SACRAL REDNESS,WITH DRESSING FOR PROTECTION. SHAH CATHETER DRAINING WELL TO A CLEAR YELLOW URINE. FREQ ROUNDS NEEDED. BED ON LOW POSITION. SIDE RAILS UP X2. CALL LIGHT PLACED WITHIN REACH. ON CONTACT ISOLATION FOR MRSA NARES +. TREATMENT DONE. WILL CONTINUE TO MONITOR.
[2019-07-27] MEDS: MULTIVITAMIN-12 10 ML in DEXTROSE 50% 720 ML, AMINO ACIDS 8.5% 620 ML, FAT EMULSION 20%... IV SCH ×4 (20:00)
--- NOTE | 2019-07-27 20:30 | NUR ---
MOUTH CARE DONE. REPOSITIONED FOR COMFORT.
[2019-07-27] MEDS: INSULIN LANTUS 100 UNITS/ML 10 ML VIAL SUBQ SCH (21:00)
[2019-07-27 21:14] VITALS: BP 128/74
--- NOTE | 2019-07-27 21:29 | NUR ---
BLOOD SUGAR WAS CHECKED FOR P SUPPOSED TO GET LANTUS 30 UNITS. BLOOD SUGAR IS 102. LANTUS HOLD TONIGHT PER PARAMETER. WILL CONTINUE TO MONITOR.
--- NOTE | 2019-07-27 22:30 | NUR ---
HAD A MODERATE SOFT BM. CLEANED AND KEPT DRY. SUCTIONED NEEDED. OBTAINED SCANTY WHITISH SECRETIONS. THEN REPOSITIONED FOR COMFORT.
[2019-07-27 23:10] VITALS: BP 124/78
[2019-07-28] VITALS (8 sets, daily range): BP systolic 98–132; BP diastolic 46–88
--- NOTE | 2019-07-28 00:30 | NUR ---
SUCTIONED PT .OBTAINED ONLY SCANTY WHITISH SECRETIONS. NO DISTRESS NOTED.
[2019-07-28] MEDS: BLOOD GLUCOSE MONITORING 1 DEV DEV FS SCH ×4 (01:00→17:52)
--- NOTE | 2019-07-28 02:30 | NUR ---
MADE ROUNDS . ASLEEP. NO RESPIRATORY DISTRESS NTOED. WILL CONTINUE TO MONITOR.
--- NOTE | 2019-07-28 03:00 | NUR ---
PT HAD ANOTHER SCANTY SOFT BM. CLEANED AND KEPT DRY. REPOSITIONED FOR COMFORT. NO DISTRESS NOTED.
[2019-07-28] MEDS: VANCOMYCIN 1,000 MG in DEXTROSE 5% 250 ML IV SCH (03:28)
--- NOTE | 2019-07-28 04:00 | NUR ---
PT O2 SAT ONLY 88%-89%. BUT PT NOT ON DISTRESS. SUCTIONED BUT VERY SCANTY SECRETIONS OBTAINED. PULSE OXIMETER PROBE CHANGED TO A NEW ONE. BUT STILL O2 SAT LOW. CALLED RT TO CHECK PT. CAME AND SUCTIONED PT. INCREASED O2 SET ON THE VENT. O2 SAT NOW 100%.
[2019-07-28] MEDS: INSULIN LISPRO SLIDING SCALE 100 UNITS/ML VIAL SUBQ PRN ×2 (05:27→17:58)
--- NOTE | 2019-07-28 05:27 | NUR ---
BLOOD SUGAR THIS AM 161. INSULIN COVERAGE HUMALOG 2 UNITS SUB Q GIVEN. WITH GT FEEDING STILL INFUSING.
[2019-07-28 06:09] LABS: BASOPHILS # (AUTO) 0.4 K/uL (0.00-0.22); BASOPHILS % (AUTO) 4.5 % (0.0-2.0); EOSINOPHILS # (AUTO) 1.3 K/uL (0-0.4); EOSINOPHILS % (AUTO) 15.7 % (0.0-4.0); HEMOGLOBIN 9.9 g/dL (12.0-16.0); LYMPHOCYTES # (AUTO) 1.4 K/uL (2.5-16.5); LYMPHOCYTES % (AUTO) 17.5 % (20.5-51.1); MEAN CORPUSCULAR HEMOGLOBIN 30 pg (27-31); MEAN CORPUSCULAR HGB CONC 34 g/dL (33-37); MEAN CORPUSCULAR VOLUME 89.7 fL (80-94); MONOCYTES # (AUTO) 0.2 K/uL (0.8-1.0); MONOCYTES % (AUTO) 2.4 % (1.7-9.3); NEUTROPHILS # (AUTO) 4.9 K/uL (1.8-7.7); NEUTROPHILS % (AUTO) 59.9 % (42.2-75.2); PLATELET COUNT (AUTO) 230 K/uL (140-450); RED BLOOD CELL COUNT(AUTO) 3.24 MIL/uL (4.20-5.40); RED CELL DISTRIBUTION WIDTH 15.1 % (11.6-13.7); WHITE BLOOD COUNT (AUTO) 8.2 K/uL (4.8-10.8)
[2019-07-28 06:56] LABS: ANION GAP 15.2 (8-16); CARBON DIOXIDE 25.6 mmol/L (21-32); CHLORIDE 103 mmol/L (98-107); CREATININE 1.1 mg/dL (0.6-1.3); GLUCOSE 171 mg/dL (74-106); POTASSIUM 3.8 mmol/L (3.5-5.1); SODIUM SERUM 140 mmol/L (136-145); UREA NITROGEN, BLOOD 19 mg/dL (7-18)
--- NOTE | 2019-07-28 07:00 | NUR ---
recived pt on vent with settings a charted breath sounds present bilat diminished sxn pt with min amt off white secs trach site secure vent plugged into red outlet ambu bag at bedside will continue to monitor pt on vent
[2019-07-28 07:06] LABS: MAGNESIUM 1.8 mg/dL (1.8-2.4); PHOSPHORUS 3.6 mg/dL (2.5-4.9)
--- NOTE | 2019-07-28 07:18 | NUR ---
ENDORSED PT IN STABLE CONDITION TO AM NURSE.
--- NOTE | 2019-07-28 07:20 | NUR ---
RECEIVED REPORT FROM NIGHT NURSE. PATIENT IS IN BED WITH TRACH TO VENT, FIO2 28%, TV500, RR14, PIP 5. APHASIC, EYES CLOSED, RESPONSIVE TO TACTILE STIMULI. SKIN WARM AND DRY TO TOUCH. NO S/S OF DISTRESS NOTED. PICC LINE INTACT AND PATENT RIGHT UPPER ARM. HOB ELEVATED, GT INTACT, PATENT WITH TF VITAL AF INFUSING. SHAH CATHETER INTACT AND PATENT, DRAINING CLEAR YELLOW COLORED URINE. PLANS OF CARE DISCUSSED. BED IN LOW POSITION. SAFETY MEASURES IN PLACE.
[2019-07-28] MEDS: LACTOBACILLUS RHAMNOSUS GG 1 EACH CAP GT SCH (08:40)
[2019-07-28] MEDS: PANTOPRAZOLE 40 MG INJ VIAL IVP SCH ×2 (08:40→20:06)
[2019-07-28] MEDS: CARBIDOPA/LEVODOPA 25/100 MG 1 TAB GT SCH ×3 (08:40→17:20)
[2019-07-28] MEDS: ASCORBIC ACID 500 MG/5 ML ORASYR GT SCH (08:40)
[2019-07-28] MEDS: LACTULOSE 20 GM/30 ML UDC PO SCH (08:40)
[2019-07-28] MEDS: BACLOFEN 10 MG TAB GT SCH ×3 (08:41→17:20)
[2019-07-28] MEDS: LISINOPRIL 5 MG TAB GT SCH (08:41)
[2019-07-28] MEDS: POLYVINYL ALCOHOL 1.4% OP 15 ML SOL OP SCH ×2 (08:42→20:07)
[2019-07-28] MEDS: TRIAMCINOLONE 0.1% CRM 15 GM TUBE TP SCH ×2 (08:42→20:07)
[2019-07-28] MEDS: ZINC SULF 220 MG CAP GT SCH (08:42)
[2019-07-28] MEDS: DOCUSATE 100 MG/10 ML UDC GT SCH ×2 (08:42→20:06)
[2019-07-28] MEDS: KETOCONAZOLE 2% 15 GM TUBE TP SCH (08:43)
--- NOTE | 2019-07-28 10:30 | NUR ---
PATIENT TURNED AND REPOSITIONED FOR COMFORT. PATIENT APHASIC. TRACH TO VENT. NO S/S OF RESPIRATORY DISTRESS NOTED. AM MEDS GIVEN VIA GT. GT INTACT AND PATENT, NO RESIDUAL NOTED. PATIENT TF INFUSING @ 65ML/HR NOW. SHAH DRAINING WITH CLEAR YELLOW COLORED URINE. ABDOMINAL DRESSING INTACT AND DRY. WILL CONTINUE TO MONITOR.
--- NOTE | 2019-07-28 11:02 | NUR ---
DR. FRANK AT BEDSIDE.
--- NOTE | 2019-07-28 11:57 | NUR ---
07/28/19 RD FOLLOW UP COMPLETED PLEASE REFER TO NUTRITION ASSESSMENT UNDER CARE ACTIVITY FOR ESTIMATED NUTRITIONAL NEEDS. 1. CONTINUE VITAL 1.2 @ 65 ML/HR X 24 HR, START AT 20 ML/HR INCREASE BY 20 Q6H, VOLUME GOAL IS 1560 ML/DAY OF VITAL AF 1.2 -THIS IS PROVIDING 1560 ML OF VOLUME, 1872 CALORIES AND 117 GM OF PROTEIN. PT IS MEETING 100% OF ESTIMATED CALORIE AND PROTEIN NEEDS 2. CONTINUE FREE WATER FLUSH OF 140 ML Q4H 3. CONTINUE VITAMIN C AND ZINC SUPPLEMENTATION 4. RD TO FOLLOW-UP 2-3 DAYS, HIGH RISK OPAL BOWSER RD
--- NOTE | 2019-07-28 13:00 | NUR ---
PATIENT IN BED, ASLEEP, AROUSABLE BY TACTILE STIMULI. TRACH TO VENT. NO S/S OF RESPIRATORY DISTRESS NOTED. REPOSITIONED FOR COMFORT. WILL CONTINUE TO MONITOR.
--- NOTE | 2019-07-28 14:54 | NUR ---
PATIENT REPOSITIONED FOR COMFORT. NO S/S OF DISTRESS NOTED. TRACH TO VENT IN PLACE.
--- NOTE | 2019-07-28 17:20 | NUR ---
SHAH CATHETER D/C'D ORDERED. 200ML OUTPUT.
--- NOTE | 2019-07-28 18:39 | NUR ---
PATIENT IN STABLE CONDITION. WILL ENDORSE TO NIGHT NURSE FOR CONTINUITY OF CARE.
--- NOTE | 2019-07-28 19:30 | NUR ---
RECEIVED REPORT FROM NIGHT NURSE. PATIENT IS IN BED WITH TRACH TO VENT, FIO2 28%, TV500, RR14, PIP 5. APHASIC, EYES CLOSED, SKIN WARM AND DRY TO TOUCH. NO S/S OF DISTRESS NOTED. PICC LINE CARSON INTACT AND PATENT HOB ELEVATED, G-TUBE FEEDING WITH TF VITAL AF. BED IN LOW POSITION. SAFETY MEASURES IN PLACE.
[2019-07-28] MEDS: INSULIN LANTUS 100 UNITS/ML 10 ML VIAL SUBQ SCH (20:18)
--- NOTE | 2019-07-28 20:19 | NUR ---
BS CHECKED, 177. GIVEN COLACE, PROTONIX, ARTIFICIAL TEAR, KANALOG, AND LANTUS. PT TOLERATED WELL.
--- NOTE | 2019-07-28 22:29 | NUR ---
PT SLEEPING IN BED COMFORTABLY. NO ACUTE DISTRESS NOTED.
[2019-07-29] VITALS: BP 120/58
[2019-07-29] MEDS: INSULIN LISPRO SLIDING SCALE 100 UNITS/ML VIAL SUBQ PRN ×3 (00:18→21:56)
[2019-07-29] MEDS: BLOOD GLUCOSE MONITORING 1 DEV DEV FS SCH ×5 (00:18→21:58)
--- NOTE | 2019-07-29 00:19 | NUR ---
VS CHECKED, WITHIN PT'S BASELINE. BS CHECKED, 155, ADMINISTERED INSULIN MD ORDERED. PT TOLERATED WELL.
--- NOTE | 2019-07-29 02:37 | NUR ---
PT SLEEPING IN BED COMFORTABLY. NO ACUTE DISTRESS NOTED.
--- NOTE | 2019-07-29 04:11 | NUR ---
PT HAD BM, CHANGED PT WITH AGRICULTURAL ECONOMICS TEACHER. NO ACUTE DISTRESS NOTED.
--- NOTE | 2019-07-29 06:38 | NUR ---
BS CHECKED, 126, NO INSULIN COVERAGE NEEDED.
--- NOTE | 2019-07-29 06:55 | NUR ---
PT IN STABLE CONDITION. WILL ENDORSE PT TO DAY SHIFT NURSE FOR CONTINUOUS CARE.
--- NOTE | 2019-07-29 07:00 | NUR ---
RECIVED PT ON VENT WITH SETTINGS CHARTRED BREATH SOUNDS PRESENT BILAT DIMIN ISHED SXN PT WITH MIN TO MOD AMT OFF WHITE SECS TRACH SITE SECURE AMBU BAG AT BEDSIDE VENT PLUGGED INTO RED OUTLET WILL CONTINUE TO MONITOR PT ON VENT
--- NOTE | 2019-07-29 07:10 | NUR ---
RECEIVED REPORT FROM OFFICE MACHINE SERVICER NURSE. PT IS CURRENTLY ASLEEP AND LAYING IN BED WITH NO SIGNS OF DISTRESS NOTED. SKIN IS INTACT WITH IV ASYMPTOMATIC, PATENT, AND INFUSING PER ORDER. RESPIRATIONS ARE EVEN AND UNLABORED ON VENTILATOR, WITH VISIBLE CHEST RISE AND FALL. VITAL SIGNS ARE STABLE. SAFETY MEASURES IN PLACE, CALL LIGHT WITHIN REACH AND WILL CONTINUE TO MONITOR.
[2019-07-29 07:51] LABS: BASOPHILS # (AUTO) 0.1 K/uL (0.00-0.22); BASOPHILS % (AUTO) 0.9 % (0.0-2.0); EOSINOPHILS # (AUTO) 1.4 K/uL (0-0.4); EOSINOPHILS % (AUTO) 14.1 % (0.0-4.0); HEMATOCRIT 28.2 % (36-48); HEMOGLOBIN 9.5 g/dL (12.0-16.0); LYMPHOCYTES # (AUTO) 1.8 K/uL (2.5-16.5); LYMPHOCYTES % (AUTO) 18.4 % (20.5-51.1); MEAN CORPUSCULAR HEMOGLOBIN 30 pg (27-31); MEAN CORPUSCULAR HGB CONC 34 g/dL (33-37); MONOCYTES # (AUTO) 0.5 K/uL (0.8-1.0); MONOCYTES % (AUTO) 5.3 % (1.7-9.3); NEUTROPHILS # (AUTO) 5.9 K/uL (1.8-7.7); NEUTROPHILS % (AUTO) 61.3 % (42.2-75.2); PLATELET COUNT (AUTO) 203 K/uL (140-450); RED BLOOD CELL COUNT(AUTO) 3.14 MIL/uL (4.20-5.40); WHITE BLOOD COUNT (AUTO) 9.7 K/uL (4.8-10.8)
[2019-07-29 08:00] VITALS: BP 115/60
[2019-07-29 08:18] LABS: ANION GAP 14.3 (8-16); CARBON DIOXIDE 24.5 mmol/L (21-32); CHLORIDE 105 mmol/L (98-107); CREATININE 1.1 mg/dL (0.6-1.3); GLUCOSE 151 mg/dL (74-106); POTASSIUM 3.8 mmol/L (3.5-5.1); SODIUM SERUM 140 mmol/L (136-145); UREA NITROGEN, BLOOD 24 mg/dL (7-18)
[2019-07-29 08:24] LABS: PHOSPHORUS 2.9 mg/dL (2.5-4.9)
[2019-07-29] MEDS: LACTOBACILLUS RHAMNOSUS GG 1 EACH CAP GT SCH (08:28)
[2019-07-29] MEDS: LISINOPRIL 5 MG TAB GT SCH (08:28)
[2019-07-29] MEDS: PANTOPRAZOLE 40 MG INJ VIAL IVP SCH ×2 (08:28→21:54)
[2019-07-29] MEDS: LACTULOSE 20 GM/30 ML UDC PO SCH (08:29)
[2019-07-29] MEDS: BACLOFEN 10 MG TAB GT SCH ×3 (08:29→16:57)
[2019-07-29] MEDS: ASCORBIC ACID 500 MG/5 ML ORASYR GT SCH (08:29)
[2019-07-29] MEDS: ZINC SULF 220 MG CAP GT SCH (08:29)
[2019-07-29] MEDS: CARBIDOPA/LEVODOPA 25/100 MG 1 TAB GT SCH ×3 (08:29→16:57)
[2019-07-29] MEDS: DOCUSATE 100 MG/10 ML UDC GT SCH ×2 (08:30→22:00)
[2019-07-29] MEDS: POLYVINYL ALCOHOL 1.4% OP 15 ML SOL OP SCH ×2 (08:43→22:00)
[2019-07-29] MEDS: TRIAMCINOLONE 0.1% CRM 15 GM TUBE TP SCH ×2 (08:43→22:00)
--- NOTE | 2019-07-29 08:47 | NUR ---
ADMINISTERED MEDICATIONS PER ORDER AND TOLERATED WELL. 40ML OF RESIDUAL CAME FROM G-TUBE. COLACE WAS HELD DUE TO WATER STOOL. WILL REASSESS NEXT BOWEL MOVEMENT. VITAL SIGNS ARE WITHIN NORMAL RANGE. PT IS CURRENTLY SLEEPING WITH NO SIGNS OF DISTRESS.SAFETY MEASURES IN PLACE AND WILL CONTINUE TO MONITOR.
[2019-07-29] MEDS ORDERED: VANCOMYCIN PER PHARMACY MC PRN (08:55)
[2019-07-29] MEDS ORDERED: VANCOMYCIN 1,000 MG in DEXTROSE 5% 250 ML IV SCH (10:00)
--- NOTE | 2019-07-29 10:00 | NUR ---
ADMINISTERED ANTIBIOTICS PER ORDER AND TOLERATED WELL. SAFETY MEASURES IN PLACE AND WILL CONTINUE TO MONITOR.
--- NOTE | 2019-07-29 11:15 | NUR ---
PT WAS CHANGED AND HAD SMALL BM. BM WAS WATERY AND BROWN. PT IS IN NO SIGNS OF DISTRESS AT THIS TIME.
--- NOTE | 2019-07-29 12:36 | NUR ---
ADMINISTERED MEDICATIONS PER ORDER AND TOLERATED WELL. BLOOD GLUCOSE WAS 175 THEREFORE 2 UNITS OF HUMALOG WERE ADMINISTERED PER PARAMETERS. NO SIGNS OF DISTRESS NOTED. SAFETY MEASURES IN PLACE AND WILL CONTINUE TO MONITOR.
[2019-07-29 14:00] VITALS: BP 113/48
--- NOTE | 2019-07-29 14:49 | NUR ---
WOUND ASSESSMENT HAS BEEN COMPLETED. PT SHOWS NO SIGNS OF DISTRESS AT THIS TIME. RESPIRATIONS ARE EVEN AND UNLABORED WITH O2 SATURATIONS AT 100%. SAFETY MEASURES IN PLACE AND WILL CONTINUE TO MONITOR.
--- NOTE | 2019-07-29 17:15 | NUR ---
ADMINISTERED MEDICATIONS PER ORDER AND TOLERATED WELL. DR. LORRIE JIMENEZ ANTIBIOTIC THERAPY. BLOOD SUGAR WAS 85 AND NO INSULIN COVERAGE WAS NEEDED. VITAL SIGNS ARE WITHIN NORMAL RANGE. SAFETY MEASURES IN PLACE AND WILL CONTINUE TO MONITOR.
--- NOTE | 2019-07-29 17:31 | NUR ---
CONTINUED TO MONITOR PT ON VENT WITH SETTINGS CHARTED BREATH SOUNDS PRESENT BILAT SXN PT WITH MIN TO MOD AMT OFF WHITE SECT TRACH SITE SECURE VENT PLUGGED INTO RED OUTLET
--- NOTE | 2019-07-29 18:33 | NUR ---
PT IS CURRENTLY LAYING IN BED WITH NO SIGNS OF DISTRESS NOTED. VITAL SIGNS ARE WITHIN NORMAL RANGE. O2 SATURATIONS ARE 100% ON VENTILATOR. PT IS IN STABLE CONDITION AND WILL ENDORSE TO FINANCIAL PROJECT MANAGER NURSE FOR CONTINUITY OF CARE.
--- NOTE | 2019-07-29 19:30 | NUR ---
RECEIVED BEDSIDE REPORT FROM AM SHIFT RN FOR PT'S CONTINUITY OF CARE. PT IS ON TRACH TO VENT, SATURATING AT 100%, HR OF 68, NO SIGNS OF DISTRESS OR DISCOMFORT. PT IS INCONTINENT, HAS RIGHT UPPER ARM PICC LINE, HAS 4 SURGICAL INCISION SITES WITH DRESSINGS DRY AND INTACT, HAS LEFT UPPER GTUBE FEEDING WITH VITAL AF 1.2 RUNNING AT 65 ML/HR. SAFETY MEASURES IN PLACE, ISOLATION PRECAUTION IN PLACE, AND CALL LIGHT IS WITHIN REACH. WILL CONTINUE TO MONITOR PT.
--- NOTE | 2019-07-29 19:51 | NUR ---
RECEIVED PT ON DOCUMENTED SETTINGS. VENT PLUGGED INTO RED OUTLET. BMW AT BEDSIDE. TRACH SECURED AND INTACT. PT IS IN NO DISTRESS. WILL CONT TO MONITOR
[2019-07-29] MEDS: INSULIN LANTUS 100 UNITS/ML 10 ML VIAL SUBQ SCH (21:56)
--- NOTE | 2019-07-29 22:00 | NUR ---
BLOOD GLUCOSE CHECKED AND CHARTED. ADMINISTERED SCHEDULED MEDICATIONS ORDERED. PT TOLERATED THEM WELL. HELD COLACE MEDICATION, PT HAD SMALL LOOSE BM WELL 2 SMALL LOOSE BM DURING AM SHIFT. PT TOLERATING TUBE FEEDING WELL, RESIDUAL ASPIRATED 10 ML. TRACH PATENT, DRY, AND INTACT. PT'S LINENS CHANGED, SACRAL DRESSING CHANGED, PT MADE COMFORTABLE, WILL CONTINUE TO MONITOR PT.
[2019-07-30] VITALS: BP 104/56
--- NOTE | 2019-07-30 | NUR ---
PT VENT ALARMING, CHANGED AND REPOSITIONED PULSE OX, PT SATURATING BACK AT 100%. RT AWARE. REPOSITIONED PT, TENSED UP A BIT, ENCOURAGED PT TO RELAX, PT COMPLIED. PT MADE COMFORTABLE, WILL CONTINUE TO MONITOR PT.
--- NOTE | 2019-07-30 02:15 | NUR ---
PT ASLEEP WITH NO SIGNS OF DISTRESS. WILL CONTINUE TO MONITOR PT.
--- NOTE | 2019-07-30 04:15 | NUR ---
SUCTIONED PT, PT TOLERATED IT WELL. FLUSHED PICC LINE, PATENT AND INTACT. ORAL CARE PERFORMED, PT HESITANT AND CLOSING MOUTH SHUT, ABLE TO SWAB SLIGHTLY, AND PUT LIP MOISTURIZER. WILL CONTINUE TO MONITOR PT.
[2019-07-30] MEDS: BLOOD GLUCOSE MONITORING 1 DEV DEV FS SCH ×4 (06:15→21:23)
--- NOTE | 2019-07-30 06:15 | NUR ---
BLOOD GLUCOSE CHECKED AND CHARTED. ADMINISTERED INSULIN SUBQ PER SLIDING SCALE PROTOCOL. ADMINISTERED NEW BOTTLE OF GTUBE FEEDING. SPECIMEN BLOOD DRAW COLLECTED. PT LYING DOWN COMFORTABLY WITH NO SIGNS OF DISTRESS. TRACH PIECE PATENT, DRY, AND INTACT. SAFETY MEASURES IN PLACE. WILL ENDORSE TO AM SHIFT RN FOR PT'S CONTINUITY OF CARE.
[2019-07-30] MEDS: INSULIN LISPRO SLIDING SCALE 100 UNITS/ML VIAL SUBQ PRN ×2 (06:17→17:02)
--- NOTE | 2019-07-30 07:10 | NUR ---
RECEIVED REPORT FROM RADIOLOGY EQUIPMENT SERVICER NURSE. PT IS APHASIC. FLACC 0, NO SOB, RESPIRATIONS ARE EVEN AND UNLABORED, AFEBRILE. TRACH TO VENT. WITH CARSON PICC LINE. WITH JTUBE FEEDING VITAL 1.2 65CC/HR TOLERATING WELL. PLAN OF CARE REVIEWED. SAFETY PRECAUTIONS IN PLACE. CALL LIGHT WITHIN REACH. WILL CONTINUE TO MONITOR.
[2019-07-30 07:21] LABS: BASOPHILS % (AUTO) 0.6 % (0.0-2.0); EOSINOPHILS # (AUTO) 1.6 K/uL (0-0.4); EOSINOPHILS % (AUTO) 19.2 % (0.0-4.0); HEMATOCRIT 27.7 % (36-48); HEMOGLOBIN 9.3 g/dL (12.0-16.0); LYMPHOCYTES # (AUTO) 1.8 K/uL (2.5-16.5); LYMPHOCYTES % (AUTO) 21.2 % (20.5-51.1); MEAN CORPUSCULAR HEMOGLOBIN 30 pg (27-31); MEAN CORPUSCULAR HGB CONC 34 g/dL (33-37); MEAN CORPUSCULAR VOLUME 90.7 fL (80-94); MONOCYTES # (AUTO) 0.5 K/uL (0.8-1.0); MONOCYTES % (AUTO) 5.4 % (1.7-9.3); NEUTROPHILS # (AUTO) 4.5 K/uL (1.8-7.7); NEUTROPHILS % (AUTO) 53.6 % (42.2-75.2); PHOSPHORUS 2.8 mg/dL (2.5-4.9); PLATELET COUNT (AUTO) 185 K/uL (140-450); RED BLOOD CELL COUNT(AUTO) 3.05 MIL/uL (4.20-5.40); RED CELL DISTRIBUTION WIDTH 15.1 % (11.6-13.7); WHITE BLOOD COUNT (AUTO) 8.5 K/uL (4.8-10.8)
[2019-07-30 07:32] LABS: ANION GAP 16.8 (8-16); CARBON DIOXIDE 23.7 mmol/L (21-32); CHLORIDE 106 mmol/L (98-107); CREATININE 1.1 mg/dL (0.6-1.3); GLUCOSE 174 mg/dL (74-106); POTASSIUM 3.5 mmol/L (3.5-5.1); SODIUM SERUM 143 mmol/L (136-145); UREA NITROGEN, BLOOD 29 mg/dL (7-18)
--- NOTE | 2019-07-30 07:54 | NUR ---
RECEIVED ON A ANITRA [employer] TRILOGY 100 VENTILATOR PLUGGED INTO RED OUTLET TOLERATING WELL WITHOUT ADVERSE REACTIONS NOTED TO A PORTEX DCT #8 AIRWAY SECURED WITH A BHUPINDER TRACH TIE CUFF PRESSURE CHECK NOTED AMBU BAG AT BEDSIDE NO RESPIRATORY DISTRESS NOTED GOOD CHEST RISE DEEP TRACHEAL SUCTION FOR MODERATE THICK PALE YELLOW TO CLEAR SECRETIONS AIRWAY PATENT
[2019-07-30 08:00] VITALS: BP 114/49
[2019-07-30] MEDS: CARBIDOPA/LEVODOPA 25/100 MG 1 TAB GT SCH ×3 (08:00→16:31)
--- NOTE | 2019-07-30 09:15 | NUR ---
JTUBE INTACT AND PATENT. WITH 30CC RESIDUAL. DUE MORNING MEDS GIVEN VIA JTUBE. TOLERATED WELL
[2019-07-30] MEDS: DOCUSATE 100 MG/10 ML UDC GT SCH ×2 (09:52→21:13)
[2019-07-30] MEDS: PANTOPRAZOLE 40 MG INJ VIAL IVP SCH ×2 (09:53→21:13)
[2019-07-30] MEDS: LACTOBACILLUS RHAMNOSUS GG 1 EACH CAP GT SCH (09:53)
[2019-07-30] MEDS: LISINOPRIL 5 MG TAB GT SCH (09:53)
[2019-07-30] MEDS: ASCORBIC ACID 500 MG/5 ML ORASYR GT SCH (09:53)
[2019-07-30] MEDS: POLYVINYL ALCOHOL 1.4% OP 15 ML SOL OP SCH ×2 (09:53→21:00)
[2019-07-30] MEDS: BACLOFEN 10 MG TAB GT SCH ×3 (09:53→16:31)
[2019-07-30] MEDS: ZINC SULF 220 MG CAP GT SCH (09:53)
[2019-07-30] MEDS: LACTULOSE 20 GM/30 ML UDC PO SCH (09:54)
[2019-07-30] MEDS: TRIAMCINOLONE 0.1% CRM 15 GM TUBE TP SCH (09:54)
--- NOTE | 2019-07-30 10:05 | NUR ---
RESTING COMFORTABLY WITHOUT EVIDENCE OF PULMONARY DISTRESS NOTED GOOD CHEST RISE AIRWAY PATENT
--- NOTE | 2019-07-30 10:50 | NUR ---
PT ASLEEP IN BED. NO SOB, NO APPARENT DISTRESS
--- NOTE | 2019-07-30 11:41 | NUR ---
NO DISTRESS NOTED GOOD CHEST RISE AIRWAY PATENT
--- NOTE | 2019-07-30 11:55 | NUR ---
BLOOD SUGAR 155. COVERAGE GIVEN
--- NOTE | 2019-07-30 13:45 | NUR ---
PT IN BED. FLACC 0, RESPIRATIONS ARE EVEN AND UNLABORED
--- NOTE | 2019-07-30 13:58 | NUR ---
RESTING COMFORTABLY NO RESPIRATORY DISTRESS NOTED GOOD CHEST RISE AIRWAY PATENT
[2019-07-30 16:00] VITALS: BP 131/51
--- NOTE | 2019-07-30 16:40 | NUR ---
BLOOD SUGAR 171. COVERAGE GIVEN.
--- NOTE | 2019-07-30 17:29 | NUR ---
STABLE NO SOB NOTED GOOD CHEST RISE DEEP TRACHEAL SUCTION FOR SMALL SEMI THICK YELLOW SECRETIONS AIRWAY PATENT
--- NOTE | 2019-07-30 19:00 | NUR ---
ENDORSED TO DISCHARGING MACHINE OPERATOR NURSE FOR CONTINUITY OF CARE. IN STABLE CONDITION
--- NOTE | 2019-07-30 19:20 | NUR ---
RECEIVED REPORT FROM REJI RN DAYSHIFT NURSE AT BEDSIDE FOR CONTINUITY OF CARE, PT IN STABLE CONDITION.
--- NOTE | 2019-07-30 20:00 | NUR ---
PT IN BED EYES CLOSED RESPIRATIONS EVEN AND UNLABORED. PT ON ALL CURRENT VENT SETTINGS. PT HOB UP 35%. G TUBE INTACT AND RUNNING VITAL AF 1.2 AT 65MLS/HR. 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 PT HAS RIGHT UPPER PICC LINE DOUBLE LUMEN INTACT AND ASYMPTOMATIC. PT WAS WAS TURNED, CHANGED AND REPOSITIONED IN BED. ALL CONTACT, ASPIRATION AND FALLS PROTOCOL IN PLACE.
--- NOTE | 2019-07-30 21:00 | NUR ---
PT FINGERSTICK IS 167, SPOKE WITH RESIDENT MD JANE CONCERNING PT HAS 30 UNITS OF LANTUS DUE AT THIS TIME, SHE SAID TO SKIP COVERAGE AND ONLY GIVEN 15MLS OF LANTUS COVERAGE. PT ALSO GIVEN DUE MEDS OF COLACE, VIA GT AND PROTONIX IVP. PT DECLINED TO OPEN HER EYES FOR THE ARTIFICIAL TEARS. EDUCATION REGARDING ORDERED MEDICATION AND ITS PURPOSES PROVIDED AT BEDSIDE , PT UNABLE TO COMPREHEND. PT HAS NO S/S OF PAIN OR DISTRESS NOTED, ALL ORDERED PRECAUTIONS IN PLACE.
[2019-07-30] MEDS: INSULIN LANTUS 100 UNITS/ML 10 ML VIAL SUBQ SCH (21:08)
--- NOTE | 2019-07-30 21:45 | NUR ---
PT WAS TURNED, CLEANED AND REPOSITIONED IN BED . ALL CONTACT, ASPIRATION AND FALLS PRECAUTIONS IN PLACE.
[2019-07-31] VITALS: BP 90/46
--- NOTE | 2019-07-31 | NUR ---
PT HOB UP 35% SHE IS AOX1 WITH NO S/S OF PAIN OR DISTRESS NOTED,. RESPIRATIONS EVEN AND UNLABORED WITH ALL CURRENT VENT SETTINGS. SHE WAS TURNED, CLEANED AND REPOSITIONED IN BED. G TUBE FEEDING VITAL AF RUNNING ORDERED AT 50MLS/HR. ALL ASPIRATION, CONTACT AND FALLS PRECAUTIONS IN PLACE.
--- NOTE | 2019-07-31 02:00 | NUR ---
WOUND CARE DONE, WEEKLY PICTURES OF WOUNDS TAKEN. SURGICAL WOUNDS INTACT WITH KIMBERLY WHICH WERE INTACT WITH NO S/S OF INFECTION. ALL ASPIRATION, CONTACT AND FALLS PRECAUTIONS IN PLACE.
--- NOTE | 2019-07-31 04:00 | NUR ---
TUBE FEEDING COMPLETED, NEW BOTTLE HUNG AND IS RUNNING ORDERED. ALL CONTACT, ASPIRATION AND FALLS PROTOCOL IN PLACE.
[2019-07-31] MEDS: TRIAMCINOLONE 0.1% CRM 15 GM TUBE TP SCH ×2 (05:15→09:50)
--- NOTE | 2019-07-31 06:00 | NUR ---
PT FINGERSTICK IS 122 NO HUMALOG COVERAGE NEEDED. PICC LINE OF UPPER R ARM INTACT WELL G TUBE FEEDING WELL TOLERATED WITH NO RESIDUAL. HOB UP 35 AND PT ON ALL FALLS AND CONTACT PRECAUTIONS IN PLACE. PT IN STABLE CONDITION.
[2019-07-31] MEDS: BLOOD GLUCOSE MONITORING 1 DEV DEV FS SCH ×3 (06:39→17:24)
--- NOTE | 2019-07-31 07:05 | NUR ---
RECEIVED REPORT FROM NIGHT NURSE FOR CONTINUITY OF CARE, PT IS STABLE, PT IS APHASIC, PT IS TRACHED TO VENT, PT HAS RIGHT UA PICC LINE SALINE LOCK, PT ON G-TUBE FEEDING ON VITAL 1.2 65ML/H WITH WATER FLUSH OF 140 ML/Q4H, PT HAS SURGICAL ABD WOUND COVERED WITH BANDAGE THAT IS DRY AND INTACT, PT HAS LEFT ELBOW PROTECTORS ON, PT HAS SCD ON, SAFETY MEASURES IN PLACE, BED IN POSITION, ALL NEEDS MET AT THIS TIME, CALL LIGHT WITHIN REACH.
[2019-07-31 07:46] VITALS: BP 111/52
--- NOTE | 2019-07-31 07:46 | NUR ---
RECEIVED ON A [employer]RA [employer] TRILOGY 100 VENTILATOR PLUGGED INTO RED OUTLET WITH 2 LPM OXYGEN BLEED-IN TOLERATING WELL WITHOUT INCIDENT TO A PORTEX DCT #8 AIRWAY SECURED WITH A BHUPINDER TRACH CUFF PRESSURE CHECKED NOTED AMBU BAG AT BEDSIDE LOC QUIET NO EVIDENCE OF PULMONARY DISTRESS NOTED GOD CHEST RISE BREATH SOUNDS DIFFUSED RHONCHI BILATERAL DEEP TRACHEAL SUCTION FOR MODERATE THICK YELLOW SECRETIONS AIRWAY PATENT
[2019-07-31 08:00] VITALS: BP 113/48
[2019-07-31] MEDS: CARBIDOPA/LEVODOPA 25/100 MG 1 TAB GT SCH ×3 (09:47→17:46)
[2019-07-31] MEDS: DOCUSATE 100 MG/10 ML UDC GT SCH (09:47)
[2019-07-31] MEDS: LACTOBACILLUS RHAMNOSUS GG 1 EACH CAP GT SCH (09:47)
[2019-07-31] MEDS: BACLOFEN 10 MG TAB GT SCH ×3 (09:48→17:46)
[2019-07-31] MEDS: ASCORBIC ACID 500 MG/5 ML ORASYR GT SCH (09:49)
[2019-07-31] MEDS: LISINOPRIL 5 MG TAB GT SCH (09:49)
[2019-07-31] MEDS: ZINC SULF 220 MG CAP GT SCH (09:50)
[2019-07-31] MEDS: PANTOPRAZOLE 40 MG INJ VIAL IVP SCH (09:50)
--- NOTE | 2019-07-31 09:50 | NUR ---
ADMINISTERED SCHEDULED MEDICATION, EDUCATION GIVEN, PT TOLERATED MEDICATION WELL THROUGH G-TUBE, PT IS STABLE, CALL LIGHT WITHIN REACH.
[2019-07-31] MEDS: LACTULOSE 20 GM/30 ML UDC PO SCH (09:51)
[2019-07-31] MEDS: POLYVINYL ALCOHOL 1.4% OP 15 ML SOL OP SCH (09:52)
--- NOTE | 2019-07-31 10:29 | NUR ---
NO DISTRESS NOTED GOOD CHEST RISE RN AND NUCLEAR WASTE MANAGEMENT ENGINEER AT BEDSIDE FOR PHYSICAL HYGIENE AND REPOSITION
--- NOTE | 2019-07-31 10:30 | NUR ---
NOTIFIED DR GAXIOLA PT'S ABD DISTENTED AND REQUESTED BLADDER SCAN.
[2019-07-31] MEDS ORDERED: METO5SOL24 IVP (11:15)
--- NOTE | 2019-07-31 12:09 | NUR ---
RESTING WELL NO ACUTE RESPIRATORY DISTRESS NOTED GOOD CHEST RISE DEEP TRACHEAL SUCTION FOR MODERATE THICK PALE YELLOW SECRETIONS AIRWAY PATENT
--- NOTE | 2019-07-31 12:34 | NUR ---
ADMINISTERED SCHEDULED MEDICATION, MEDICATION EDUCATION GIVEN, PT TOLERATED MEDICATION WELL VIA G-TUBE GRAVITY FLOW, PT IS STABLE, CALL LIGHT WITHIN REACH.
--- NOTE | 2019-07-31 13:00 | NUR ---
PT STABLE IN BED, NO SIGNS OF DISTRESS NOTED, CALL LIGHT WITHIN REACH.
[2019-07-31] MEDS ORDERED: SODIUM PHOSPHATE 118 ML ENEM RC SCH (13:30)
--- NOTE | 2019-07-31 14:46 | NUR ---
CALLED [facility], AND GAVE REPORT TO JOHN REGARDING THE PT DISCHARGE TO [facility] AT 1800. CALLED PT'S DAUGHTER SATISH AND INFORMED HER PT WILL BE DISCHARGED TO [facility], UNDER THE CARE OF DR WOO
[2019-07-31 16:00] VITALS: BP 130/54
--- NOTE | 2019-07-31 17:46 | NUR ---
ADMINISTERED SCHEDULED MEDICATION, MEDICATION EDUCATION GIVEN, PT TOLERATED MEDICATION WELL VIA G-TUBE, PT IS STABLE, CALL LIGHT WITHIN REACH.
--- NOTE | 2019-07-31 17:54 | NUR ---
RESTING WELL NO EVIDENCE OF ACUTE RESPIRATORY DISTRESS NOTED AT THIS TIME DEEP TRACHEAL SUCTION FOR SMALL THICK PALE YELLOW SECRETIONS AIRWAY PATENT
--- NOTE | 2019-07-31 19:45 | NUR ---
PT DISCHARGED TO [facility] VIA [facility], GAVE DISCHARGE INSTRUCTIONS TO [facility] STAFF, FLUSHED G-TUBE, PT STABLE, PT DISCHARGED.
== END 2019-07-31 19:45 | DRG 356 ==
LOC: EEVIPCON 14:32 → MED 14:32 → MIC 16:45 → MTU 07-21 08:45
PROVIDERS: ADMIT General Practice; ATTEND General Practice
PROC: 5A1955Z Respiratory Ventilation, Greater than 96 Consecutive Hours (ICD-10-PCS; principal; 2019-07-19)
PROC: 05HY33Z Insertion of Infusion Device into Upper Vein, Percutaneous Approach (ICD-10-PCS; 2019-07-20)
PROC: B54NZZA Ultrasonography of Left Upper Extremity Veins, Guidance (ICD-10-PCS; 2019-07-20)
PROC: 30233N1 Transfusion of Nonautologous Red Blood Cells into Peripheral Vein, Percutaneous Approach (ICD-10-PCS; 2019-07-22)
PROC: 02HV33Z Insertion of Infusion Device into Superior Vena Cava, Percutaneous Approach (ICD-10-PCS; 2019-07-23)
PROC: B548ZZA Ultrasonography of Superior Vena Cava, Guidance (ICD-10-PCS; 2019-07-23)
PROC: 0WBF4ZZ Excision of Abdominal Wall, Percutaneous Endoscopic Approach (ICD-10-PCS; 2019-07-26)
DX: K31.6 Fistula of stomach and duodenum (principal); J69.0 Pneumonitis due to inhalation of food and vomit; J96.20 Acute and chronic respiratory failure, unspecified whether with hypoxia or hypercapnia; J15.6 Pneumonia due to other Gram-negative bacteria; N39.0 Urinary tract infection, site not specified; E44.0 Moderate protein-calorie malnutrition; J98.11 Atelectasis; L03.311 Cellulitis of abdominal wall; Z99.11 Dependence on respirator [ventilator] status; D68.59 Other primary thrombophilia; E72.20 Disorder of urea cycle metabolism, unspecified; J96.10 Chronic respiratory failure, unspecified whether with hypoxia or hypercapnia; L98.499 Non-pressure chronic ulcer of skin of other sites with unspecified severity; E87.6 Hypokalemia; D63.8 Anemia in other chronic diseases classified elsewhere; I10 Essential (primary) hypertension; E11.622 Type 2 diabetes mellitus with other skin ulcer; Z66 Do not resuscitate; G20 Parkinson's disease; F02.80 Dementia in other diseases classified elsewhere, unspecified severity, without behavioral disturbance, psychotic disturbance, mood disturbance, and anxiety; E83.42 Hypomagnesemia; D64.9 Anemia, unspecified; Y83.3 Surgical operation with formation of external stoma as the cause of abnormal reaction of the patient, or of later complication, without mention of misadventure at the time of the procedure; J40 Bronchitis, not specified as acute or chronic; Z68.25 Body mass index [BMI] 25.0-25.9, adult; Z86.73 Personal history of transient ischemic attack (TIA), and cerebral infarction without residual deficits; Z22.322 Carrier or suspected carrier of Methicillin resistant Staphylococcus aureus; Z79.899 Other long term (current) drug therapy; Z82.49 Family history of ischemic heart disease and other diseases of the circulatory system; Z03.818 Encounter for observation for suspected exposure to other biological agents ruled out; Z74.01 Bed confinement status; Z93.1 Gastrostomy status; Z93.0 Tracheostomy status
CPT/HCPCS: 36415; 36600; 71045; 76700; 80048; 80053; 80202; 81001; 82140; 82150; 82272; 82550; 82607; 82728; 82746; 82803; 82948; 83036; 83540; 83605; 83615; 83690; 83735; 83880; 84100; 84439; 84443; 84484; 85025; 85045; 85379; 85384; 85610; 85651; 85730; 86140; 86886; 86900; 86901; 86920; 87040; 87070; 87075; 87081; 87086; 87186; 87205; 88304; 88312; 88313; 89220; 93005; 93971; 94002; 94003; 96361; 96365; 99285; A4649; A9153; C1751; C9113; J0456; J0696; J1644; J1815; J2001; J2543; J3010; J3370; J3475; J3480; J3490; J3535; J7030; J7042; J7060; P9016; Q0092; U0003-CS

== ENCOUNTER 2019-12-22 14:23 | Emergency (ER) | payer OTHER, SELFPAY ==
[~2019-12-22] VITALS: Ht 157.5 cm; Wt 57.7 kg
[~2019-12-22 14:23] MED LIST changes: +BACL10TA4 PO; -BISA-213 RC; +CARB1TER GT; -CARB1TER4 GT; +FAMO-90 GT; -HYD2.5O TP; -INSU-1343 SQ; +METO-485 GT; +MULT-1868 GT; +OMEP20EC11 GT; -PANT40PD7 IVP; +ROC1PM IV; -ZGUARD TP; +ZINC220C28 GT
[2019-12-22 14:35] VITALS: BP 146/54
--- NOTE | 2019-12-22 14:42 | NUR ---
biba from [facility] c/o hemoglobin of 7.1, requesting transfusion ,Pt gcs 8 as base line , afibrile , bed bound , pale palpebral conjunctiva , anicteric sclera , sce , flat soft abdomen with g tube in place ,clean and intact dressing. pt trach to vent
--- NOTE | 2019-12-22 14:45 | NUR ---
RECEIVED FROM EMT BEING BAGGED VIA AMBU BAG PLACED PT ON VENT WITH SETINGS CHARTED BREATH SOUNDS PRESENT BILAT COARSE SXN PT WITH MIN AMT WHITE SECS TRACH SITE SECURE PORTEX 8 VENT PLUGGED INTO RED OUTLET AMBU BAG AT BEDSIDE WILL CONTINUE TO MONITOR PT ON VENT
[2019-12-22] MEDS ORDERED: METO-485 GT (14:51)
[2019-12-22 14:58] VITALS: BP 146/54
--- NOTE | 2019-12-22 15:10 | NUR ---
[facility]S AT BEDSIDE.
[2019-12-22 15:33] LABS: BASOPHILS # (AUTO) 0.1 K/uL (0.00-0.22); BASOPHILS % (AUTO) 1.1 % (0.0-2.0); EOSINOPHILS # (AUTO) 0.8 K/uL (0-0.4); EOSINOPHILS % (AUTO) 10.2 % (0.0-4.0); HEMATOCRIT 23.6 % (36-48); HEMOGLOBIN 8.1 g/dL (12.0-16.0); LYMPHOCYTES # (AUTO) 1.8 K/uL (2.5-16.5); LYMPHOCYTES % (AUTO) 24.3 % (20.5-51.1); MEAN CORPUSCULAR HEMOGLOBIN 31 pg (27-31); MEAN CORPUSCULAR HGB CONC 34 g/dL (33-37); MEAN CORPUSCULAR VOLUME 91.8 fL (80-94); MONOCYTES # (AUTO) 0.5 K/uL (0.8-1.0); NEUTROPHILS # (AUTO) 4.4 K/uL (1.8-7.7); NEUTROPHILS % (AUTO) 58.4 % (42.2-75.2); PLATELET COUNT (AUTO) 321 K/uL (140-450); RED BLOOD CELL COUNT(AUTO) 2.57 MIL/uL (4.20-5.40); RED CELL DISTRIBUTION WIDTH 17.2 % (11.6-13.7); WHITE BLOOD COUNT (AUTO) 7.6 K/uL (4.8-10.8)
[2019-12-22 15:47] LABS: ALBUMIN 2.9 g/dL (3.4-5.0); ANION GAP 11.5 (8-16); ASPARTATE AMINOTRANSFERASE 22 U/L (15-37); CARBON DIOXIDE 26.7 mmol/L (21-32); CHLORIDE 103 mmol/L (98-107); CREATININE 0.9 mg/dL (0.6-1.3); GLUCOSE 136 mg/dL (74-106); POTASSIUM 4.2 mmol/L (3.5-5.1); SODIUM SERUM 137 mmol/L (136-145); TOTAL BILIRUBIN 0.2 mg/dL (0.0-1.0); UREA NITROGEN, BLOOD 27 mg/dL (7-18)
--- NOTE | 2019-12-22 16:55 | NUR ---
spoke to ravi lyon regarding pt transfer to [facility] , gave report .waiting pt transportation in 45 minutes eta.
[2019-12-22 16:57] VITALS: BP 150/68
--- NOTE | 2019-12-22 17:23 | NUR ---
ETA OF TRANSPORT PER KORI IS 1830.,
--- NOTE | 2019-12-22 18:06 | NUR ---
PT COMFORTABLE IN BED SIDE RAILS UP X2 AND LOCK AT LOWEST POSITION , UNLABORED BREATHING , CONNECTED TO VENT.
--- NOTE | 2019-12-22 18:14 | NUR ---
[facility] AND RT AT BEDSIDE .
[2019-12-22 18:22] VITALS: BP 110/50
--- NOTE | 2019-12-22 18:24 | NUR ---
Patient discharged with v/s stable. Written and verbal after care instructions given and explained. Patient verbalized understanding. [facility]ulance [facility] with [facility]. All questions addressed prior to discharge. Advised to follow up with PMD.Gave report to ravi lyon.
[2020-01-11] MEDS ORDERED: NUTR887L9 GT (13:00)
[2020-01-11] MEDS ORDERED: ASCO500T95 GT (13:00)
[2020-01-11] MEDS ORDERED: BACL10TA4 GT (13:00)
[2020-01-11] MEDS ORDERED: LANTUS SUBQ (13:00)
[2020-01-11] MEDS ORDERED: PROP15DR OP (13:00)
== END 2019-12-22 18:24 ==
LOC: MED 14:23
DX: D64.9 Anemia, unspecified (principal); G20 Parkinson's disease; J96.11 Chronic respiratory failure with hypoxia; G81.10 Spastic hemiplegia affecting unspecified side; E11.9 Type 2 diabetes mellitus without complications; F03.90 Unspecified dementia, unspecified severity, without behavioral disturbance, psychotic disturbance, mood disturbance, and anxiety; I63.9 Cerebral infarction, unspecified; R56.9 Unspecified convulsions; Z79.899 Other long term (current) drug therapy; Z98.890 Other specified postprocedural states
CPT/HCPCS: 36415; 80053; 85025; 86886; 86900; 86901; 99283; 99285